=== PATIENT | male | born 1945 | race Caucasian/White ===

== ENCOUNTER 2016-06-11 13:51 | Inpatient (IN) ==
--- NOTE | 2016-06-11 14:16 | XRay Report ---
HISTORY: Reason for Exam:shortness of breath FINDINGS: Patient is large which causes scatter artifact. A small infiltrate may be developing medially in the right lung base. There is minor blunting of left costophrenic sulcus. The heart is mildly enlarged but magnified by portable technique. The pulmonary vessels, best seen in the upper lobes are normal in caliber. IMPRESSION: Possible small right lower lobe infiltrate Stable cardiomegaly Interpreted and Authenticated by: Michael Barraza 06/11/16
[2016-06-11 14:31] LABS: Basophils # (Auto) 0 K/mcL (0.0-0.3); Basophils % (Auto) 0.6 % (0.0-2.0); Eosinophils # (Auto) 0.1 K/mcL (0.0-0.7); Eosinophils % (Auto) 1.4 % (0.0-7.0); Granulocytes % (Auto) 76.8 % (38.0-78.0); Lymphocytes # (Auto) 0.6 K/mcL (1.5-4.8); Lymphocytes % (Auto) 10.3 % (15.5-49.0); Mean Cell Volume 91.3 fL (80.0-100.0); Mean Corpuscular HGB Conc 32.3 g/dL (31.0-36.0); Mean Corpuscular Hemoglobin 29.5 pg (26.0-34.0); Monocytes # (Auto) 0.6 K/mcL (0.1-0.9); Monocytes % (Auto) 10.9 % (1.0-9.0); Platelet Count 149 K/mcL (140-440); Red Cell Distribution Width 18.1 % (11.5-14.5)
[2016-06-11] MEDS ORDERED: BUMETANIDE 0.25 MG/ML VIAL IV ONE ×2 (14:32→15:18)
[2016-06-11 14:57] LABS: ALT/SGPT 20 U/l (0-40); Albumin 3.6 gm/dL (3.2-5.2); Albumin/Globulin Ratio 0.9 (1.0-2.3); Alkaline Phosphatase 185 U/L (39-117); Blood Urea Nitrogen 43 mg/dl (8-23)
[2016-06-11] MEDS ORDERED: oxyCODONE HCL 5 MG TABLET PO ONE ×2 (15:19→15:43)
--- NOTE | 2016-06-11 15:55 | Emergency Department Note ---
SOB HPI - General Chief Complaint: Shortness of Breath/Dyspnea Stated Complaint: Swelling from chest down, oozing ble Time Seen by Provider: 06/11/16 14:00 Source: patient Mode of arrival: EMS Limitations: no limitations - History of Present Illness 70-year-old kidney failure patient of Dr. David comes in for worsening lymphedema today up to the lower part of his chest. In particular is concerned about his swollen genitals. No fever but he does have some chills. Some nausea and vomiting. Mild hypoxia not on home oxygen. This has been gradually worsening over the last couple days. He is on a significant dose of Bumex twice a day which he is currently taking- he still makes urine with a baseline creatinine of about 3 - Related Data Home Medications Medication Instructions Recorded Confirmed amiodarone 200 mg tablet 200 mg PO QDAY tab 10/04/14 06/11/16 insulin glargine 100 unit/mL 20 unit SUB-Q HS ml 10/04/14 06/11/16 subcutaneous solution insulin lispro 100 unit/mL See Dose Instructions SUB-Q 10/04/14 06/11/16 subcutaneous solution .COMPLEX ml oxycodone 5 mg tablet 5 mg PO Q4HP PRN tab 10/04/14 06/11/16 tamsulosin 0.4 mg capsule 0.4 mg PO HS cap 10/04/14 06/11/16 warfarin 5 mg tablet 5 mg PO DAILY tab 10/04/14 04/21/16 ferrous sulfate 325 mg (65 mg 325 mg PO QDAY tab 02/17/16 06/11/16 iron) tablet ascorbic acid (vitamin C) 250 mg 250 mg PO QDAY 04/21/16 06/11/16 tablet aspirin 81 mg tablet,delayed 162 mg PO BID tab 04/21/16 04/21/16 release clopidogrel 75 mg tablet 75 mg PO QDAY 04/21/16 06/11/16 metoprolol tartrate 25 mg tablet 50 mg PO DAILY 04/21/16 06/11/16 polyethylene glycol 3350 17 17 g PO QDAY PRN 04/21/16 04/21/16 gram/dose oral powder potassium chloride ER 10 mEq 40 meq PO BID cap 04/21/16 06/11/16 capsule,extended release pravastatin 40 mg tablet 40 mg PO QHS 04/21/16 06/11/16 Calcitriol [Rocaltrol] 0.25 mcg PO Q48H 06/11/16 06/11/16 Metoprolol Tartrate [Lopressor] 25 mg PO HS 06/11/16 06/11/16 Multivitamin [Multi-Day Vitamins] 1 each PO DAILY 06/11/16 06/11/16 Potassium Chloride [K-Mildred] 40 meq PO BID 06/11/16 06/11/16 Vitamin D3 PO DAILY 06/11/16 sitaGLIPtin [Januvia] 50 mg PO DAILY 06/11/16 06/11/16 Previous Rx's Medication Instructions Recorded bumetanide 2 mg tablet 2 mg PO BID #30 tab 04/21/16 Allergies Allergy/AdvReac Type Severity Reaction Status Date / Time Grasses Allergy Unknown Unknown Uncoded 04/21/16 15:07 Review of Systems All systems ED: reviewed and negative except as stated. Past Medical History - Past Medical History Attestation: Yes: The following information was validated with the patient. Medical history: Reports: atrial fibrillation, CHF, coronary artery disease, diabetes (complicated by neuropathy), hyperlipidemia, hypertension, renal disease (diabetic nephropathy- ), other (peripheral vascular disease,a fib, cardiomyopathy, 3ckd,hyperl;ipdemia,) Surgical history ED: Reports: angioplasty/stent, herniorrhaphy, other (left lower leg stent by Dr Marshall) - Social History smoking status: Former smoker Alcohol use: Reports: None Drug use: Reports: none Physical Exam Normocephalic atraumatic. Conjunctiva clear sclerae white and anicteric. No nasal discharge or congestion. Mild shortness of breath with dry mouth- mouth breathing. Posterior pharynx is clear. Neck is supple without lymphadenopathy or thyromegaly or carotid bruit. Heart is regular rhythm on auscultation but tachycardic- rhythm strip shows atrial fibrillation with a rate in the 1 teens. Abdomen is mildly distended but nontender. Genitals and scrotum show dependent edema- about the size of a softball. Bilateral lower extremities with +3 edema past the knee. He is wearing Pipo wraps which showed drainage seeping through. He is alert oriented able to answer questions appropriately. - General Limitations: no limitations Course Vital Signs Temperature 96.8 F L 06/11/16 13:53 Pulse Rate 115 H 06/11/16 13:53 Respiratory Rate 20 06/11/16 13:53 Blood Pressure 159/94 06/11/16 13:53 Pulse Oximetry (%) 97 06/11/16 13:53 Temperature 98.4 F 06/12/16 04:13 Pulse Rate 95 H 06/12/16 04:13 Respiratory Rate 20 06/12/16 04:13 Blood Pressure 129/86 06/12/16 04:13 Pulse Oximetry (%) 94 06/12/16 04:13 Shortness of Breath/Dyspnea - Lab Data Lab results reviewed: Yes I reviewed the patient's lab results. Result diagrams: 06/12/16 03:40 06/12/16 03:40 Lab Results 06/11/16 06/11/16 06/11/16 Range/Units 14:04 14:04 14:04 WBC 5.7 (4.5-11.0) K/mcL RBC 3.50 L (4.50-5.90) M/mcL Hgb 10.4 L (13.5-16.5) g/dL Hct 32.0 L (41.0-55.0) % MCV 91.3 (80.0-100.0) fL MCH 29.5 (26.0-34.0) pg MCHC 32.3 (31.0-36.0) g/dL RDW 18.1 H (11.5-14.5) % Plt Count 149 (140-440) K/mcL MPV 8.7 (7.4-10.4) fL Gran % 76.8 (38.0-78.0) % Lymph % (Auto) 10.3 L (15.5-49.0) % Stephens % (Auto) 10.9 H (1.0-9.0) % Eos % (Auto) 1.4 (0.0-7.0) % Baso % (Auto) 0.6 (0.0-2.0) % Gran # 4.4 (1.8-8.0) K/mcL Lymph # 0.6 L (1.5-4.8) K/mcL Stephens # 0.6 (0.1-0.9) K/mcL Eos # 0.1 (0.0-0.7) K/mcL Baso # 0 (0.0-0.3) K/mcL Sodium 138 (133-145) mmol/L Potassium 4.3 (3.3-5.1) mmol/L Chloride 98 (96-108) mmol/L Carbon Dioxide 25 (22-30) mmol/L Anion Gap 15.0 (8-16) BUN 43 H (8-23) mg/dl Creatinine 2.7 H (0.7-1.2) mg/dl GFR Calculation 23 Glucose 320 H (70-105) mg/dL Hemoglobin A1c (4.0-6.0) % HGB Estim Average Glucose mg/dL Calcium 9.1 (8.6-10.4) mg/dl Total Bilirubin 1.4 H (0.0-1.0) mg/dL AST 31 (0-37) U/l ALT 20 (0-40) U/l Alkaline Phosphatase 185 H (39-117) U/L Troponin T 0.08 H* (0-0.03) ng/ml NT-Pro-B Natriuret Pep 3878.0 H (0-125) pg/ml Total Protein 7.7 (5.9-8.4) gm/dL Albumin 3.6 (3.2-5.2) gm/dL Globulin 4.1 H (2.2-3.7) gm/dL Albumin/Globulin Ratio 0.9 L (1.0-2.3) 06/11/16 Range/Units 14:04 WBC (4.5-11.0) K/mcL RBC (4.50-5.90) M/mcL Hgb (13.5-16.5) g/dL Hct (41.0-55.0) % MCV (80.0-100.0) fL MCH (26.0-34.0) pg MCHC (31.0-36.0) g/dL RDW (11.5-14.5) % Plt Count (140-440) K/mcL MPV (7.4-10.4) fL Gran % (38.0-78.0) % Lymph % (Auto) (15.5-49.0) % Stephens % (Auto) (1.0-9.0) % Eos % (Auto) (0.0-7.0) % Baso % (Auto) (0.0-2.0) % Gran # (1.8-8.0) K/mcL Lymph # (1.5-4.8) K/mcL Stephens # (0.1-0.9) K/mcL Eos # (0.0-0.7) K/mcL Baso # (0.0-0.3) K/mcL Sodium (133-145) mmol/L Potassium (3.3-5.1) mmol/L Chloride (96-108) mmol/L Carbon Dioxide (22-30) mmol/L Anion Gap (8-16) BUN (8-23) mg/dl Creatinine (0.7-1.2) mg/dl GFR Calculation Glucose (70-105) mg/dL Hemoglobin A1c 9.2 H (4.0-6.0) % HGB Estim Average Glucose 217 mg/dL Calcium (8.6-10.4) mg/dl Total Bilirubin (0.0-1.0) mg/dL AST (0-37) U/l ALT (0-40) U/l Alkaline Phosphatase (39-117) U/L Troponin T (0-0.03) ng/ml NT-Pro-B Natriuret Pep (0-125) pg/ml Total Protein (5.9-8.4) gm/dL Albumin (3.2-5.2) gm/dL Globulin (2.2-3.7) gm/dL Albumin/Globulin Ratio (1.0-2.3) - Radiology Data Radiology results reviewed: Yes I reviewed the patient's radiology results. Chest x-ray shows cardiomegaly but minimal pulmonary congestion and no infiltrate - EKG Data EKG attestation: Yes I reviewed and interpreted this EKG. EKG results narrative: EKG shows rate of 120 atrial fibrillation but no change compared to 04/10/2016 Reviewed last echocardiogram which was done in October 2015 he had an ejection fraction of 30-35% Disposition Summary: Severely fluid overloaded likely from CHF, CKD and increased need for diuresis. Only mildly hypoxic with normal chest x-ray Initially worked up with laboratory and imaging. Increased Bumex- given 3 more milligrams. Singh catheter was placed which showed good output Discussed patient's situation with Dr. clemons hospitalist who agreed to accept patient in transfer after discussing with Dr. Urbina his factory representative Disposition: Xfer As Inpt ([facility]) Condition: Serious
--- NOTE | 2016-06-11 18:48 | Nephrology Consult Note ---
History of Present Illness - Reason for Consult Patient information: Note initiated : 06/11/16 at 6:44 pm Service Date, if different from initiated Date: [] Patient: Phu Bryson a 70 y/o M admitted on for Swelling from chest down, oozing ble. Chief Complaint: [] Consult date: 06/11/16 chronic renal failure Requesting physician: Loc Montalvo - Chief Complaint SOB, EDEMA - History of Present Illness Mr Bryson is a 70 y/o pleasant white male with PMH of HTN, DM type 2, Afib, CKD and other multiple medical issues who presented to the ED with worsening edema Patient states that he has gradual worsening of his edema for the last few weeks , his dry weight is in 230-240 lbs and he is weighing 304lbs His edema extents upto his chest and it has also c/o getting SOB progressively He denies chest pain He states compliance with bumex but does not remember if he is taking his metolazone he does have h/o dietary sodium indiscretion nut he denies that he denies using NSAIDS No fever No GI issues, but constipated diffculty urinating because of penile and scrotal edema Review of Systems All systems PM: reviewed and no additional remarkable complaints except as stated (as in HPI) Past History Past medical history: DM type 2,uncontrolled with neuropathy CKD stage IV Ischemic cardiomyopathy, Afib, CAD, CHF HTN Renal osteodystrophy Past surgical history: s/p angioplasty s/p herniorraphy s/p LE angio and stent placement for PVD Past family history: Not pertinent Past social history: lives with his retired no current addictions Medications and Allergies Home Medications Medication Instructions Recorded Confirmed Type amiodarone 200 mg tablet 200 mg PO QDAY tab 10/04/14 06/11/16 History insulin glargine 100 unit/mL 20 unit SUB-Q HS ml 10/04/14 06/11/16 History subcutaneous solution insulin lispro 100 unit/mL See Dose Instructions SUB-Q 10/04/14 06/11/16 History subcutaneous solution .COMPLEX ml oxycodone 5 mg tablet 5 mg PO Q4HP PRN tab 10/04/14 06/11/16 History tamsulosin 0.4 mg capsule 0.4 mg PO HS cap 10/04/14 06/11/16 History warfarin 5 mg tablet 5 mg PO DAILY tab 10/04/14 04/21/16 History ferrous sulfate 325 mg (65 mg 325 mg PO QDAY tab 02/17/16 06/11/16 History iron) tablet ascorbic acid (vitamin C) 250 mg 250 mg PO QDAY 04/21/16 06/11/16 History tablet aspirin 81 mg tablet,delayed 162 mg PO BID tab 04/21/16 04/21/16 History release bumetanide 2 mg tablet 2 mg PO BID #30 tab 04/21/16 06/11/16 Rx clopidogrel 75 mg tablet 75 mg PO QDAY 04/21/16 06/11/16 History metoprolol tartrate 25 mg tablet 50 mg PO DAILY 04/21/16 06/11/16 History polyethylene glycol 3350 17 17 g PO QDAY PRN 04/21/16 04/21/16 History gram/dose oral powder potassium chloride ER 10 mEq 40 meq PO BID cap 04/21/16 06/11/16 History capsule,extended release pravastatin 40 mg tablet 40 mg PO QHS 04/21/16 06/11/16 History Calcitriol [Rocaltrol] 0.25 mcg PO Q48H 06/11/16 06/11/16 History Metoprolol Tartrate [Lopressor] 25 mg PO HS 06/11/16 06/11/16 History Multivitamin [Multi-Day Vitamins] 1 each PO DAILY 06/11/16 06/11/16 History Potassium Chloride [K-Mildred] 40 meq PO BID 06/11/16 06/11/16 History Vitamin D3 PO DAILY 06/11/16 History sitaGLIPtin [Januvia] 50 mg PO DAILY 06/11/16 06/11/16 History Allergies Allergy/AdvReac Type Severity Reaction Status Date / Time Grasses Allergy Unknown Unknown Uncoded 04/21/16 15:07 Exam - Vital Signs Vital signs: Temp Pulse Resp BP Pulse Ox 96.8 F L 76 26 H 117/76 96 06/11/16 13:53 06/11/16 18:00 06/11/16 18:00 06/11/16 18:00 06/11/16 18:00 - General Appearance General appearance: appears started age, obese EENT: mucous membranes moist Neck: JVD Respiratory: clear Cardiology: no rub, edema (anasarca ), irregular rhythm Gastrointestinal: no tenderness (distended,abdominal wall edema ++) Integumentary: warm and dry Neurologic: no focal deficit, alert and oriented x3 Musculoskeletal: no cyanosis, no clubbing Psychiatric: mood/affect appropriate Results - Lab Results 06/11/16 14:04 06/11/16 14:04 Most recent lab results Calcium 9.1 mg/dl (8.6-10.4) 06/11/16 14:04 Assessment and Plan (1) Congestive heart failure patient with acute on chronic systolic HF, has poor EF He has gained more than 50 lbs with anasarca on exam, CXR with no pulmonary edema unclear etiology, EF is 25-30%, repeat echo will need to be done Discussed with Dr Montalvo, will need lasix gtt, he already has received 3mg IV bumex so would start with lasix gtt at 10mg/hour and also give 5mg po metolazone prior to starting gtt close monitoring of vital signs, I/O and renal function and serum electolytes CKD stage IV: Renal function at baseline but need to follow with diuresis DM type 2: uncontrolled Anemia: Hb 10.4, will obtain work up if continues to trend down Will follow along Status: Acute Qualifiers: Congestive heart failure type: combined Congestive heart failure chronicity : acute on chronic Qualified Code(s): I50.43 - Acute on chronic combined systolic (congestive) and diastolic (congestive) heart failure (2) Chronic kidney disease, stage IV (severe) Status: Chronic Comment: Most recent s.creat is 3.15,egfr of 19ml/min CKD EPI equation renal function stable at around 3.0, no significant volume overload CHF and uncontrolled DM is likely etiology UPCR is only at 0.3 labs discussed hold metolazone work on better DM control will monitor, will go for AVF surgery if renal function continues to worsen
[2016-06-11] MEDS ORDERED: ACETAMINOPHEN 1,000 MG/100 ML BOTTLE IV PRN (19:21)
[2016-06-11] MEDS ORDERED: ACETAMINOPHEN 325 MG TABLET PO PRN (19:21)
[2016-06-11] MEDS ORDERED: POTASSIUM CHLORIDE 20 MEQ PACKET PO PRN (19:21)
[2016-06-11] MEDS ORDERED: ONDANSETRON 4 MG/2 ML VIAL IV PRN (19:21)
[2016-06-11] MEDS ORDERED: MAGNESIUM SULFATE 2 GM/50 ML BAG IV PRN (19:21)
[2016-06-11] MEDS ORDERED: DEXTROSE 50% 50 ML VIAL IV PRN (20:15)
[2016-06-11 20:29] LABS: C-Reactive Protein 3.1 mg/dl (0.0-0.8)
[2016-06-11] MEDS ORDERED: CALCITRIOL 0.25 MCG CAPSULE PO SCH (20:45)
[2016-06-11] MEDS ORDERED: FUROSEMIDE 100 MG/10 ML VIAL IV ONE (20:49)
[2016-06-11] MEDS ORDERED: cefTRIAXone 2 GM VIAL ONE (20:55)
[2016-06-11] MEDS: FUROSEMIDE 250 MG in 0.9 % SODIUM CHLORIDE 225 ML IV SCH (20:56)
[2016-06-11] MEDS ORDERED: HEPARIN 5,000 UNIT/ML VIAL SQ SCH (21:00)
[2016-06-11 21:11] LABS: Hemoglobin A1C 9.2 % HGB (4.0-6.0)
[2016-06-11] MEDS: cefTRIAXone 2 GM in DEXTROSE 5% IN WATER 50 ML IV SCH (21:52)
[2016-06-11] MEDS: INSULIN LISPRO 1 UNIT/0.01 ML UNIT SQ SCH (22:41)
[2016-06-11] MEDS: DOCUSATE SODIUM 100 MG CAPSULE PO SCH (22:41)
[2016-06-11] MEDS: TAMSULOSIN 0.4 MG CAPSULE PO SCH (22:42)
[2016-06-11] MEDS: SENNOSIDES/DOCUSATE SODIUM 1 TAB TABLET PO SCH (22:42)
[2016-06-11] MEDS: METOPROLOL TARTRATE 25 MG TABLET PO SCH (22:43)
[2016-06-11] MEDS: oxyCODONE HCL 5 MG TABLET PO PRN (22:43)
[2016-06-11] MEDS: 0.9 % SODIUM CHLORIDE 250 ML IV SCH (22:44)
[2016-06-11] MEDS: SIMVASTATIN 20 MG TABLET PO SCH (22:46)
[2016-06-11] MEDS: INSULIN GLARGINE, HUMAN 1 UNIT/0.01 ML SQ SCH (23:09)
[2016-06-11] MEDS: 0.9 % SODIUM CHLORIDE 10 ML SYRINGE IV SCH (23:10)
[2016-06-12] MEDS: 0.9 % SODIUM CHLORIDE 10 ML SYRINGE IV SCH ×3 (05:40→21:46)
--- NOTE | 2016-06-12 05:49 | History and Physical Report ---
DATE OF ADMISSION: 06/11/2016 DATE OF ADMISSION: 06/11/2016 REASON FOR ADMISSION: Generalized swelling and lower extremity ulcerations, shortness of breath, and unable to function. HISTORY OF CHIEF COMPLAINT: The patient is a 70-year-old with known history of diabetes, hypertension, generalized obesity and chronic kidney disease who follows up with Dr. Urbina. Over the last 3 months, the patient has had progressively gained weight from a baseline weight of 249 around new year to 277 as of today. He has had increasing lower extremity swelling along with weeping. He has had progressive difficulty ambulating , dyspnea at rest. He has also developed multiple sores around this left lower extremity and toes with foul smelling greenish discharge. He has not been able to function despite outpatient diuretics prescribed by crystal grower including Bumex and metolazone. He, however, denies changes in recent diet or excessive salt or NSAID intake. He also denies missing his regular medications. He endorses occasional cough, but no shaking chills, fever, headache, photophobia, nausea, vomiting. He denies joint pain, swelling or rash. REVIEW OF SYSTEMS: Ten-point review of system was performed and negative except the ones discussed above. PAST MEDICAL HISTORY: 1. Diabetes mellitus type 2. 2. Renal osteodystrophy 3. Chronic kidney disease stage IV. 4. Ischemic cardiomyopathy. 5. History of NYHA class 3 systolic heart failure with EF 30 percent. 6. Hypertension. 7. Hyperlipidemia. 8. Benign prostate hypertrophy. 9. Morbid obesity. CURRENT MEDICATIONS: Sitagliptin 50. Metoprolol 25. __0.25. Pravastatin 40. Potassium 40 twice daily Metoprolol 50. Plavix 75. Bumetanide 2 mg twice daily. Aspirin 162 twice daily. Warfarin 5 daily. Tamsulosin 0.4. Oxycodone 5. Glargine 20. Amiodarone 200. SOCIAL HISTORY: The patient lives in [place], along with significant other. He denies smoking or alcoholism. CODE STATUS: He is a FULL CODE STATUS. FAMILY HISTORY: Father had cancer. Coronary artery disease in mother. PHYSICAL EXAMINATION: GENERAL: The patient is remarkably short of breath and unable to talk in full sentences. BMI 40, height 5 feet 10 inches. VITAL SIGNS: Blood pressure 117/76, respiratory rate 26, temperature 96.8, pulse 119, saturations is 96 percent on room air. HEENT: Pupils symmetric. Oral cavity is dry. No ear or nose discharge. Head is normocephalic and atraumatic. NECK: No lymphadenopathy. HEART: S1, S2, irregular rhythm. ESM grade 1. Diminished breath sounds but no adventitious sounds or crackles. ABDOMEN: Distended. Extensive pannus. LYMPHATIC: Tense lymphedema involving upper abdomen, __ lower abdomen, buttocks extending all the way up to the toes pitting in nature. LOWER EXTREMITIES: Significant for tense lymphedema along with multiple areas of excoriation, ulceration, left lower extremity around mid paul and right second toe with greenish discharge. SKIN: Otherwise, no suspicious lesions. PSYCHIATRIC: Anxious labored breathing. NEUROLOGIC: Normal higher function on limited neuro exam. Moving all four extremities. LABS AND IMAGING: White count 5.7, hemoglobin 10.4. Sodium 134, potassium 4.3, creatinine 2.7, and BUN 43. Troponin 0.08. X-ray chest: Stable cardiomegaly. Right lower lobe infiltrate. ASSESSMENT AND PLAN: A 70-year-old admitted with anasarca. 1. Anasarca- underlying ischemic cardiomyopathy, ejection fraction 30 percent along with chronic kidney disease. The patient has been on high dose diuretics at home. We will start him on Lasix drip and will target up to 4000 mL negative in 24 hours. We will closely monitor electrolytes and replace as indicated. Nephrology was consulted. 2. History of chronic kidney disease. Nephrology consulted. 3. History of diabetes mellitus type 2. Continue basal prandial insulin. 4. Coronary artery disease. Continue Plavix, metoprolol, aspirin and statin. 5. Benign prostatic hypertrophy. Continue tamsulosin. 6. Atrial fibrillation. Continue amiodarone and metoprolol. 7. Anticoagulation for cerebrovascular accident prophylaxis. Continue Coumadin. PLAN FOR TODAY: 1. Admit as inpatient. 2. Aggressive diuresis. 3. Nephrology consultation. 4. Preexisting medical condition management as above. AA: Job ID: [id number] Doc ID: [id number] Loc [facility]alvo MD [facility]ITAL[facility]
[2016-06-12 06:18] LABS: Mean Cell Volume 92.2 fL (80.0-100.0); Mean Corpuscular HGB Conc 32.3 g/dL (31.0-36.0); Mean Corpuscular Hemoglobin 29.8 pg (26.0-34.0); Platelet Count 134 K/mcL (140-440); RBC 3.24 M/mcL (4.50-5.90); Red Cell Distribution Width 17.8 % (11.5-14.5)
[2016-06-12 06:57] LABS: ALT/SGPT 17 U/l (0-40); Albumin 3.3 gm/dL (3.2-5.2); Albumin/Globulin Ratio 0.8 (1.0-2.3); Alkaline Phosphatase 175 U/L (39-117); Bilirubin,Direct 0.4 mg/dL (0.0-0.3); Blood Urea Nitrogen 45 mg/dl (8-23); Gamma Glutamyl Transpeptidase 161 U/L (8-61); Magnesium 2.1 mg/dL (1.6-2.5); Phosphorous 3.4 mg/dL (2.7-4.5); Uric Acid 10.8 mg/dL (2.5-8.0)
[2016-06-12] MEDS: METOLAZONE 2.5 MG TABLET PO SCH ×2 (07:33→15:31)
[2016-06-12] MEDS: INSULIN LISPRO 1 UNIT/0.01 ML UNIT SQ SCH ×4 (07:41→21:36)
[2016-06-12 07:52] LABS: Anisocytosis 1+ (NONE SEEN); Band Neutrophils % 1 % (0-10); Eosinophils % (Manual) 3 % (0-7); Lymphocytes % 14 % (15-49); Monocytes % (Manual) 9 % (1-9); Platelet Estimate DECREASED (NORMAL); RBC Morphology ABNORM (NORMAL); Segmented Neutrophils % 73 % (38-78)
[2016-06-12] MEDS: POTASSIUM CHLORIDE 20 MEQ TABLET PO SCH ×2 (10:16→17:11)
[2016-06-12] MEDS: CLOPIDOGREL 75 MG TABLET PO SCH (10:16)
[2016-06-12] MEDS: ASPIRIN 81 MG TAB.CHEW CHEWED SCH (10:17)
[2016-06-12] MEDS: METOPROLOL TARTRATE 25 MG TABLET PO SCH ×2 (10:17→21:35)
[2016-06-12] MEDS: DOCUSATE SODIUM 100 MG CAPSULE PO SCH ×2 (10:17→21:34)
[2016-06-12] MEDS: AMIODARONE HCL 200 MG TABLET PO SCH (10:17)
[2016-06-12] MEDS: cefTRIAXone 2 GM in DEXTROSE 5% IN WATER 50 ML IV SCH (10:17)
[2016-06-12] MEDS: 0.9 % SODIUM CHLORIDE 250 ML IV SCH ×2 (11:09→21:38)
[2016-06-12] MEDS ORDERED: MAGNESIUM CITRATE 300 ML ORAL.SOL PO ONE (11:31)
--- NOTE | 2016-06-12 12:13 | Internal Med Progress Note ---
Medical - PN: Subj Patient information: Note initiated : 06/12/16 at 12:06 pm Service Date, if different from initiated Date: [] Patient: Phu Bryson 70 y/o M admitted on 06/11/16 for Swelling from Chest Down, Oozing BLE/Anasarca. Chief Complaint: [] Interval history: /- patient admitted with generalized anasarca with underlying NYHA class III systolic heart failure EF 30% and chronic kidney disease with baseline creatinine 2.5. Patient's dry weight was around 240 around Reji and currently at 277. started on Lasix drip with satisfactory initial response. it' s unclear if patient has been taking his home dose Bumex and metolazone. He has been followed up by nephrology as an outpatient and has had a history of poor compliance with medications. Admitted to telemetry for continuous Lasix infusion and target around 9000-10,000 cc net negative over 72 hours. Massively swollen scrotum. bilateral lower extremity wounds secondary to stasis and lymphedema. wound care consulted 3/3- over 3500 cc negative in the last 24 hours. Adequate response to Lasix. improved shortness of breath and able to talk in full sentences. wound care ongoing commercial credit specialist. No overnight fever chills. Nephrology on board. Stable electrolytes. Creatinine 2.8. INR 1.9. atrial fibrillation rate controlled - Constitutional Vitals: Vital Signs Temp Pulse Resp BP Pulse Ox 97.3 F L 96 H 20 156/84 96 06/12/16 07:43 06/12/16 07:43 06/12/16 07:43 06/12/16 07:43 06/12/16 08:03 Period Temp Pulse Resp BP Sys/Goodwin Pulse Ox Last 24 Hr 97.3 F-98.4 F 95-121 16-23 129-161/82-106 94-99 Intake and Output 06/11/16 06/12/16 06/12/16 21:59 05:59 13:59 Intake Total 700 / 700 290 / 290 Output Total 370 / 2570 800 / 800 1030 / 1030 Balance -370 / -2570 -100 / -100 -740 / -740 Weight 277 lb 8 oz Intake & Output: Intake & Output 06/11/16 06/12/16 06/12/16 21:59 05:59 13:59 Intake Total 700 / 700 290 / 290 Output Total 370 / 2570 800 / 800 1030 / 1030 Balance -370 / -2570 -100 / -100 -740 / -740 Weight 277 lb 8 oz Intake: IV 50 / 50 Dextrose 5% in Water 50 50 / 50 ml @ 100 mls/hr IV Q24H OTTO with Rocephin 2 gm Rx #:[id number] Oral 700 / 700 240 / 240 Output: Urine Catheter Amount 370 / 370 800 / 800 1030 / 1030 Other: Meal Breakfast Percent of Meal Consumed 75% Feeding Ability Assist with Tray Set Up General appearance: disheveled, moderate distress (clinically improved since previous day), morbidly obese Exam: minimally labored breathing Generalized anasarca but improved since previous day Foleys draining clear urine Bilateral lower leg wounds managed by wound care No anxiety Medical - PN: Obj Da - Labs CBC & Chem 7: 06/12/16 03:40 06/12/16 03:40 Labs: Abnormal Lab Results 06/12/16 06/12/16 06/12/16 04:00 03:40 03:40 RBC 3.24 L Hgb 9.7 L Hct 29.9 L RDW 17.8 H Plt Count 134 L Lymphocytes % 14 L Platelet Estimate Decreased A RBC Morphology Abnorm A Anisocytosis 1+ A PT 22.0 H INR 1.9 H BUN 45 H Creatinine 2.8 H Glucose 218 H Uric Acid 10.8 H Direct Bilirubin 0.4 H GGT 161 H Alkaline Phosphatase 175 H C-Reactive Protein Globulin 3.9 H Albumin/Globulin Ratio 0.8 L 06/11/16 19:25 RBC Hgb Hct RDW Plt Count Lymphocytes % Platelet Estimate RBC Morphology Anisocytosis PT INR BUN Creatinine Glucose Uric Acid Direct Bilirubin GGT Alkaline Phosphatase C-Reactive Protein 3.1 H Globulin Albumin/Globulin Ratio Meds: Medications Acetaminophen (Tylenol) 650 mg PO Q4-6HP PRN PRN Reason: PAIN/FEVER > 101 Amiodarone HCl (Cordarone) 200 mg PO QDAY [facility] Last Admin: 06/12/16 10:17 Dose: 200 mg Aspirin (Aspirin) 81 mg CHEWED DAILY [facility] Last Admin: 06/12/16 10:17 Dose: 81 mg Calcitriol (Rocaltrol) 0.25 mcg PO Q48@0900 [facility] Clopidogrel Bisulfate (Plavix) 75 mg PO QDAY [facility] Last Admin: 06/12/16 10:16 Dose: 75 mg Dextrose (Dextrose 50%) 0 ml IV UD PRN PRN Reason: Hypoglycemia Diagnostic Test (Pha) (Accu-Chek) 1 each FS ACHS [facility] Last Admin: 06/12/16 11:44 Dose: 1 each Docusate Sodium (Colace) 100 mg PO BID [facility] Last Admin: 06/12/16 10:17 Dose: 100 mg Furosemide 250 mg/ Sodium (Chloride) 250 mls @ 10 mls/hr IV Q24H [facility]; 10 MG/HR PRN Reason: Protocol Last Admin: 06/11/16 20:56 Dose: Not Given Magnesium Sulfate (Magnesium Sulfate) 2 gm in 50 mls @ 50 mls/hr IV UD PRN PRN Reason: MG = or < 1.7 Acetaminophen (Ofirmev) 1,000 mg in 100 mls @ 200 mls/hr IV Q6HP PRN PRN Reason: PAIN/FEVER > 101 Ceftriaxone Sodium 2 gm/ (Dextrose) 50 mls @ 100 mls/hr IV Q24H [facility] Last Infusion: 06/12/16 10:47 Dose: Infused Sodium Chloride (Sodium Chloride 0.9%) 250 mls @ 20 mls/hr IV .[id number] [facility] Last Admin: 06/12/16 11:09 Dose: Not Given Insulin Glargine (Lantus) [address] [facility] Last Admin: 06/11/16 23:09 Dose: 20 unit Insulin Human Lispro (Humalog) 0 unit SQ [facility] PRN Reason: Protocol Last Admin: 06/12/16 11:44 Dose: 4 unit Metolazone (Zaroxolyn) 2.5 mg PO BID@0730,1530 [facility] Last Admin: 06/12/16 07:33 Dose: 2.5 mg Metoprolol Tartrate (Lopressor) 25 mg PO HS [facility] Last Admin: 06/11/16 22:43 Dose: 25 mg Metoprolol Tartrate (Lopressor) 50 mg PO DAILY [facility] Last Admin: 06/12/16 10:17 Dose: 50 mg Ondansetron HCl (Zofran) 4 mg IV Q4-6HP PRN PRN Reason: Nausea And Vomiting Oxycodone HCl (Roxicodone) 5 mg PO Q4HP PRN PRN Reason: Pain Last Admin: 06/11/16 22:43 Dose: 5 mg Potassium Chloride (Klor-Con) 40 meq PO DAILYP PRN PRN Reason: K+ < 3.5 Potassium Chloride (Kdur) 40 meq PO BIDCC [facility] Last Admin: 06/12/16 10:16 Dose: 40 meq Senna/Docusate Sodium (Senna Plus Tablet) [address] [facility] Last Admin: 06/11/16 22:42 Dose: 1 tab Simvastatin (Zocor) [address] [facility] Last Admin: 06/11/16 22:46 Dose: 20 mg Sodium Chloride (Saline Flush) 10 ml IV Q8 [facility] Last Admin: 06/12/16 05:40 Dose: 10 ml Tamsulosin HCl (Flomax) 0.[address] [facility] Last Admin: 06/11/16 22:42 Dose: 0.4 mg Warfarin Sodium (Coumadin) 5 mg PO DAILY@1400 [facility] Medical - PN: A/P - Time Spent With Patient Total time spent is greater than 50% in coordination of care (as documented) at patient's floor/unit and/or counseling patient: 25 - 35 minutes (1) Anasarca associated with disorder of kidney Status: Acute Assessment and plan: * Anasarca combination of underlying NYHA class III systolic heart failure with 30% EF and chronic renal failure. On Lasix drip with adequate diuresis achieved in last 24 hours. Over 3500 cc negative. Target 10,000 cc negative and total. Monitor electrolytes closely * History of CKD- management nephrology. Creatinine 2.7 * DM type II-continue basal prandial insulin/sitagliptin * Atrial fibrillation rate controlled on metoprolol/amiodarone * CAD-continue Plavix/statin * BPH-on tamsulosin * Anticoagulation for CVA prophylaxis on Coumadin(combination of Coumadin/ Plavix with patient and high risk bleeding)however this needs to be addressed by primary care physician as outpatient. plan * Aggressive diuresis on Lasix drip * electrolyte Management * Every 12 hourly BMP checks * pre-existing medical condition management as above Current Visit: Yes Medical - PN: Qual - VTE Deep Vein Thrombosis/Pulmonary Embolism Present on Admission: No
--- NOTE | 2016-06-12 12:51 | General Surgery Consult Note ---
History of Present Illness Patient information: Note initiated : 06/12/16 at 12:47 pm Service Date, if different from initiated Date: [] Patient: Phu Bryson 70 y/o M admitted on 06/11/16 for Swelling from Chest Down, Oozing BLE/Anasarca. Chief Complaint: [] Consult date: 06/12/16 Requesting physician: Loc Montalvo History of present illness: Wound care consult for open skin and sub cutaneous wounds of right and left legs. 70/M with CHF, CKD and Anasarca and skin and sub cutaneous ulcerations of both legs. Pressure ulcers.leading to lymphatic fluid leakage. There is NO evidence of DVT or Cellulitis. He has chronic thick sclerotic skin and sub cutaneous tissues of dorsal feet and ankle kandi. Medications and Allergies Home Medications Medication Instructions Recorded Confirmed Type amiodarone 200 mg tablet 200 mg PO QDAY tab 10/04/14 06/11/16 History insulin glargine 100 unit/mL 20 unit SUB-Q HS ml 10/04/14 06/11/16 History subcutaneous solution insulin lispro 100 unit/mL See Dose Instructions SUB-Q 10/04/14 06/11/16 History subcutaneous solution .COMPLEX ml oxycodone 5 mg tablet 5 mg PO Q4HP PRN tab 10/04/14 06/11/16 History tamsulosin 0.4 mg capsule 0.4 mg PO HS cap 10/04/14 06/11/16 History warfarin 5 mg tablet 5 mg PO DAILY tab 10/04/14 04/21/16 History ferrous sulfate 325 mg (65 mg 325 mg PO QDAY tab 02/17/16 06/11/16 History iron) tablet ascorbic acid (vitamin C) 250 mg 250 mg PO QDAY 04/21/16 06/11/16 History tablet aspirin 81 mg tablet,delayed 162 mg PO BID tab 04/21/16 04/21/16 History release bumetanide 2 mg tablet 2 mg PO BID #30 tab 04/21/16 06/11/16 Rx clopidogrel 75 mg tablet 75 mg PO QDAY 04/21/16 06/11/16 History metoprolol tartrate 25 mg tablet 50 mg PO DAILY 04/21/16 06/11/16 History polyethylene glycol 3350 17 17 g PO QDAY PRN 04/21/16 04/21/16 History gram/dose oral powder potassium chloride ER 10 mEq 40 meq PO BID cap 04/21/16 06/11/16 History capsule,extended release pravastatin 40 mg tablet 40 mg PO QHS 04/21/16 06/11/16 History Calcitriol [Rocaltrol] 0.25 mcg PO Q48H 06/11/16 06/11/16 History Metoprolol Tartrate [Lopressor] 25 mg PO HS 06/11/16 06/11/16 History Multivitamin [Multi-Day Vitamins] 1 each PO DAILY 06/11/16 06/11/16 History Potassium Chloride [K-Mildred] 40 meq PO BID 06/11/16 06/11/16 History Vitamin D3 PO DAILY 06/11/16 History sitaGLIPtin [Januvia] 50 mg PO DAILY 06/11/16 06/11/16 History Allergies Allergy/AdvReac Type Severity Reaction Status Date / Time Grasses Allergy Unknown Unknown Uncoded 04/21/16 15:07 Exam Temp Pulse Resp BP Pulse Ox 97.3 F L 96 H 20 156/84 96 06/12/16 07:43 06/12/16 07:43 06/12/16 07:43 06/12/16 07:43 06/12/16 08:03 - General physical appearance no distress, obese - Eyes PERRL, normal ocular movement - ENT normal pinna, normal nares, normal mucosa, no congestion - Head Head exam IM: Present: atraumatic, normal inspection, normocephalic - Neck no masses, no bruits, trachea midline, no lymphadectomy, no venous distension - Cardiovascular Cardiovascular exam IM: Present: irregular rhythm - Respiratory normal expansion absent breath sounds: bilateral (Decreased air entry at bases) - Abdomen Abdomen: Present: soft, non tender - Genitourinary Present: other (GROSS SCROTATL EDEMA with penis buried in scrotum. Floey catheter draining clear urine) - Integumentary Present: other (Pressure ulcers both legs lateral aspects with pigmentation and adipose exposed at lpwer calf areas. Total BSA < 5 %. NO CELLULITITS, Sclerosing dermatitis both dorsal feet and anterior ankles. ) - Neurologic Present: normal coordination, normal sensation, other (Non focal and NON lateralizing neurological examination. ) - Musculoskeletal Present: other (Patient in bed Moves all extremities. EDEMA / anasarca from lower chest to feet and toes. ) - Psychiatric Present: oriented to time, oriented to person, oriented to place, speech is normal, memory intact Results - Labs 06/13/16 03:26 06/13/16 03:26 Abnormal lab results 06/11/16 06/12/16 06/12/16 Range/Units 19:25 03:40 03:40 RBC 3.24 L (4.50-5.90) M/mcL Hgb 9.7 L (13.5-16.5) g/dL Hct 29.9 L (41.0-55.0) % RDW 17.8 H (11.5-14.5) % Plt Count 134 L (140-440) K/mcL Lymphocytes % 14 L (15-49) % Platelet Estimate Decreased A (NORMAL) RBC Morphology Abnorm A (NORMAL) Anisocytosis 1+ A (NONE SEEN) PT (11.9-14.5) sec INR (0.9-1.1) BUN 45 H (8-23) mg/dl Creatinine 2.8 H (0.7-1.2) mg/dl Glucose 218 H (70-105) mg/dL Uric Acid 10.8 H (2.5-8.0) mg/dL Direct Bilirubin 0.4 H (0.0-0.3) mg/dL GGT 161 H (8-61) U/L Alkaline Phosphatase 175 H (39-117) U/L C-Reactive Protein 3.1 H (0.0-0.8) mg/dl Globulin 3.9 H (2.2-3.7) gm/dL Albumin/Globulin Ratio 0.8 L (1.0-2.3) 06/12/16 Range/Units 04:00 RBC (4.50-5.90) M/mcL Hgb (13.5-16.5) g/dL Hct (41.0-55.0) % RDW (11.5-14.5) % Plt Count (140-440) K/mcL Lymphocytes % (15-49) % Platelet Estimate (NORMAL) RBC Morphology (NORMAL) Anisocytosis (NONE SEEN) PT 22.0 H (11.9-14.5) sec INR 1.9 H (0.9-1.1) BUN (8-23) mg/dl Creatinine (0.7-1.2) mg/dl Glucose (70-105) mg/dL Uric Acid (2.5-8.0) mg/dL Direct Bilirubin (0.0-0.3) mg/dL GGT (8-61) U/L Alkaline Phosphatase (39-117) U/L C-Reactive Protein (0.0-0.8) mg/dl Globulin (2.2-3.7) gm/dL Albumin/Globulin Ratio (1.0-2.3) Diabetes panel 06/12/16 Range/Units 03:40 Sodium 140 (133-145) mmol/L Potassium 3.6 (3.3-5.1) mmol/L Chloride 99 (96-108) mmol/L Carbon Dioxide 26 (22-30) mmol/L BUN 45 H (8-23) mg/dl Creatinine 2.8 H (0.7-1.2) mg/dl Glucose 218 H (70-105) mg/dL Calcium 9.0 (8.6-10.4) mg/dl AST 22 (0-37) U/l ALT 17 (0-40) U/l Alkaline Phosphatase 175 H (39-117) U/L Total Protein 7.2 (5.9-8.4) gm/dL Albumin 3.3 (3.2-5.2) gm/dL Triglycerides 70 (<150) mg/dl Calcium panel 06/12/16 Range/Units 03:40 Calcium 9.0 (8.6-10.4) mg/dl Phosphorus 3.4 (2.7-4.5) mg/dL Albumin 3.3 (3.2-5.2) gm/dL Pituitary panel 06/12/16 Range/Units 03:40 Sodium 140 (133-145) mmol/L Potassium 3.6 (3.3-5.1) mmol/L Chloride 99 (96-108) mmol/L Carbon Dioxide 26 (22-30) mmol/L BUN 45 H (8-23) mg/dl Creatinine 2.8 H (0.7-1.2) mg/dl Glucose 218 H (70-105) mg/dL Calcium 9.0 (8.6-10.4) mg/dl Adrenal panel 06/12/16 Range/Units 03:40 Sodium 140 (133-145) mmol/L Potassium 3.6 (3.3-5.1) mmol/L Chloride 99 (96-108) mmol/L Carbon Dioxide 26 (22-30) mmol/L BUN 45 H (8-23) mg/dl Creatinine 2.8 H (0.7-1.2) mg/dl Glucose 218 H (70-105) mg/dL Calcium 9.0 (8.6-10.4) mg/dl Total Bilirubin 0.9 (0.0-1.0) mg/dL AST 22 (0-37) U/l ALT 17 (0-40) U/l Alkaline Phosphatase 175 H (39-117) U/L Total Protein 7.2 (5.9-8.4) gm/dL Albumin 3.3 (3.2-5.2) gm/dL All other labs normal. Assessment and Plan (1) Pressure ulcer of lower extremity Plan of care reviewed with Dr. Montalvo and . Medical treatment of Renal / Cardiac issues is ongoing.. Reg; Skin Ulcers of both legs. RECOMMEND; Clean with Hibiclens liquid soap and warm water from knees to toes BID and apply Silvadene creme and AMD KErlix bandage from knees to forefoot and toes . Change dressings daily. Will follow patient along with you; Status: Chronic Priority: Low Comment: Bilateral legs lateral upper and mid third . Chronic with patchy adipose tissue exposed. CHRONIC and colonized. Wound cultures. Contaminated wounds ?? MRSA Qualifiers: Pressure ulcer stage: stage 2 Qualified Code(s): L89.892 - Pressure ulcer of other site, stage 2
--- NOTE | 2016-06-12 13:37 | Nephrology Progress Note ---
Subjective Patient information: Note initiated : 06/12/16 at 1:33 pm Service Date, if different from initiated Date: [] Patient: Phu Bryson 70 y/o M admitted on 06/11/16 for Swelling from Chest Down, Oozing BLE/Anasarca. Chief Complaint: [] Principal diagnosis: CHF Interval history: Good response to IV diuretics, lasix gtt with 2.7L net negative still has considerable edema, almost 60 lbs weight gain which will take time to resolve no SOB, unable to move though also has blisters and wounds from persistent edema no CP, no dizziness No uremic symptoms no other events Pertinent ROS: as above Objective - Vital Signs Vital signs: Vital Signs Temp Pulse Resp BP Pulse Ox 06/12/16 12:00 97.2 F L 98 H 20 152/90 95 06/12/16 08:03 96 06/12/16 07:43 97.3 F L 96 H 20 156/84 96 06/12/16 04:13 98.4 F 95 H 20 129/86 94 06/12/16 00:00 97.8 F 102 H 16 135/82 99 06/11/16 22:00 121 H 23 155/92 96 06/11/16 21:00 109 H 22 161/106 96 Intake and Output 06/11/16 06/12/16 06/12/16 21:59 05:59 13:59 Intake Total 700 / 700 290 / 290 Output Total 370 / 2570 800 / 800 1380 / 1380 Balance -370 / -2570 -100 / -100 -1090 / -1090 Intake: IV 50 / 50 Dextrose 5% in Water 50 50 / 50 ml @ 100 mls/hr IV Q24H OTTO with Rocephin 2 gm Rx #:[id number] Oral 700 / 700 240 / 240 Output: Urine Catheter Amount 370 / 370 800 / 800 1380 / 1380 Other: Meal Breakfast Percent of Meal Consumed 75% Feeding Ability Assist with Tray Set Up Weight 277 lb 8 oz Intake & Output: Intake & Output 06/11/16 06/12/16 06/12/16 21:59 05:59 13:59 Intake Total 700 / 700 290 / 290 Output Total 370 / 2570 800 / 800 1380 / 1380 Balance -370 / -2570 -100 / -100 -1090 / -1090 Weight 277 lb 8 oz Intake: IV 50 / 50 Dextrose 5% in Water 50 50 / 50 ml @ 100 mls/hr IV Q24H OTTO with Rocephin 2 gm Rx #:[id number] Oral 700 / 700 240 / 240 Output: Urine Catheter Amount 370 / 370 800 / 800 1380 / 1380 Other: Meal Breakfast Percent of Meal Consumed 75% Feeding Ability Assist with Tray Set Up - General Appearance General appearance: appears started age, obese EENT: mucous membranes moist Neck: JVD Respiratory: clear Cardiology: no rub, edema (anasarca ), irregular rhythm Gastrointestinal: no tenderness, no guarding Integumentary: warm and dry, chronic venous stasis Neurologic: no focal deficit, alert and oriented x3 Musculoskeletal: no cyanosis, no clubbing Psychiatric: mood/affect appropriate - Lab 06/12/16 03:40 06/12/16 03:40 Most recent lab results Calcium 9.0 mg/dl (8.6-10.4) 06/12/16 03:40 Phosphorus 3.4 mg/dL (2.7-4.5) 06/12/16 03:40 Magnesium 2.1 mg/dL (1.6-2.5) 06/12/16 03:40 Assessment and Plan (1) Chronic kidney disease, stage IV (severe) renal function stable no worsening, serum electrolytes stable despite diuresis will monitor Acute on chronic systolic CHF: still with significant edema continue lasix gtt at 10mg/hour and continue metolazone will monitor Anemia: will obtain work up will follow along Status: Chronic Comment: Most recent s.creat is 3.15,egfr of 19ml/min CKD EPI equation renal function stable at around 3.0, no significant volume overload CHF and uncontrolled DM is likely etiology UPCR is only at 0.3 labs discussed hold metolazone work on better DM control will monitor, will go for AVF surgery if renal function continues to worsen
[2016-06-12] MEDS: WARFARIN 5 MG TABLET PO SCH (14:19)
[2016-06-12] MEDS: SILVER SULFADIAZINE CREAM.TOP 400GM TOPICAL SCH ×2 (17:49→21:35)
[2016-06-12 18:47] LABS: Appearance,Urine TURBID; Bacteria,Urine 0 /hpf (0); Bilirubin,Urine NEG (NEG); Color,Urine YELLOW; Glucose,Urine (UA) >=500 mg/dL (NEG); Leukocyte Esterase,Urine NEG /uL (NEG); Mucus,Urine FEW /hpf (0); Nitrate,Urine NEG (NEG); Protein,Urine 100 mg/dL (NEG); Specific Gravity,Urine 1.016 (1.000-1.035); Urine Blood NEG mg/dL (<0.03); Urine RBC 7 /hpf (0-1); Urine Squamous Epithelial Cell 0 /hpf (0-4); Urine WBC 0 /hpf (0-4)
[2016-06-12] MEDS ORDERED: SILVER SULFADIAZINE CREAM.TOP 25GM TOPICAL SCH (21:00)
[2016-06-12] MEDS: oxyCODONE HCL 5 MG TABLET PO PRN (21:34)
[2016-06-12] MEDS: INSULIN GLARGINE, HUMAN 1 UNIT/0.01 ML SQ SCH (21:35)
[2016-06-12] MEDS: TAMSULOSIN 0.4 MG CAPSULE PO SCH (21:35)
[2016-06-12] MEDS: FUROSEMIDE 250 MG in 0.9 % SODIUM CHLORIDE 225 ML IV SCH (21:37)
[2016-06-12] MEDS: SIMVASTATIN 20 MG TABLET PO SCH (21:39)
[2016-06-12] MEDS: SENNOSIDES/DOCUSATE SODIUM 1 TAB TABLET PO SCH (21:41)
[2016-06-13 05:00] LABS: Mean Cell Volume 91.2 fL (80.0-100.0); Mean Corpuscular HGB Conc 32.6 g/dL (31.0-36.0); Mean Corpuscular Hemoglobin 29.7 pg (26.0-34.0); Platelet Count 129 K/mcL (140-440); RBC 3.22 M/mcL (4.50-5.90); Red Cell Distribution Width 17.6 % (11.5-14.5)
[2016-06-13 05:16] LABS: ALT/SGPT 14 U/l (0-40); Albumin 3.1 gm/dL (3.2-5.2); Albumin/Globulin Ratio 0.9 (1.0-2.3); Alkaline Phosphatase 175 U/L (39-117); Bilirubin,Direct 0.4 mg/dL (0.0-0.3); Blood Urea Nitrogen 45 mg/dl (8-23); Gamma Glutamyl Transpeptidase 162 U/L (8-61); Phosphorous 3.7 mg/dL (2.7-4.5); Uric Acid 11.1 mg/dL (2.5-8.0)
[2016-06-13] MEDS: oxyCODONE HCL 5 MG TABLET PO PRN (05:50)
[2016-06-13] MEDS: 0.9 % SODIUM CHLORIDE 10 ML SYRINGE IV SCH ×3 (05:50→20:15)
[2016-06-13] MEDS: METOLAZONE 2.5 MG TABLET PO SCH ×2 (07:01→15:41)
[2016-06-13] MEDS: INSULIN LISPRO 1 UNIT/0.01 ML UNIT SQ SCH ×4 (07:03→20:09)
[2016-06-13 07:29] LABS: Anisocytosis 1+ (NONE SEEN); Basophils % (Manual) 2 % (0-2); Eosinophils % (Manual) 4 % (0-7); Lymphocytes % 8 % (15-49); Monocytes % (Manual) 10 % (1-9); Platelet Estimate DECREASED (NORMAL); RBC Morphology ABNORM (NORMAL); Segmented Neutrophils % 76 % (38-78)
[2016-06-13] MEDS: AMIODARONE HCL 200 MG TABLET PO SCH (08:46)
[2016-06-13] MEDS: CLOPIDOGREL 75 MG TABLET PO SCH (08:46)
[2016-06-13] MEDS: CALCITRIOL 0.25 MCG CAPSULE PO SCH (08:46)
[2016-06-13] MEDS: POTASSIUM CHLORIDE 20 MEQ TABLET PO SCH ×2 (08:46→17:23)
[2016-06-13] MEDS: DOCUSATE SODIUM 100 MG CAPSULE PO SCH ×2 (08:47→20:11)
[2016-06-13] MEDS: ASPIRIN 81 MG TAB.CHEW CHEWED SCH (08:47)
[2016-06-13] MEDS: METOPROLOL TARTRATE 25 MG TABLET PO SCH ×2 (08:47→20:11)
[2016-06-13] MEDS: cefTRIAXone 2 GM in DEXTROSE 5% IN WATER 50 ML IV SCH (08:47)
--- NOTE | 2016-06-13 08:48 | XRay Report ---
HISTORY: Reason for Exam:Interval Change- CHF FINDINGS: Heart is mildly enlarged. There is a generalized hazy alveolar opacity in the central portion both lungs. Tiny left-sided pleural effusion is present. The cardiomegaly is unchanged from 3-17. The alveolar opacities have become worse. IMPRESSION: Congestive heart failure or pulmonary edema. Superimposed pneumonia cannot be excluded. Interpreted and Authenticated by: Michael Barraza 06/13/16
[2016-06-13] MEDS: SILVER SULFADIAZINE CREAM.TOP 400GM TOPICAL SCH ×2 (09:00→20:13)
[2016-06-13] MEDS ORDERED: MAGNESIUM CITRATE 300 ML ORAL.SOL PO ONE (09:47)
--- NOTE | 2016-06-13 12:27 | Internal Med Progress Note ---
Medical - PN: Subj Patient information: Note initiated : 06/13/16 at 12:24 pm Service Date, if different from initiated Date: [] Patient: Phu Bryson 70 y/o M admitted on 06/11/16 for Swelling from Chest Down, Oozing BLE/Anasarca. Chief Complaint: [] Interval history: /- patient admitted with generalized anasarca with underlying NYHA class III systolic heart failure EF 30% and chronic kidney disease with baseline creatinine 2.5. Patient's dry weight was around 240 around Reji and currently at 277. started on Lasix drip with satisfactory initial response. it' s unclear if patient has been taking his home dose Bumex and metolazone. He has been followed up by nephrology as an outpatient and has had a history of poor compliance with medications. Admitted to telemetry for continuous Lasix infusion and target around 9000-10,000 cc net negative over 72 hours. Massively swollen scrotum. bilateral lower extremity wounds secondary to stasis and lymphedema. wound care consulted 3/3- over 3500 cc negative in the last 24 hours. Adequate response to Lasix. improved shortness of breath and able to talk in full sentences. wound care ongoing social media specialist. No overnight fever chills. Nephrology on board. Stable electrolytes. Creatinine 2.8. INR 1.9. atrial fibrillation rate controlled 3/4-. With adequate response to Lasix over 3500 cc net negative in 24 hours cumulative 5000 cc since admission. extensive lymphedema/anasarca. on Lasix drip along with metolazone. Nephrology on board. Potassium at 3.3 on replacement. On fluid restriction to 1.2 L a day. Patient clinically feels better with improved shortness of breath. However generalized lymphedema only minimally improved. Target additional 5-7000 cc negative in the next 48 hours. continue pre-existing condition management on home meds. Ongoing wound care as per admission specialist. No overnight fever chills shortness of breath or concerns per staff - Constitutional Vitals: Vital Signs Temp Pulse Resp BP Pulse Ox 98.7 F 86 18 121/80 94 06/13/16 07:22 06/13/16 07:22 06/13/16 07:22 06/13/16 07:22 06/13/16 07:22 Period Temp Pulse Resp BP Sys/Goodwin Pulse Ox Last 24 Hr 97.9 F-98.7 F 86-115 18-22 121-151/80-102 94-98 Intake and Output 06/12/16 06/13/16 06/13/16 21:59 05:59 13:59 Intake Total 579 / 579 200 / 200 170 / 170 Output Total 670 / 670 1880 / 1880 1030 / 1030 Balance -91 / -91 -1680 / -1680 -860 / -860 Weight 286 lb Intake & Output: Intake & Output 06/12/16 06/13/16 06/13/16 21:59 05:59 13:59 Intake Total 579 / 579 200 / 200 170 / 170 Output Total 670 / 670 1880 / 1880 1030 / 1030 Balance -91 / -91 -1680 / -1680 -860 / -860 Weight 286 lb Intake: IV 229 / 229 Sodium Chloride 0.9% 250 229 / 229 ml @ 20 mls/hr IV . [id number] [facility] Rx#:[id number] Oral 350 / 350 200 / 200 170 / 170 Output: Urine Catheter Amount 670 / 670 1880 / 1880 1030 / 1030 Other: Meal Dinner Breakfast Percent of Meal Consumed 50% 100% Feeding Ability Assist with Tray Set Up Assist with Tray Set Up General appearance: morbidly obese Exam: severe lymphedema/anasarca able to talk in full sentences Pendulous distended abdomen Lower extremity wounds covered in dressing No anxiety Medical - PN: Obj Da - Labs CBC & Chem 7: 06/13/16 03:26 06/13/16 03:26 Labs: Abnormal Lab Results 06/13/16 06/13/16 06/13/16 03:26 03:26 03:26 RBC 3.22 L Hgb 9.6 L Hct 29.4 L RDW 17.6 H Plt Count 129 L Lymphocytes % 8 L Monocytes % (Manual) 10 H Nucleated RBCs 1 H Platelet Estimate Decreased A RBC Morphology Abnorm A Anisocytosis 1+ A PT 23.4 H INR 2.0 H BUN 45 H Creatinine 3.1 H Glucose 150 H Uric Acid 11.1 H Direct Bilirubin 0.4 H GGT 162 H Alkaline Phosphatase 175 H C-Reactive Protein Albumin 3.1 L Globulin Albumin/Globulin Ratio 0.9 L 06/12/16 06/12/16 06/12/16 04:00 03:40 03:40 RBC 3.24 L Hgb 9.7 L Hct 29.9 L RDW 17.8 H Plt Count 134 L Lymphocytes % 14 L Monocytes % (Manual) Nucleated RBCs Platelet Estimate Decreased A RBC Morphology Abnorm A Anisocytosis 1+ A PT 22.0 H INR 1.9 H BUN 45 H Creatinine 2.8 H Glucose 218 H Uric Acid 10.8 H Direct Bilirubin 0.4 H GGT 161 H Alkaline Phosphatase 175 H C-Reactive Protein Albumin Globulin 3.9 H Albumin/Globulin Ratio 0.8 L 06/11/16 19:25 RBC Hgb Hct RDW Plt Count Lymphocytes % Monocytes % (Manual) Nucleated RBCs Platelet Estimate RBC Morphology Anisocytosis PT INR BUN Creatinine Glucose Uric Acid Direct Bilirubin GGT Alkaline Phosphatase C-Reactive Protein 3.1 H Albumin Globulin Albumin/Globulin Ratio Meds: Medications Acetaminophen (Tylenol) 650 mg PO Q4-6HP PRN PRN Reason: PAIN/FEVER > 101 Amiodarone HCl (Cordarone) 200 mg PO QDAY [facility] Last Admin: 06/13/16 08:46 Dose: 200 mg Aspirin (Aspirin) 81 mg CHEWED DAILY [facility] Last Admin: 06/13/16 08:47 Dose: 81 mg Calcitriol (Rocaltrol) 0.25 mcg PO Q48@0900 [facility] Last Admin: 06/13/16 08:46 Dose: 0.25 mcg Clopidogrel Bisulfate (Plavix) 75 mg PO QDAY [facility] Last Admin: 06/13/16 08:46 Dose: 75 mg Dextrose (Dextrose 50%) 0 ml IV UD PRN PRN Reason: Hypoglycemia Diagnostic Test (Pha) (Accu-Chek) 1 each FS ACHS [facility] Last Admin: 06/13/16 11:53 Dose: 1 each Docusate Sodium (Colace) 100 mg PO BID [facility] Last Admin: 06/13/16 08:47 Dose: 100 mg Magnesium Sulfate (Magnesium Sulfate) 2 gm in 50 mls @ 50 mls/hr IV UD PRN PRN Reason: MG = or < 1.7 Acetaminophen (Ofirmev) 1,000 mg in 100 mls @ 200 mls/hr IV Q6HP PRN PRN Reason: PAIN/FEVER > 101 Ceftriaxone Sodium 2 gm/ (Dextrose) 50 mls @ 100 mls/hr IV Q24H [facility] Last Admin: 06/13/16 08:47 Dose: 100 mls/hr Furosemide 250 mg/ Sodium (Chloride) 250 mls @ 10 mls/hr IV Q24H [facility]; 10 MG/HR PRN Reason: Protocol Insulin Glargine (Lantus) 20 unit SQ [facility] Last Admin: 06/12/16 21:35 Dose: 20 unit Insulin Human Lispro (Humalog) 0 unit SQ [facility] PRN Reason: Protocol Last Admin: 06/13/16 11:53 Dose: 2 unit Metolazone (Zaroxolyn) 2.5 mg PO BID@0730,1530 [facility] Last Admin: 06/13/16 07:01 Dose: 2.5 mg Metoprolol Tartrate (Lopressor) 25 mg PO [facility] Last Admin: 06/12/16 21:35 Dose: 25 mg Metoprolol Tartrate (Lopressor) 50 mg PO DAILY [facility] Last Admin: 06/13/16 08:47 Dose: 50 mg Ondansetron HCl (Zofran) 4 mg IV Q4-6HP PRN PRN Reason: Nausea And Vomiting Oxycodone HCl (Roxicodone) 5 mg PO Q4HP PRN PRN Reason: Pain Last Admin: 06/13/16 05:50 Dose: 5 mg Potassium Chloride (Klor-Con) 40 meq PO DAILYP PRN PRN Reason: K+ < 3.5 Potassium Chloride (Kdur) 40 meq PO BIDCC [facility] Last Admin: 06/13/16 08:46 Dose: 40 meq Senna/Docusate Sodium (Senna Plus Tablet) 1 tab PO [facility] Last Admin: 06/12/16 21:41 Dose: 1 tab Silver Sulfadiazine (Silvadene) 2 dose TOPICAL BID [facility] Last Admin: 06/13/16 09:00 Dose: 400 gm Simvastatin (Zocor) 20 mg PO [facility] Last Admin: 06/12/16 21:39 Dose: 20 mg Sodium Chloride (Saline Flush) 10 ml IV Q8 [facility] Last Admin: 06/13/16 05:50 Dose: 10 ml Tamsulosin HCl (Flomax) 0.4 mg PO [facility] Last Admin: 06/12/16 21:35 Dose: 0.4 mg Warfarin Sodium (Coumadin) 5 mg PO DAILY@1400 [facility] Last Admin: 06/12/16 14:19 Dose: 5 mg Medical - PN: A/P - Time Spent With Patient Total time spent is greater than 50% in coordination of care (as documented) at patient's floor/unit and/or counseling patient: 25 - 35 minutes (1) Anasarca associated with disorder of kidney Status: Acute Assessment and plan: * Anasarca combination of underlying NYHA class III systolic heart failure with 30% EF and chronic renal failure. continue Lasix drip. For 5000 cc negative n the last 48 hours. target additional 5-7000 cc negative. Continue monitoring renal function * hypokalemia secondary diagnosis-Replacement per nephrology * History of CKD- Creatinine 3.1. Nephrology on board * DM type II-continue basal prandial insulin/sitagliptin. poor outpatient control. A1c 9.2. blood sugar 150 * Atrial fibrillation rate controlled on metoprolol/amiodarone * CAD-continue Plavix/statin * BPH-on tamsulosin * Anticoagulation for CVA prophylaxis on Coumadin(combination of Coumadin/ Plavix /aspirin caries high risk bleeding)however this needs to be addressed by primary care physician and discussions of risk and benefits were multiple antiplatelet/anticoagulant. plan * Aggressive diuresis * potassium replacement * In patient panel at 6 PM * Pre-existing medical condition management as above Current Visit: Yes Medical - PN: Qual - VTE Deep Vein Thrombosis/Pulmonary Embolism Present on Admission: No
[2016-06-13] MEDS ORDERED: FUROSEMIDE IV SCH (13:00)
[2016-06-13] MEDS ORDERED: DEXTROSE 5% IV SCH (13:00)
[2016-06-13] MEDS ORDERED: WATER IV SCH (13:00)
[2016-06-13] MEDS: WARFARIN 5 MG TABLET PO SCH (14:10)
[2016-06-13] MEDS: 0.9 % SODIUM CHLORIDE 250 ML IV SCH (14:14)
[2016-06-13] MEDS: WATER IV SCH (14:15)
[2016-06-13] MEDS: FUROSEMIDE IV SCH (14:15)
[2016-06-13] MEDS: DEXTROSE 5% IV SCH (14:15)
[2016-06-13] MEDS: DEXTROSE 5% IN WATER 250 ML IV SCH (14:16)
--- NOTE | 2016-06-13 14:48 | General Surgery Progress Note ---
Subjective Patient reports: no new complaints (Uneventful progress overnite. ) Narrative: Note initiated : 06/13/16 at 2:46 pm Service Date, if different from initiated Date: [] Patient: Phu Bryson 70 y/o M admitted on 06/11/16 for Swelling from Chest Down, Oozing BLE/Anasarca. Chief Complaint: [] Objective Temp Pulse Resp BP Pulse Ox 98.4 F 86 20 135/89 95 06/13/16 12:10 06/13/16 07:22 06/13/16 12:10 06/13/16 12:10 06/13/16 12:10 - Additional Data Intake & Output - Last 24 hours: Intake & Output 06/11/16 06/12/16 06/13/16 06/14/16 05:59 05:59 05:59 05:59 Intake Total 700 / 700 1069 / 1069 577 / 577 Output Total 1170 / 3370 3930 / 3930 1675 / 1675 Balance -470 / -2670 -2861 / -2861 -1098 / -1098 Weight 277 lb 8 oz 286 lb 06/13/16 14:46 NO changes in [place]. Comfortable at rest. Clear speech. Tolerating soft diet. Catheter in place , clear urine. Dressings both legs are clean and dry. Changed earlier today. - Labs 06/13/16 03:26 06/13/16 03:26 Diabetes panel 06/13/16 Range/Units 03:26 Sodium 141 (133-145) mmol/L Potassium 3.3 (3.3-5.1) mmol/L Chloride 101 (96-108) mmol/L Carbon Dioxide 28 (22-30) mmol/L BUN 45 H (8-23) mg/dl Creatinine 3.1 H (0.7-1.2) mg/dl Glucose 150 H (70-105) mg/dL Calcium 8.7 (8.6-10.4) mg/dl AST 19 (0-37) U/l ALT 14 (0-40) U/l Alkaline Phosphatase 175 H (39-117) U/L Total Protein 6.7 (5.9-8.4) gm/dL Albumin 3.1 L (3.2-5.2) gm/dL Triglycerides 63 (<150) mg/dl Calcium panel 06/13/16 Range/Units 03:26 Calcium 8.7 (8.6-10.4) mg/dl Phosphorus 3.7 (2.7-4.5) mg/dL Albumin 3.1 L (3.2-5.2) gm/dL Pituitary panel 06/13/16 Range/Units 03:26 Sodium 141 (133-145) mmol/L Potassium 3.3 (3.3-5.1) mmol/L Chloride 101 (96-108) mmol/L Carbon Dioxide 28 (22-30) mmol/L BUN 45 H (8-23) mg/dl Creatinine 3.1 H (0.7-1.2) mg/dl Glucose 150 H (70-105) mg/dL Calcium 8.7 (8.6-10.4) mg/dl Adrenal panel 06/13/16 Range/Units 03:26 Sodium 141 (133-145) mmol/L Potassium 3.3 (3.3-5.1) mmol/L Chloride 101 (96-108) mmol/L Carbon Dioxide 28 (22-30) mmol/L BUN 45 H (8-23) mg/dl Creatinine 3.1 H (0.7-1.2) mg/dl Glucose 150 H (70-105) mg/dL Calcium 8.7 (8.6-10.4) mg/dl Total Bilirubin 0.7 (0.0-1.0) mg/dL AST 19 (0-37) U/l ALT 14 (0-40) U/l Alkaline Phosphatase 175 H (39-117) U/L Total Protein 6.7 (5.9-8.4) gm/dL Albumin 3.1 L (3.2-5.2) gm/dL Medical - PN: A/P - Time Spent With Patient Total time spent is greater than 50% in coordination of care (as documented) at patient's floor/unit and/or counseling patient: Assessment : Stable from wound care point of view. Plan ; Continue with current medical management. Following patient with Hospitalist team less than 15 minutes (1) Pressure ulcer of lower extremity Problem details: Bilateral legs lateral upper and mid third . Chronic with patchy adipose tissue exposed. CHRONIC and colonized. Wound cultures. Contaminated wounds ?? MRSA Status: Chronic Current Visit: Yes
--- NOTE | 2016-06-13 15:24 | Nephrology Progress Note ---
Subjective Patient information: Note initiated : 06/13/16 at 3:21 pm Service Date, if different from initiated Date: [] Patient: Phu Bryson 70 y/o M admitted on 06/11/16 for Swelling from Chest Down, Oozing BLE/Anasarca. Chief Complaint: [] Principal diagnosis: CHF Interval history: no new issues continues to have significant edema lasix infusion increased to 15mg/hour also receiving metalzone still weight at 289 lbs no SOB, CP, dizziness Pertinent ROS: as above also c/o constipation no uremic signs and symptoms Objective - Vital Signs Vital signs: Vital Signs Temp Pulse Resp BP BP Pulse Ox 06/13/16 12:10 98.4 F 20 135/89 95 06/13/16 07:22 98.7 F 86 18 121/80 94 06/13/16 07:00 86 18 94 06/13/16 04:00 98.2 F 115 H 20 137/89 94 06/13/16 00:00 98.0 F 86 21 151/92 94 06/12/16 20:00 98.0 F 102 H 20 142/102 98 06/12/16 16:00 97.9 F 88 22 140/86 95 Intake and Output 06/13/16 06/13/16 06/13/16 05:59 13:59 21:59 Intake Total 200 / 200 245 / 245 332 / 332 Output Total 1880 / 1880 1535 / 1535 140 / 140 Balance -1680 / -1680 -1290 / -1290 192 / 192 Intake: IV 332 / 332 Sodium Chloride 0.9% 250 166 / 166 ml @ 20 mls/hr IV . [id number] [facility] Rx#:[id number] Lasix 250 mg In Sodium 166 / 166 Chloride 0.9% 225 ml @ 10 MG/HR 10 mls/hr IV Q24H [facility] Rx#:[id number] Oral 200 / 200 245 / 245 Output: Urine Catheter Amount 1879 / 0 1535 / 1535 140 / 140 Other: Meal Lunch Percent of Meal Consumed 100% Feeding Ability Assist with Tray Set Up Intake & Output: Intake & Output 06/13/16 06/13/16 06/13/16 05:59 13:59 21:59 Intake Total 200 / 200 245 / 245 332 / 332 Output Total 1880 / 1880 1535 / 1535 140 / 140 Balance -1680 / -1680 -1290 / -1290 192 / 192 Intake: IV 332 / 332 Sodium Chloride 0.9% 250 166 / 166 ml @ 20 mls/hr IV . [id number] [facility] Rx#:[id number] Lasix 250 mg In Sodium 166 / 166 Chloride 0.9% 225 ml @ 10 MG/HR 10 mls/hr IV Q24H [facility] Rx#:[id number] Oral 200 / 200 245 / 245 Output: Urine Catheter Amount 1880 / 1880 1535 / 1535 140 / 140 Other: Meal Lunch Percent of Meal Consumed 100% Feeding Ability Assist with Tray Set Up - General Appearance General appearance: appears started age, obese EENT: mucous membranes moist Neck: JVD Respiratory: clear Cardiology: no rub, irregular rhythm Gastrointestinal: no tenderness (abdominal wall edema +) Integumentary: warm and dry Neurologic: no focal deficit, alert and oriented x3 Musculoskeletal: no erythema, no cyanosis Psychiatric: mood/affect appropriate - Lab 06/13/16 03:26 06/13/16 03:26 Most recent lab results Calcium 8.7 mg/dl (8.6-10.4) 06/13/16 03:26 Phosphorus 3.7 mg/dL (2.7-4.5) 06/13/16 03:26 Magnesium 2.0 mg/dL (1.6-2.5) 06/13/16 03:26 Assessment and Plan (1) Chronic kidney disease, stage IV (severe) renal function declinign, s.creatinine is 3.1 but patient still has significant edema, cannot reduce diuretics, agree with increasing the dose will follow patient may need to initiate dialysis if renal function continues to decline or if we need to increase diuretic dose further as patient may relapse after discharge will repeat labs to ensure no hypkalemia as K was 3.3 monitor I/O avoid phosphate enemas as rsk of phosphate nephropathy dose meds to egfr Acute on chronic systolic CHF: still with significant edema continue lasix gtt at 15mg/hour and continue metolazone will monitor Anemia: will obtain work up will follow along Status: Chronic Comment: Most recent s.creat is 3.15,egfr of 19ml/min CKD EPI equation renal function stable at around 3.0, no significant volume overload CHF and uncontrolled DM is likely etiology UPCR is only at 0.3 labs discussed hold metolazone work on better DM control will monitor, will go for AVF surgery if renal function continues to worsen
[2016-06-13 19:37] LABS: ALT/SGPT 17 U/l (0-40); Albumin 3.5 gm/dL (3.2-5.2); Albumin/Globulin Ratio 0.9 (1.0-2.3); Alkaline Phosphatase 190 U/L (39-117); Bilirubin,Direct 0.5 mg/dL (0.0-0.3); Blood Urea Nitrogen 50 mg/dl (8-23); Gamma Glutamyl Transpeptidase 183 U/L (8-61); Magnesium 2.3 mg/dL (1.6-2.5); Phosphorous 4.6 mg/dL (2.7-4.5); Uric Acid 11.9 mg/dL (2.5-8.0)
[2016-06-13] MEDS: INSULIN GLARGINE, HUMAN 1 UNIT/0.01 ML SQ SCH (20:10)
[2016-06-13] MEDS: TAMSULOSIN 0.4 MG CAPSULE PO SCH (20:11)
[2016-06-13] MEDS: SENNOSIDES/DOCUSATE SODIUM 1 TAB TABLET PO SCH (20:11)
[2016-06-13] MEDS: SIMVASTATIN 20 MG TABLET PO SCH (20:12)
[2016-06-14] MEDS: 0.9 % SODIUM CHLORIDE 10 ML SYRINGE IV SCH ×3 (05:14→21:49)
[2016-06-14 05:15] LABS: Mean Cell Volume 91.4 fL (80.0-100.0); Mean Corpuscular HGB Conc 32.6 g/dL (31.0-36.0); Mean Corpuscular Hemoglobin 29.8 pg (26.0-34.0); Platelet Count 133 K/mcL (140-440); RBC 3.43 M/mcL (4.50-5.90); Red Cell Distribution Width 17.7 % (11.5-14.5)
[2016-06-14 05:27] LABS: ALT/SGPT 15 U/l (0-40); Albumin 3.4 gm/dL (3.2-5.2); Albumin/Globulin Ratio 0.9 (1.0-2.3); Alkaline Phosphatase 184 U/L (39-117); Bilirubin,Direct 0.3 mg/dL (0.0-0.3); Blood Urea Nitrogen 52 mg/dl (8-23); Gamma Glutamyl Transpeptidase 174 U/L (8-61); Iron 24 mcg/dl (61-157); Magnesium 2.4 mg/dL (1.6-2.5); Phosphorous 4.2 mg/dL (2.7-4.5); Transferrin % Saturation 9 % (20-50); Unsaturated Iron Binding 232 mcg/dL (112-346)
[2016-06-14 06:20] LABS: Anisocytosis 1+ (NONE SEEN); Eosinophils % (Manual) 4 % (0-7); Lymphocytes % 7 % (15-49); Monocytes % (Manual) 6 % (1-9); Platelet Estimate DECREASED (NORMAL); RBC Morphology ABNORM (NORMAL); Segmented Neutrophils % 83 % (38-78)
[2016-06-14] MEDS: DEXTROSE 5% IN WATER 250 ML IV SCH ×2 (06:54→17:55)
[2016-06-14] MEDS: POTASSIUM CHLORIDE 20 MEQ TABLET PO SCH ×2 (07:11→17:37)
[2016-06-14] MEDS: METOLAZONE 2.5 MG TABLET PO SCH ×2 (07:14→15:18)
[2016-06-14] MEDS: INSULIN LISPRO 1 UNIT/0.01 ML UNIT SQ SCH ×4 (07:18→21:47)
[2016-06-14] MEDS: METOPROLOL TARTRATE 25 MG TABLET PO SCH ×2 (08:48→21:48)
[2016-06-14] MEDS: DOCUSATE SODIUM 100 MG CAPSULE PO SCH ×2 (08:48→21:49)
[2016-06-14] MEDS: ASPIRIN 81 MG TAB.CHEW CHEWED SCH (08:48)
[2016-06-14] MEDS: CLOPIDOGREL 75 MG TABLET PO SCH (08:49)
[2016-06-14] MEDS: AMIODARONE HCL 200 MG TABLET PO SCH (08:49)
[2016-06-14] MEDS: SILVER SULFADIAZINE CREAM.TOP 400GM TOPICAL SCH ×2 (08:50→21:49)
[2016-06-14] MEDS: cefTRIAXone 2 GM in DEXTROSE 5% IN WATER 50 ML IV SCH (08:52)
--- NOTE | 2016-06-14 09:49 | Internal Med Progress Note ---
Medical - PN: Subj Patient information: Note initiated : 06/14/16 at 9:44 am Service Date, if different from initiated Date: [] Patient: Phu Bryson 70 y/o M admitted on 06/11/16 for Swelling from Chest Down, Oozing BLE/Anasarca. Chief Complaint: [] Interval history: /- patient admitted with generalized anasarca with underlying NYHA class III systolic heart failure EF 30% and chronic kidney disease with baseline creatinine 2.5. Patient's dry weight was around 240 around [place] and currently at 277. started on Lasix drip with satisfactory initial response. it' s unclear if patient has been taking his home dose Bumex and metolazone. He has been followed up by nephrology as an outpatient and has had a history of poor compliance with medications. Admitted to telemetry for continuous Lasix infusion and target around 9000-10,000 cc net negative over 72 hours. Massively swollen scrotum. bilateral lower extremity wounds secondary to stasis and lymphedema. wound care consulted 3/- over 3500 cc negative in the last 24 hours. Adequate response to Lasix. improved shortness of breath and able to talk in full sentences. wound care ongoing real estate management specialist. No overnight fever chills. Nephrology on board. Stable electrolytes. Creatinine 2.8. INR 1.9. atrial fibrillation rate controlled 3/4-. With adequate response to Lasix over 3500 cc net negative in 24 hours cumulative 5000 cc since admission. extensive lymphedema/anasarca. on Lasix drip along with metolazone. Nephrology on board. Potassium at 3.3 on replacement. On fluid restriction to 1.2 L a day. Patient clinically feels better with improved shortness of breath. However generalized lymphedema only minimally improved. Target additional 5-7000 cc negative in the next 48 hours. continue pre-existing condition management on home meds. Ongoing wound care as per sterilization specialist. No overnight fever chills shortness of breath or concerns per staff 3/5-pseudomonas status staff on wound cultures. Over 10,000 cc net negative. Creatinine up to 3.5 from baseline 2.5. Continue diuresis and target additional 3000 cc negative. Possible discharge in 24 hours with outpatient wound care. Continue antibiotic coverage for pseudomonas/staff- switch IV to oral antibiotics with ciprofloxacin/Keflex. INR 2.3. Potassium 3.5. much improved anasarca/scrotal edema. - Constitutional Vitals: Vital Signs Temp Pulse Resp BP Pulse Ox 97.7 F 90 18 133/81 94 06/14/16 07:22 06/14/16 07:22 06/14/16 07:22 06/14/16 07:22 06/14/16 07:22 Period Temp Pulse Resp BP Sys/Goodwin Pulse Ox Last 24 Hr 96.8 F-98.4 F 87-91 18-20 101-135/68-103 94-98 Intake and Output 06/13/16 06/14/16 06/14/16 21:59 05:59 13:59 Intake Total 887 / 887 100 / 100 170 / 170 Output Total 1515 / 1515 2140 / 2140 1105 / 1105 Balance -628 / -628 -2040 / -2040 -935 / -935 Weight 260 lb Intake & Output: Intake & Output 06/13/16 06/14/16 06/14/16 21:59 05:59 13:59 Intake Total 887 / 887 100 / 100 170 / 170 Output Total 1515 / 1515 2140 / 2140 1105 / 1105 Balance -628 / -628 -2040 / -2040 -935 / -935 Weight 260 lb Intake: IV 332 / 332 50 / 50 Sodium Chloride 0.9% 250 166 / 166 ml @ 20 mls/hr IV . [id number] [facility] Rx#:[id number] Lasix 250 mg In Sodium 166 / 166 Chloride 0.9% 225 ml @ 10 MG/HR 10 mls/hr IV Q24H [facility] Rx#:[id number] Dextrose 5% in Water 50 50 / 50 ml @ 100 mls/hr IV Q24H [facility] with Rocephin 2 gm Rx #:[id number] Oral 555 / 555 100 / 100 120 / 120 Output: Urine Catheter Amount 1515 / 1515 2140 / 2140 1105 / 1105 Other: Meal Dinner Breakfast Percent of Meal Consumed 25% 100% Feeding Ability Assist with Tray Set Up Assist with Tray Set Up # Bowel Movements 2 General appearance: cooperative, no acute distress Exam: lAlert oriented only nonlabored breathing much improved lymphedema no anxiety Medical - PN: Obj Da - Labs CBC & Chem 7: 06/14/16 03:25 06/14/16 03:25 Labs: Abnormal Lab Results 06/14/16 06/14/16 06/14/16 04:00 03:25 03:25 RBC 3.43 L Hgb 10.2 L Hct 31.4 L RDW 17.7 H Plt Count 133 L Seg Neutrophils % 83 H Lymphocytes % 7 L Monocytes % (Manual) Nucleated RBCs Platelet Estimate Decreased A RBC Morphology Abnorm A Anisocytosis 1+ A PT 25.7 H INR 2.3 H Chloride Carbon Dioxide 32 H BUN 52 H Creatinine 3.5 H Glucose 132 H Uric Acid 12.0 H Phosphorus Iron 24 L Transferrin % Sat 9 L Direct Bilirubin GGT 174 H Alkaline Phosphatase 184 H C-Reactive Protein Albumin Globulin 3.9 H Albumin/Globulin Ratio 0.9 L 06/13/16 06/13/16 06/13/16 18:14 03:26 03:26 RBC Hgb Hct RDW Plt Count Seg Neutrophils % Lymphocytes % Monocytes % (Manual) Nucleated RBCs Platelet Estimate RBC Morphology Anisocytosis PT 23.4 H INR 2.0 H Chloride 94 L Carbon Dioxide BUN 50 H 45 H Creatinine 3.4 H 3.1 H Glucose 197 H 150 H Uric Acid 11.9 H 11.1 H Phosphorus 4.6 H Iron Transferrin % Sat Direct Bilirubin 0.5 H 0.4 H GGT 183 H 162 H Alkaline Phosphatase 190 H 175 H C-Reactive Protein Albumin 3.1 L Globulin 4.1 H Albumin/Globulin Ratio 0.9 L 0.9 L 06/13/16 06/12/16 06/12/16 03:26 04:00 03:40 RBC 3.22 L Hgb 9.6 L Hct 29.4 L RDW 17.6 H Plt Count 129 L Seg Neutrophils % Lymphocytes % 8 L Monocytes % (Manual) 10 H Nucleated RBCs 1 H Platelet Estimate Decreased A RBC Morphology Abnorm A Anisocytosis 1+ A PT 22.0 H INR 1.9 H Chloride Carbon Dioxide BUN 45 H Creatinine 2.8 H Glucose 218 H Uric Acid 10.8 H Phosphorus Iron Transferrin % Sat Direct Bilirubin 0.4 H GGT 161 H Alkaline Phosphatase 175 H C-Reactive Protein Albumin Globulin 3.9 H Albumin/Globulin Ratio 0.8 L 06/12/16 06/11/16 03:40 19:25 RBC 3.24 L Hgb 9.7 L Hct 29.9 L RDW 17.8 H Plt Count 134 L Seg Neutrophils % Lymphocytes % 14 L Monocytes % (Manual) Nucleated RBCs Platelet Estimate Decreased A RBC Morphology Abnorm A Anisocytosis 1+ A PT INR Chloride Carbon Dioxide BUN Creatinine Glucose Uric Acid Phosphorus Iron Transferrin % Sat Direct Bilirubin GGT Alkaline Phosphatase C-Reactive Protein 3.1 H Albumin Globulin Albumin/Globulin Ratio Meds: Medications Acetaminophen (Tylenol) 650 mg PO Q4-6HP PRN PRN Reason: PAIN/FEVER > 101 Amiodarone HCl (Cordarone) 200 mg PO QDAY [facility] Last Admin: 06/14/16 08:49 Dose: 200 mg Aspirin (Aspirin) 81 mg CHEWED DAILY [facility] Last Admin: 06/14/16 08:48 Dose: 81 mg Calcitriol (Rocaltrol) 0.25 mcg PO Q48@0900 [facility] Last Admin: 06/13/16 08:46 Dose: 0.25 mcg Clopidogrel Bisulfate (Plavix) 75 mg PO QDAY [facility] Last Admin: 06/14/16 08:49 Dose: 75 mg Dextrose (Dextrose 50%) 0 ml IV UD PRN PRN Reason: Hypoglycemia Diagnostic Test (Pha) (Accu-Chek) 1 each FS ACHS [facility] Last Admin: 06/14/16 07:12 Dose: 1 each Docusate Sodium (Colace) 100 mg PO BID [facility] Last Admin: 06/14/16 08:48 Dose: 100 mg Magnesium Sulfate (Magnesium Sulfate) 2 gm in 50 mls @ 50 mls/hr IV UD PRN PRN Reason: MG = or < 1.7 Acetaminophen (Ofirmev) 1,000 mg in 100 mls @ 200 mls/hr IV Q6HP PRN PRN Reason: PAIN/FEVER > 101 Ceftriaxone Sodium 2 gm/ (Dextrose) 50 mls @ 100 mls/hr IV Q24H [facility] Last Infusion: 06/14/16 09:22 Dose: Infused Furosemide 250 mg/ Dextrose 250 mls @ 10 mls/hr IV Q24H [facility]; 10 MG/HR PRN Reason: Protocol Last Admin: 06/13/16 14:15 Dose: 10 mg/hr, 10 mls/hr Dextrose (Dextrose 5% In Water) 250 mls @ 20 mls/hr IV .[id number] [facility] Last Admin: 06/14/16 06:54 Dose: Not Given Insulin Glargine (Lantus) 20 unit SQ [facility] Last Admin: 06/13/16 20:10 Dose: 20 unit Insulin Human Lispro (Humalog) 0 unit SQ [facility] PRN Reason: Protocol Last Admin: 06/14/16 07:18 Dose: 1 unit Metolazone (Zaroxolyn) 2.5 mg PO BID@0730,1530 [facility] Last Admin: 06/14/16 07:14 Dose: 2.5 mg Metoprolol Tartrate (Lopressor) 25 mg PO [facility] Last Admin: 06/13/16 20:11 Dose: 25 mg Metoprolol Tartrate (Lopressor) 50 mg PO DAILY [facility] Last Admin: 06/14/16 08:48 Dose: 50 mg Ondansetron HCl (Zofran) 4 mg IV Q4-6HP PRN PRN Reason: Nausea And Vomiting Oxycodone HCl (Roxicodone) 5 mg PO Q4HP PRN PRN Reason: Pain Last Admin: 06/13/16 05:50 Dose: 5 mg Potassium Chloride (Klor-Con) 40 meq PO DAILYP PRN PRN Reason: K+ < 3.5 Potassium Chloride (Kdur) 40 meq PO BIDCC [facility] Last Admin: 06/14/16 07:11 Dose: 40 meq Senna/Docusate Sodium (Senna Plus Tablet) 1 tab PO [facility] Last Admin: 06/13/16 20:11 Dose: 1 tab Silver Sulfadiazine (Silvadene) 2 dose TOPICAL BID [facility] Last Admin: 06/14/16 08:50 Dose: 400 gm Simvastatin (Zocor) 20 mg PO [facility] Last Admin: 06/13/16 20:12 Dose: 20 mg Sodium Chloride (Saline Flush) 10 ml IV Q8 [facility] Last Admin: 06/14/16 05:14 Dose: 10 ml Tamsulosin HCl (Flomax) 0.4 mg PO [facility] Last Admin: 06/13/16 20:11 Dose: 0.4 mg Warfarin Sodium (Coumadin) 5 mg PO DAILY@1400 [facility] Last Admin: 06/13/16 14:10 Dose: 5 mg Medical - PN: A/P - Time Spent With Patient Total time spent is greater than 50% in coordination of care (as documented) at patient's floor/unit and/or counseling patient: 25 - 35 minutes (1) Anasarca associated with disorder of kidney Status: Acute Assessment and plan: * Anasarca combination of underlying NYHA class III systolic heart failure with 30% EF and chronic renal failure. On Lasix drip. 10,000 cc negative last 3 days. * Bilateral lower extremity cellulitis-wound care on board. Pseudomonas/staph on culture. Sensitivities pending. switch to oral antibiotics including Cipro/ Keflex * Hypokalemia secondary diagnosis-Replacement per nephrology * History of CKD- Creatinine 3.5. Nephrology on board * DM type II-continue basal prandial insulin/sitagliptin. poor outpatient control. A1c 9.2. a.m. BG 132 * Atrial fibrillation rate controlled on metoprolol/amiodarone * CAD-continue Plavix/statin * BPH-on tamsulosin * Anticoagulation for CVA prophylaxis on Coumadin(combination of Coumadin/ Plavix /aspirin caries high risk bleeding)however this needs to be addressed by primary care physician and discussions of risk and benefits for multiple antiplatelet/anticoagulant. plan * target additional 3000 cc negative * possible discharge in 24 hours * switched to oral Keflex/ciprofloxacin * Continue electrolyte replacement * Pre-existing medical condition management as above * Primary care physician to address multiple antiplatelet/anticoagulant and high bleeding risk Current Visit: Yes Medical - PN: Qual - VTE Deep Vein Thrombosis/Pulmonary Embolism Present on Admission: No
[2016-06-14] MEDS: DEXTROSE 5% IV SCH (13:19)
[2016-06-14] MEDS: WATER IV SCH (13:19)
[2016-06-14] MEDS: FUROSEMIDE IV SCH (13:19)
[2016-06-14] MEDS: WARFARIN 5 MG TABLET PO SCH (13:54)
[2016-06-14] MEDS: CEPHALEXIN 250 MG CAPSULE PO SCH ×2 (13:54→21:48)
[2016-06-14] MEDS: oxyCODONE HCL 5 MG TABLET PO PRN ×2 (15:18→23:18)
[2016-06-14] MEDS: INSULIN GLARGINE, HUMAN 1 UNIT/0.01 ML SQ SCH (21:47)
[2016-06-14] MEDS: SENNOSIDES/DOCUSATE SODIUM 1 TAB TABLET PO SCH (21:48)
[2016-06-14] MEDS: CIPROFLOXACIN 500 MG TABLET PO SCH (21:48)
[2016-06-14] MEDS: FUROSEMIDE 100 MG/10 ML VIAL IV SCH (21:48)
[2016-06-14] MEDS: TAMSULOSIN 0.4 MG CAPSULE PO SCH (21:48)
[2016-06-14] MEDS: SIMVASTATIN 20 MG TABLET PO SCH (21:49)
[2016-06-15] MEDS: oxyCODONE HCL 5 MG TABLET PO PRN ×3 (04:05→22:17)
[2016-06-15] MEDS: CEPHALEXIN 250 MG CAPSULE PO SCH ×3 (05:19→22:17)
[2016-06-15] MEDS: FUROSEMIDE 100 MG/10 ML VIAL IV SCH ×3 (05:20→22:19)
[2016-06-15] MEDS: 0.9 % SODIUM CHLORIDE 10 ML SYRINGE IV SCH ×3 (05:20→22:31)
[2016-06-15 06:43] LABS: Mean Cell Volume 89.2 fL (80.0-100.0); Mean Corpuscular HGB Conc 33.1 g/dL (31.0-36.0); Mean Corpuscular Hemoglobin 29.5 pg (26.0-34.0); Platelet Count 112 K/mcL (140-440); RBC 3.57 M/mcL (4.50-5.90); Red Cell Distribution Width 16.1 % (11.5-14.5)
[2016-06-15 07:26] LABS: ALT/SGPT 14 U/l (0-40); Albumin 3.2 gm/dL (3.2-5.2); Albumin/Globulin Ratio 0.8 (1.0-2.3); Alkaline Phosphatase 200 U/L (39-117); Bilirubin,Direct 0.4 mg/dL (0.0-0.3); Blood Urea Nitrogen 52 mg/dl (8-23); Gamma Glutamyl Transpeptidase 174 U/L (8-61); Magnesium 2.4 mg/dL (1.6-2.5); Phosphorous 3.9 mg/dL (2.7-4.5); Uric Acid 13.4 mg/dL (2.5-8.0)
[2016-06-15] MEDS: METOLAZONE 2.5 MG TABLET PO SCH ×2 (08:01→15:18)
[2016-06-15 08:29] LABS: Band Neutrophils % 1 % (0-10); Eosinophils % (Manual) 3 % (0-7); Lymphocytes % 11 % (15-49); Monocytes % (Manual) 18 % (1-9); Platelet Estimate NORMAL (NORMAL); RBC Morphology NORMAL (NORMAL); Segmented Neutrophils % 67 % (38-78)
[2016-06-15] MEDS: INSULIN LISPRO 1 UNIT/0.01 ML UNIT SQ SCH ×4 (08:50→22:20)
[2016-06-15] MEDS: AMIODARONE HCL 200 MG TABLET PO SCH (08:51)
[2016-06-15] MEDS: POTASSIUM CHLORIDE 20 MEQ TABLET PO SCH ×2 (08:51→17:39)
[2016-06-15] MEDS: CLOPIDOGREL 75 MG TABLET PO SCH (08:51)
[2016-06-15] MEDS: DOCUSATE SODIUM 100 MG CAPSULE PO SCH ×2 (08:51→22:17)
[2016-06-15] MEDS: METOPROLOL TARTRATE 25 MG TABLET PO SCH ×2 (08:51→22:30)
[2016-06-15] MEDS: ASPIRIN 81 MG TAB.CHEW CHEWED SCH (08:51)
[2016-06-15] MEDS: CALCITRIOL 0.25 MCG CAPSULE PO SCH (12:25)
[2016-06-15] MEDS ORDERED: WARFARIN 2.5 MG TABLET PO ONE (14:00)
[2016-06-15] MEDS: SILVER SULFADIAZINE CREAM.TOP 400GM TOPICAL SCH ×2 (15:17→22:19)
[2016-06-15] MEDS: CIPROFLOXACIN 500 MG TABLET PO SCH (15:22)
--- NOTE | 2016-06-15 15:40 | Internal Med Progress Note ---
Medical - PN: Subj Patient information: Note initiated : 06/15/16 at 3:37 pm Service Date, if different from initiated Date: [] Patient: Phu Bryson 70 y/o M admitted on 06/11/16 for Swelling from Chest Down, Oozing BLE/Anasarca. Chief Complaint: [] Interval history: 06/11- patient admitted with generalized anasarca with underlying NYHA class III systolic heart failure EF 30% and chronic kidney disease with baseline creatinine 2.5. Patient's dry weight was around 240 around [place] and currently at 277. started on Lasix drip with satisfactory initial response. it' s unclear if patient has been taking his home dose Bumex and metolazone. He has been followed up by nephrology as an outpatient and has had a history of poor compliance with medications. Admitted to telemetry for continuous Lasix infusion and target around 9000-10,000 cc net negative over 72 hours. Massively swollen scrotum. bilateral lower extremity wounds secondary to stasis and lymphedema. wound care consulted 3/- over 3500 cc negative in the last 24 hours. Adequate response to Lasix. improved shortness of breath and able to talk in full sentences. wound care ongoing sharepoint specialist. No overnight fever chills. Nephrology on board. Stable electrolytes. Creatinine 2.8. INR 1.9. atrial fibrillation rate controlled 3/4-. With adequate response to Lasix over 3500 cc net negative in 24 hours cumulative 5000 cc since admission. extensive lymphedema/anasarca. on Lasix drip along with metolazone. Nephrology on board. Potassium at 3.3 on replacement. On fluid restriction to 1.2 L a day. Patient clinically feels better with improved shortness of breath. However generalized lymphedema only minimally improved. Target additional 5-7000 cc negative in the next 48 hours. continue pre-existing condition management on home meds. Ongoing wound care as per social problems specialist. No overnight fever chills shortness of breath or concerns per staff 3/5-pseudomonas status staff on wound cultures. Over 10,000 cc net negative. Creatinine up to 3.5 from baseline 2.5. Continue diuresis and target additional 3000 cc negative. Possible discharge in 24 hours with outpatient wound care. Continue antibiotic coverage for pseudomonas/staff- switch IV to oral antibiotics with ciprofloxacin/Keflex. INR 2.3. Potassium 3.5. much improved anasarca/scrotal edema. 3/6 Pt seen examined, no acute overnight events, Creatinie continues to trend upwards, still has scrotal edema, but seems much better than admission. He is now on IV lasix TID 80mg with po metolozone. Will continue same for now, follow nephrology reccs.Scrotal site mildy inflammed, start on topical nystatin powder. Wound care to continue, po antibiotics. Pertinent ROS: Denies headache, dizziness Denies chest pain, palpitations Denies cough, sob on exertion present. Denies abdominal pain, nausea or vomiting. - Constitutional Vitals: Vital Signs Temp Pulse Resp BP Pulse Ox 97.6 F 86 20 115/70 98 06/15/16 11:39 06/15/16 00:25 06/15/16 11:39 06/15/16 11:39 06/15/16 11:39 Period Temp Pulse Resp BP Sys/Goodwin Pulse Ox Last 24 Hr 97.6 F-99.8 F 85-99 20-20 115-156/70-98 94-98 Intake and Output 06/15/16 06/15/16 06/15/16 05:59 13:59 21:59 Intake Total 270 / 270 240 / 240 Output Total 1295 / 1295 1600 / 1600 Balance -1025 / -1025 240 / 240 -1600 / -1600 Weight 263 lb 8 oz Patient Weight 06/16/16 05:59 Weight 263 lb 8 oz Intake & Output: Intake & Output 06/15/16 06/15/16 06/15/16 05:59 13:59 21:59 Intake Total 270 / 270 240 / 240 Output Total 1295 / 1295 1600 / 1600 Balance -1025 / -1025 240 / 240 -1600 / -1600 Weight 263 lb 8 oz Intake: Oral 270 / 270 240 / 240 Output: Urine Catheter Amount 1295 / 1295 1600 / 1600 Other: Meal Breakfast Percent of Meal Consumed 100% Feeding Ability Assist with Tray Set Up Exam: Constitutional; Afebrile, cooperative, alert, not in distress. Eyes- No icterus, , No periorbital swelling Ears- Ext ear normal, hearing normal to conversation. Neck- Midline trachea, supple Respiratory system: Air Entry equal on both sides, No crackles or wheezing, no rhonchi. CVS- Rate rhythm regular, S1,S2 heard, no gallop, no rub. henry pedal edema noted. Abdomen- Soft nontender abdomen, no organomegaly, no tenderness, no guarding or rigidity,scrotum swollen, size slightly larger than baseball, edematous and mildly erythematous. Some tenderness to palpation. EDI CONSULTANT- AOOx3, moving all extremities, no focal deficit noted. Medical - PN: Obj Da - Labs CBC & Chem 7: 06/15/16 04:00 06/15/16 04:00 Labs: Abnormal Lab Results 06/15/16 06/15/16 06/15/16 06:30 04:00 04:00 RBC 3.57 L Hgb 10.5 L Hct 31.8 L RDW 16.1 H Plt Count 112 L Seg Neutrophils % Lymphocytes % 11 L Monocytes % (Manual) 18 H Nucleated RBCs Platelet Estimate RBC Morphology Anisocytosis PT 27.8 H INR 2.5 H Chloride 93 L Carbon Dioxide 31 H BUN 52 H Creatinine 3.7 H Glucose 168 H Uric Acid 13.4 H Phosphorus Iron Transferrin % Sat Direct Bilirubin 0.4 H GGT 174 H Alkaline Phosphatase 200 H Albumin Globulin 4.0 H Albumin/Globulin Ratio 0.8 L 06/14/16 06/14/16 06/14/16 04:00 03:25 03:25 RBC 3.43 L Hgb 10.2 L Hct 31.4 L RDW 17.7 H Plt Count 133 L Seg Neutrophils % 83 H Lymphocytes % 7 L Monocytes % (Manual) Nucleated RBCs Platelet Estimate Decreased A RBC Morphology Abnorm A Anisocytosis 1+ A PT 25.7 H INR 2.3 H Chloride Carbon Dioxide 32 H BUN 52 H Creatinine 3.5 H Glucose 132 H Uric Acid 12.0 H Phosphorus Iron 24 L Transferrin % Sat 9 L Direct Bilirubin GGT 174 H Alkaline Phosphatase 184 H Albumin Globulin 3.9 H Albumin/Globulin Ratio 0.9 L 06/13/16 06/13/16 06/13/16 18:14 03:26 03:26 RBC Hgb Hct RDW Plt Count Seg Neutrophils % Lymphocytes % Monocytes % (Manual) Nucleated RBCs Platelet Estimate RBC Morphology Anisocytosis PT 23.4 H INR 2.0 H Chloride 94 L Carbon Dioxide BUN 50 H 45 H Creatinine 3.4 H 3.1 H Glucose 197 H 150 H Uric Acid 11.9 H 11.1 H Phosphorus 4.6 H Iron Transferrin % Sat Direct Bilirubin 0.5 H 0.4 H GGT 183 H 162 H Alkaline Phosphatase 190 H 175 H Albumin 3.1 L Globulin 4.1 H Albumin/Globulin Ratio 0.9 L 0.9 L 06/13/16 03:26 RBC 3.22 L Hgb 9.6 L Hct 29.4 L RDW 17.6 H Plt Count 129 L Seg Neutrophils % Lymphocytes % 8 L Monocytes % (Manual) 10 H Nucleated RBCs 1 H Platelet Estimate Decreased A RBC Morphology Abnorm A Anisocytosis 1+ A PT INR Chloride Carbon Dioxide BUN Creatinine Glucose Uric Acid Phosphorus Iron Transferrin % Sat Direct Bilirubin GGT Alkaline Phosphatase Albumin Globulin Albumin/Globulin Ratio Meds: Medications Acetaminophen (Tylenol) 650 mg PO Q4-6HP PRN PRN Reason: PAIN/FEVER > 101 Amiodarone HCl (Cordarone) 200 mg PO QDAY [facility] Last Admin: 06/15/16 08:51 Dose: 200 mg Aspirin (Aspirin) 81 mg CHEWED DAILY [facility] Last Admin: 06/15/16 08:51 Dose: 81 mg Calcitriol (Rocaltrol) 0.25 mcg PO Q48@0900 [facility] Last Admin: 06/15/16 12:25 Dose: 0.25 mcg Cephalexin HCl (Keflex) 250 mg PO Q8 [facility] Last Admin: 06/15/16 15:17 Dose: 250 mg Ciprofloxacin (Cipro) 500 mg PO Q18H [facility] Last Admin: 06/15/16 15:22 Dose: 500 mg Clopidogrel Bisulfate (Plavix) 75 mg PO QDAY [facility] Last Admin: 06/15/16 08:51 Dose: 75 mg Dextrose (Dextrose 50%) 0 ml IV UD PRN PRN Reason: Hypoglycemia Diagnostic Test (Pha) (Accu-Chek) 1 each FS ACHS [facility] Last Admin: 06/15/16 12:26 Dose: 1 each Docusate Sodium (Colace) 100 mg PO BID [facility] Last Admin: 06/15/16 08:51 Dose: 100 mg Furosemide (Lasix) 80 mg IV Q8 [facility] Last Admin: 06/15/16 15:17 Dose: 80 mg Magnesium Sulfate (Magnesium Sulfate) 2 gm in 50 mls @ 50 mls/hr IV UD PRN PRN Reason: MG = or < 1.7 Acetaminophen (Ofirmev) 1,000 mg in 100 mls @ 200 mls/hr IV Q6HP PRN PRN Reason: PAIN/FEVER > 101 Insulin Glargine (Lantus) 20 unit SQ [facility] Last Admin: 06/14/16 21:47 Dose: 20 unit Insulin Human Lispro (Humalog) 0 unit SQ [facility] PRN Reason: Protocol Last Admin: 06/15/16 12:26 Dose: 3 unit Metolazone (Zaroxolyn) 2.5 mg PO BID@0730,1530 [facility] Last Admin: 06/15/16 15:18 Dose: 2.5 mg Metoprolol Tartrate (Lopressor) 25 mg PO [facility] Last Admin: 06/14/16 21:48 Dose: 25 mg Metoprolol Tartrate (Lopressor) 50 mg PO DAILY [facility] Last Admin: 06/15/16 08:51 Dose: 50 mg Ondansetron HCl (Zofran) 4 mg IV Q4-6HP PRN PRN Reason: Nausea And Vomiting Oxycodone HCl (Roxicodone) 5 mg PO Q4HP PRN PRN Reason: Pain Last Admin: 06/15/16 04:05 Dose: 5 mg Potassium Chloride (Klor-Con) 40 meq PO DAILYP PRN PRN Reason: K+ < 3.5 Potassium Chloride (Kdur) 40 meq PO BIDCC [facility] Last Admin: 06/15/16 08:51 Dose: 40 meq Senna/Docusate Sodium (Senna Plus Tablet) 1 tab PO [facility] Last Admin: 06/14/16 21:48 Dose: 1 tab Silver Sulfadiazine (Silvadene) 2 dose TOPICAL BID [facility] Last Admin: 06/15/16 15:17 Dose: 1 gm Simvastatin (Zocor) 20 mg PO [facility] Last Admin: 06/14/16 21:49 Dose: 20 mg Sodium Chloride (Saline Flush) 10 ml IV Q8 [facility] Last Admin: 06/15/16 15:18 Dose: 10 ml Tamsulosin HCl (Flomax) 0.4 mg PO [facility] Last Admin: 06/14/16 21:48 Dose: 0.4 mg Medical - PN: A/P - Time Spent With Patient Total time spent is greater than 50% in coordination of care (as documented) at patient's floor/unit and/or counseling patient: (1) Anasarca associated with disorder of kidney Status: Acute Current Visit: Yes (2) Anticoagulated on Coumadin Status: Acute Current Visit: No (3) Atrial fibrillation Status: Acute Current Visit: No (4) Diabetic ulcer of left foot Status: Acute Current Visit: No (5) DMII (diabetes mellitus, type 2) Problem details: ensure compliance with insulin and diabetic diet has refused endocrinology referral Status: Chronic Current Visit: No (6) Systolic heart failure Status: Acute Current Visit: No - Narrative A/P Narrative: Continue IV lasix for now, monitor I/o replace electrolytes Wound care as per wound care consult, on po cipro and keflex Nystatin for scrotal inflammation. D/C to SNF once stable. Will discuss with nephrology regarding transition to orals. Medical - PN: Qual - VTE Deep Vein Thrombosis/Pulmonary Embolism Present on Admission: No
--- NOTE | 2016-06-15 16:57 | Nephrology Progress Note ---
Subjective Patient information: Note initiated : 06/15/16 at 4:53 pm Service Date, if different from initiated Date: [] Patient: Phu Bryson 70 y/o M admitted on 06/11/16 for Swelling from Chest Down, Oozing BLE/Anasarca. Chief Complaint: [] Principal diagnosis: CHF Interval history: no new issues edema slowly improving, still 3+ no SOB No other events denies any uremic symptoms Pertinent ROS: pertinent positive and negative documented above Objective - Vital Signs Vital signs: Vital Signs Temp Pulse Resp BP BP Pulse Ox 06/15/16 15:52 97.3 F L 20 134/97 97 06/15/16 11:39 97.6 F 20 115/70 98 06/15/16 04:00 99.1 F 20 156/83 98 06/15/16 00:25 86 06/15/16 00:00 98.3 F 20 128/72 98 06/14/16 20:00 99.8 F H 99 H 20 141/98 94 Intake and Output 06/15/16 06/15/16 06/15/16 05:59 13:59 21:59 Intake Total 270 / 270 240 / 240 Output Total 1295 / 1295 1800 / 1800 Balance -1025 / -1025 240 / 240 -1800 / -1800 Intake: Oral 270 / 270 240 / 240 Output: Urine Catheter Amount 1295 / 1295 1800 / 1800 Other: Meal Breakfast Percent of Meal Consumed 100% Feeding Ability Assist with Tray Set Up # Bowel Movements 0 Weight 263 lb 8 oz Patient Weight 06/16/16 05:59 Weight 263 lb 8 oz Intake & Output: Intake & Output 06/15/16 06/15/16 06/15/16 05:59 13:59 21:59 Intake Total 270 / 270 240 / 240 Output Total 1295 / 1295 1800 / 1800 Balance -1025 / -1025 240 / 240 -1800 / -1800 Weight 263 lb 8 oz Intake: Oral 270 / 270 240 / 240 Output: Urine Catheter Amount 1295 / 1295 1800 / 1800 Other: Meal Breakfast Percent of Meal Consumed 100% Feeding Ability Assist with Tray Set Up # Bowel Movements 0 - General Appearance General appearance: appears started age, obese, chronically ill EENT: mucous membranes moist Neck: JVD Respiratory: clear Cardiology: no rub, edema (2-3+), irregular rhythm Gastrointestinal: no tenderness, no guarding Integumentary: no rash, warm and dry Neurologic: no focal deficit, no asterixis, alert and oriented x3 Musculoskeletal: no erythema, no clubbing Psychiatric: mood/affect appropriate - Lab 06/15/16 04:00 06/15/16 04:00 Most recent lab results Calcium 9.1 mg/dl (8.6-10.4) 06/15/16 04:00 Phosphorus 3.9 mg/dL (2.7-4.5) 06/15/16 04:00 Magnesium 2.4 mg/dL (1.6-2.5) 06/15/16 04:00 Assessment and Plan (1) Chronic kidney disease, stage IV (severe) renal function declinign, s.creatinine is 3.7 still with significant edema discussed possibility of dialysis in future if renal function continues to decline or if edema fails to improve any further patient declined, but will discuss with family will continue lasix at 80mg tid with metolazone 2.5mg bid Acute on chronic systolic CHF: still with significant edema continue diuretics Anemia: low iron sat, will start oral iron will follow along Status: Chronic Comment: Most recent s.creat is 3.15,egfr of 19ml/min CKD EPI equation renal function stable at around 3.0, no significant volume overload CHF and uncontrolled DM is likely etiology UPCR is only at 0.3 labs discussed hold metolazone work on better DM control will monitor, will go for AVF surgery if renal function continues to worsen
[2016-06-15] MEDS ORDERED: FERROUS SULFATE 325 MG TABLET PO SCH (17:30)
--- NOTE | 2016-06-15 17:45 | General Surgery Progress Note ---
Subjective Patient reports: other (Slow progress with wound healing. OPen wounds skin and sub q both legs with dermatitis and bialteral onychogryposis toe nails. ) Narrative: Note initiated : 06/15/16 at 5:39 pm Service Date, if different from initiated Date: [] Patient: Phu Bryson 70 y/o M admitted on 06/11/16 for Swelling from Chest Down, Oozing BLE/Anasarca. Chief Complaint: [] Objective Temp Pulse Resp BP Pulse Ox 97.3 F L 86 20 134/97 97 06/15/16 15:52 06/15/16 00:25 06/15/16 15:52 06/15/16 15:52 06/15/16 15:52 AVSS. Hemodynamically stable. Edema gradually decreasing, but there is deteriorating renal function. Decreasing GFR and increasing creatinine. K is normal Skin lesions of both legs are stable and gradually improving with local cleansing and topical Silvadene application. Will continue same at this time. Patient does NOT want to consider the option of Hemodialysis at this time. Wants time to think and discuss with family members. - Additional Data Intake & Output - Last 24 hours: Intake & Output 06/13/16 06/14/16 06/15/16 06/16/16 05:59 05:59 05:59 05:59 Intake Total 1069 / 1069 1282 / 1282 1082 / 1082 240 / 240 Output Total 3930 / 3930 5190 / 5190 4055 / 4055 1800 / 1800 Balance -2861 / -2861 -3908 / -3908 -2973 / -2973 -1560 / -1560 Weight 286 lb 260 lb 263 lb 8 oz 263 lb 8 oz - Labs 06/15/16 04:00 06/15/16 04:00 Diabetes panel 06/15/16 Range/Units 04:00 Sodium 138 (133-145) mmol/L Potassium 3.6 (3.3-5.1) mmol/L Chloride 93 L (96-108) mmol/L Carbon Dioxide 31 H (22-30) mmol/L BUN 52 H (8-23) mg/dl Creatinine 3.7 H (0.7-1.2) mg/dl Glucose 168 H (70-105) mg/dL Calcium 9.1 (8.6-10.4) mg/dl AST 20 (0-37) U/l ALT 14 (0-40) U/l Alkaline Phosphatase 200 H (39-117) U/L Total Protein 7.2 (5.9-8.4) gm/dL Albumin 3.2 (3.2-5.2) gm/dL Triglycerides 68 (<150) mg/dl Calcium panel 06/15/16 Range/Units 04:00 Calcium 9.1 (8.6-10.4) mg/dl Phosphorus 3.9 (2.7-4.5) mg/dL Albumin 3.2 (3.2-5.2) gm/dL Pituitary panel 06/15/16 Range/Units 04:00 Sodium 138 (133-145) mmol/L Potassium 3.6 (3.3-5.1) mmol/L Chloride 93 L (96-108) mmol/L Carbon Dioxide 31 H (22-30) mmol/L BUN 52 H (8-23) mg/dl Creatinine 3.7 H (0.7-1.2) mg/dl Glucose 168 H (70-105) mg/dL Calcium 9.1 (8.6-10.4) mg/dl Adrenal panel 06/15/16 Range/Units 04:00 Sodium 138 (133-145) mmol/L Potassium 3.6 (3.3-5.1) mmol/L Chloride 93 L (96-108) mmol/L Carbon Dioxide 31 H (22-30) mmol/L BUN 52 H (8-23) mg/dl Creatinine 3.7 H (0.7-1.2) mg/dl Glucose 168 H (70-105) mg/dL Calcium 9.1 (8.6-10.4) mg/dl Total Bilirubin 0.6 (0.0-1.0) mg/dL AST 20 (0-37) U/l ALT 14 (0-40) U/l Alkaline Phosphatase 200 H (39-117) U/L Total Protein 7.2 (5.9-8.4) gm/dL Albumin 3.2 (3.2-5.2) gm/dL Medical - PN: A/P - Time Spent With Patient Total time spent is greater than 50% in coordination of care (as documented) at patient's floor/unit and/or counseling patient: Patient seen with nursing staff and wounds examined and wound care and dressing changes reviewed with nursing staff. IF patient is discharged, will see him at the wound care center in ONE week. 15 - 24 minutes (1) Pressure ulcer of lower extremity Problem details: Bilateral legs lateral upper and mid third . Chronic with patchy adipose tissue exposed. CHRONIC and colonized. Wound cultures. Contaminated wounds ?? MRSA Status: Chronic Current Visit: Yes
[2016-06-15] MEDS ORDERED: ACETAMINOPHEN 1,000 MG/100 ML BOTTLE IV PRN (19:10)
[2016-06-15] MEDS ORDERED: DEXTROSE 50% 50 ML VIAL IV PRN (19:10)
[2016-06-15] MEDS ORDERED: POTASSIUM CHLORIDE 20 MEQ PACKET PO PRN (19:10)
[2016-06-15] MEDS ORDERED: ONDANSETRON 4 MG/2 ML VIAL IV PRN (19:10)
[2016-06-15] MEDS ORDERED: ACETAMINOPHEN 325 MG TABLET PO PRN (19:10)
[2016-06-15] MEDS ORDERED: MAGNESIUM SULFATE 2 GM/50 ML BAG IV PRN (19:10)
[2016-06-15] MEDS ORDERED: INSULIN GLARGINE, HUMAN 1 UNIT/0.01 ML SQ SCH (21:00)
[2016-06-15] MEDS ORDERED: NYSTATIN POWDER BOTTLE 15GM TOPICAL SCH (21:00)
[2016-06-15] MEDS ORDERED: SENNOSIDES/DOCUSATE SODIUM 1 TAB TABLET PO SCH (21:00)
[2016-06-15] MEDS: NYSTATIN POWDER BOTTLE 15GM TOPICAL SCH (22:21)
[2016-06-15] MEDS: SIMVASTATIN 20 MG TABLET PO SCH (22:30)
[2016-06-15] MEDS: TAMSULOSIN 0.4 MG CAPSULE PO SCH (22:30)
[2016-06-16] MEDS: FUROSEMIDE 100 MG/10 ML VIAL IV SCH (05:22)
[2016-06-16] MEDS: CEPHALEXIN 250 MG CAPSULE PO SCH (05:22)
[2016-06-16] MEDS: 0.9 % SODIUM CHLORIDE 10 ML SYRINGE IV SCH ×3 (05:23→22:30)
[2016-06-16 05:54] LABS: Mean Cell Volume 90.8 fL (80.0-100.0); Mean Corpuscular HGB Conc 32.1 g/dL (31.0-36.0); Mean Corpuscular Hemoglobin 29.1 pg (26.0-34.0); Platelet Count 126 K/mcL (140-440); RBC 3.57 M/mcL (4.50-5.90); Red Cell Distribution Width 16.8 % (11.5-14.5)
[2016-06-16 06:16] LABS: ALT/SGPT 15 U/l (0-40); Albumin 3.3 gm/dL (3.2-5.2); Albumin/Globulin Ratio 0.9 (1.0-2.3); Alkaline Phosphatase 197 U/L (39-117); Bilirubin,Direct 0.3 mg/dL (0.0-0.3); Blood Urea Nitrogen 62 mg/dl (8-23); Gamma Glutamyl Transpeptidase 160 U/L (8-61); Magnesium 2.5 mg/dL (1.6-2.5); Phosphorous 4.4 mg/dL (2.7-4.5); Uric Acid 14.5 mg/dL (2.5-8.0)
[2016-06-16] MEDS: METOLAZONE 2.5 MG TABLET PO SCH ×2 (07:14→15:24)
[2016-06-16] MEDS: INSULIN LISPRO 1 UNIT/0.01 ML UNIT SQ SCH ×4 (07:14→20:41)
[2016-06-16] MEDS: POTASSIUM CHLORIDE 20 MEQ TABLET PO SCH ×2 (07:15→16:43)
[2016-06-16] MEDS: FERROUS SULFATE 325 MG TABLET PO SCH ×2 (07:15→16:43)
[2016-06-16 07:48] LABS: Anisocytosis 1+ (NONE SEEN); Band Neutrophils % 3 % (0-10); Eosinophils % (Manual) 4 % (0-7); Lymphocytes % 11 % (15-49); Monocytes % (Manual) 8 % (1-9); Platelet Estimate DECREASED (NORMAL); RBC Morphology ABNORM (NORMAL); Segmented Neutrophils % 74 % (38-78)
--- NOTE | 2016-06-16 08:57 | Nephrology Progress Note ---
Subjective Patient information: Note initiated : 06/16/16 at 8:52 am Service Date, if different from initiated Date: [] Patient: Phu Bryson 70 y/o M admitted on 06/11/16 for Swelling from Chest Down, Oozing BLE/Anasarca. Chief Complaint: [] Principal diagnosis: CHF Interval history: edema continues to get better no SOB moving a little better no CP no nausea, vomiting, loss of appetite no other issues Pertinent ROS: 10 point ROS done and pertinent positive and negative documented above Objective - Vital Signs Vital signs: Vital Signs Temp Pulse Resp BP BP Pulse Ox 06/16/16 07:30 22 92 06/16/16 07:22 97.5 F L 89 22 127/82 92 06/16/16 04:00 97.2 F L 90 24 125/80 93 06/15/16 23:57 97.6 F 91 H 24 137/87 93 06/15/16 20:00 98.0 F 92 H 24 119/75 92 06/15/16 15:52 97.3 F L 20 134/97 97 06/15/16 11:39 97.6 F 20 115/70 98 Intake and Output 06/15/16 06/16/16 06/16/16 21:59 05:59 13:59 Intake Total 430 / 430 Output Total 1800 / 1800 1650 / 1650 Balance -1800 / -1800 -1220 / -1220 Intake: Oral 430 / 430 Output: Urine Catheter Amount 1800 / 1800 1650 / 1650 Other: # Bowel Movements 0 Weight 263 lb 6.4 oz Intake & Output: Intake & Output 06/15/16 06/16/16 06/16/16 21:59 05:59 13:59 Intake Total 430 / 430 Output Total 1800 / 1800 1650 / 1650 Balance -1800 / -1800 -1220 / -1220 Weight 263 lb 6.4 oz Intake: Oral 430 / 430 Output: Urine Catheter Amount 1800 / 1800 1650 / 1650 Other: # Bowel Movements 0 - General Appearance General appearance: appears started age, obese, chronically ill EENT: mucous membranes moist Neck: no JVD Cardiology: no rub, edema (improving, weight unchanged but edema is much better on exam), irregular rhythm Gastrointestinal: no tenderness, no guarding Neurologic: no focal deficit, alert and oriented x3 Musculoskeletal: no erythema, no cyanosis Psychiatric: mood/affect appropriate - Lab 06/16/16 04:35 06/16/16 04:35 Most recent lab results Calcium 8.8 mg/dl (8.6-10.4) 06/16/16 04:35 Phosphorus 4.4 mg/dL (2.7-4.5) 06/16/16 04:35 Magnesium 2.5 mg/dL (1.6-2.5) 06/16/16 04:35 Assessment and Plan (1) Chronic kidney disease, stage IV (severe) S.creatinine upto 4, bun upto 62 steadily declining renal function as edema gets better still has edema though so cannot cut back on diuretics will change to oral diuretics today, bumetanide 3mg bid with metolazone 2.5mg 15 min prior to bumex dose will continue with fluid restriction no urgent need for dialysis will follow closely for dialysis needs including response to oral diuretics, discussed with patient and family continue oral potassium Anemia: iron deficiency with CKD started on ferrous sulfate as tsat was low CHF Will follow along Status: Chronic Comment: Most recent s.creat is 3.15,egfr of 19ml/min CKD EPI equation renal function stable at around 3.0, no significant volume overload CHF and uncontrolled DM is likely etiology UPCR is only at 0.3 labs discussed hold metolazone work on better DM control will monitor, will go for AVF surgery if renal function continues to worsen
[2016-06-16] MEDS ORDERED: CIPROFLOXACIN 500 MG TABLET PO SCH (09:00)
[2016-06-16] MEDS: METOPROLOL TARTRATE 25 MG TABLET PO SCH ×2 (09:23→20:41)
[2016-06-16] MEDS: DOCUSATE SODIUM 100 MG CAPSULE PO SCH ×2 (09:23→20:41)
[2016-06-16] MEDS: AMIODARONE HCL 200 MG TABLET PO SCH (09:23)
[2016-06-16] MEDS: CLOPIDOGREL 75 MG TABLET PO SCH (09:23)
[2016-06-16] MEDS: ASPIRIN 81 MG TAB.CHEW CHEWED SCH (09:23)
[2016-06-16] MEDS: NYSTATIN POWDER BOTTLE 15GM TOPICAL SCH ×2 (09:24→20:44)
[2016-06-16] MEDS: SILVER SULFADIAZINE CREAM.TOP 400GM TOPICAL SCH ×2 (10:30→20:43)
[2016-06-16] MEDS ORDERED: MUPIROCIN CRM 2% 15 GM TUBE TOPICAL SCH (10:36)
[2016-06-16] MEDS ORDERED: MAGNESIUM HYDROXIDE 30 ML ORAL.SUSP PO ONE (11:44)
--- NOTE | 2016-06-16 12:42 | Internal Med Progress Note ---
Medical - PN: Subj Patient information: Note initiated : 06/16/16 at 12:39 pm Service Date, if different from initiated Date: [] Patient: Phu Bryson 70 y/o M admitted on 06/11/16 for Swelling from Chest Down, Oozing BLE/Anasarca. Chief Complaint: [] Interval history: /- patient admitted with generalized anasarca with underlying NYHA class III systolic heart failure EF 30% and chronic kidney disease with baseline creatinine 2.5. Patient's dry weight was around 240 around Reji and currently at 277. started on Lasix drip with satisfactory initial response. it' s unclear if patient has been taking his home dose Bumex and metolazone. He has been followed up by nephrology as an outpatient and has had a history of poor compliance with medications. Admitted to telemetry for continuous Lasix infusion and target around 9000-10,000 cc net negative over 72 hours. Massively swollen scrotum. bilateral lower extremity wounds secondary to stasis and lymphedema. wound care consulted 3/- over 3500 cc negative in the last 24 hours. Adequate response to Lasix. improved shortness of breath and able to talk in full sentences. wound care ongoing occupational health specialist. No overnight fever chills. Nephrology on board. Stable electrolytes. Creatinine 2.8. INR 1.9. atrial fibrillation rate controlled 3/4-. With adequate response to Lasix over 3500 cc net negative in 24 hours cumulative 5000 cc since admission. extensive lymphedema/anasarca. on Lasix drip along with metolazone. Nephrology on board. Potassium at 3.3 on replacement. On fluid restriction to 1.2 L a day. Patient clinically feels better with improved shortness of breath. However generalized lymphedema only minimally improved. Target additional 5-7000 cc negative in the next 48 hours. continue pre-existing condition management on home meds. Ongoing wound care as per pharmacy operations specialist. No overnight fever chills shortness of breath or concerns per staff 3/5-pseudomonas status staff on wound cultures. Over 10,000 cc net negative. Creatinine up to 3.5 from baseline 2.5. Continue diuresis and target additional 3000 cc negative. Possible discharge in 24 hours with outpatient wound care. Continue antibiotic coverage for pseudomonas/staff- switch IV to oral antibiotics with ciprofloxacin/Keflex. INR 2.3. Potassium 3.5. much improved anasarca/scrotal edema. 3/6 Pt seen examined, no acute overnight events, Creatinie continues to trend upwards, still has scrotal edema, but seems much better than admission. He is now on IV lasix TID 80mg with po metolozone. Will continue same for now, follow nephrology reccs.Scrotal site mildy inflammed, start on topical nystatin powder. Wound care to continue, po antibiotics. 06/16 Pt seen examined, no acute overnight events, doing well, feels better, no cp or sob, does have anxiety when he is alone. Creat is worsening, plan to stop iV lasix and start bumex with metoloazone Gurvinder lower extremity wounds, poor nails, as well as heavy callus and ulcers on the palms. A large callus with some fluid underneath noted on the right lateral foot. Wound care aware of same. Patient on topical silvadene for treatment of wounds, will d/c systemic antibiotcs. Plan was to start on mupirocin, but on further review sivadene should cover staph as well as pseudomonas. Pertinent ROS: Denies headache, dizziness Denies chest pain, palpitations Denies cough or shortness of breath Denies abdominal pain, nausea or vomiting. - Constitutional Vitals: Vital Signs Temp Pulse Resp BP Pulse Ox 97.5 F L 89 22 127/82 92 06/16/16 07:22 06/16/16 07:22 06/16/16 07:30 06/16/16 07:22 06/16/16 07:30 Period Temp Pulse Resp BP Sys/Goodwin Pulse Ox Last 24 Hr 97.2 F-98.0 F 89-92 20-24 119-137/75-97 92-97 Intake and Output 06/15/16 06/16/16 06/16/16 21:59 05:59 13:59 Intake Total 430 / 430 50 / 50 Output Total 1800 / 1800 1650 / 1650 Balance -1800 / -1800 -1220 / -1220 50 / 50 Weight 263 lb 6.4 oz Intake & Output: Intake & Output 06/15/16 06/16/16 06/16/16 21:59 05:59 13:59 Intake Total 430 / 430 50 / 50 Output Total 1800 / 1800 1650 / 1650 Balance -1800 / -1800 -1220 / -1220 50 / 50 Weight 263 lb 6.4 oz Intake: Oral 430 / 430 50 / 50 Output: Urine Catheter Amount 1799 Other: # Bowel Movements 0 Exam: Constitutional; Afebrile, cooperative, alert, not in distress. Eyes- No icterus, Pupils equal, reactive, No periorbital swelling Ears- Ext ear normal, hearing normal to conversation. Neck- Midline trachea, supple Respiratory system: Air Entry equal on both sides, No crackles or wheezing, no rhonchi. CVS- Rate rhythm regular, S1,S2 heard, no gallop, no rub. Abdomen- Soft nontender abdomen, no organomegaly, no tenderness, no guarding or rigidity, MANUFACTURING ENGINEERING TECHNICIAN- AOOx3, moving all extremities, no focal deficit noted. Lower extremity- edema noted, gurvinder redness in both legs, skin break down on the legs as noted in wound care notes. callus on right lateral region, with some fluid collection. some hard callous on the left leg, poor nails. dry skin. Medical - PN: Obj Da - Labs CBC & Chem 7: 06/16/16 04:35 06/16/16 04:35 Labs: Abnormal Lab Results 06/16/16 06/16/16 06/16/16 04:35 04:35 04:35 RBC 3.57 L Hgb 10.4 L Hct 32.4 L RDW 16.8 H Plt Count 126 L Seg Neutrophils % Lymphocytes % 11 L Monocytes % (Manual) Platelet Estimate Decreased A RBC Morphology Abnorm A Anisocytosis 1+ A PT 29.7 H INR 2.7 H Chloride 91 L Carbon Dioxide Anion Gap 18.0 H BUN 62 H Creatinine 4.0 H Glucose 176 H Uric Acid 14.5 H Phosphorus Iron Transferrin % Sat Direct Bilirubin GGT 160 H Alkaline Phosphatase 197 H Lactate Dehydrogenase 277 H Globulin Albumin/Globulin Ratio 0.9 L 06/15/16 06/15/16 06/15/16 06:30 04:00 04:00 RBC 3.57 L Hgb 10.5 L Hct 31.8 L RDW 16.1 H Plt Count 112 L Seg Neutrophils % Lymphocytes % 11 L Monocytes % (Manual) 18 H Platelet Estimate RBC Morphology Anisocytosis PT 27.8 H INR 2.5 H Chloride 93 L Carbon Dioxide 31 H Anion Gap BUN 52 H Creatinine 3.7 H Glucose 168 H Uric Acid 13.4 H Phosphorus Iron Transferrin % Sat Direct Bilirubin 0.4 H GGT 174 H Alkaline Phosphatase 200 H Lactate Dehydrogenase Globulin 4.0 H Albumin/Globulin Ratio 0.8 L 06/14/16 06/14/16 06/14/16 04:00 03:25 03:25 RBC 3.43 L Hgb 10.2 L Hct 31.4 L RDW 17.7 H Plt Count 133 L Seg Neutrophils % 83 H Lymphocytes % 7 L Monocytes % (Manual) Platelet Estimate Decreased A RBC Morphology Abnorm A Anisocytosis 1+ A PT 25.7 H INR 2.3 H Chloride Carbon Dioxide 32 H Anion Gap BUN 52 H Creatinine 3.5 H Glucose 132 H Uric Acid 12.0 H Phosphorus Iron 24 L Transferrin % Sat 9 L Direct Bilirubin GGT 174 H Alkaline Phosphatase 184 H Lactate Dehydrogenase Globulin 3.9 H Albumin/Globulin Ratio 0.9 L 06/13/16 18:14 RBC Hgb Hct RDW Plt Count Seg Neutrophils % Lymphocytes % Monocytes % (Manual) Platelet Estimate RBC Morphology Anisocytosis PT INR Chloride 94 L Carbon Dioxide Anion Gap BUN 50 H Creatinine 3.4 H Glucose 197 H Uric Acid 11.9 H Phosphorus 4.6 H Iron Transferrin % Sat Direct Bilirubin 0.5 H GGT 183 H Alkaline Phosphatase 190 H Lactate Dehydrogenase Globulin 4.1 H Albumin/Globulin Ratio 0.9 L Meds: Medications Acetaminophen (Tylenol) 650 mg PO Q4-6HP PRN PRN Reason: PAIN/FEVER > 101 Amiodarone HCl (Cordarone) 200 mg PO QDAY [facility] Last Admin: 06/16/16 09:23 Dose: 200 mg Aspirin (Aspirin) 81 mg CHEWED DAILY [facility] Last Admin: 06/16/16 09:23 Dose: 81 mg Bumetanide (Bumex) 3 mg PO BIDD [facility] Calcitriol (Rocaltrol) 0.25 mcg PO Q48@0900 [facility] Clopidogrel Bisulfate (Plavix) 75 mg PO QDAY [facility] Last Admin: 06/16/16 09:23 Dose: 75 mg Dextrose (Dextrose 50%) 0 ml IV UD PRN PRN Reason: Hypoglycemia Diagnostic Test (Pha) (Accu-Chek) 1 each FS ACHS [facility] Last Admin: 06/16/16 11:23 Dose: 1 each Docusate Sodium (Colace) 100 mg PO BID [facility] Last Admin: 06/16/16 09:23 Dose: 100 mg Ferrous Sulfate (Ferrous Sulfate) 325 mg PO BIDCC [facility] Last Admin: 06/16/16 07:15 Dose: 325 mg Magnesium Sulfate (Magnesium Sulfate) 2 gm in 50 mls @ 50 mls/hr IV UD PRN PRN Reason: MG = or < 1.7 Acetaminophen (Ofirmev) 1,000 mg in 100 mls @ 200 mls/hr IV Q6HP PRN PRN Reason: PAIN/FEVER > 101 Insulin Glargine (Lantus) 25 unit SQ [facility] Insulin Human Lispro (Humalog) 0 unit SQ ACHS [facility] PRN Reason: Protocol Last Admin: 06/16/16 11:31 Dose: 2 unit Metolazone (Zaroxolyn) 2.5 mg PO BID@0730,1530 [facility] Last Admin: 06/16/16 07:14 Dose: 2.5 mg Metoprolol Tartrate (Lopressor) 25 mg PO [facility] Last Admin: 06/15/16 22:30 Dose: 25 mg Metoprolol Tartrate (Lopressor) 50 mg PO DAILY [facility] Last Admin: 06/16/16 09:23 Dose: 50 mg Nystatin (Kenalog) 1 dose TOPICAL BID [facility] Last Admin: 06/16/16 09:24 Dose: 1 dose Ondansetron HCl (Zofran) 4 mg IV Q4-6HP PRN PRN Reason: Nausea And Vomiting Oxycodone HCl (Roxicodone) 5 mg PO Q4HP PRN PRN Reason: Pain Last Admin: 06/15/16 22:17 Dose: 5 mg Potassium Chloride (Klor-Con) 40 meq PO DAILYP PRN PRN Reason: K+ < 3.5 [facility] Last Admin: 06/16/16 07:15 Dose: 40 meq Senna/Docusate Sodium (Senna Plus Tablet) 2 tab PO [facility] Silver Sulfadiazine (Silvadene) 2 dose TOPICAL BID [facility] Last Admin: 06/16/16 10:30 Dose: Not Given Simvastatin (Zocor) 20 mg PO [facility] Last Admin: 06/15/16 22:30 Dose: 20 mg Sodium Chloride (Saline Flush) 10 ml IV Q8 [facility] Last Admin: 06/16/16 05:23 Dose: 10 ml Tamsulosin HCl (Flomax) 0.4 mg PO HS [facility] Last Admin: 06/15/16 22:30 Dose: 0.4 mg Warfarin Sodium (Coumadin) 2.5 mg PO ONCE@1400 ONE Stop: 06/16/16 14:01 Medical - PN: A/P - Time Spent With Patient Total time spent is greater than 50% in coordination of care (as documented) at patient's floor/unit and/or counseling patient: (1) Anasarca associated with disorder of kidney Status: Acute Current Visit: Yes (2) Anticoagulated on Coumadin Status: Acute Current Visit: No (3) Atrial fibrillation Status: Acute Current Visit: No (4) Diabetic ulcer of left foot Status: Acute Current Visit: No (5) DMII (diabetes mellitus, type 2) Problem details: ensure compliance with insulin and diabetic diet has refused endocrinology referral Status: Chronic Current Visit: No (6) Systolic heart failure Status: Acute Current Visit: No - Narrative A/P Narrative: Follow Nephrology reccs switch to po bumex contiue with wound care Will need podiatry referral as outpatient, will discuss with wound care first. monitor I/O if still able to make urine, and creat is stable will d/c to snf in AM, if not will consider HD. Medical - PN: Qual - VTE Deep Vein Thrombosis/Pulmonary Embolism Present on Admission: No
[2016-06-16] MEDS ORDERED: WARFARIN 2.5 MG TABLET PO ONE (14:00)
[2016-06-16] MEDS: BUMETANIDE 1 MG TABLET PO SCH (15:24)
[2016-06-16] MEDS: TAMSULOSIN 0.4 MG CAPSULE PO SCH (20:41)
[2016-06-16] MEDS: SENNOSIDES/DOCUSATE SODIUM 1 TAB TABLET PO SCH (20:41)
[2016-06-16] MEDS: SIMVASTATIN 20 MG TABLET PO SCH (20:43)
[2016-06-16] MEDS ORDERED: INSULIN GLARGINE, HUMAN 1 UNIT/0.01 ML SQ SCH (21:00)
[2016-06-17] MEDS: 0.9 % SODIUM CHLORIDE 10 ML SYRINGE IV SCH ×3 (05:50→21:00)
[2016-06-17] MEDS: oxyCODONE HCL 5 MG TABLET PO PRN (07:23)
[2016-06-17] MEDS: FERROUS SULFATE 325 MG TABLET PO SCH ×2 (07:23→16:33)
[2016-06-17] MEDS: METOLAZONE 2.5 MG TABLET PO SCH ×2 (07:23→14:42)
[2016-06-17] MEDS: POTASSIUM CHLORIDE 20 MEQ TABLET PO SCH ×2 (07:24→16:32)
[2016-06-17] MEDS: BUMETANIDE 1 MG TABLET PO SCH ×2 (07:24→16:32)
[2016-06-17 07:27] LABS: Basophils # (Auto) 0 K/mcL (0.0-0.3); Basophils % (Auto) 0.4 % (0.0-2.0); Eosinophils # (Auto) 0.2 K/mcL (0.0-0.7); Eosinophils % (Auto) 3.2 % (0.0-7.0); Granulocytes % (Auto) 75.8 % (38.0-78.0); Lymphocytes # (Auto) 0.7 K/mcL (1.5-4.8); Lymphocytes % (Auto) 9.9 % (15.5-49.0); Mean Cell Volume 92.1 fL (80.0-100.0); Mean Corpuscular HGB Conc 32.4 g/dL (31.0-36.0); Mean Corpuscular Hemoglobin 29.9 pg (26.0-34.0); Monocytes # (Auto) 0.7 K/mcL (0.1-0.9); Monocytes % (Auto) 10.7 % (1.0-9.0); Platelet Count 138 K/mcL (140-440); Red Cell Distribution Width 16.9 % (11.5-14.5)
[2016-06-17] MEDS: INSULIN LISPRO 1 UNIT/0.01 ML UNIT SQ SCH ×4 (07:35→20:22)
[2016-06-17 08:00] LABS: ALT/SGPT 16 U/l (0-40); Albumin 3.4 gm/dL (3.2-5.2); Albumin/Globulin Ratio 0.9 (1.0-2.3); Alkaline Phosphatase 237 U/L (39-117); Bilirubin,Direct 0.4 mg/dL (0.0-0.3); Blood Urea Nitrogen 66 mg/dl (8-23); Gamma Glutamyl Transpeptidase 180 U/L (8-61); Magnesium 2.6 mg/dL (1.6-2.5); Phosphorous 4.4 mg/dL (2.7-4.5); Uric Acid 14.4 mg/dL (2.5-8.0)
[2016-06-17] MEDS: CLOPIDOGREL 75 MG TABLET PO SCH (09:14)
[2016-06-17] MEDS: AMIODARONE HCL 200 MG TABLET PO SCH (09:14)
[2016-06-17] MEDS: DOCUSATE SODIUM 100 MG CAPSULE PO SCH ×2 (09:14→20:22)
[2016-06-17] MEDS: ASPIRIN 81 MG TAB.CHEW CHEWED SCH (09:14)
[2016-06-17] MEDS: METOPROLOL TARTRATE 25 MG TABLET PO SCH ×2 (09:14→20:22)
[2016-06-17] MEDS: CALCITRIOL 0.25 MCG CAPSULE PO SCH (09:14)
[2016-06-17] MEDS: NYSTATIN POWDER BOTTLE 15GM TOPICAL SCH ×2 (10:34→20:23)
--- NOTE | 2016-06-17 13:09 | Internal Med Progress Note ---
Medical - PN: Subj Patient information: Note initiated : 06/17/16 at 1:04 pm Service Date, if different from initiated Date: [] Patient: Phu Bryson 70 y/o M admitted on 06/11/16 for Swelling from Chest Down, Oozing BLE/Anasarca. Chief Complaint: [] Interval history: This is a pleasant 70 yr male who presented to the hospital with shortness of breath on exertion. Significnat edema/ anasarca and significant weight gain. Baseline weight is 230-240 lbs, he gained upto 304 lbs as per nephrology. For hospital course see below 3/2- patient admitted with generalized anasarca with underlying NYHA class III systolic heart failure EF 30% and chronic kidney disease with baseline creatinine 2.5. Patient's dry weight was around 240 around Reji and currently at 277. started on Lasix drip with satisfactory initial response. it' s unclear if patient has been taking his home dose Bumex and metolazone. He has been followed up by nephrology as an outpatient and has had a history of poor compliance with medications. Admitted to telemetry for continuous Lasix infusion and target around 9000-10,000 cc net negative over 72 hours. Massively swollen scrotum. bilateral lower extremity wounds secondary to stasis and lymphedema. wound care consulted 3/- over 3500 cc negative in the last 24 hours. Adequate response to Lasix. improved shortness of breath and able to talk in full sentences. wound care ongoing clinical pharmacy specialist. No overnight fever chills. Nephrology on board. Stable electrolytes. Creatinine 2.8. INR 1.9. atrial fibrillation rate controlled 3/4-. With adequate response to Lasix over 3500 cc net negative in 24 hours cumulative 5000 cc since admission. extensive lymphedema/anasarca. on Lasix drip along with metolazone. Nephrology on board. Potassium at 3.3 on replacement. On fluid restriction to 1.2 L a day. Patient clinically feels better with improved shortness of breath. However generalized lymphedema only minimally improved. Target additional 5-7000 cc negative in the next 48 hours. continue pre-existing condition management on home meds. Ongoing wound care as per labor delivery specialist. No overnight fever chills shortness of breath or concerns per staff /-pseudomonas status staff on wound cultures. Over 10,000 cc net negative. Creatinine up to 3.5 from baseline 2.5. Continue diuresis and target additional 3000 cc negative. Possible discharge in 24 hours with outpatient wound care. Continue antibiotic coverage for pseudomonas/staff- switch IV to oral antibiotics with ciprofloxacin/Keflex. INR 2.3. Potassium 3.5. much improved anasarca/scrotal edema. 06/15 Pt seen examined, no acute overnight events, Creatine continues to trend upwards, still has scrotal edema, but seems much better than admission. He is now on IV lasix TID 80mg with po metolazone. Will continue same for now, follow nephrology recs.Scrotal site mildy inflamed, start on topical nystatin powder. Wound care to continue, po antibiotics. 06/16 Pt seen examined, no acute overnight events, doing well, feels better, no cp or sob, does have anxiety when he is alone. Creat is worsening, plan to stop iV lasix and start bumex with metolazone Gurvinder lower extremity wounds, poor nails, as well as heavy callus and ulcers on the palms. A large callus with some fluid underneath noted on the right lateral foot. Wound care aware of same. Patient on topical silvadene for treatment of wounds, will d/c systemic antibiotics. Plan was to start on mupirocin, but on further review sivadene should cover staph as well as pseudomonas. 06/17 Patient seen examined, no acute overnight events, He denies any cp, sob, working well with PT. Wound care ongoing, he will need to have outpatient podiatry evaluation and follow up. Plan for the patient to be discharged in AM to SNF vs LTAC vs Acute care rehab based on his insurance. he is still making urine on po bumex and metolozone, Creat is stable a t 4.0, bun slightly worse. he is tolerating po diet well and participating in PT. d/c nice today CHF exacerbation/ Anasarca- Treated with IV lasix drip, patient responded well to treatment, his weight today is 257, and he is responding well to diuretics, continue bumex bid with metolozone for now. CKD stage 5, Creat 4.0, on bumex and metolozone with good response to fluid overload, patient may need dialysis in the near term if the renal function continues to decline. Nephrology has been following the patient while he has been here. DM- Glucose not well controlled, on discharge plan to resume lantus but increase dose to 30 units. lispro. He also takes januvia 50mg once a day. Given his decline in renal function his dose of januvia will have to be decreased to 25mg once daily. Wound care/ Leg ulcers- Patient has significant break down in the skin in the lower extremities, no need for systemic therapy. On topical sivadene cream now. Continue wound care dressing changes as per wound care reccommendations. Afib- HR stable, on coumadin for anticioagulation INR is 2.2 today, continue same. BPH stable on flomax continue same. Pertinent ROS: Denies headache, dizziness Denies chest pain, palpitations Denies cough or shortness of breath Denies abdominal pain, nausea or vomiting. - Constitutional Vitals: Vital Signs Temp Pulse Resp BP Pulse Ox 98.0 F 98 H 20 136/81 93 06/17/16 08:01 06/17/16 03:51 06/17/16 08:01 06/17/16 08:01 06/17/16 08:01 Period Temp Pulse Resp BP Sys/Goodwin Pulse Ox Last 24 Hr 97.0 F-98.2 F 86-98 14-20 122-144/69-87 93-97 Intake and Output 06/16/16 06/17/16 06/17/16 21:59 05:59 13:59 Intake Total 330 / 330 310 / 310 350 / 350 Output Total 1350 / 1350 2200 / 2200 30 / 30 Balance -1020 / -1020 -1890 / -1890 320 / 320 Weight 257 lb 9.6 oz Intake & Output: Intake & Output 06/16/16 06/17/16 06/17/16 21:59 05:59 13:59 Intake Total 330 / 330 310 / 310 350 / 350 Output Total 1350 / 1350 2200 / 2200 30 / 30 Balance -1020 / -1020 -1890 / -1890 320 / 320 Weight 257 lb 9.6 oz Intake: Oral 330 / 330 310 / 310 350 / 350 Output: Urine Catheter Amount 1350 / 1350 2200 / 2200 Emesis Other: Meal Breakfast Percent of Meal Consumed 100% Feeding Ability Independent Exam: Constitutional; Afebrile, cooperative, alert, not in distress. Eyes- No icterus, Pupils equal, reactive, No periorbital swelling Ears- Ext ear normal, hearing normal to conversation. Neck- Midline trachea, supple Respiratory system: Air Entry equal on both sides, No crackles or wheezing, no rhonchi. CVS- Rate normal rhythm irregular, S1,S2 heard, no gallop, no rub. Gurvinder pedal edema. Abdomen- Soft nontender abdomen, no organomegaly, no tenderness, no guarding or rigidity, [employer] INTERFACE DEVELOPER- AOOx3, moving all extremities, no focal deficit noted. Medical - PN: Obj Da - Labs CBC & Chem 7: 06/17/16 05:15 06/17/16 05:15 Labs: Abnormal Lab Results 06/17/16 06/17/16 06/17/16 05:15 05:15 05:15 RBC 3.50 L Hgb 10.4 L Hct 32.2 L RDW 16.9 H Plt Count 138 L Lymph % (Auto) 9.9 L Sharp % (Auto) 10.7 H Lymph # 0.7 L Lymphocytes % Monocytes % (Manual) Platelet Estimate RBC Morphology Anisocytosis PT 25.3 H INR 2.2 H Chloride 91 L Carbon Dioxide 32 H Anion Gap 17.0 H BUN 66 H Creatinine 4.0 H Glucose 157 H Uric Acid 14.4 H Magnesium 2.6 H Direct Bilirubin 0.4 H GGT 180 H Alkaline Phosphatase 237 H Lactate Dehydrogenase 290 H Globulin 3.8 H Albumin/Globulin Ratio 0.9 L 06/16/16 06/16/16 06/16/16 04:35 04:35 04:35 RBC 3.57 L Hgb 10.4 L Hct 32.4 L RDW 16.8 H Plt Count 126 L Lymph % (Auto) Sharp % (Auto) Lymph # Lymphocytes % 11 L Monocytes % (Manual) Platelet Estimate Decreased A RBC Morphology Abnorm A Anisocytosis 1+ A PT 29.7 H INR 2.7 H Chloride 91 L Carbon Dioxide Anion Gap 18.0 H BUN 62 H Creatinine 4.0 H Glucose 176 H Uric Acid 14.5 H Magnesium Direct Bilirubin GGT 160 H Alkaline Phosphatase 197 H Lactate Dehydrogenase 277 H Globulin Albumin/Globulin Ratio 0.9 L 06/15/16 06/15/16 06/15/16 06:30 04:00 04:00 RBC 3.57 L Hgb 10.5 L Hct 31.8 L RDW 16.1 H Plt Count 112 L Lymph % (Auto) Sharp % (Auto) Lymph # Lymphocytes % 11 L Monocytes % (Manual) 18 H Platelet Estimate RBC Morphology Anisocytosis PT 27.8 H INR 2.5 H Chloride 93 L Carbon Dioxide 31 H Anion Gap BUN 52 H Creatinine 3.7 H Glucose 168 H Uric Acid 13.4 H Magnesium Direct Bilirubin 0.4 H GGT 174 H Alkaline Phosphatase 200 H Lactate Dehydrogenase Globulin 4.0 H Albumin/Globulin Ratio 0.8 L Meds: Medications Acetaminophen (Tylenol) 650 mg PO Q4-6HP PRN PRN Reason: PAIN/FEVER > 101 Amiodarone HCl (Cordarone) 200 mg PO QDAY [facility] Last Admin: 06/17/16 09:14 Dose: 200 mg Aspirin (Aspirin) 81 mg CHEWED DAILY [facility] Last Admin: 06/17/16 09:14 Dose: 81 mg Bumetanide (Bumex) 3 mg PO BIDD [facility] Last Admin: 06/17/16 07:24 Dose: 3 mg Calcitriol (Rocaltrol) 0.25 mcg PO Q48@0900 [facility] Last Admin: 06/17/16 09:14 Dose: 0.25 mcg Clopidogrel Bisulfate (Plavix) 75 mg PO QDAY [facility] Last Admin: 06/17/16 09:14 Dose: 75 mg Dextrose (Dextrose 50%) 0 ml IV UD PRN PRN Reason: Hypoglycemia Diagnostic Test (Pha) (Accu-Chek) 1 each FS ACHS [facility] Last Admin: 06/17/16 10:46 Dose: 1 each Docusate Sodium (Colace) 100 mg PO BID [facility] Last Admin: 06/17/16 09:14 Dose: 100 mg Ferrous Sulfate (Ferrous Sulfate) 325 mg PO BIDCC [facility] Last Admin: 06/17/16 07:23 Dose: 325 mg Magnesium Sulfate (Magnesium Sulfate) 2 gm in 50 mls @ 50 mls/hr IV UD PRN PRN Reason: MG = or < 1.7 Acetaminophen (Ofirmev) 1,000 mg in 100 mls @ 200 mls/hr IV Q6HP PRN PRN Reason: PAIN/FEVER > 101 Insulin Glargine (Lantus) 25 unit SQ HS [facility] Last Admin: 06/16/16 20:44 Dose: 25 unit Insulin Human Lispro (Humalog) 0 unit SQ ACHS [facility] PRN Reason: Protocol Last Admin: 06/17/16 11:36 Dose: 4 unit Metolazone (Zaroxolyn) 2.5 mg PO BID@0730,1530 [facility] Last Admin: 06/17/16 07:23 Dose: 2.5 mg Metoprolol Tartrate (Lopressor) 25 mg PO [facility] Last Admin: 06/16/16 20:41 Dose: 25 mg Metoprolol Tartrate (Lopressor) 50 mg PO DAILY [facility] Last Admin: 06/17/16 09:14 Dose: 50 mg Nystatin (Kenalog) 1 dose TOPICAL BID [facility] Last Admin: 06/17/16 10:34 Dose: 1 dose Ondansetron HCl (Zofran) 4 mg IV Q4-6HP PRN PRN Reason: Nausea And Vomiting Oxycodone HCl (Roxicodone) 5 mg PO Q4HP PRN PRN Reason: Pain Last Admin: 06/17/16 07:23 Dose: 5 mg Potassium Chloride (Klor-Con) 40 meq PO DAILYP PRN PRN Reason: K+ < 3.5 Potassium Chloride (Kdur) 40 meq PO BIDCC [facility] Last Admin: 06/17/16 07:24 Dose: 40 meq Senna/Docusate Sodium (Senna Plus Tablet) 2 tab PO [facility] Last Admin: 06/16/16 20:41 Dose: 2 tab Simvastatin (Zocor) 20 mg PO [facility] Last Admin: 06/16/16 20:43 Dose: 20 mg Sodium Chloride (Saline Flush) 10 ml IV Q8 [facility] Last Admin: 06/17/16 05:50 Dose: 10 ml Tamsulosin HCl (Flomax) 0.4 mg PO [facility] Last Admin: 06/16/16 20:41 Dose: 0.4 mg Warfarin Sodium (Coumadin) 4 mg PO ONCE@1400 ONE Stop: 06/17/16 14:01 Medical - PN: A/P - Time Spent With Patient Total time spent is greater than 50% in coordination of care (as documented) at patient's floor/unit and/or counseling patient: (1) Anasarca associated with disorder of kidney Status: Acute Current Visit: Yes (2) Anticoagulated on Coumadin Status: Acute Current Visit: No (3) Atrial fibrillation Status: Acute Current Visit: No (4) Diabetic ulcer of left foot Status: Acute Current Visit: No (5) DMII (diabetes mellitus, type 2) Problem details: ensure compliance with insulin and diabetic diet has refused endocrinology referral Status: Chronic Current Visit: No (6) Systolic heart failure Status: Acute Current Visit: No - Narrative A/P Narrative: d/c nice today continue bumex and metolozone Continue rest of medications Increase dose of lantus to 30 units qhs, januvia 25mg qd, given glucose levels still above goals. Plan for D/c in AM if we are able to place him. he needs Ongoing pt and wound care. Medical - PN: Qual - VTE Deep Vein Thrombosis/Pulmonary Embolism Present on Admission: No
[2016-06-17] MEDS ORDERED: WARFARIN 4 MG TABLET PO ONE (14:00)
[2016-06-17] MEDS: sitaGLIPtin 50 MG TABLET PO SCH (14:42)
[2016-06-17] MEDS: TAMSULOSIN 0.4 MG CAPSULE PO SCH (20:22)
[2016-06-17] MEDS: SIMVASTATIN 20 MG TABLET PO SCH (20:22)
[2016-06-17] MEDS: SENNOSIDES/DOCUSATE SODIUM 1 TAB TABLET PO SCH (20:22)
[2016-06-17] MEDS: INSULIN GLARGINE, HUMAN 1 UNIT/0.01 ML SQ SCH (20:23)
[2016-06-18 05:51] LABS: Basophils # (Auto) 0.1 K/mcL (0.0-0.3); Basophils % (Auto) 0.9 % (0.0-2.0); Eosinophils # (Auto) 0.3 K/mcL (0.0-0.7); Granulocytes % (Auto) 77.2 % (38.0-78.0); Lymphocytes # (Auto) 0.6 K/mcL (1.5-4.8); Lymphocytes % (Auto) 7.9 % (15.5-49.0); Mean Cell Volume 91.3 fL (80.0-100.0); Mean Corpuscular HGB Conc 32.2 g/dL (31.0-36.0); Mean Corpuscular Hemoglobin 29.4 pg (26.0-34.0); Monocytes # (Auto) 0.7 K/mcL (0.1-0.9); Platelet Count 157 K/mcL (140-440); RBC 3.63 M/mcL (4.50-5.90)
[2016-06-18 06:32] LABS: ALT/SGPT 16 U/l (0-40); Albumin 3.6 gm/dL (3.2-5.2); Albumin/Globulin Ratio 0.9 (1.0-2.3); Alkaline Phosphatase 225 U/L (39-117); Bilirubin,Direct 0.4 mg/dL (0.0-0.3); Blood Urea Nitrogen 67 mg/dl (8-23); Gamma Glutamyl Transpeptidase 184 U/L (8-61); Magnesium 2.8 mg/dL (1.6-2.5); Phosphorous 4.1 mg/dL (2.7-4.5)
[2016-06-18] MEDS: METOLAZONE 2.5 MG TABLET PO SCH ×2 (07:13→15:01)
[2016-06-18] MEDS: 0.9 % SODIUM CHLORIDE 10 ML SYRINGE IV SCH ×2 (07:14→14:09)
[2016-06-18] MEDS: INSULIN LISPRO 1 UNIT/0.01 ML UNIT SQ SCH ×4 (07:14→21:29)
--- NOTE | 2016-06-18 07:37 | General Surgery Progress Note ---
Subjective Patient reports: other (Swelling of both legs and scrotum is improving. Bothleg wounds are reponding to wound care. ) Narrative: Note initiated : 06/18/16 at 7:32 am Service Date, if different from initiated Date: [] Patient: Phu Bryson 70 y/o M admitted on 06/11/16 for Swelling from Chest Down, Oozing BLE/Anasarca. Chief Complaint: [] Objective Temp Pulse Resp BP Pulse Ox 96.6 F L 89 20 124/78 97 06/18/16 06:51 06/18/16 04:00 06/18/16 06:51 06/18/16 06:51 06/18/16 06:51 AVSS No changes [place]. Edema of both LE and scrotum is significantly improved. Patient still has lymphedema of both legs dependent posterior lower 2/3. Skin and sub cutaneous ulceration is improving. Clinically there is NO evidence of DVT. Discharge plans noted. Will await a [facility] Non Invasive vascular base line evaluation of both LE. - Additional Data Intake & Output - Last 24 hours: Intake & Output 06/16/16 06/17/16 06/18/16 06/19/16 05:59 05:59 05:59 05:59 Intake Total 670 / 670 690 / 690 1060 / 1060 Output Total 3450 / 3450 3550 / 3550 3480 / 3480 Balance -2780 / -2780 -2860 / -2860 -2420 / -2420 Weight 263 lb 6.4 oz 257 lb 9.6 oz 253 lb 11.2 oz - Labs 06/18/16 04:58 06/18/16 04:58 Diabetes panel 06/17/16 06/18/16 Range/Units 05:15 04:58 Sodium 140 141 (133-145) mmol/L Potassium 3.9 3.6 (3.3-5.1) mmol/L Chloride 91 L 91 L (96-108) mmol/L Carbon Dioxide 32 H 36 H (22-30) mmol/L BUN 66 H 67 H (8-23) mg/dl Creatinine 4.0 H 4.1 H (0.7-1.2) mg/dl Glucose 157 H 108 H (70-105) mg/dL Calcium 8.7 9.0 (8.6-10.4) mg/dl AST 27 22 (0-37) U/l ALT 16 16 (0-40) U/l Alkaline Phosphatase 237 H 225 H (39-117) U/L Total Protein 7.2 7.4 (5.9-8.4) gm/dL Albumin 3.4 3.6 (3.2-5.2) gm/dL Triglycerides 81 64 (<150) mg/dl Calcium panel 06/17/16 06/18/16 Range/Units 05:15 04:58 Calcium 8.7 9.0 (8.6-10.4) mg/dl Phosphorus 4.4 4.1 (2.7-4.5) mg/dL Albumin 3.4 3.6 (3.2-5.2) gm/dL Pituitary panel 06/17/16 06/18/16 Range/Units 05:15 04:58 Sodium 140 141 (133-145) mmol/L Potassium 3.9 3.6 (3.3-5.1) mmol/L Chloride 91 L 91 L (96-108) mmol/L Carbon Dioxide 32 H 36 H (22-30) mmol/L BUN 66 H 67 H (8-23) mg/dl Creatinine 4.0 H 4.1 H (0.7-1.2) mg/dl Glucose 157 H 108 H (70-105) mg/dL Calcium 8.7 9.0 (8.6-10.4) mg/dl Adrenal panel 06/17/16 06/18/16 Range/Units 05:15 04:58 Sodium 140 141 (133-145) mmol/L Potassium 3.9 3.6 (3.3-5.1) mmol/L Chloride 91 L 91 L (96-108) mmol/L Carbon Dioxide 32 H 36 H (22-30) mmol/L BUN 66 H 67 H (8-23) mg/dl Creatinine 4.0 H 4.1 H (0.7-1.2) mg/dl Glucose 157 H 108 H (70-105) mg/dL Calcium 8.7 9.0 (8.6-10.4) mg/dl Total Bilirubin 0.7 0.7 (0.0-1.0) mg/dL AST 27 22 (0-37) U/l ALT 16 16 (0-40) U/l Alkaline Phosphatase 237 H 225 H (39-117) U/L Total Protein 7.2 7.4 (5.9-8.4) gm/dL Albumin 3.4 3.6 (3.2-5.2) gm/dL Medical - PN: A/P - Time Spent With Patient Total time spent is greater than 50% in coordination of care (as documented) at patient's floor/unit and/or counseling patient: Patient seen with ALBER Dave Inpatient wound care nurse. Progress reviewed with Dr. Madrigal,, Hospitalist Physician. Agree with Discharge planning. Continue current treatment and wound care. If discharged follow up at wound care in ONE week. 15 - 24 minutes (1) Pressure ulcer of lower extremity Problem details: Bilateral legs lateral upper and mid third . Chronic with patchy adipose tissue exposed. CHRONIC and colonized. Wound cultures. Contaminated wounds ?? MRSA Status: Chronic Current Visit: Yes
[2016-06-18] MEDS: BUMETANIDE 1 MG TABLET PO SCH ×2 (08:14→16:13)
[2016-06-18] MEDS: POTASSIUM CHLORIDE 20 MEQ TABLET PO SCH ×2 (08:14→17:15)
[2016-06-18] MEDS: FERROUS SULFATE 325 MG TABLET PO SCH ×2 (08:14→17:15)
[2016-06-18] MEDS: ASPIRIN 81 MG TAB.CHEW CHEWED SCH (08:15)
[2016-06-18] MEDS: AMIODARONE HCL 200 MG TABLET PO SCH (08:15)
[2016-06-18] MEDS: CLOPIDOGREL 75 MG TABLET PO SCH (08:15)
[2016-06-18] MEDS: DOCUSATE SODIUM 100 MG CAPSULE PO SCH ×2 (08:15→21:13)
[2016-06-18] MEDS: sitaGLIPtin 50 MG TABLET PO SCH (08:15)
[2016-06-18] MEDS: METOPROLOL TARTRATE 25 MG TABLET PO SCH ×2 (08:15→21:13)
[2016-06-18] MEDS: NYSTATIN POWDER BOTTLE 15GM TOPICAL SCH ×2 (10:27→21:13)
[2016-06-18] MEDS ORDERED: WARFARIN 5 MG TABLET PO ONE (14:00)
--- NOTE | 2016-06-18 16:54 | Nephrology Progress Note ---
Subjective Patient information: Note initiated : 06/18/16 at 4:52 pm Service Date, if different from initiated Date: [] Patient: Phu Bryson 70 y/o M admitted on 06/11/16 for Swelling from Chest Down, Oozing BLE/Anasarca. Chief Complaint: [] Principal diagnosis: CHF Interval history: patient continues to have some edema though much improved than before He denies SOB, CP, dizziness participating in PT plan to discharge to [facility] facility, discussed with Dr Oakley, day care assistant there , he recommended given issues with fluid overload and advanced renal failure discussed this once again with the pt (he has been refusing), discussed at length with the family, discussed risk and benefit, indication, they seem to agree Pertinent ROS: as above Objective - Vital Signs Vital signs: Vital Signs Temp Pulse Resp BP Pulse Ox 06/18/16 11:55 97.2 F L 16 126/72 93 06/18/16 06:51 96.6 F L 20 124/78 97 06/18/16 04:00 98.2 F 89 16 122/74 96 06/18/16 00:00 99.5 F 94 H 16 136/77 95 06/17/16 19:48 16 06/17/16 19:39 98.3 F 90 16 131/80 96 Intake and Output 06/18/16 06/18/16 06/18/16 05:59 13:59 21:59 Intake Total 440 / 440 240 / 240 90 / 90 Output Total 1150 / 1150 1250 / 1250 Balance -710 / -710 240 / 240 -1160 / -1160 Intake: Oral 440 / 440 240 / 240 90 / 90 Output: Urine Catheter Amount 1150 / 1150 1250 / 1250 Other: Meal Lunch Percent of Meal Consumed 100% Intake & Output: Intake & Output 06/18/16 06/18/16 06/18/16 05:59 13:59 21:59 Intake Total 440 / 440 240 / 240 90 / 90 Output Total 1150 / 1150 1250 / 1250 Balance -710 / -710 240 / 240 -1160 / -1160 Intake: Oral 440 / 440 240 / 240 90 / 90 Output: Urine Catheter Amount 1150 / 1150 1250 / 1250 Other: Meal Lunch Percent of Meal Consumed 100% - General Appearance General appearance: appears started age, obese EENT: mucous membranes moist Neck: no JVD Respiratory: clear Cardiology: no rub, edema, irregular rhythm Gastrointestinal: no tenderness, no guarding Integumentary: skin tear, chronic venous stasis Neurologic: no focal deficit, alert and oriented x3 Musculoskeletal: no deformities Psychiatric: mood/affect appropriate - Lab 06/18/16 04:58 06/18/16 04:58 Most recent lab results Calcium 9.0 mg/dl (8.6-10.4) 06/18/16 04:58 Phosphorus 4.1 mg/dL (2.7-4.5) 06/18/16 04:58 Magnesium 2.8 mg/dL (1.6-2.5) H 06/18/16 04:58 Assessment and Plan (1) Chronic kidney disease, stage IV (severe) s.creatinine is 4.1, egfr is 13, Bun is 64, renal function continues to decline pt still not euvolemic on exam discussed with nephrology at [facility] and also with the patient about initiating dialysis, he agress at this point tunneled cath placement tomorrow, will initiate HD in the hospital will cut back on metolazone to once a day given metabolic alkalosis ct bumex at 3mg bid for now monitor I/O, daily weights CHF anemia on iron supplement Will follow along Status: Chronic Comment: Most recent s.creat is 3.15,egfr of 19ml/min CKD EPI equation renal function stable at around 3.0, no significant volume overload CHF and uncontrolled DM is likely etiology UPCR is only at 0.3 labs discussed hold metolazone work on better DM control will monitor, will go for AVF surgery if renal function continues to worsen
--- NOTE | 2016-06-18 18:08 | Internal Med Progress Note ---
Medical - PN: Subj Patient information: Note initiated : 06/18/16 at 5:56 pm Service Date, if different from initiated Date: [] Patient: Phu Bryson 70 y/o M admitted on 06/11/16 for Swelling from Chest Down, Oozing BLE/Anasarca. Chief Complaint: [] Interval history: on service note: history of present illness: This is a pleasant 70 yr male who presented to the hospital with shortness of breath on exertion. Significnat edema/ anasarca and significant weight gain. Baseline weight is 230-240 lbs, he gained upto 304 lbs as per nephrology. 06/11- patient admitted with generalized anasarca with underlying NYHA class III systolic heart failure EF 30% and chronic kidney disease with baseline creatinine 2.5. Patient's dry weight was around 240 around Reji and currently at 277. started on Lasix drip with satisfactory initial response. it' s unclear if patient has been taking his home dose Bumex and metolazone. He has been followed up by nephrology as an outpatient and has had a history of poor compliance with medications. Admitted to telemetry for continuous Lasix infusion and target around 9000-10,000 cc net negative over 72 hours. Massively swollen scrotum. bilateral lower extremity wounds secondary to stasis and lymphedema. wound care consulted 06/18/16: -This patient has a history ofchronic obesity, chronic kidney disease, CHF, poorly controlled diabetes, medical compliance, and presented with severe anasarca likely due to ongoing decline in renal dysfunction and noncompliance with medications. e was aggressively diuresed, and is now negative about 21 L. -he also had weeping open wounds of his lower extremities, which have gradually improved with ongoing wound care and diuresis. ound cultures grew both pseudomonas aeruginosa and Staphylococcus aureus. he is now being treated with topical Silvadene, which should cover both organisms. -Atrial fibrillation has generally had a controlled response.shortness of breath and strength are gradually improving. -Singh catheter was discontinued yesterday but he was unable to urinate, so that was replaced last night. He has some ongoing scrotal edema. -we are looking at discharging him to an LTAC for ongoing wound care and fluid management, but the card setter there has talked with Dr. Urbina here, and they had another family meeting, and the patient is now agreeable to having a catheter placed, and at least starting a trial of dialysis. -Diabetes has been difficult to control, and Januvia dose had to be decreased due to renal function. -BPH stable on flomax continue same. 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 (Acute) Long-term use of aspirin therapy (Acute) Lymphedema of both lower extremities (Acute) Obesity (Acute 05/02/13) PVD (peripheral vascular disease) (Acute) Pleural effusion (Acute) Renal failure, acute (Acute) Systolic heart failure (Acute) Ulcer of foot (Acute) needs wound care financial reasons is prohibiting this advised to ensure that this taken care of will provide any help that the pt needs Venous stasis dermatitis of both lower extremities (Acute) Volume overload (Acute) Chronic kidney disease, stage IV (severe) (Chronic) Most recent s.creat is 3.15,egfr of 19ml/min CKD EPI equation DMII (diabetes mellitus, type 2) (Chronic) ensure compliance with insulin and diabetic diet has refused endocrinology referral Edema (Chronic) Hyperparathyroidism due to renal insufficiency (Chronic) Hypertension, essential (Chronic) Hypokalemia (Chronic) Secondary hyperparathyroidism of renal origin (Chronic 05/16/13) PTH more than 300 calcium and phos at goal unclear if taking meds advised to let me know will follow med list and restart calcitriol if he is not taking the same - Constitutional Vitals: Vital Signs Temp Pulse Resp BP Pulse Ox 98.2 F 89 16 121/79 98 06/18/16 16:00 06/18/16 04:00 06/18/16 16:00 06/18/16 16:00 06/18/16 16:00 Period Temp Pulse Resp BP Sys/Goodwin Pulse Ox Last 24 Hr 96.6 F-99.5 F 89-94 16-20 121-136/72-80 93-98 Intake and Output 0306/18/16 06/18/16 05:59 13:59 21:59 Intake Total 440 / 440 240 / 240 90 / 90 Output Total 1150 / 1150 1250 / 1250 Balance -710 / -710 240 / 240 -1160 / -1160 Intake & Output: Intake & Output 06/18/16 06/18/16 06/18/16 05:59 13:59 21:59 Intake Total 440 / 440 240 / 240 90 / 90 Output Total 1150 / 1150 1250 / 1250 Balance -710 / -710 240 / 240 -1160 / -1160 Intake: Oral 440 / 440 240 / 240 90 / 90 Output: Urine Catheter Amount 1150 / 1150 1250 / 1250 Other: Meal Lunch Percent of Meal Consumed 100% Exam: on exam, this is an overweight elderly manwho is sitting in a chair. He is in no acute distress. He notes continued low energy, but says he has been able to walk some with his walker lately. He also feels like his vision is a little more blurry than normal since his arrival here. He does note some chest pressure and shortness of breath whenever he leans forward, and this mainly started when he gained all of the fluid weight. He believes he has not had a bowel movement for about 5 days now, and did receive a laxative earlier today. neck is supple without obvious JVD or lymphadenopathy. Next line cardiac exam shows regular rate and rhythm. Lung exam shows scattered crackles, but otherwise no overt wheezes or rhonchi. Cardiac exam shows an irregularly irregular rhythm. abdomen is rather protuberant, but nontender. Extremities continue to show 3-4+ pitting edema to above the knees. There are various areas of skin breakdown over his shins, which are weeping some clear fluid, but otherwise do not appear grossly infected. neurologic exam is grossly nonfocal. Medical - PN: Obj Da - Labs CBC & Chem 7: 06/18/16 04:58 06/18/16 04:58 Labs: Abnormal Lab Results 06/18/16 06/18/16 06/18/16 04:58 04:58 04:58 RBC 3.63 L Hgb 10.7 L Hct 33.2 L RDW 17.0 H Plt Count Lymph % (Auto) 7.9 L Dane % (Auto) 10.0 H Lymph # 0.6 L Lymphocytes % Platelet Estimate RBC Morphology Anisocytosis PT 25.0 H INR 2.2 H Chloride 91 L Carbon Dioxide 36 H Anion Gap BUN 67 H Creatinine 4.1 H Glucose 108 H Uric Acid 15.0 H Magnesium 2.8 H Direct Bilirubin 0.4 H GGT 184 H Alkaline Phosphatase 225 H Lactate Dehydrogenase Globulin 3.8 H Albumin/Globulin Ratio 0.9 L 06/17/16 06/17/16 06/17/16 05:15 05:15 05:15 RBC 3.50 L Hgb 10.4 L Hct 32.2 L RDW 16.9 H Plt Count 138 L Lymph % (Auto) 9.9 L Dane % (Auto) 10.7 H Lymph # 0.7 L Lymphocytes % Platelet Estimate RBC Morphology Anisocytosis PT 25.3 H INR 2.2 H Chloride 91 L Carbon Dioxide 32 H Anion Gap 17.0 H BUN 66 H Creatinine 4.0 H Glucose 157 H Uric Acid 14.4 H Magnesium 2.6 H Direct Bilirubin 0.4 H GGT 180 H Alkaline Phosphatase 237 H Lactate Dehydrogenase 290 H Globulin 3.8 H Albumin/Globulin Ratio 0.9 L 06/16/16 06/16/16 06/16/16 04:35 04:35 04:35 RBC 3.57 L Hgb 10.4 L Hct 32.4 L RDW 16.8 H Plt Count 126 L Lymph % (Auto) Dane % (Auto) Lymph # Lymphocytes % 11 L Platelet Estimate Decreased A RBC Morphology Abnorm A Anisocytosis 1+ A PT 29.7 H INR 2.7 H Chloride 91 L Carbon Dioxide Anion Gap 18.0 H BUN 62 H Creatinine 4.0 H Glucose 176 H Uric Acid 14.5 H Magnesium Direct Bilirubin GGT 160 H Alkaline Phosphatase 197 H Lactate Dehydrogenase 277 H Globulin Albumin/Globulin Ratio 0.9 L chest x-ray from June 13, 2016: Shows mild cardiomegaly and likely pulmonary edema. Meds: Medications Acetaminophen (Tylenol) 650 mg PO Q4-6HP PRN PRN Reason: PAIN/FEVER > 101 Amiodarone HCl (Cordarone) 200 mg PO QDAY [facility] Last Admin: 06/18/16 08:15 Dose: 200 mg Aspirin (Aspirin) 81 mg CHEWED DAILY [facility] Last Admin: 06/18/16 08:15 Dose: 81 mg Bumetanide (Bumex) 3 mg PO BIDD [facility] Last Admin: 06/18/16 16:13 Dose: 3 mg Calcitriol (Rocaltrol) 0.25 mcg PO Q48@0900 [facility] Last Admin: 06/17/16 09:14 Dose: 0.25 mcg Clopidogrel Bisulfate (Plavix) 75 mg PO QDAY [facility] Last Admin: 06/18/16 08:15 Dose: 75 mg Dextrose (Dextrose 50%) 0 ml IV UD PRN PRN Reason: Hypoglycemia Diagnostic Test (Pha) (Accu-Chek) 1 each FS ACHS [facility] Last Admin: 06/18/16 17:10 Dose: 1 each Docusate Sodium (Colace) 100 mg PO BID [facility] Last Admin: 06/18/16 08:15 Dose: 100 mg [facility] Last Admin: 06/18/16 17:15 Dose: 325 mg Magnesium Sulfate (Magnesium Sulfate) 2 gm in 50 mls @ 50 mls/hr IV UD PRN PRN Reason: MG = or < 1.7 Acetaminophen (Ofirmev) 1,000 mg in 100 mls @ 200 mls/hr IV Q6HP PRN PRN Reason: PAIN/FEVER > 101 Insulin Glargine (Lantus) 30 unit SQ [facility] Last Admin: 06/17/16 20:23 Dose: 30 unit Insulin Human Lispro (Humalog) [address] [facility] PRN Reason: Protocol Last Admin: 06/18/16 17:19 Dose: 2 unit Metolazone (Zaroxolyn) 2.5 mg PO DAILY@0830 [facility] Metoprolol Tartrate (Lopressor) 25 mg PO HS [facility] Last Admin: 06/17/16 20:22 Dose: 25 mg Metoprolol Tartrate (Lopressor) 50 mg PO DAILY [facility] Last Admin: 06/18/16 08:15 Dose: 50 mg Nystatin (Kenalog) 1 dose TOPICAL BID [facility] Last Admin: 06/18/16 10:27 Dose: 1 dose Ondansetron HCl (Zofran) 4 mg IV Q4-6HP PRN PRN Reason: Nausea And Vomiting Oxycodone HCl (Roxicodone) 5 mg PO Q4HP PRN PRN Reason: Pain Last Admin: 06/17/16 07:23 Dose: 5 mg Potassium Chloride (Klor-Con) 40 meq PO DAILYP PRN PRN Reason: K+ < 3.5 Potassium Chloride (Kdur) 40 meq PO BIDCC [facility] Last Admin: 06/18/16 17:15 Dose: 40 meq Senna/Docusate Sodium (Senna Plus Tablet) 2 tab PO HS [facility] Last Admin: 06/17/16 20:22 Dose: 2 tab Simvastatin (Zocor) 20 mg PO HS [facility] Last Admin: 06/17/16 20:22 Dose: 20 mg Sitagliptin Phosphate (Januvia) 25 mg PO DAILY [facility] Last Admin: 06/18/16 08:15 Dose: 25 mg Sodium Chloride (Saline Flush) 10 ml IV Q8 [facility] Last Admin: 06/18/16 14:09 Dose: 10 ml Tamsulosin HCl (Flomax) 0.4 mg PO HS [facility] Last Admin: 06/17/16 20:22 Dose: 0.4 mg Medical - PN: A/P - Time Spent With Patient Total time spent is greater than 50% in coordination of care (as documented) at patient's floor/unit and/or counseling patient: - Narrative A/P Narrative: #1. Renal. -This patient presented with gross anasarcamore than likely due to continued decline in renal function. He has diuresed approximately 20 L. he is gradually starting to feel better,but Dr. Urbina does feel that he wouldcertainly do better on dialysis. Apparently there wasa family meeting today, and they have agreed to placement of a catheter to accomplish this tomorrow. Next #2. Cardiac. -Chronic atrial fibrillation,currently therapeutic on Coumadin. Rate is controlled. -Chronic CHF. Continue current medications. #3. Type 2 diabetes. still with suboptimal control. ContinueLantus plus Humalog plus Januvia. #4. Bilateral lower extremity wounds likely related to edema. These appear to be under good control with Silvadene. Continue attempts at diuresis. #5. . -The patient has had some bladder outlet obstruction probably due to his severe scrotal edemaas well as generalized edema. Singh catheter was replaced last night. We might try removing that again in a day or so.next paragraph #6. CODE STATUS: Full code. #7. DVT prophylaxis: Patient is anticoagulated. this visit took approximately 35 minutes today, to review the patient's chart and test results, interview and examine him, review plan of care with staff, and write orders. Medical - PN: Qual - VTE Deep Vein Thrombosis/Pulmonary Embolism Present on Admission: No
[2016-06-18] MEDS: TAMSULOSIN 0.4 MG CAPSULE PO SCH (21:13)
[2016-06-18] MEDS: SIMVASTATIN 20 MG TABLET PO SCH (21:14)
[2016-06-18] MEDS: SENNOSIDES/DOCUSATE SODIUM 1 TAB TABLET PO SCH (21:14)
[2016-06-18] MEDS: INSULIN GLARGINE, HUMAN 1 UNIT/0.01 ML SQ SCH (21:29)
[2016-06-19] MEDS: 0.9 % SODIUM CHLORIDE 10 ML SYRINGE IV SCH ×4 (04:23→20:02)
[2016-06-19 06:16] LABS: Basophils # (Auto) 0 K/mcL (0.0-0.3); Basophils % (Auto) 0.6 % (0.0-2.0); Eosinophils # (Auto) 0.3 K/mcL (0.0-0.7); Eosinophils % (Auto) 5.3 % (0.0-7.0); Granulocytes % (Auto) 69.3 % (38.0-78.0); Lymphocytes # (Auto) 0.8 K/mcL (1.5-4.8); Lymphocytes % (Auto) 12.6 % (15.5-49.0); Mean Cell Volume 91.3 fL (80.0-100.0); Mean Corpuscular HGB Conc 32.1 g/dL (31.0-36.0); Mean Corpuscular Hemoglobin 29.3 pg (26.0-34.0); Monocytes # (Auto) 0.8 K/mcL (0.1-0.9); Monocytes % (Auto) 12.2 % (1.0-9.0); Platelet Count 146 K/mcL (140-440); RBC 3.47 M/mcL (4.50-5.90); Red Cell Distribution Width 16.5 % (11.5-14.5)
[2016-06-19 06:27] LABS: ALT/SGPT 14 U/l (0-40); Albumin 3.3 gm/dL (3.2-5.2); Albumin/Globulin Ratio 0.8 (1.0-2.3); Alkaline Phosphatase 201 U/L (39-117); Bilirubin,Direct 0.3 mg/dL (0.0-0.3); Blood Urea Nitrogen 70 mg/dl (8-23); Gamma Glutamyl Transpeptidase 161 U/L (8-61); Magnesium 2.8 mg/dL (1.6-2.5); Phosphorous 4.5 mg/dL (2.7-4.5); Uric Acid 15.2 mg/dL (2.5-8.0)
[2016-06-19] MEDS: INSULIN LISPRO 1 UNIT/0.01 ML UNIT SQ SCH ×4 (07:47→21:06)
[2016-06-19] MEDS: POTASSIUM CHLORIDE 20 MEQ TABLET PO SCH ×2 (07:48→17:30)
[2016-06-19] MEDS: ASPIRIN 81 MG TAB.CHEW CHEWED SCH (07:48)
[2016-06-19] MEDS: DOCUSATE SODIUM 100 MG CAPSULE PO SCH ×2 (07:48→21:08)
[2016-06-19] MEDS: BUMETANIDE 1 MG TABLET PO SCH ×2 (07:48→14:10)
[2016-06-19] MEDS: FERROUS SULFATE 325 MG TABLET PO SCH ×2 (07:48→17:31)
[2016-06-19] MEDS: sitaGLIPtin 50 MG TABLET PO SCH (07:49)
[2016-06-19] MEDS: CLOPIDOGREL 75 MG TABLET PO SCH (07:49)
[2016-06-19] MEDS: CALCITRIOL 0.25 MCG CAPSULE PO SCH (07:49)
[2016-06-19] MEDS: METOLAZONE 2.5 MG TABLET PO SCH ×2 (07:50→07:58)
--- NOTE | 2016-06-19 09:03 | Nephrology Progress Note ---
Subjective Patient information: Note initiated : 06/19/16 at 9:01 am Service Date, if different from initiated Date: [] Patient: Phu Bryson 70 y/o M admitted on 06/11/16 for Swelling from Chest Down, Oozing BLE/Anasarca. Chief Complaint: [] Principal diagnosis: CHF Interval history: no new events or concerns overnight awaiting to hear recs from IR at [facility] for TCC placement, hopefully will be done today patient still very edematous, fair response to diuretics but renal function getting worse and bicarb trendin gup as well no SOB, CP, dizziness feels tired no nausea, vomiting no urinary symptoms, has indwelling nice cath Pertinent ROS: pertinent positive and negative documented above Objective - Vital Signs Vital signs: Vital Signs Temp Pulse Resp BP Pulse Ox 06/19/16 07:44 98.7 F 16 116/72 99 06/19/16 04:00 99.0 F 87 16 119/75 97 06/19/16 00:00 98.9 F 90 14 102/64 93 06/18/16 20:00 98.6 F 85 16 117/78 96 06/18/16 16:00 98.2 F 16 121/79 98 06/18/16 11:55 97.2 F L 16 126/72 93 Intake and Output 06/18/16 06/19/16 06/19/16 21:59 05:59 13:59 Intake Total 210 / 210 600 / 600 Output Total 1250 / 1250 1500 / 1500 Balance -1040 / -1040 -900 / -900 Intake: Oral 210 / 210 600 / 600 Output: Urine Catheter Amount 1250 / 1250 1500 / 1500 Other: Meal Dinner sandwich, 4grahm crackers Percent of Meal Consumed 100% 100% Feeding Ability Independent Weight 250 lb 8 oz Intake & Output: Intake & Output 06/18/16 06/19/16 06/19/16 21:59 05:59 13:59 Intake Total 210 / 210 600 / 600 Output Total 1250 / 1250 1500 / 1500 Balance -1040 / -1040 -900 / -900 Weight 250 lb 8 oz Intake: Oral 210 / 210 600 / 600 Output: Urine Catheter Amount 1250 / 1250 1500 / 1500 Other: Meal Dinner sandwich, 4grahm crackers Percent of Meal Consumed 100% 100% Feeding Ability Independent - General Appearance General appearance: appears started age, obese EENT: mucous membranes moist Neck: no JVD Respiratory: clear Cardiology: no rub, edema (1+ edema all over LE, including thighs ), irregular rhythm Gastrointestinal: no tenderness (abdominal wall edema +), no guarding Integumentary: warm and dry, skin tear, chronic venous stasis Neurologic: no focal deficit, alert and oriented x3 Musculoskeletal: no erythema, no cyanosis Psychiatric: mood/affect appropriate - Lab 06/19/16 05:00 06/19/16 05:00 Most recent lab results Calcium 8.9 mg/dl (8.6-10.4) 06/19/16 05:00 Phosphorus 4.5 mg/dL (2.7-4.5) 06/19/16 05:00 Magnesium 2.8 mg/dL (1.6-2.5) H 06/19/16 05:00 Assessment and Plan (1) Chronic kidney disease, stage IV (severe) s.creatinine upto 4.5, BUN is 79 cannot cut back on diuretics as still with significant edema however given his bicarb and renal function trend will pursue dialysis, risk and benefit discussed with the pt and family, they agree will do 2 hour dialysis today and continue with dialysis over the weekend will hold metolazone and continue bumex at 3mg bid ct fluid restriction at 1.5L monitor I/O, renal function dose meds to dialysis will follow along Status: Chronic Comment: Most recent s.creat is 3.15,egfr of 19ml/min CKD EPI equation renal function stable at around 3.0, no significant volume overload CHF and uncontrolled DM is likely etiology UPCR is only at 0.3 labs discussed hold metolazone work on better DM control will monitor, will go for AVF surgery if renal function continues to worsen
[2016-06-19] MEDS ORDERED: 0.9 % SODIUM CHLORIDE 250 ML IV SCH (09:30)
[2016-06-19] MEDS: AMIODARONE HCL 200 MG TABLET PO SCH (09:51)
[2016-06-19] MEDS: NYSTATIN POWDER BOTTLE 15GM TOPICAL SCH ×2 (09:51→21:17)
[2016-06-19] MEDS: METOPROLOL TARTRATE 25 MG TABLET PO SCH ×2 (09:53→21:09)
--- NOTE | 2016-06-19 17:12 | General Surgery Progress Note ---
Subjective Patient reports: other (Following patient. Skin wounds of both legs are dry, stable and responding to local wound care. ARF worsening. Had HD catheter and dialysis orders by Dr. Ciara dee. ) Narrative: Note initiated : 06/19/16 at 5:10 pm Service Date, if different from initiated Date: [] Patient: Phu Bryson 70 y/o M admitted on 06/11/16 for Swelling from Chest Down, Oozing BLE/Anasarca. Chief Complaint: [] Objective Temp Pulse Resp BP Pulse Ox 96.6 F L 87 18 118/74 97 06/19/16 11:22 06/19/16 08:00 06/19/16 11:22 06/19/16 11:22 06/19/16 11:22 AVSS. Anasarca resolving. No other changes in [place]. Singh catheter clear urine. Leg wounds are dry and improving. - Additional Data Intake & Output - Last 24 hours: Intake & Output 06/17/16 06/18/16 06/19/16 06/20/16 05:59 05:59 05:59 05:59 Intake Total 690 / 690 1060 / 1060 1050 / 1050 Output Total 3550 / 3550 3480 / 3480 2750 / 2750 800 / 800 Balance -2860 / -2860 -2420 / -2420 -1700 / -1700 -800 / -800 Weight 257 lb 9.6 oz 253 lb 11.2 oz 250 lb 8 oz - Labs 06/19/16 05:00 06/19/16 05:00 Diabetes panel 06/19/16 Range/Units 05:00 Sodium 139 (133-145) mmol/L Potassium 3.6 (3.3-5.1) mmol/L Chloride 88 L (96-108) mmol/L Carbon Dioxide 39 H (22-30) mmol/L BUN 70 H (8-23) mg/dl Creatinine 4.5 H (0.7-1.2) mg/dl Glucose 150 H (70-105) mg/dL Calcium 8.9 (8.6-10.4) mg/dl AST 20 (0-37) U/l ALT 14 (0-40) U/l Alkaline Phosphatase 201 H (39-117) U/L Total Protein 7.2 (5.9-8.4) gm/dL Albumin 3.3 (3.2-5.2) gm/dL Triglycerides 66 (<150) mg/dl Calcium panel 06/19/16 Range/Units 05:00 Calcium 8.9 (8.6-10.4) mg/dl Phosphorus 4.5 (2.7-4.5) mg/dL Albumin 3.3 (3.2-5.2) gm/dL Pituitary panel 06/19/16 Range/Units 05:00 Sodium 139 (133-145) mmol/L Potassium 3.6 (3.3-5.1) mmol/L Chloride 88 L (96-108) mmol/L Carbon Dioxide 39 H (22-30) mmol/L BUN 70 H (8-23) mg/dl Creatinine 4.5 H (0.7-1.2) mg/dl Glucose 150 H (70-105) mg/dL Calcium 8.9 (8.6-10.4) mg/dl Adrenal panel 06/19/16 Range/Units 05:00 Sodium 139 (133-145) mmol/L Potassium 3.6 (3.3-5.1) mmol/L Chloride 88 L (96-108) mmol/L Carbon Dioxide 39 H (22-30) mmol/L BUN 70 H (8-23) mg/dl Creatinine 4.5 H (0.7-1.2) mg/dl Glucose 150 H (70-105) mg/dL Calcium 8.9 (8.6-10.4) mg/dl Total Bilirubin 0.6 (0.0-1.0) mg/dL AST 20 (0-37) U/l ALT 14 (0-40) U/l Alkaline Phosphatase 201 H (39-117) U/L Total Protein 7.2 (5.9-8.4) gm/dL Albumin 3.3 (3.2-5.2) gm/dL Medical - PN: A/P - Time Spent With Patient Total time spent is greater than 50% in coordination of care (as documented) at patient's floor/unit and/or counseling patient: less than 15 minutes (Satisfactoery progress from wound care point of view. Plans for transfer to Rehab facility noted. IF and when patient is back in [place], [place], to follow up at wound center . Patient agrees.) (1) Pressure ulcer of lower extremity Problem details: Bilateral legs lateral upper and mid third . Chronic with patchy adipose tissue exposed. CHRONIC and colonized. Wound cultures. Contaminated wounds ?? MRSA Status: Chronic Current Visit: Yes
--- NOTE | 2016-06-19 17:13 | Internal Med Progress Note ---
Medical - PN: Subj Patient information: Note initiated : 06/19/16 at 5:08 pm Service Date, if different from initiated Date: [] Patient: Phu Bryson 70 y/o M admitted on 06/11/16 for Swelling from Chest Down, Oozing BLE/Anasarca. Chief Complaint: [] Interval history: history of present illness: This is a pleasant 70 yr male who presented to the hospital with shortness of breath on exertion. Significnat edema/ anasarca and significant weight gain. Baseline weight is 230-240 lbs, he gained up to 304 lbs as per nephrology. 06/11- patient admitted with generalized anasarca with underlying NYHA class III systolic heart failure EF 30% and chronic kidney disease with baseline creatinine 2.5. Patient's dry weight was around 240 around [place] and currently at 277. started on Lasix drip with satisfactory initial response. it' s unclear if patient has been taking his home dose Bumex and metolazone. He has been followed up by nephrology as an outpatient and has had a history of poor compliance with medications. Admitted to telemetry for continuous Lasix infusion and target around 9000-10,000 cc net negative over 72 hours. Massively swollen scrotum. bilateral lower extremity wounds secondary to stasis and lymphedema. wound care consulted 06/18/16: -This patient has a history of chronic obesity, chronic kidney disease, CHF, poorly controlled diabetes, medical compliance, and presented with severe anasarca likely due to ongoing decline in renal dysfunction and noncompliance with medications. e was aggressively diuresed, and is now negative about 21 L. -he also had weeping open wounds of his lower extremities, which have gradually improved with ongoing wound care and diuresis. ound cultures grew both pseudomonas aeruginosa and Staphylococcus aureus. he is now being treated with topical Silvadene, which should cover both organisms. -Atrial fibrillation has generally had a controlled response.shortness of breath and strength are gradually improving. -Singh catheter was discontinued yesterday but he was unable to urinate, so that was replaced last night. He has some ongoing scrotal edema. -we are looking at discharging him to an LTAC for ongoing wound care and fluid management, but the conduit reamer operator there has talked with Dr. Urbina here, and they had another family meeting, and the patient is now agreeable to having a catheter placed, and at least starting a trial of dialysis. -Diabetes has been difficult to control, and Januvia dose had to be decreased due to renal function. -BPH stable on flomax continue same. 06/19/16: today, the patient continues to struggle with some moderate edema of the scrotum, but says overall everything is improving. His energy is mildly improved. He denies significant chest pain or shortness of breath, GI or symptoms. He does continue with a Singh catheter because of the scrotum edema. -his INR remained therapeutic this morning, so he was given FFP to reverse this , and then was sent over to [facility] to have a tunneled catheter placed. He is to have dialysis this afternoon. - Constitutional Vitals: Vital Signs Temp Pulse Resp BP Pulse Ox 96.6 F L 87 18 118/74 97 06/19/16 11:22 06/19/16 08:00 06/19/16 11:22 06/19/16 11:22 06/19/16 11:22 Period Temp Pulse Resp BP Sys/Goodwin Pulse Ox Last 24 Hr 96.6 F-99.0 F 85-90 14-18 102-119/64-78 93-99 Intake and Output 06/19/16 06/19/16 06/19/16 05:59 13:59 21:59 Intake Total 600 / 600 Output Total 1500 / 1500 800 / 800 Balance -900 / -900 -800 / -800 Intake & Output: Intake & Output 06/19/16 06/19/16 06/19/16 05:59 13:59 21:59 Intake Total 600 / 600 Output Total 1500 / 1500 800 / 800 Balance -900 / -900 -800 / -800 Intake: Oral 600 / 600 Output: Urine Catheter Amount 1500 / 1500 800 / 800 Other: Meal sandwich, 4grahm crackers Percent of Meal Consumed 100% Feeding Ability Independent Exam: on exam, he is an elderly man, sitting up in a chair. He is in no acute distress. Neck shows no obvious JVD or lymphadenopathy. Cardiac exam shows irregular rate and rhythm. Essentially clear to auscultation. Abdomen is protuberant but soft and nontender. Extremities:Continue to show pitting edema to above the knees There are several minor open areas over his shins, which are weeping, but do not appear to be infected. Scrotum continues to be quite swollen, but is overall improved. Singh catheter is still in place. neurologic exam is grossly nonfocal, but the patient does continue to complain of poor vision, and light sensitivity. Medical - PN: Obj Da - Labs CBC & Chem 7: 06/19/16 05:00 06/19/16 05:00 Labs: Abnormal Lab Results 06/19/16 06/19/16 06/19/16 13:54 05:00 05:00 RBC Hgb Hct RDW Plt Count Lymph % (Auto) [place] % (Auto) Lymph # POC PT 20.5 H PT 26.5 H POC INR 1.8 H INR 2.3 H Chloride 88 L Carbon Dioxide 39 H Anion Gap BUN 70 H Creatinine 4.5 H Glucose 150 H Uric Acid 15.2 H Magnesium 2.8 H Direct Bilirubin GGT 161 H Alkaline Phosphatase 201 H Lactate Dehydrogenase Globulin 3.9 H Albumin/Globulin Ratio 0.8 L 06/19/16 06/18/16 06/18/16 05:00 04:58 04:58 RBC 3.47 L Hgb 10.2 L Hct 31.7 L RDW 16.5 H Plt Count Lymph % (Auto) 12.6 L [place] % (Auto) 12.2 H Lymph # 0.8 L POC PT PT 25.0 H POC INR INR 2.2 H Chloride 91 L Carbon Dioxide 36 H Anion Gap BUN 67 H Creatinine 4.1 H Glucose 108 H Uric Acid 15.0 H Magnesium 2.8 H Direct Bilirubin 0.4 H GGT 184 H Alkaline Phosphatase 225 H Lactate Dehydrogenase Globulin 3.8 H Albumin/Globulin Ratio 0.9 L 06/18/16 06/17/16 06/17/16 04:58 05:15 05:15 RBC 3.63 L 3.50 L Hgb 10.7 L 10.4 L Hct 33.2 L 32.2 L RDW 17.0 H 16.9 H Plt Count 138 L Lymph % (Auto) 7.9 L 9.9 L [place] % (Auto) 10.0 H 10.7 H Lymph # 0.6 L 0.7 L POC PT PT POC INR INR Chloride 91 L Carbon Dioxide 32 H Anion Gap 17.0 H BUN 66 H Creatinine 4.0 H Glucose 157 H Uric Acid 14.4 H Magnesium 2.6 H Direct Bilirubin 0.4 H GGT 180 H Alkaline Phosphatase 237 H Lactate Dehydrogenase 290 H Globulin 3.8 H Albumin/Globulin Ratio 0.9 L 06/17/16 05:15 RBC Hgb Hct RDW Plt Count Lymph % (Auto) [place] % (Auto) Lymph # POC PT PT 25.3 H POC INR INR 2.2 H Chloride Carbon Dioxide Anion Gap BUN Creatinine Glucose Uric Acid Magnesium Direct Bilirubin GGT Alkaline Phosphatase Lactate Dehydrogenase Globulin Albumin/Globulin Ratio chest x-ray from June 13, 2016: Shows mild cardiomegaly and likely pulmonary edema. wound cultures from June 12, 2016: Grew both pseudomonas aeruginosa, and Staphylococcus aureus. Meds: Medications Acetaminophen (Tylenol) 650 mg PO Q4-6HP PRN PRN Reason: PAIN/FEVER > 101 Amiodarone HCl (Cordarone) 200 mg PO QDAY [facility] Last Admin: 06/19/16 09:51 Dose: 200 mg Aspirin (Aspirin) 81 mg CHEWED DAILY [facility] Last Admin: 06/19/16 07:48 Dose: Not Given Bumetanide (Bumex) 3 mg PO BIDD [facility] Last Admin: 06/19/16 14:10 Dose: Not Given Calcitriol (Rocaltrol) 0.25 mcg PO Q48@0900 [facility] Last Admin: 06/19/16 07:49 Dose: Not Given Clopidogrel Bisulfate (Plavix) 75 mg PO QDAY [facility] Last Admin: 06/19/16 07:49 Dose: Not Given Dextrose (Dextrose 50%) 0 ml IV UD PRN PRN Reason: Hypoglycemia Diagnostic Test (Pha) (Accu-Chek) 1 each FS ACHS [facility] Last Admin: 06/19/16 17:03 Dose: 1 each Docusate Sodium (Colace) 100 mg PO BID [facility] Last Admin: 06/19/16 07:48 Dose: Not Given Ferrous Sulfate (Ferrous Sulfate) 325 mg PO BIDCC [facility] Last Admin: 06/19/16 07:48 Dose: Not Given Magnesium Sulfate (Magnesium Sulfate) 2 gm in 50 mls @ 50 mls/hr IV UD PRN PRN Reason: MG = or < 1.7 Acetaminophen (Ofirmev) 1,000 mg in 100 mls @ 200 mls/hr IV Q6HP PRN PRN Reason: PAIN/FEVER > 101 Sodium Chloride (Sodium Chloride 0.9%) 250 mls @ 20 mls/hr IV .[id number] [facility] Stop: 06/19/16 21:59 Last Admin: 06/19/16 10:07 Dose: 20 mls/hr Insulin Glargine (Lantus) [address] [facility] Last Admin: 06/18/16 21:29 Dose: 30 unit Insulin Human Lispro (Humalog) 0 unit SQ ACHS [facility] PRN Reason: Protocol Last Admin: 06/19/16 17:03 Dose: Not Given Metoprolol Tartrate (Lopressor) [address] [facility] Last Admin: 06/18/16 21:13 Dose: 25 mg Metoprolol Tartrate (Lopressor) 50 mg PO DAILY [facility] Last Admin: 06/19/16 09:53 Dose: 50 mg Nystatin (Kenalog) 1 dose TOPICAL BID [facility] Last Admin: 06/19/16 09:51 Dose: 1 dose Ondansetron HCl (Zofran) 4 mg IV Q4-6HP PRN PRN Reason: Nausea And Vomiting Oxycodone HCl (Roxicodone) 5 mg PO Q4HP PRN PRN Reason: Pain Last Admin: 06/17/16 07:23 Dose: 5 mg Potassium Chloride (Klor-Con) 40 meq PO DAILYP PRN PRN Reason: K+ < 3.5 Potassium Chloride (Kdur) 40 meq PO BIDCC [facility] Last Admin: 06/19/16 07:48 Dose: Not Given Senna/Docusate Sodium (Senna Plus Tablet) [address] [facility] Last Admin: 06/18/16 21:14 Dose: 2 tab Simvastatin (Zocor) [address] [facility] Last Admin: 06/18/16 21:14 Dose: 20 mg Sitagliptin Phosphate (Januvia) 25 mg PO DAILY [facility] Last Admin: 06/19/16 07:49 Dose: Not Given Sodium Chloride (Saline Flush) 10 ml IV Q8 [facility] Last Admin: 06/19/16 12:26 Dose: 10 ml Tamsulosin HCl (Flomax) 0.[address] [facility] Last Admin: 06/18/16 21:13 Dose: 0.4 mg Medical - PN: A/P - Time Spent With Patient Total time spent is greater than 50% in coordination of care (as documented) at patient's floor/unit and/or counseling patient: - Narrative A/P Narrative: #1. Renal. -This patient presented with gross anasarca more than likely due to continued decline in renal function. He has diuresed approximately 20 L, with another 1700 mL since yesterday.. he is gradually starting to feel better,but Dr. Urbina does feel that he would certainly do better on dialysis. -he did have a tunneled catheter placed today, and I believe the plan is to start dialysis this afternoon. #2. Cardiac. -Chronic atrial fibrillation,currently therapeutic on Coumadin. Rate is controlled. -Chronic CHF. Continue current medications. -we did reverse the Coumadin with FFP today, to allow for his catheter placement. We will resume Coumadin this evening. #3. Type 2 diabetes. still with suboptimal control. Continue Lantus plus Humalog plus Januvia. #4. Bilateral lower extremity wounds likely related to edema. These appear to be under good control with Silvadene. Continue attempts at diuresis. #5. . -The patient has had some bladder outlet obstruction probably due to his severe scrotal edema as well as generalized edema. Singh catheter was replaced last night. We might try removing that again in a day or so. -I think we can try removing the Singh catheter tomorrow, after he completes dialysis tonight, which should further remove fluid. #6. CODE STATUS: Full code. #7. DVT prophylaxis: Patient is anticoagulated. this visit took approximately 35 minutes today, to review the patient's chart and test results, interview and examine him, review plan of care with staff, Address his Coumadin issues preop, and write orders. Medical - PN: Qual - VTE Deep Vein Thrombosis/Pulmonary Embolism Present on Admission: No
[2016-06-19] MEDS: INSULIN GLARGINE, HUMAN 1 UNIT/0.01 ML SQ SCH (21:07)
[2016-06-19] MEDS: TAMSULOSIN 0.4 MG CAPSULE PO SCH (21:08)
[2016-06-19] MEDS: WARFARIN 5 MG TABLET PO SCH (21:08)
[2016-06-19] MEDS: SIMVASTATIN 20 MG TABLET PO SCH (21:09)
[2016-06-19] MEDS: SENNOSIDES/DOCUSATE SODIUM 1 TAB TABLET PO SCH (21:09)
[2016-06-20] MEDS: 0.9 % SODIUM CHLORIDE 10 ML SYRINGE IV SCH ×3 (05:48→20:51)
[2016-06-20 06:41] LABS: Basophils # (Auto) 0 K/mcL (0.0-0.3); Basophils % (Auto) 0.6 % (0.0-2.0); Eosinophils # (Auto) 0.3 K/mcL (0.0-0.7); Eosinophils % (Auto) 4.5 % (0.0-7.0); Granulocytes % (Auto) 71.4 % (38.0-78.0); Lymphocytes # (Auto) 0.7 K/mcL (1.5-4.8); Lymphocytes % (Auto) 12.6 % (15.5-49.0); Mean Cell Volume 91.4 fL (80.0-100.0); Mean Corpuscular HGB Conc 32.1 g/dL (31.0-36.0); Mean Corpuscular Hemoglobin 29.4 pg (26.0-34.0); Monocytes # (Auto) 0.6 K/mcL (0.1-0.9); Monocytes % (Auto) 10.9 % (1.0-9.0); Platelet Count 139 K/mcL (140-440); RBC 3.42 M/mcL (4.50-5.90); Red Cell Distribution Width 16.5 % (11.5-14.5)
[2016-06-20 07:37] LABS: ALT/SGPT 14 U/l (0-40); Albumin 3.4 gm/dL (3.2-5.2); Albumin/Globulin Ratio 0.9 (1.0-2.3); Alkaline Phosphatase 214 U/L (39-117); Bilirubin,Direct 0.3 mg/dL (0.0-0.3); Blood Urea Nitrogen 65 mg/dl (8-23); Gamma Glutamyl Transpeptidase 182 U/L (8-61); Magnesium 2.8 mg/dL (1.6-2.5); Phosphorous 4.2 mg/dL (2.7-4.5); Uric Acid 15.1 mg/dL (2.5-8.0)
[2016-06-20] MEDS: BUMETANIDE 1 MG TABLET PO SCH ×2 (08:54→17:01)
[2016-06-20] MEDS: METOPROLOL TARTRATE 25 MG TABLET PO SCH ×2 (08:55→20:53)
[2016-06-20] MEDS: POTASSIUM CHLORIDE 20 MEQ TABLET PO SCH ×2 (08:55→17:01)
[2016-06-20] MEDS: CLOPIDOGREL 75 MG TABLET PO SCH (08:55)
[2016-06-20] MEDS: DOCUSATE SODIUM 100 MG CAPSULE PO SCH ×2 (08:55→20:54)
[2016-06-20] MEDS: AMIODARONE HCL 200 MG TABLET PO SCH (08:55)
[2016-06-20] MEDS: sitaGLIPtin 50 MG TABLET PO SCH (08:56)
[2016-06-20] MEDS: ASPIRIN 81 MG TAB.CHEW CHEWED SCH (08:56)
[2016-06-20] MEDS: FERROUS SULFATE 325 MG TABLET PO SCH ×2 (08:56→17:02)
[2016-06-20] MEDS: INSULIN LISPRO 1 UNIT/0.01 ML UNIT SQ SCH ×4 (09:00→20:52)
[2016-06-20] MEDS: NYSTATIN POWDER BOTTLE 15GM TOPICAL SCH ×2 (09:58→20:53)
--- NOTE | 2016-06-20 10:21 | Nephrology Progress Note ---
Subjective Patient information: Note initiated : 06/20/16 at 10:15 am Service Date, if different from initiated Date: [] Patient: Phu Bryson 70 y/o M admitted on 06/11/16 for Swelling from Chest Down, Oozing BLE/Anasarca. Chief Complaint: [] Principal diagnosis: CHF Interval history: Patient seen this am no new issues edema improving but still 1-2 + in thighs, still has scrotal swelling though much improved feels tired no SOB at rest ambulating with walker no loss of appetite, nausea, vomiting Pertinent ROS: as above Objective - Vital Signs Vital signs: Vital Signs Temp Pulse Resp BP Pulse Ox 06/20/16 08:00 98.4 F 91 H 16 121/73 93 06/20/16 03:45 98.2 F 85 16 126/70 95 06/20/16 00:55 98.2 F 86 16 117/74 94 06/19/16 19:45 97.5 F L 16 129/75 96 06/19/16 11:22 96.6 F L 18 118/74 97 Intake and Output 06/19/16 06/20/16 06/20/16 21:59 05:59 13:59 Intake Total 540 / 540 240 / 240 Output Total 800 / 800 800 / 800 Balance -260 / -260 -560 / -560 Intake: Oral 540 / 540 240 / 240 Output: Urine Catheter Amount 800 / 800 800 / 800 Other: Meal Dinner Nepro shake Percent of Meal Consumed 100% 100% Feeding Ability Independent # Bowel Movements 1 Weight 248 lb 8 oz Intake & Output: Intake & Output 06/19/16 06/20/16 06/20/16 21:59 05:59 13:59 Intake Total 540 / 540 240 / 240 Output Total 800 / 800 800 / 800 Balance -260 / -260 -560 / -560 Weight 248 lb 8 oz Intake: Oral 540 / 540 240 / 240 Output: Urine Catheter Amount 800 / 800 800 / 800 Other: Meal Dinner Nepro shake Percent of Meal Consumed 100% 100% Feeding Ability Independent # Bowel Movements 1 - General Appearance General appearance: appears started age, obese EENT: mucous membranes moist Neck: no JVD Respiratory: clear Cardiology: no rub, edema, irregular rhythm Gastrointestinal: no tenderness Integumentary: warm and dry, chronic venous stasis Neurologic: no asterixis, alert and oriented x3 Musculoskeletal: no erythema, no cyanosis Psychiatric: mood/affect appropriate - Lab 06/20/16 05:10 06/20/16 05:10 Most recent lab results Calcium 9.1 mg/dl (8.6-10.4) 06/20/16 05:10 Phosphorus 4.2 mg/dL (2.7-4.5) 06/20/16 05:10 Magnesium 2.8 mg/dL (1.6-2.5) H 06/20/16 05:10 Assessment and Plan (1) Chronic kidney disease, stage IV (severe) s.creatinine is 4.4, BUN is 64 still with 1+ edema will initiate HD today, TCC placed yesterday will do HD for 2 hrs, using revaclear 300 dialyser, 3K/2.5Ca dialysate, QB 200ML /MIN, QD 400ml/min, UF goal of 0.5L will plan for dialysis on Wednesday next will continue with bumex monitor I/O, daily weights will d/c nice cath today Anemia: Hb stable at around 10, tsat low will continue with oral iron for now malnutrition: on nepro supplement renal osteodystrophy: calcium and phos at goal will monitor metabolic alkalosis with hypokalemia from diuretics, w\on K supplements, metolazone held will follow and cut back on bumex to 2mg bid if possible now that he is on dialysis Will follow along Status: Chronic Comment: Most recent s.creat is 3.15,egfr of 19ml/min CKD EPI equation renal function stable at around 3.0, no significant volume overload CHF and uncontrolled DM is likely etiology UPCR is only at 0.3 labs discussed hold metolazone work on better DM control will monitor, will go for AVF surgery if renal function continues to worsen
--- NOTE | 2016-06-20 11:53 | General Surgery Progress Note ---
Subjective Patient reports: other (Edema of both legs is less. Dressings changed daily. No acute changes from Wound care point of view.) Narrative: Note initiated : 06/20/16 at 11:49 am Service Date, if different from initiated Date: [] Patient: Phu Bryson 70 y/o M admitted on 06/11/16 for Swelling from Chest Down, Oozing BLE/Anasarca. Chief Complaint: [] Objective Temp Pulse Resp BP Pulse Ox 98.4 F 91 H 16 121/73 93 06/20/16 08:00 06/20/16 08:00 06/20/16 08:00 06/20/16 08:00 06/20/16 08:00 AVSS.. HD Stable. Clear speech and No orthostatic symptoms. Awaits dialysis today. Gradual and steady progress with ADL with medical management diuresis and now HD for CKD 4 Leg wounds are dry . Edema is less. No tenderness of calves. Decreased lymphatic drainage. NO acute inflammatory signs, - Additional Data Intake & Output - Last 24 hours: Intake & Output 06/18/16 06/19/16 06/20/16 06/21/16 05:59 05:59 05:59 06:59 Intake Total 1060 / 1060 1050 / 1050 780 / 780 Output Total 3480 / 3480 2750 / 2750 1600 / 1600 Balance -2420 / -2420 -1700 / -1700 -820 / -820 Weight 253 lb 11.2 oz 250 lb 8 oz 248 lb 8 oz 248 lb 8 oz - Labs 06/20/16 05:10 06/20/16 05:10 Diabetes panel 06/20/16 Range/Units 05:10 Sodium 139 (133-145) mmol/L Potassium 3.6 (3.3-5.1) mmol/L Chloride 90 L (96-108) mmol/L Carbon Dioxide 37 H (22-30) mmol/L BUN 65 H (8-23) mg/dl Creatinine 4.4 H (0.7-1.2) mg/dl Glucose 165 H (70-105) mg/dL Calcium 9.1 (8.6-10.4) mg/dl AST 21 (0-37) U/l ALT 14 (0-40) U/l Alkaline Phosphatase 214 H (39-117) U/L Total Protein 7.4 (5.9-8.4) gm/dL Albumin 3.4 (3.2-5.2) gm/dL Triglycerides 70 (<150) mg/dl Calcium panel 06/20/16 Range/Units 05:10 Calcium 9.1 (8.6-10.4) mg/dl Phosphorus 4.2 (2.7-4.5) mg/dL Albumin 3.4 (3.2-5.2) gm/dL Pituitary panel 06/20/16 Range/Units 05:10 Sodium 139 (133-145) mmol/L Potassium 3.6 (3.3-5.1) mmol/L Chloride 90 L (96-108) mmol/L Carbon Dioxide 37 H (22-30) mmol/L BUN 65 H (8-23) mg/dl Creatinine 4.4 H (0.7-1.2) mg/dl Glucose 165 H (70-105) mg/dL Calcium 9.1 (8.6-10.4) mg/dl Adrenal panel 06/20/16 Range/Units 05:10 Sodium 139 (133-145) mmol/L Potassium 3.6 (3.3-5.1) mmol/L Chloride 90 L (96-108) mmol/L Carbon Dioxide 37 H (22-30) mmol/L BUN 65 H (8-23) mg/dl Creatinine 4.4 H (0.7-1.2) mg/dl Glucose 165 H (70-105) mg/dL Calcium 9.1 (8.6-10.4) mg/dl Total Bilirubin 0.6 (0.0-1.0) mg/dL AST 21 (0-37) U/l ALT 14 (0-40) U/l Alkaline Phosphatase 214 H (39-117) U/L Total Protein 7.4 (5.9-8.4) gm/dL Albumin 3.4 (3.2-5.2) gm/dL Medical - PN: A/P - Time Spent With Patient Total time spent is greater than 50% in coordination of care (as documented) at patient's floor/unit and/or counseling patient: less than 15 minutes (Slow steady improvement. Starting HD today. Continue wound care.) (1) Pressure ulcer of lower extremity Problem details: Bilateral legs lateral upper and mid third . Chronic with patchy adipose tissue exposed. CHRONIC and colonized. Wound cultures. Contaminated wounds ?? MRSA Status: Chronic Current Visit: Yes
[2016-06-20] MEDS: WARFARIN 5 MG TABLET PO SCH (15:30)
--- NOTE | 2016-06-20 16:38 | Internal Med Progress Note ---
Medical - PN: Subj Patient information: Note initiated : 06/20/16 at 4:34 pm Service Date, if different from initiated Date: [] Patient: Phu Bryson 70 y/o M admitted on 06/11/16 for Swelling from Chest Down, Oozing BLE/Anasarca. Chief Complaint: [] Interval history: history of present illness: This is a pleasant 70 yr male who presented to the hospital with shortness of breath on exertion. Significnat edema/ anasarca and significant weight gain. Baseline weight is 230-240 lbs, he gained up to 304 lbs as per nephrology. 06/11- patient admitted with generalized anasarca with underlying NYHA class III systolic heart failure EF 30% and chronic kidney disease with baseline creatinine 2.5. Patient's dry weight was around 240 around [place] and currently at 277. started on Lasix drip with satisfactory initial response. it' s unclear if patient has been taking his home dose Bumex and metolazone. He has been followed up by nephrology as an outpatient and has had a history of poor compliance with medications. Admitted to telemetry for continuous Lasix infusion and target around 9000-10,000 cc net negative over 72 hours. Massively swollen scrotum. bilateral lower extremity wounds secondary to stasis and lymphedema. wound care consulted 06/18/16: -This patient has a history of chronic obesity, chronic kidney disease, CHF, poorly controlled diabetes, medical compliance, and presented with severe anasarca likely due to ongoing decline in renal dysfunction and noncompliance with medications. e was aggressively diuresed, and is now negative about 21 L. -he also had weeping open wounds of his lower extremities, which have gradually improved with ongoing wound care and diuresis. ound cultures grew both pseudomonas aeruginosa and Staphylococcus aureus. he is now being treated with topical Silvadene, which should cover both organisms. -Atrial fibrillation has generally had a controlled response.shortness of breath and strength are gradually improving. -Singh catheter was discontinued yesterday but he was unable to urinate, so that was replaced last night. He has some ongoing scrotal edema. -we are looking at discharging him to an LTAC for ongoing wound care and fluid management, but the seo executive there has talked with Dr. Urbina here, and they had another family meeting, and the patient is now agreeable to having a catheter placed, and at least starting a trial of dialysis. -Diabetes has been difficult to control, and Januvia dose had to be decreased due to renal function. -BPH stable on flomax continue same. 06/19/16: today, the patient continues to struggle with some moderate edema of the scrotum, but says overall everything is improving. His energy is mildly improved. He denies significant chest pain or shortness of breath, GI or symptoms. He does continue with a Singh catheter because of the scrotum edema. -his INR remained therapeutic this morning, so he was given FFP to reverse this , and then was sent over to [facility] to have a tunneled catheter placed. He is to have dialysis this afternoon. 06/20/16: today, the patient says he is feeling reasonably well. He thinks the edema of his scrotum and legs is slowly improving. He did undergo hours of dialysis this afternoon, and seems to have tolerated that fairly well. He continues to complain of eye discomfort and vision issues, which he seems to indicate have been more or less chronic, although worse lately. Otherwise, he denies fever or chills chest pain or shortness of breath, abdominal pain nausea or vomiting or diarrhea. - Constitutional Vitals: Vital Signs Temp Pulse Resp BP Pulse Ox 98.2 F 90 16 109/65 96 06/20/16 14:30 06/20/16 14:30 06/20/16 12:00 06/20/16 14:30 06/20/16 12:00 Period Temp Pulse Resp BP Sys/Goodwin Pulse Ox Last 24 Hr 97.5 F-98.7 F 75-91 16-16 109-129/65-79 93-96 Intake and Output 06/20/16 06/20/16 06/20/16 05:59 13:59 21:59 Intake Total 240 / 240 120 / 120 240 / 240 Output Total 800 / 800 1807 / 1807 1650 / 1650 Balance -560 / -560 -1687 / -1687 -1410 / -1410 Weight 248 lb 8 oz 248 lb 8 oz Patient Weight 06/21/16 06:59 Weight 248 lb 8 oz Intake & Output: Intake & Output 06/20/16 06/20/16 06/20/16 05:59 13:59 21:59 Intake Total 240 / 240 120 / 120 240 / 240 Output Total 800 / 800 1807 / 1807 1650 / 1650 Balance -560 / -560 -1687 / -1687 -1410 / -1410 Weight 248 lb 8 oz 248 lb 8 oz Intake: Oral 240 / 240 120 / 120 240 / 240 Output: Urine Catheter Amount 800 / 800 750 / 750 Hemodialysis UF 1807 / 1807 900 / 900 Other: Meal Nepro shake Breakfast Lunch Percent of Meal Consumed 100% 100% 50% # Bowel Movements 1 1 Exam: on exam, he is in no acute distress. Neck shows no obvious JVD. Cardiac exam shows irregular rate and rhythm. Lungs: Are clear to auscultation. Abdomen is protuberant but nontender. Extremities: Continue to show pitting edema to above the knees The superficial open areas on his shins are covered with Silvadene and gauze at this time. neurologic: Is grossly nonfocal. Medical - PN: Obj Da - Labs CBC & Chem 7: 06/20/16 05:10 06/20/16 05:10 Labs: Abnormal Lab Results 06/20/16 06/20/16 06/20/16 05:10 05:10 05:10 RBC 3.42 L Hgb 10.0 L Hct 31.3 L RDW 16.5 H Plt Count 139 L Lymph % (Auto) 12.6 L [place] % (Auto) 10.9 H Lymph # 0.7 L POC PT PT 24.5 H POC INR INR 2.1 H Chloride 90 L Carbon Dioxide 37 H BUN 65 H Creatinine 4.4 H Glucose 165 H Uric Acid 15.1 H Magnesium 2.8 H Direct Bilirubin GGT 182 H Alkaline Phosphatase 214 H Globulin 4.0 H Albumin/Globulin Ratio 0.9 L 06/19/16 06/19/16 06/19/16 13:54 05:00 05:00 RBC Hgb Hct RDW Plt Count Lymph % (Auto) [place] % (Auto) Lymph # POC PT 20.5 H PT 26.5 H POC INR 1.8 H INR 2.3 H Chloride 88 L Carbon Dioxide 39 H BUN 70 H Creatinine 4.5 H Glucose 150 H Uric Acid 15.2 H Magnesium 2.8 H Direct Bilirubin GGT 161 H Alkaline Phosphatase 201 H Globulin 3.9 H Albumin/Globulin Ratio 0.8 L 06/19/16 06/18/16 06/18/16 05:00 04:58 04:58 RBC 3.47 L Hgb 10.2 L Hct 31.7 L RDW 16.5 H Plt Count Lymph % (Auto) 12.6 L [place] % (Auto) 12.2 H Lymph # 0.8 L POC PT PT 25.0 H POC INR INR 2.2 H Chloride 91 L Carbon Dioxide 36 H BUN 67 H Creatinine 4.1 H Glucose 108 H Uric Acid 15.0 H Magnesium 2.8 H Direct Bilirubin 0.4 H GGT 184 H Alkaline Phosphatase 225 H Globulin 3.8 H Albumin/Globulin Ratio 0.9 L 06/18/16 04:58 RBC 3.63 L Hgb 10.7 L Hct 33.2 L RDW 17.0 H Plt Count Lymph % (Auto) 7.9 L [place] % (Auto) 10.0 H Lymph # 0.6 L POC PT PT POC INR INR Chloride Carbon Dioxide BUN Creatinine Glucose Uric Acid Magnesium Direct Bilirubin GGT Alkaline Phosphatase Globulin Albumin/Globulin Ratio intake and output now shows that he is negative about 26 L since admission. chest x-ray from June 13, 2016: Shows mild cardiomegaly and likely pulmonary edema. wound cultures from June 12, 2016: Grew both pseudomonas aeruginosa, and Staphylococcus aureus. Meds: Medications Acetaminophen (Tylenol) 650 mg PO Q4-6HP PRN PRN Reason: PAIN/FEVER > 101 Amiodarone HCl (Cordarone) 200 mg PO QDAY [facility] Last Admin: 06/20/16 08:55 Dose: 200 mg Aspirin (Aspirin) 81 mg CHEWED DAILY [facility] Last Admin: 06/20/16 08:56 Dose: 81 mg Bumetanide (Bumex) 3 mg PO BIDD [facility] Last Admin: 06/20/16 08:54 Dose: 3 mg Calcitriol (Rocaltrol) 0.25 mcg PO Q48@0900 [facility] Last Admin: 06/19/16 07:49 Dose: Not Given Clopidogrel Bisulfate (Plavix) 75 mg PO QDAY [facility] Last Admin: 06/20/16 08:55 Dose: 75 mg Dextrose (Dextrose 50%) 0 ml IV UD PRN PRN Reason: Hypoglycemia Diagnostic Test (Pha) (Accu-Chek) 1 each FS ACHS [facility] Last Admin: 06/20/16 12:45 Dose: 1 each Docusate Sodium (Colace) 100 mg PO BID [facility] Last Admin: 06/20/16 08:55 Dose: 100 mg Ferrous Sulfate (Ferrous Sulfate) 325 mg PO BIDCC [facility] Last Admin: 06/20/16 08:56 Dose: 325 mg Magnesium Sulfate (Magnesium Sulfate) 2 gm in 50 mls @ 50 mls/hr IV UD PRN PRN Reason: MG = or < 1.7 Acetaminophen (Ofirmev) 1,000 mg in 100 mls @ 200 mls/hr IV Q6HP PRN PRN Reason: PAIN/FEVER > 101 Insulin Glargine (Lantus) 30 unit SQ HS [facility] Last Admin: 06/19/16 21:07 Dose: 30 unit Insulin Human Lispro (Humalog) 0 unit SQ ACHS [facility] PRN Reason: Protocol Last Admin: 06/20/16 12:48 Dose: 2 unit Metoprolol Tartrate (Lopressor) 25 mg PO [facility] Last Admin: 06/19/16 21:09 Dose: 25 mg Metoprolol Tartrate (Lopressor) 50 mg PO DAILY [facility] Last Admin: 06/20/16 08:55 Dose: 50 mg Nystatin (Kenalog) 1 dose TOPICAL BID [facility] Last Admin: 06/20/16 09:58 Dose: 1 dose Ondansetron HCl (Zofran) 4 mg IV Q4-6HP PRN PRN Reason: Nausea And Vomiting Oxycodone HCl (Roxicodone) 5 mg PO Q4HP PRN PRN Reason: Pain Last Admin: 06/17/16 07:23 Dose: 5 mg Potassium Chloride (Klor-Con) 40 meq PO DAILYP PRN PRN Reason: K+ < 3.5 Potassium Chloride (Kdur) 40 meq PO BIDCC [facility] Last Admin: 06/20/16 08:55 Dose: 40 meq Senna/Docusate Sodium (Senna Plus Tablet) 2 tab PO [facility] Last Admin: 06/19/16 21:09 Dose: 2 tab Simvastatin (Zocor) 20 mg PO [facility] Last Admin: 06/19/16 21:09 Dose: 20 mg Sitagliptin Phosphate (Januvia) 25 mg PO DAILY [facility] Last Admin: 06/20/16 08:56 Dose: 25 mg Sodium Chloride (Saline Flush) 10 ml IV Q8 [facility] Last Admin: 06/20/16 15:30 Dose: 10 ml Tamsulosin HCl (Flomax) 0.4 mg PO HS [facility] Last Admin: 06/19/16 21:08 Dose: 0.4 mg Warfarin Sodium (Coumadin) 5 mg PO DAILY@1400 [facility] Last Admin: 06/20/16 15:30 Dose: 5 mg Medical - PN: A/P - Time Spent With Patient Total time spent is greater than 50% in coordination of care (as documented) at patient's floor/unit and/or counseling patient: - Narrative A/P Narrative: #1. Renal. -This patient presented with gross anasarca more than likely due to continued decline in renal function. he is gradually starting to feel better,but Dr. Urbina does feel that he would certainly do better on dialysis. -he did have a tunneled catheter placed did undergo his first dialysis treatment today, which she seems to have tolerated well. I believe he will be dialyzed again on Wednesday, prior to transfer up to [facility]. #2. Cardiac. -Chronic atrial fibrillation,currently therapeutic on Coumadin. Rate is controlled. -Chronic CHF. Continue current medications. INR is therapeutic this morning. #3. Type 2 diabetes. Glucoses are ranging from 113-203. Continue Lantus plus Humalog plus Januvia. #4. Bilateral lower extremity wounds likely related to edema. These appear to be under good control with Silvadene. Continue attempts at diuresis. #5. . -The patient has had some bladder outlet obstruction probably due to his severe scrotal edema as well as generalized edema. Singh catheter was replaced . We might try removing that again in the morning. #6. CODE STATUS: Full code. #7. DVT prophylaxis: Patient is anticoagulated. #8. Hematologic. -the patient does have chronic anemia, which appears stable. -Platelets are borderline low today. We will monitor this. #9. Ophthalmologic. The patient has been complaining of eye symptoms. I will see if there is a way to geta formal eye exam while he is here. this visit took approximately 25 minutes today, to review the patient's chart and test results, interview and examine him, review plan of care with staff, Address his Coumadin issues preop, and write orders. Medical - PN: Qual - VTE Deep Vein Thrombosis/Pulmonary Embolism Present on Admission: No
[2016-06-20] MEDS: INSULIN GLARGINE, HUMAN 1 UNIT/0.01 ML SQ SCH (20:52)
[2016-06-20] MEDS: SENNOSIDES/DOCUSATE SODIUM 1 TAB TABLET PO SCH (20:53)
[2016-06-20] MEDS: TAMSULOSIN 0.4 MG CAPSULE PO SCH (20:53)
[2016-06-20] MEDS: oxyCODONE HCL 5 MG TABLET PO PRN (20:54)
[2016-06-20] MEDS: SIMVASTATIN 20 MG TABLET PO SCH (20:54)
[2016-06-21] MEDS: 0.9 % SODIUM CHLORIDE 10 ML SYRINGE IV SCH ×3 (05:12→20:18)
[2016-06-21 06:35] LABS: Basophils # (Auto) 0 K/mcL (0.0-0.3); Basophils % (Auto) 0.8 % (0.0-2.0); Eosinophils # (Auto) 0.3 K/mcL (0.0-0.7); Eosinophils % (Auto) 4.9 % (0.0-7.0); Granulocytes % (Auto) 70.4 % (38.0-78.0); Lymphocytes # (Auto) 0.7 K/mcL (1.5-4.8); Lymphocytes % (Auto) 11.7 % (15.5-49.0); Mean Cell Volume 91.2 fL (80.0-100.0); Mean Corpuscular HGB Conc 32.3 g/dL (31.0-36.0); Mean Corpuscular Hemoglobin 29.4 pg (26.0-34.0); Monocytes # (Auto) 0.7 K/mcL (0.1-0.9); Monocytes % (Auto) 12.2 % (1.0-9.0); Platelet Count 143 K/mcL (140-440); RBC 3.54 M/mcL (4.50-5.90); Red Cell Distribution Width 16.5 % (11.5-14.5)
[2016-06-21 06:46] LABS: ALT/SGPT 14 U/l (0-40); Albumin 3.6 gm/dL (3.2-5.2); Albumin/Globulin Ratio 0.8 (1.0-2.3); Alkaline Phosphatase 244 U/L (39-117); Bilirubin,Direct 0.3 mg/dL (0.0-0.3); Blood Urea Nitrogen 55 mg/dl (8-23); Gamma Glutamyl Transpeptidase 210 U/L (8-61); Magnesium 2.6 mg/dL (1.6-2.5); Phosphorous 3.4 mg/dL (2.7-4.5); Uric Acid 11.7 mg/dL (2.5-8.0)
[2016-06-21] MEDS: DOCUSATE SODIUM 100 MG CAPSULE PO SCH ×2 (08:30→20:17)
[2016-06-21] MEDS: CALCITRIOL 0.25 MCG CAPSULE PO SCH (08:30)
[2016-06-21] MEDS: ASPIRIN 81 MG TAB.CHEW CHEWED SCH (08:30)
[2016-06-21] MEDS: CLOPIDOGREL 75 MG TABLET PO SCH (08:30)
[2016-06-21] MEDS: BUMETANIDE 1 MG TABLET PO SCH ×2 (08:30→17:24)
[2016-06-21] MEDS: FERROUS SULFATE 325 MG TABLET PO SCH ×2 (08:30→17:24)
[2016-06-21] MEDS: AMIODARONE HCL 200 MG TABLET PO SCH (08:30)
[2016-06-21] MEDS: INSULIN LISPRO 1 UNIT/0.01 ML UNIT SQ SCH ×4 (08:31→20:16)
[2016-06-21] MEDS: METOPROLOL TARTRATE 25 MG TABLET PO SCH ×2 (08:31→20:17)
[2016-06-21] MEDS: POTASSIUM CHLORIDE 20 MEQ TABLET PO SCH ×2 (08:32→17:24)
[2016-06-21] MEDS: sitaGLIPtin 50 MG TABLET PO SCH (08:33)
--- NOTE | 2016-06-21 14:03 | Internal Med Progress Note ---
Medical - PN: Subj Patient information: Note initiated : 06/21/16 at 2:03 pm Service Date, if different from initiated Date: [] Patient: Phu Bryson 70 y/o M admitted on 06/11/16 for Swelling from Chest Down, Oozing BLE/Anasarca. Chief Complaint: [] Interval history: history of present illness: This is a pleasant 70 yr male who presented to the hospital with shortness of breath on exertion. Significnat edema/ anasarca and significant weight gain. Baseline weight is 230-240 lbs, he gained up to 304 lbs as per nephrology. 06/11- patient admitted with generalized anasarca with underlying NYHA class III systolic heart failure EF 30% and chronic kidney disease with baseline creatinine 2.5. Patient's dry weight was around 240 around [place] and currently at 277. started on Lasix drip with satisfactory initial response. it' s unclear if patient has been taking his home dose Bumex and metolazone. He has been followed up by nephrology as an outpatient and has had a history of poor compliance with medications. Admitted to telemetry for continuous Lasix infusion and target around 9000-10,000 cc net negative over 72 hours. Massively swollen scrotum. bilateral lower extremity wounds secondary to stasis and lymphedema. wound care consulted 06/18/16: -This patient has a history of chronic obesity, chronic kidney disease, CHF, poorly controlled diabetes, medical compliance, and presented with severe anasarca likely due to ongoing decline in renal dysfunction and noncompliance with medications. e was aggressively diuresed, and is now negative about 21 L. -he also had weeping open wounds of his lower extremities, which have gradually improved with ongoing wound care and diuresis. ound cultures grew both pseudomonas aeruginosa and Staphylococcus aureus. he is now being treated with topical Silvadene, which should cover both organisms. -Atrial fibrillation has generally had a controlled response.shortness of breath and strength are gradually improving. -Singh catheter was discontinued yesterday but he was unable to urinate, so that was replaced last night. He has some ongoing scrotal edema. -we are looking at discharging him to an LTAC for ongoing wound care and fluid management, but the document processing specialist there has talked with Dr. Urbina here, and they had another family meeting, and the patient is now agreeable to having a catheter placed, and at least starting a trial of dialysis. -Diabetes has been difficult to control, and Januvia dose had to be decreased due to renal function. -BPH stable on flomax continue same. 06/19/16: today, the patient continues to struggle with some moderate edema of the scrotum, but says overall everything is improving. His energy is mildly improved. He denies significant chest pain or shortness of breath, GI or symptoms. He does continue with a Singh catheter because of the scrotum edema. -his INR remained therapeutic this morning, so he was given FFP to reverse this , and then was sent over to [facility] to have a tunneled catheter placed. He is to have dialysis this afternoon. 06/20/16: today, the patient says he is feeling reasonably well. He thinks the edema of his scrotum and legs is slowly improving. He did undergo hours of dialysis this afternoon, and seems to have tolerated that fairly well. He continues to complain of eye discomfort and vision issues, which he seems to indicate have been more or less chronic, although worse lately. Otherwise, he denies fever or chills chest pain or shortness of breath, abdominal pain nausea or vomiting or diarrhea. 06/21/16: today, the patient notes he continues to have some discomfort of his eyes, and continues to complain of chronic vision loss with or without possible worsening of this. Otherwise he just feels fatigued, and has not really wanted to participate in PTx. otherwise, he denies subjective fever or chills, chest pain or shortness of breath abdominal pain, nausea or vomiting, diarrhea or constipation. We did remove his Singh catheter this morning, but nursing tells me this afternoon he really has not been able to void, and his postvoid residual this afternoon is 770 mL. - Constitutional Vitals: Vital Signs Temp Pulse Resp BP Pulse Ox 97.1 F L 77 16 121/71 98 06/21/16 12:00 06/21/16 12:00 06/21/16 12:00 06/21/16 12:00 06/21/16 12:00 Period Temp Pulse Resp BP Sys/Goodwin Pulse Ox Last 24 Hr 97.1 F-98.5 F 76-90 16-20 109-132/65-80 91-98 Intake and Output 06/21/16 06/21/16 06/21/16 05:59 13:59 21:59 Intake Total 360 / 360 Output Total 500 / 500 Balance -140 / -140 Intake & Output: Intake & Output 06/21/16 06/21/16 06/21/16 05:59 13:59 21:59 Intake Total 360 / 360 Output Total 500 / 500 Balance -140 / -140 Intake: Oral 360 / 360 Output: Urine Catheter Amount 500 / 500 Other: Meal Lunch Percent of Meal Consumed 75% Exam: Unchanged- on exam, he is in no acute distress. Neck shows no obvious JVD. Cardiac exam shows irregular rate and rhythm. Lungs: Are clear to auscultation. Abdomen is protuberant but nontender. Extremities: Continue to show pitting edema to above the knees The superficial open areas on his shins are covered with Silvadene and gauze at this time. neurologic: Is grossly nonfocal. Medical - PN: Obj Da - Labs CBC & Chem 7: 06/21/16 04:34 06/21/16 04:34 Labs: Abnormal Lab Results 06/21/16 06/21/16 06/21/16 04:34 04:34 04:34 RBC 3.54 L Hgb 10.4 L Hct 32.3 L RDW 16.5 H Plt Count Lymph % (Auto) 11.7 L Henry % (Auto) 12.2 H Lymph # 0.7 L POC PT PT 25.9 H POC INR INR 2.3 H Chloride 90 L Carbon Dioxide 35 H BUN 55 H Creatinine 3.8 H Glucose 145 H Uric Acid 11.7 H Magnesium 2.6 H GGT 210 H Alkaline Phosphatase 244 H Globulin 4.4 H Albumin/Globulin Ratio 0.8 L 06/20/16 06/20/16 06/20/16 05:10 05:10 05:10 RBC 3.42 L Hgb 10.0 L Hct 31.3 L RDW 16.5 H Plt Count 139 L Lymph % (Auto) 12.6 L Henry % (Auto) 10.9 H Lymph # 0.7 L POC PT PT 24.5 H POC INR INR 2.1 H Chloride 90 L Carbon Dioxide 37 H BUN 65 H Creatinine 4.4 H Glucose 165 H Uric Acid 15.1 H Magnesium 2.8 H GGT 182 H Alkaline Phosphatase 214 H Globulin 4.0 H Albumin/Globulin Ratio 0.9 L 06/19/16 06/19/16 06/19/16 13:54 05:00 05:00 RBC Hgb Hct RDW Plt Count Lymph % (Auto) Henry % (Auto) Lymph # POC PT 20.5 H PT 26.5 H POC INR 1.8 H INR 2.3 H Chloride 88 L Carbon Dioxide 39 H BUN 70 H Creatinine 4.5 H Glucose 150 H Uric Acid 15.2 H Magnesium 2.8 H GGT 161 H Alkaline Phosphatase 201 H Globulin 3.9 H Albumin/Globulin Ratio 0.8 L 06/19/16 05:00 RBC 3.47 L Hgb 10.2 L Hct 31.7 L RDW 16.5 H Plt Count Lymph % (Auto) 12.6 L Henry % (Auto) 12.2 H Lymph # 0.8 L POC PT PT POC INR INR Chloride Carbon Dioxide BUN Creatinine Glucose Uric Acid Magnesium GGT Alkaline Phosphatase Globulin Albumin/Globulin Ratio chest x-ray from June 13, 2016: Shows mild cardiomegaly and likely pulmonary edema. wound cultures from June 12, 2016: Grew both pseudomonas aeruginosa, and Staphylococcus aureus. Meds: Medications Acetaminophen (Tylenol) 650 mg PO Q4-6HP PRN PRN Reason: PAIN/FEVER > 101 Amiodarone HCl (Cordarone) 200 mg PO QDAY [facility] Last Admin: 06/21/16 08:30 Dose: 200 mg Aspirin (Aspirin) 81 mg CHEWED DAILY [facility] Last Admin: 06/21/16 08:30 Dose: 81 mg Bumetanide (Bumex) 3 mg PO BIDD [facility] Last Admin: 06/21/16 08:30 Dose: 3 mg Calcitriol (Rocaltrol) 0.25 mcg PO Q48@0900 [facility] Last Admin: 06/21/16 08:30 Dose: 0.25 mcg Clopidogrel Bisulfate (Plavix) 75 mg PO QDAY [facility] Last Admin: 06/21/16 08:30 Dose: 75 mg Dextrose (Dextrose 50%) 0 ml IV UD PRN PRN Reason: Hypoglycemia Diagnostic Test (Pha) (Accu-Chek) 1 each FS ACHS [facility] Last Admin: 06/21/16 12:04 Dose: 1 each Docusate Sodium (Colace) 100 mg PO BID [facility] Last Admin: 06/21/16 08:30 Dose: 100 mg Ferrous Sulfate (Ferrous Sulfate) 325 mg PO BIDCC [facility] Last Admin: 06/21/16 08:30 Dose: 325 mg Magnesium Sulfate (Magnesium Sulfate) 2 gm in 50 mls @ 50 mls/hr IV UD PRN PRN Reason: MG = or < 1.7 Acetaminophen (Ofirmev) 1,000 mg in 100 mls @ 200 mls/hr IV Q6HP PRN PRN Reason: PAIN/FEVER > 101 Insulin Glargine (Lantus) 30 unit SQ [facility] Last Admin: 06/20/16 20:52 Dose: 30 unit Insulin Human Lispro (Humalog) 0 unit SQ ACHS [facility] PRN Reason: Protocol Last Admin: 06/21/16 12:04 Dose: 3 unit Metoprolol Tartrate (Lopressor) 25 mg PO [facility] Last Admin: 06/20/16 20:53 Dose: 25 mg Metoprolol Tartrate (Lopressor) 50 mg PO DAILY [facility] Last Admin: 06/21/16 08:31 Dose: 50 mg Nystatin (Kenalog) 1 dose TOPICAL BID [facility] Last Admin: 06/20/16 20:53 Dose: 1 dose Ondansetron HCl (Zofran) 4 mg IV Q4-6HP PRN PRN Reason: Nausea And Vomiting Oxycodone HCl (Roxicodone) 5 mg PO Q4HP PRN PRN Reason: Pain Last Admin: 06/20/16 20:54 Dose: 5 mg Potassium Chloride (Klor-Con) 40 meq PO DAILYP PRN PRN Reason: K+ < 3.5 [facility] Last Admin: 06/21/16 08:32 Dose: 40 meq Senna/Docusate Sodium (Senna Plus Tablet) 2 tab PO [facility] Last Admin: 06/20/16 20:53 Dose: 2 tab Simvastatin (Zocor) 20 mg PO [facility] Last Admin: 06/20/16 20:54 Dose: 20 mg Sitagliptin Phosphate (Januvia) 25 mg PO DAILY [facility] Last Admin: 06/21/16 08:33 Dose: 25 mg Sodium Chloride (Saline Flush) 10 ml IV Q8 [facility] Last Admin: 06/21/16 05:12 Dose: 10 ml Tamsulosin HCl (Flomax) 0.4 mg PO [facility] Last Admin: 06/20/16 20:53 Dose: 0.4 mg Warfarin Sodium (Coumadin) 5 mg PO DAILY@1400 [facility] Last Admin: 06/20/16 15:30 Dose: 5 mg Medical - PN: A/P - Time Spent With Patient Total time spent is greater than 50% in coordination of care (as documented) at patient's floor/unit and/or counseling patient: - Narrative A/P Narrative: #1. Renal. -This patient presented with gross anasarca more than likely due to continued decline in renal function. he is gradually starting to feel better,but Dr. Urbina does feel that he would certainly do better on dialysis. -the patient underwent dialysis yesterday, and did tolerate this just fine. Our tentative plan is to transfer him up to [facility] tomorrow and he will continue with dialysis and wound care there as well as physical therapy. #2. Cardiac. -Chronic atrial fibrillation,currently therapeutic on Coumadin. Rate is controlled. -Chronic CHF. Continue current medications. INR is therapeutic this morning. #3. Type 2 diabetes. Glucoses are ranging from 113-247. Continue Lantus plus Humalog plus Januvia. #4. Bilateral lower extremity wounds likely related to edema. These appear to be under good control with Silvadene. Continue attempts at diuresis. #5. . -The patient has had some bladder outlet obstruction probably due to his severe scrotal edema as well as generalized edema. -a voiding trial was done today, but he failed once again, possibly due to ongoing scrotal edema. Singh catheter will be replaced,and we can try again and a day or 2. #6. CODE STATUS: Full code. #7. DVT prophylaxis: Patient is anticoagulated. #8. Hematologic. -the patient does have chronic anemia, which appears stable. -Platelets are borderline low . We will monitor this. #9. Ophthalmologic. The patient has been complaining of eye symptoms. I will see if there is a way to get a formal eye exam while he is here. it sounds like there is actually not an postal clerk newspaper correspondent, but I may try calling a local one tomorrow, or perhaps this could be explored once he gets to [facility]. this visit took approximately 25 minutes today, to review the patient's chart and test results, interview and examine him, review plan of care with staff, and write orders. Medical - PN: Qual - VTE Deep Vein Thrombosis/Pulmonary Embolism Present on Admission: No
[2016-06-21] MEDS: WARFARIN 5 MG TABLET PO SCH (14:26)
[2016-06-21] MEDS: NYSTATIN POWDER BOTTLE 15GM TOPICAL SCH ×2 (14:27→20:18)
[2016-06-21] MEDS: INSULIN GLARGINE, HUMAN 1 UNIT/0.01 ML SQ SCH (20:15)
[2016-06-21] MEDS: TAMSULOSIN 0.4 MG CAPSULE PO SCH (20:17)
[2016-06-21] MEDS: SIMVASTATIN 20 MG TABLET PO SCH (20:17)
[2016-06-21] MEDS: SENNOSIDES/DOCUSATE SODIUM 1 TAB TABLET PO SCH (20:17)
[2016-06-22] MEDS: 0.9 % SODIUM CHLORIDE 10 ML SYRINGE IV SCH (05:53)
[2016-06-22] MEDS: AMIODARONE HCL 200 MG TABLET PO SCH (08:28)
[2016-06-22] MEDS: ASPIRIN 81 MG TAB.CHEW CHEWED SCH (08:28)
[2016-06-22] MEDS: METOPROLOL TARTRATE 25 MG TABLET PO SCH (08:28)
[2016-06-22] MEDS: FERROUS SULFATE 325 MG TABLET PO SCH (08:28)
[2016-06-22] MEDS: BUMETANIDE 1 MG TABLET PO SCH (08:28)
[2016-06-22] MEDS: CLOPIDOGREL 75 MG TABLET PO SCH (08:28)
[2016-06-22] MEDS: INSULIN LISPRO 1 UNIT/0.01 ML UNIT SQ SCH (08:29)
[2016-06-22] MEDS: DOCUSATE SODIUM 100 MG CAPSULE PO SCH (08:30)
[2016-06-22] MEDS: sitaGLIPtin 50 MG TABLET PO SCH (08:35)
--- NOTE | 2016-06-22 09:28 | Discharge Summary ---
Medical - DS: Prov Patient information: Note initiated : 06/22/16 at 9:22 am Service Date, if different from initiated Date: [] Patient: Phu Bryson 70 y/o M admitted on 06/11/16 for Swelling from Chest Down, Oozing BLE/Anasarca. Chief Complaint: [] Date of admission: 06/11/16 19:18 Discharge date: 06/22/16 Primary care physician: [Dr. Eugenia Lilly, [employer], phone #[phone]] Admitting clinician: Loc Montalvo Consults: 06/12/16 08:25 Consult to Physician [CONS] Routine Comment: Consulting Provider: Martin Jaquez Reason For Exam: Physician to Consult Dr.Meghana Urbina, nephrology Attending physician on discharge: Briseida Lopez Medical - DS: Meds - Discharge Medications Active and Home Medications: Home Medications amiodarone 200 mg tablet 200 mg PO QDAY tab 10/04/14 [History Confirmed Last Taken 04/09/16] insulin glargine 100 unit/mL subcutaneous solution 20 unit SUB-Q HS ml [History Confirmed 06/11/16 Last Taken 04/09/16] insulin lispro 100 unit/mL subcutaneous solution See Dose Instructions SUB-Q .COMPLEX ml 10/04/14 [History Confirmed 06/11/16 Last Taken 04/09/16] oxycodone 5 mg tablet 5 mg PO Q4HP PRN tab 10/04/14 [History Confirmed Last Taken 04/10/16 03:00] tamsulosin 0.4 mg capsule 0.4 mg PO HS cap 10/04/14 [History Confirmed Last Taken Unknown] warfarin 5 mg tablet 5 mg PO DAILY tab 10/04/14 [History Confirmed 06/16/16 Last Taken 04/10/16] ferrous sulfate 325 mg (65 mg iron) tablet 325 mg PO QDAY tab 02/17/16 [ History Confirmed 06/11/16 Last Taken 04/09/16] ascorbic acid (vitamin C) 250 mg tablet 250 mg PO QDAY 04/21/16 [History Confirmed 06/11/16 Last Taken Unknown] bumetanide 2 mg tablet 2 mg PO BID #30 tab 04/21/16 [Rx Confirmed 06/11/16 Last Taken Unknown] clopidogrel 75 mg tablet 75 mg PO QDAY 04/21/16 [History Confirmed 06/11/16 Last Taken Unknown] metoprolol tartrate 25 mg tablet 50 mg PO DAILY 04/21/16 [History Confirmed 05/29 Last Taken Unknown] polyethylene glycol 3350 17 gram/dose oral powder 17 g PO QDAY PRN 04/21/16 [ History Confirmed 06/16/16 Last Taken Unknown] potassium chloride ER 10 mEq capsule,extended release 40 meq PO BID cap [History Confirmed 06/11/16 Last Taken Unknown] pravastatin 40 mg tablet 40 mg PO QHS 04/21/16 [History Confirmed 06/11/16 Last Taken Unknown] Calcitriol [Rocaltrol] 0.25 mcg PO Q48H 06/11/16 [History Confirmed 06/11/16 Last Taken Unknown] Metoprolol Tartrate [Lopressor] 25 mg PO HS 06/11/16 [History Confirmed Last Taken Unknown] Multivitamin [Multi-Day Vitamins] 1 each PO DAILY 06/11/16 [History Confirmed Last Taken Unknown] Potassium Chloride [K-Mildred] 40 meq PO BID 06/11/16 [History Confirmed 06/11/16 Last Taken Unknown] Vitamin D3 5,000 units PO DAILY 06/11/16 [History Confirmed 06/16/16 Last Taken Unknown] sitaGLIPtin [Januvia] 50 mg PO DAILY 06/11/16 [History Confirmed 06/11/16 Last Taken Unknown] Medical - DS: Hosp Hospital course: Mr. Bryson is a 70 year old male 06/11/16: history of present illness: This is a pleasant 70 yr male who presented to the hospital with shortness of breath on exertion. Significant edema/ anasarca and significant weight gain. Baseline weight is 230-240 lbs, he gained up to 304 lbs as per nephrology. 06/11- patient admitted with generalized anasarca with underlying NYHA class III systolic heart failure EF 30% and chronic kidney disease with baseline creatinine 2.5. Patient's dry weight was around 240 around Reji and currently at 277. started on Lasix drip with satisfactory initial response. it' s unclear if patient has been taking his home dose Bumex and metolazone. He has been followed up by nephrology as an outpatient and has had a history of poor compliance with medications. Admitted to telemetry for continuous Lasix infusion and target around 9000-10,000 cc net negative over 72 hours. Massively swollen scrotum. bilateral lower extremity wounds secondary to stasis and lymphedema. wound care consulted 06/18/16: -This patient has a history of chronic obesity, chronic kidney disease, CHF, poorly controlled diabetes, medical compliance, and presented with severe anasarca likely due to ongoing decline in renal dysfunction and noncompliance with medications. e was aggressively diuresed, and is now negative about 21 L. -he also had weeping open wounds of his lower extremities, which have gradually improved with ongoing wound care and diuresis. ound cultures grew both pseudomonas aeruginosa and Staphylococcus aureus. he is now being treated with topical Silvadene, which should cover both organisms. -Atrial fibrillation has generally had a controlled response.shortness of breath and strength are gradually improving. -Singh catheter was discontinued yesterday but he was unable to urinate, so that was replaced last night. He has some ongoing scrotal edema. -we are looking at discharging him to an LTAC for ongoing wound care and fluid management, but the rig hand there has talked with Dr. Urbina here, and they had another family meeting, and the patient is now agreeable to having a catheter placed, and at least starting a trial of dialysis. -Diabetes has been difficult to control, and Januvia dose had to be decreased due to renal function. -BPH stable on flomax continue same. 06/19/16: today, the patient continues to struggle with some moderate edema of the scrotum, but says overall everything is improving. His energy is mildly improved. He denies significant chest pain or shortness of breath, GI or symptoms. He does continue with a Singh catheter because of the scrotum edema. -his INR remained therapeutic this morning, so he was given FFP to reverse this , and then was sent over to [facility] to have a tunneled catheter placed. He is to have dialysis this afternoon. 06/20/16: today, the patient says he is feeling reasonably well. He thinks the edema of his scrotum and legs is slowly improving. He did undergo hours of dialysis this afternoon, and seems to have tolerated that fairly well. He continues to complain of eye discomfort and vision issues, which he seems to indicate have been more or less chronic, although worse lately. Otherwise, he denies fever or chills chest pain or shortness of breath, abdominal pain nausea or vomiting or diarrhea. 06/21/16: today, the patient notes he continues to have some discomfort of his eyes, and continues to complain of chronic vision loss with or without possible worsening of this. Otherwise he just feels fatigued, and has not really wanted to participate in PTx. otherwise, he denies subjective fever or chills, chest pain or shortness of breath abdominal pain, nausea or vomiting, diarrhea or constipation. We did remove his Singh catheter this morning, but nursing tells me this afternoon he really has not been able to void, and his postvoid residual this afternoon is 770 mL. 06/12/16: Hospital course: See elected notes, as above. this patient with uncontrolled diabetes and progressive end-stage renal disease,presented with anasarca/massive volume overload. Related to that, he also had a markedly swollen scrotum which is causing a great deal of pain and difficulty urinating. He also had several open wounds which were leaking fluid over hislower legs. -He was admitted and treated aggressively with diuretics, and has now diuresed over 26 L. His renal function had continued to decline. The patient has been resistant to discussions about dialysis up until now. However last week Dr. Urbina again met with him and his family, and he finally agreed to dialysis. He had a tunneled catheter placed on Wednesday, and had his first round of dialysis on Wednesday, which he tolerated well. Today his lower extremity edema and scrotal edema are definitely improved. He is looking forward to ongoing rehabilitation to try to improve strength enough to return home. -We did remove his Singh catheter for the second time yesterday, but he was unable to void, and had a large post void residual of over 700 mL. The Singh catheter was replaced, with advice to try again in2 or 3 days. If that is unsuccessful, he might need urology follow-up. Medical History Alkalosis (Acute) Anemia in chronic kidney disease (Acute 05/16/13) Anticoagulated on Coumadin (Acute) Atrial fibrillation (Acute) CAD (coronary artery disease) (Acute) Cardiomyopathy in other disease (Acute) Chronic kidney disease, stage III (moderate) (Acute 05/02/13) Diabetic ulcer of left foot (Acute) Elevated troponin (Acute) Gastroesophageal reflux (Acute) Hyperlipidemia (Acute) terminal manager current use of anticoagulant (Acute) Long-term use of aspirin therapy (Acute) Lymphedema of both lower extremities (Acute) Obesity (Acute 05/02/13) PVD (peripheral vascular disease) (Acute) Pleural effusion (Acute) Renal failure, acute (Acute) Systolic heart failure (Acute) Ulcer of foot (Acute) needs wound care financial reasons is prohibiting this advised to ensure that this taken care of will provide any help that the pt needs Venous stasis dermatitis of both lower extremities (Acute) Volume overload (Acute) Chronic kidney disease, stage IV (severe) (Chronic) Most recent s.creat is 3.15,egfr of 19ml/min CKD EPI equation DMII (diabetes mellitus, type 2) (Chronic) ensure compliance with insulin and diabetic diet has refused endocrinology referral Edema (Chronic) Hyperparathyroidism due to renal insufficiency (Chronic) Hypertension, essential (Chronic) Hypokalemia (Chronic) Secondary hyperparathyroidism of renal origin (Chronic 05/16/13) PTH more than 300 calcium and phos at goal unclear if taking meds advised to let me know will follow med list and restart calcitriol if he is not taking the same Meds: Medications Acetaminophen (Tylenol) 650 mg PO Q4-6HP PRN PRN Reason: PAIN/FEVER > 101 Amiodarone HCl (Cordarone) 200 mg PO QDAY [facility] Last Admin: 06/21/16 08:30 Dose: 200 mg Aspirin (Aspirin) 81 mg CHEWED DAILY [facility] Last Admin: 06/21/16 08:30 Dose: 81 mg Bumetanide (Bumex) 3 mg PO BIDD [facility] Last Admin: 06/21/16 08:30 Dose: 3 mg Calcitriol (Rocaltrol) 0.25 mcg PO Q48@0900 [facility] Last Admin: 06/21/16 08:30 Dose: 0.25 mcg Clopidogrel Bisulfate (Plavix) 75 mg PO QDAY [facility] Last Admin: 06/21/16 08:30 Dose: 75 mg Dextrose (Dextrose 50%) 0 ml IV UD PRN PRN Reason: Hypoglycemia Diagnostic Test (Pha) (Accu-Chek) 1 each FS ACHS [facility] Last Admin: 06/21/16 12:04 Dose: 1 each Docusate Sodium (Colace) 100 mg PO BID [facility] Last Admin: 06/21/16 08:30 Dose: 100 mg [facility]ous [facility] Admin: 06/21/16 08:30 Dose: 325 mg Magnesium Sulfate (Magnesium Sulfate) 2 gm in 50 mls @ 50 mls/hr IV UD PRN PRN Reason: MG = or < 1.7 Acetaminophen (Ofirmev) 1,000 mg in 100 mls @ 200 mls/hr IV Q6HP PRN PRN Reason: PAIN/FEVER > 101 Insulin Glargine (Lantus) 30 unit SQ [facility] Last Admin: 06/20/16 20:52 Dose: 30 unit Insulin Human Lispro (Humalog) 0 unit SQ [facility] PRN Reason: Protocol Last Admin: 06/21/16 12:04 Dose: 3 unit Metoprolol Tartrate (Lopressor) 25 mg PO [facility] Last Admin: 06/20/16 20:53 Dose: 25 mg Metoprolol Tartrate (Lopressor) 50 mg PO DAILY [facility] Last Admin: 06/21/16 08:31 Dose: 50 mg Nystatin (Kenalog) 1 dose TOPICAL BID [facility] Last Admin: 06/20/16 20:53 Dose: 1 dose Ondansetron HCl (Zofran) 4 mg IV Q4-6HP PRN PRN Reason: Nausea And Vomiting Oxycodone HCl (Roxicodone) 5 mg PO Q4HP PRN PRN Reason: Pain Last Admin: 06/20/16 20:54 Dose: 5 mg Potassium Chloride (Klor-Con) 40 meq PO DAILYP PRN PRN Reason: K+ < 3.5 Potassium Chloride (Kdur) 40 meq PO BIDCC [facility] Last Admin: 06/21/16 08:32 Dose: 40 meq Senna/Docusate Sodium (Senna Plus Tablet) 2 tab PO [facility] Last Admin: 06/20/16 20:53 Dose: 2 tab Simvastatin (Zocor) 20 mg PO [facility] Last Admin: 06/20/16 20:54 Dose: 20 mg Sitagliptin Phosphate (Januvia) 25 mg PO DAILY [facility] Last Admin: 06/21/16 08:33 Dose: 25 mg Sodium Chloride (Saline Flush) 10 ml IV Q8 [facility] Last Admin: 06/21/16 05:12 Dose: 10 ml Tamsulosin HCl (Flomax) 0.4 mg PO HS [facility] Last Admin: 06/20/16 20:53 Dose: 0.4 mg Warfarin Sodium (Coumadin) 5 mg PO DAILY@1400 [facility] Last Admin: 06/20/16 15:30 Dose: 5 mg physical exam: on exam, he is in no acute distress. Neck shows no obvious JVD. Cardiac exam shows irregular rate and rhythm. Lungs: Are clear to auscultation. Abdomen is protuberant but nontender. Extremities: Continue to show pitting edema of the lower legs, but his legs are definitely much softer now and there is less scrotal edema than yesterday.The superficial open areas on his shins are covered with Silvadene and gauze at this time. neurologic: Is grossly nonfocal. A/P Narrative: #1. Renal. -This patient presented with gross anasarca more than likely due to continued decline in renal function. -the patient underwent dialysis Wednesday, and did tolerate this just fine. Our tentative plan is to transfer him up to rehabilitation [facility] and he will continue with dialysis and wound care there as well as physical therapy. #2. Cardiac. -Chronic atrial fibrillation,currently therapeutic on Coumadin. Rate is controlled. -Chronic CHF. Continue current medications. INR is therapeutic this morning. #3. Type 2 diabetes. Glucoses are ranging from 113-247. Continue Lantus plus Humalog plus Januvia. #4. Bilateral lower extremity wounds likely related to edema. These appear to be under good control with Silvadene. Continue attempts at diuresis. #5. . -The patient has had some bladder outlet obstruction probably due to his severe scrotal edema as well as generalized edema. -a voiding trial was done but he failed once again, possibly due to ongoing scrotal edema. Singh catheter was replaced,and we can try again and a day or 2. #6. CODE STATUS: Full code. #7. DVT prophylaxis: Patient is anticoagulated. #8. Hematologic. -the patient does have chronic anemia, which appears stable. -Platelets are borderline low . We will monitor this. #9. Ophthalmologic. The patient has been complaining of eye symptoms. I will see if there is a way to get a formal eye exam while he is here. it does sound like he has chronic eye issues, but does not follow up with ophthalmology regularly. I do think it would be prudent to have an eye exam sometime soon. this visit took approximately 35 minutes today, to review the patient's chart and test results, interview and examine him, review plan of care with staff, and write orders. Discharge diagnosis: end-stage renal failure, anasarca, urinary retention leg wounds, uncontroll Secondary discharge diagnosis: uncontrolled type 2 diabetes, atrial fibrillation - Time Spent with Patient Total time spent providing and/or coordinating discharge services: Medical - DS: Exam - Constitutional Vitals: Vital Signs Temp Pulse Resp BP Pulse Ox 06/22/16 07:28 81 16 128/72 97 06/22/16 04:00 97.7 F 89 16 122/76 98 06/21/16 23:45 97.6 F 89 20 145/87 94 06/21/16 19:52 97.6 F 86 20 157/85 95 06/21/16 16:00 97.3 F L 85 16 125/77 93 06/21/16 12:00 97.1 F L 77 16 121/71 98 Intake and Output 06/21/16 06/22/16 06/22/16 21:59 05:59 13:59 Intake Total 360 / 360 140 / 140 Output Total 625 / 625 1850 / 1850 Balance -265 / -265 -1710 / -1710 Intake: Oral 360 / 360 140 / 140 Output: Urine Catheter Amount 625 / 625 1850 / 1850 Other: Meal Dinner Nourishment/Supplement Percent of Meal Consumed 100% 100% Feeding Ability Independent Weight 244 lb 8 oz Medical - DS: Data Labs on day of discharge: Labs from last 24 hours 06/22/16 07:21 PT 30.2 H INR 2.8 H chest x-ray from June 13, 2016: Shows mild cardiomegaly and likely pulmonary edema. wound cultures from June 12, 2016: Grew both pseudomonas aeruginosa, and Staphylococcus aureus. 06/21/16: Labs: cBC: White blood cell count 6000 hemoglobin 10, hematocrit 32 RDW 16,11% lymphocytes, 12% monocytes 700 absolute lymphocyte count chemistry panel yesterday pertinent for sodium 137, potassium 3.7, chloride 90, CO2 35, anion gap 12, being 155, creatinine 3.8, GFR 15, glucose 145, uric acid 11.7, calcium 9.1, phosphorus 3.4, magnesium 2.6 GGT 210, alkaline phosphatase 244. total bilirubin and direct bilirubin, AST and ALT were all normal. LDH is normal. Albumin is 3.6, triglycerides 57 Time this morning is 30 with INR of 2.8 Medical - DS: A/P - Patient/Caregiver Discharge Instructions Activity: as per physical therapy, increase activity as tolerated Diet: Consistent Carbohydrate, Renal/Consistent Carbs Additional Instructions: [facility] to [facility]. Other Amb Orders: OT Discharge Order Location: Determined By Patient Physical Therapy at Discharge - General Location: Determined By Patient Wound Care Instructions Time Frame: 1 Week, Facility: [facility], Location[facility] Instructions Location: Determined By Patient - Follow up Plan Follow up with: Eugenia Lilly ARNP [Primary Care Provider] - Disposition: Xfer SNF Prognosis: Fair Rehab Potential: Fair I certify that the patient requires SNF services: Yes Overall status at discharge: patient is progressing back to baseline Medical - DS: Qual - VTE Deep Vein Thrombosis/Pulmonary Embolism Present on Admission: No
[2016-06-22] MEDS ORDERED: WARFARIN 2.5 MG TABLET PO ONE (14:00)
== END 2016-06-22 09:37 | DRG 291 ==
LOC: ED 13:51 → SUATTDRO 19:18 → ICU 19:18 → MEDSUR 06-15 18:51
PROVIDERS: ADMIT Internal Medicine; ATTEND Internal Medicine

== ENCOUNTER 2017-11-30 11:36 | Inpatient (IN) ==
[2017-11-30 12:19] LABS: Basophils # (Auto) 0 K/mcL (0.0-0.3); Basophils % (Auto) 0.2 % (0.0-2.0); Eosinophils # (Auto) 0 K/mcL (0.0-0.7); Eosinophils % (Auto) 0.1 % (0.0-7.0); Granulocytes % (Auto) 90.6 % (38.0-78.0); Lymphocytes # (Auto) 0.5 K/mcL (1.5-4.8); Lymphocytes % (Auto) 3.2 % (15.5-49.0); Mean Cell Volume 94.9 fL (80.0-100.0); Mean Corpuscular HGB Conc 33.6 g/dL (31.0-36.0); Mean Corpuscular Hemoglobin 31.9 pg (26.0-34.0); Monocytes # (Auto) 0.8 K/mcL (0.1-0.9); Monocytes % (Auto) 5.9 % (1.0-12.0); Platelet Count 209 K/mcL (140-440); RBC 3.17 M/mcL (4.50-5.90); Red Cell Distribution Width 16.2 % (11.5-14.5)
[2017-11-30] MEDS ORDERED: LACTATED RINGERS 1,000 ML IV ONE (12:26)
[2017-11-30 12:37] LABS: ALT/SGPT 15 U/l (0-40); Albumin/Globulin Ratio 0.6 (1.0-2.3); Alkaline Phosphatase 173 U/L (39-117); Blood Urea Nitrogen 51 mg/dl (8-23)
[2017-11-30] MEDS ORDERED: VANCOMYCIN 1,000 MG in 0.9 % SODIUM CHLORIDE 250 ML IV ONE (12:38)
[2017-11-30] MEDS ORDERED: PIPERACILLIN SODIUM/TAZOBACTAM 3.375 GM in DEXTROSE 5% IN WATER 50 ML IV ONE (12:38)
[2017-11-30] MEDS ORDERED: HYDROmorphone 2 MG/ML VIAL IV PRN (12:42)
[2017-11-30 13:10] LABS: Hemoglobin A1C 8.1 % HGB (4.0-6.0)
--- NOTE | 2017-11-30 13:47 | Emergency Department Note ---
Wound/Laceration HPI - General Chief Complaint: Wound/Laceration Stated Complaint: Circulation problems Time Seen by Provider: 11/30/17 11:50 Source: patient, EMS, old records reviewed Mode of arrival: EMS Limitations: no limitations - History of Present Illness HPI Narrative: 72-year-old male on dialysis sent over by Dr. Urbina for evaluation after a fall. Apparently he fell yesterday as well. He does not give me much in the way of specifics but it does sound like he is generally weak and cannot walk well. He states that he has neuropathy and bad circulation and has been evaluated by Dr. Marshall but that he did not do any stents. Notes recent cardiology visit as well at [facility]. Bilateral lower extremities with significant ulcers. Wrapped in gauze and Pipo bandages. Very foul-smelling. Had second left toe amputation [address] Fritz; poorly controlled diabetic Additionally he had a Singh catheter placed 3 days ago in the ER-I reviewed the documentation by Dr. James. That is still in place and has dark brown urine and blood. - Related Data Home Medications Medication Instructions Recorded Confirmed amiodarone 200 mg tablet 200 mg PO QDAY tab 10/04/14 11/30/17 oxycodone 5 mg tablet 5 mg PO Q4HP PRN tab 10/04/14 11/30/17 tamsulosin 0.4 mg capsule 0.4 mg PO HS cap 10/04/14 11/30/17 warfarin 5 mg tablet 7.5 mg PO CONT tab 10/04/14 11/30/17 ascorbic acid (vitamin C) 250 mg 250 mg PO QHS 04/21/16 11/30/17 tablet clopidogrel 75 mg tablet 75 mg PO QDAY 04/21/16 11/30/17 pravastatin 40 mg tablet 40 mg PO QHS 04/21/16 11/30/17 Vitamin D3 5,000 units PO DAILY 06/11/16 11/30/17 calcium acetate 667 mg capsule 667 mg PO 5XD 30 Days #150 cap 11/18/17 11/30/17 metoprolol tartrate 25 mg tablet 25 mg PO HS tab 11/18/17 11/30/17 Benzonatate 200 mg PO TID 11/30/17 11/30/17 Bumetanide [Bumex] 3 mg PO BIDD 11/30/17 11/30/17 Insulin Aspart [Novolog Flexpen] 40 unit SQ ACHS 11/30/17 11/30/17 Insulin Glargine,Hum.rec.anlog 25 unit SUB-Q QHS 11/30/17 11/30/17 [Basaglar Kwikpen U-100] Warfarin [Coumadin] 4 mg PO CONT 11/30/17 11/30/17 Warfarin [Coumadin] 12 mg PO CONT 11/30/17 11/30/17 Previous Rx's Medication Instructions Recorded Accu-Chek 1 each FS ACHS strip 06/22/16 Docusate Sodium [Colace] 100 mg PO BID cap 06/22/16 Sennosides/Docusate Sodium [Senna 2 tab PO HS tab 06/22/16 Plus Tablet] gabapentin 100 mg capsule 100 mg PO QHS #30 cap 02/22/17 Allergies Allergy/AdvReac Type Severity Reaction Status Date / Time No Known Drug Allergies Allergy Verified 11/18/17 10:33 Review of Systems All systems ED: reviewed and negative except as stated. Past Medical History - Past Medical History Attestation: Yes: The following information was validated with the patient. [facility] Narrative: Family History (Last Reviewed 11/18/17 @ 10:40 by Lisa Lincoln RN) Father Malignant neoplasm Mother Cardiac disease Medical History (Last Reviewed 11/18/17 @ 10:40 by Lisa Lincoln RN) Venous stasis dermatitis of both lower extremities (Acute) Diabetic ulcer of left foot (Acute) Lymphedema of both lower extremities (Acute) Volume overload (Acute) Chronic kidney disease (Acute) Elevated troponin (Acute) Anasarca associated with disorder of kidney (Acute) Pressure ulcer of lower extremity (Chronic) Hypotension (Acute) Volume depletion (Acute) Hyperparathyroidism due to renal insufficiency (Chronic) Hypertensive renal disease (Chronic) Chronic kidney disease, stage IV (severe) (Chronic) Ulcer of foot (Acute) Systolic heart failure (Acute) Secondary hyperparathyroidism of renal origin (Chronic 05/16/13) Renal failure, acute (Acute) Pleural effusion (Acute) PVD (peripheral vascular disease) (Acute) Obesity (Acute 05/02/13) Long-term use of aspirin therapy (Acute) group home current use of anticoagulant (Acute) Hypokalemia (Chronic) Hypertension, essential (Chronic) Hyperlipidemia (Acute) Gastroesophageal reflux (Acute) Edema (Chronic) DMII (diabetes mellitus, type 2) (Chronic) Anticoagulated on Coumadin (Acute) CAD (coronary artery disease) (Acute) Chronic kidney disease (Acute) Chronic kidney disease, stage III (moderate) (Acute 05/02/13) Cardiomyopathy in other disease (Acute) Atrial fibrillation (Chronic) Anemia in chronic kidney disease (Acute 05/16/13) Anemia (Acute) Alkalosis (Acute) Past Surgical History (Last Reviewed 11/18/17 @ 10:40 by Lisa Lincoln RN) H/O heart artery stent (Acute) S/P repair of ventral hernia (Acute) Source: old records reviewed Medical history: Reports: atrial fibrillation, CHF, coronary artery disease, DM (With neuropathy), hyperlipidemia, hypertension, renal disease (On dialysis), other (chronic ulcers to lower extremitites) Psychiatric history: Reports: no psych history Surgical history ED: Reports: angioplasty/stent, herniorrhaphy, other (left lower leg stent by Dr Marshall, second left toe distal amputation, dialysis catheter) - Social History smoking status: Never smoker Alcohol use: Reports: None Drug use: Reports: none Physical Exam On exam he is in no acute distress resting comfortably. Normocephalic. His right eye conjunctive is clear he is moving that normally. Left eye he is keeping closed. On exam the conjunctive is mildly injected especially the lateral portion. I do not see any icterus however-on review of records it does sound like he has had recent eye surgery. No nasal discharge or congestion. Oropharynx is pink and moist. Neck is supple without lymphadenopathy or thyromegaly. No carotid bruit. Heart is regular rate and rhythm no murmur appreciated. Lungs are clear to auscultation bilaterally without wheezes rales rhonchi or respiratory distress. Abdomen soft nontender nondistended. No peritoneal signs guarding or rebound. He does have osteoarthritic changes to his fingers. He is getting indwelling catheter with blood in the urine. Bilateral lower extremities essentially from the knee down show extensive ulceration with eschar is bilateral calf as well as the distal portion of the amputated second left toe. multiple open diabetic ulcers bilateral feet. After unwrapping these wounds on his bilateral lower extremities they are very malodorous clearly require debridement. Even the area between the ulcerations is erythematous and tender. His wounds are quite extensive-please see previous documentation by Dr. Jaquez. Limitations: no limitations Course Vital Signs Temperature 97.6 F 11/30/17 11:37 Pulse Rate 62 11/30/17 11:37 Respiratory Rate 22 11/30/17 11:37 Blood Pressure 126/92 11/30/17 11:37 Pulse Oximetry (%) 98 11/30/17 11:37 Temperature 99.7 F H 12/01/17 04:01 Pulse Rate 110 H 12/01/17 07:00 Respiratory Rate 25 H 12/01/17 07:00 Blood Pressure 89/47 12/01/17 07:00 Pulse Oximetry (%) 97 12/01/17 05:00 Wound/Laceration - Lab Data Lab results reviewed: Yes I reviewed the patient's lab results. Result diagrams: 12/01/17 03:35 12/01/17 03:35 Lab Results 11/30/17 11/30/17 11/30/17 Range/Units 11:49 11:55 11:55 WBC 13.9 H (4.5-11.0) K/mcL RBC 3.17 L (4.50-5.90) M/mcL Hgb 10.1 L (13.5-16.5) g/dL Hct 30.1 L (41.0-55.0) % MCV 94.9 (80.0-100.0) fL MCH 31.9 (26.0-34.0) pg MCHC 33.6 (31.0-36.0) g/dL RDW 16.2 H (11.5-14.5) % Plt Count 209 (140-440) K/mcL MPV 7.2 L (7.4-10.4) fL Gran % 90.6 H (38.0-78.0) % Lymph % (Auto) 3.2 L (15.5-49.0) % [place] % (Auto) 5.9 (1.0-12.0) % Eos % (Auto) 0.1 (0.0-7.0) % Baso % (Auto) 0.2 (0.0-2.0) % Gran # 12.6 H (1.8-8.0) K/mcL Lymph # (Auto) 0.5 L (1.5-4.8) K/mcL [place] # (Auto) 0.8 (0.1-0.9) K/mcL Eos # (Auto) 0 (0.0-0.7) K/mcL Baso # (Auto) 0 (0.0-0.3) K/mcL PT (11.9-14.5) sec INR (0.9-1.1) VBG Lactic Acid (0.5-2.2) mmol/L Sodium 129 L (133-145) mmol/L Potassium 4.8 (3.3-5.1) mmol/L Chloride 87 L (96-108) mmol/L Carbon Dioxide 24 (22-30) mmol/L Anion Gap 18.0 H (8-16) BUN 51 H (8-23) mg/dl Creatinine 5.1 H* (0.7-1.2) mg/dl GFR Calculation 11 Glucose 230 H (70-105) mg/dL Hemoglobin A1c (4.0-6.0) % HGB Estim Average Glucose mg/dL Calcium 8.8 (8.6-10.4) mg/dl Total Bilirubin 0.8 (0.0-1.0) mg/dL AST 22 (0-37) U/l ALT 15 (0-40) U/l Alkaline Phosphatase 173 H (39-117) U/L C-Reactive Protein 33.2 H (0.0-0.8) mg/dl Total Protein 8.4 (5.9-8.4) gm/dL Albumin 3.0 L (3.2-5.2) gm/dL Globulin 5.4 H (2.2-3.7) gm/dL Albumin/Globulin Ratio 0.6 L (1.0-2.3) 11/30/17 11/30/17 11/30/17 Range/Units 11:55 11:55 12:53 WBC (4.5-11.0) K/mcL RBC (4.50-5.90) M/mcL Hgb (13.5-16.5) g/dL Hct (41.0-55.0) % MCV (80.0-100.0) fL MCH (26.0-34.0) pg MCHC (31.0-36.0) g/dL RDW (11.5-14.5) % Plt Count (140-440) K/mcL MPV (7.4-10.4) fL Gran % (38.0-78.0) % Lymph % (Auto) (15.5-49.0) % [place] % (Auto) (1.0-12.0) % Eos % (Auto) (0.0-7.0) % Baso % (Auto) (0.0-2.0) % Gran # (1.8-8.0) K/mcL Lymph # (Auto) (1.5-4.8) K/mcL [place] # (Auto) (0.1-0.9) K/mcL Eos # (Auto) (0.0-0.7) K/mcL Baso # (Auto) (0.0-0.3) K/mcL PT 25.7 H (11.9-14.5) sec INR 2.3 H (0.9-1.1) VBG Lactic Acid 3.2 H (0.5-2.2) mmol/L Sodium (133-145) mmol/L Potassium (3.3-5.1) mmol/L Chloride (96-108) mmol/L Carbon Dioxide (22-30) mmol/L Anion Gap (8-16) BUN (8-23) mg/dl Creatinine (0.7-1.2) mg/dl GFR Calculation Glucose (70-105) mg/dL Hemoglobin A1c 8.1 H (4.0-6.0) % HGB Estim Average Glucose 186 mg/dL Calcium (8.6-10.4) mg/dl Total Bilirubin (0.0-1.0) mg/dL AST (0-37) U/l ALT (0-40) U/l Alkaline Phosphatase (39-117) U/L C-Reactive Protein (0.0-0.8) mg/dl Total Protein (5.9-8.4) gm/dL Albumin (3.2-5.2) gm/dL Globulin (2.2-3.7) gm/dL Albumin/Globulin Ratio (1.0-2.3) - Radiology Data Radiology results reviewed: Yes I reviewed the patient's radiology results. CT scan bilateral leg shows extensive cellulitis but no osteomyelitis or gas - EKG Data EKG attestation: Yes I reviewed and interpreted this EKG. EKG results narrative: EKG shows a rate of 129 atrial fibrillation with rapid ventricular response along with incomplete left bundle branch block Disposition Pt seen by CONSTRUCTION LABORER/PA only: No Clinical Impression: Chronic kidney disease, stage IV (severe), Atrial fibrillation with rapid ventricular response Cellulitis Qualifiers: Site of cellulitis: extremity Site of cellulitis of extremity: lower extremity Laterality: unspecified laterality Qualified Code(s): L03.119 - Cellulitis of unspecified part of limb Systolic heart failure Qualifiers: Heart failure chronicity: chronic Qualified Code(s): I50.22 - Chronic systolic (congestive) heart failure Summary: Patient clearly has severe uncontrolled cellulitis with eschars, in addition to his uncontrolled diabetes and atrial fibrillation with rapid ventricular response. After cultures done patient is started on Zosyn and Vanco. Pain is treated with Dilaudid and gentle IV fluids due to his dialysis status. I initially discussed the case with Dr. Jaquez who consulted on him here in the ER. He did not feel he was an operative candidate secondary to his heart condition and overall health. However given his obvious infection and need for IV antibiotics as well as care of his other issues including cardiac I do think this patient needs to be admitted. I discussed the case with Dr. Madrigal who agreed to accept the patient for further care with Dr. Jaquez consulting. Disposition: Xfer As Inpt ([facility])
--- NOTE | 2017-11-30 14:03 | Cat Scan Report ---
History: Bilateral leg ulcers with eschars TECHNIQUE: Following injection of intravenous contrast the patient was scanned from the knee through the feet bilaterally. Sagittal and coronal reformats were created. Radiation exposure was limited using dose reduction technology. FINDINGS: There is moderately severe edema and/or cellulitis in both legs from the upper calf down to the ankles. There is less severe inflammation of the subcutaneous tissues in the feet. No abscess is seen within the feet or calf. There are no radiopaque foreign bodies and no gas in the soft tissues. The middle and distal phalanges of the left second toe are surgically absent. There is a small fragment of bone adjacent to the remaining portion of the head of the proximal phalanx of the second toe. Mild arthritis is present in both feet, most apparent at the first metatarsal phalangeal joints. There is generalized demineralization of bone throughout the feet ankles and lower legs. Densely calcified plaques are present in the arteries throughout both lower legs from the level of the knee down through the feet. There is significant fatty infiltration muscles throughout both lower legs. IMPRESSION: Severe cellulitis/edema in both legs, predominantly involving the calves. No evidence of osteomyelitis or abscess. Dr. Lazcano was called with the results Interpreted and Authenticated by: Michael Barraza 11/30/17
--- NOTE | 2017-11-30 15:19 | XRay Report ---
HISTORY: Weakness and circulation problems FINDINGS: The heart is mildly enlarged but has diminished in size since 09/03/17. There is no congestive heart failure. There are thin linear bands of scar tissue laterally at the left lung base. The lungs are otherwise clear. A moderate amount calcified plaque is present in the aorta. The aorta is mildly tortuous. IMPRESSION: Improved cardiomegaly and no acute abnormality Interpreted and Authenticated by: Michael Barraza 11/30/17
--- NOTE | 2017-11-30 15:42 | Internal Med History&Physical ---
Medical - H&P: [facility] Patient information: Note initiated : 11/30/17 at 3:40 pm Service Date, if different from initiated Date: [] Patient: Phu Bryson a 72 y/o M admitted on for Circulation problems. Chief Complaint: [] History of present illness: Mr. Bryson is a 72 year old M with h/o DM, ESRD on HD, chr lower extremity wounds, severe Peripheral vascular disease, glaucoma, presents to the Er today after being advised to come her by the leather products supervisor. The patient notes he had an appointment to see the wound care doctor today, but as he was getting in the chair, he was noted to be too weak and unable to do transfer,slipped down? he called his leather products supervisor and was asked to come to the ER . The patient has henry lower extremity wounds, extensive sloughing, eschar, and poorly kepmt, he has nice in place with dark urine, this was placed recently, the patient also has poor vision secondary to glaucoma. the patient in the ER was afebrile, but HR was high at 140, He has elevated wbc c ount, elevated lactic acid, worsening creat (on HD), CXR neg for effusion, CT lower extremity shows henry severe cellulitis. Patient is being admitted to the hospital for severe sepsis, and atrial fibrillation with RVR In talking with the patient and patients leather products supervisor, patient is unable to care for self at home, and will need to be placed at a SNF/ LTAC facility for aggresive care. Pt is agreeable for same he is full code All systems: reviewed and no additional remarkable complaints except as stated ( as per HPI rest neg, also has generalized weakness) Medical - H&P: PMH Medical history: Medical History (Last Reviewed 11/18/17 @ 10:40 by Lisa Lincoln RN) Venous stasis dermatitis of both lower extremities (Acute) Diabetic ulcer of left foot (Acute) Lymphedema of both lower extremities (Acute) Volume overload (Acute) Chronic kidney disease (Acute) Elevated troponin (Acute) Anasarca associated with disorder of kidney (Acute) Pressure ulcer of lower extremity (Chronic) Hypotension (Acute) Volume depletion (Acute) Hyperparathyroidism due to renal insufficiency (Chronic) Hypertensive renal disease (Chronic) Chronic kidney disease, stage IV (severe) (Chronic) Ulcer of foot (Acute) Systolic heart failure (Acute) Secondary hyperparathyroidism of renal origin (Chronic 05/16/13) Renal failure, acute (Acute) Pleural effusion (Acute) PVD (peripheral vascular disease) (Acute) Obesity (Acute 05/02/13) Long-term use of aspirin therapy (Acute) intermediate project manager current use of anticoagulant (Acute) Hypokalemia (Chronic) Hypertension, essential (Chronic) Hyperlipidemia (Acute) Gastroesophageal reflux (Acute) Edema (Chronic) DMII (diabetes mellitus, type 2) (Chronic) Anticoagulated on Coumadin (Acute) CAD (coronary artery disease) (Acute) Chronic kidney disease (Acute) Chronic kidney disease, stage III (moderate) (Acute 05/02/13) Cardiomyopathy in other disease (Acute) Atrial fibrillation (Chronic) Anemia in chronic kidney disease (Acute 05/16/13) Anemia (Acute) Alkalosis (Acute) Surgical history: Past Surgical History (Last Reviewed 11/18/17 @ 10:40 by Lisa Lincoln RN) H/O heart artery stent (Acute) S/P repair of ventral hernia (Acute) Pertinent family history: Family History (Last Reviewed 11/18/17 @ 10:40 by Lisa Lincoln RN) Father Malignant neoplasm Mother Cardiac disease Medical - H&P: Meds Home Medications Medication Instructions Recorded Confirmed Type amiodarone 200 mg tablet 200 mg PO QDAY tab 10/04/14 11/30/17 History oxycodone 5 mg tablet 5 mg PO Q4HP PRN tab 10/04/14 11/30/17 History tamsulosin 0.4 mg capsule 0.4 mg PO HS cap 10/04/14 11/30/17 History warfarin 5 mg tablet 5 mg PO DAILY tab 10/04/14 11/30/17 History ferrous sulfate 325 mg (65 mg 325 mg PO QDAY tab 02/17/16 11/18/17 History iron) tablet ascorbic acid (vitamin C) 250 mg 250 mg PO QDAY 04/21/16 11/18/17 History tablet clopidogrel 75 mg tablet 75 mg PO QDAY 04/21/16 11/30/17 History pravastatin 40 mg tablet 40 mg PO QHS 04/21/16 11/30/17 History Vitamin D3 5,000 units PO DAILY 06/11/16 11/18/17 History Accu-Chek 1 each FS ACHS strip 06/22/16 11/18/17 Rx Bumetanide [Bumex] 3 mg PO BIDD tab 06/22/16 11/18/17 Rx Docusate Sodium [Colace] 100 mg PO BID cap 06/22/16 11/18/17 Rx Ondansetron [Zofran] 4 mg IV Q4-6HP PRN #0 vial 06/22/16 11/18/17 Rx Sennosides/Docusate Sodium [Senna 2 tab PO HS tab 06/22/16 11/18/17 Rx Plus Tablet] glipizide ER 5 mg tablet, extended 5 mg PO BID #60 tab 01/13/17 11/18/17 Rx release 24 hr insulin glargine (U-100) 100 30 unit SUB-Q QHS #3 ml 01/13/17 11/18/17 Rx unit/mL (3 mL) subcutaneous pen gabapentin 100 mg capsule 100 mg PO QHS #30 cap 02/22/17 11/18/17 Rx lactulose 10 gram/15 mL (15 mL) 20 g PO QDAY PRN #45 ml 02/22/17 11/18/17 Rx oral solution calcium acetate 667 mg capsule 667 mg PO 5XD 30 Days #150 cap 11/18/17 11/30/17 History dorzolamide 22.3 mg-timolol 6.8 OPHTHALMIC 75 Days 11/18/17 11/18/17 History mg/mL eye drops metoprolol tartrate 25 mg tablet 25 mg PO DAILY tab 11/18/17 11/30/17 History midodrine 5 mg tablet See Label Instructions PO .COMPLEX 11/18/17 11/18/17 History 18 Days nitroglycerin 0.4 mg sublingual 0.4 mg SUBLINGUAL Q5-15M PRN 11/18/17 11/18/17 History tablet Insulin Aspart [Novolog Flexpen] 100 unit SQ ACHS 11/30/17 11/30/17 History Allergies Allergy/AdvReac Type Severity Reaction Status Date / Time No Known Drug Allergies Allergy Verified 11/18/17 10:33 Medical - H&P: Exam - Constitutional Vitals: Temp Pulse Resp BP Pulse Ox 97.6 F 134 H 24 H 110/74 97 11/30/17 11:37 11/30/17 14:07 11/30/17 14:07 11/30/17 14:07 11/30/17 14:07 Exam: GENERAL: The patient is a well-developed, well-nourished in no apparent distress. Is alert and oriented x3. VITAL SIGNS: Reviewed and as noted elsewhere. HEENT: Head is normocephalic and atraumatic. Extraocular muscles are intact. Pupils are equal, round, and reactive to light. Nares appeared normal. Mouth appears any without lesions. Mucous membranes are moist NECK: Normal to inspection, Supple, No lymphadenopathy or thyromegaly. LUNGS: Air entry equal on both sides, no wheezing, crackles or rhonchi noted. No accessory muscles of respiration HEART: tachycardic rate and rhythm irregular, S1 and S2 heard, no Gallop, S3 or Rub Noted, No Gross murmur heard. ABDOMEN: Soft, nontender, and nondistended. Positive bowel sounds. No hepatosplenomegaly was noted. Nice in place, blood stained nice pt did not allow exam of penis citing pain. EXTREMITIES: henry lower extremity multiple ulcerations, extensive skin sloughing , cold extremities, absent pulses., foul smelling extremities See Photos on file for review of wounds. NEUROLOGIC: Cranial nerves II through XII are grossly intact. Motor and Sensory System Grossly Intact PSYCHIATRIC: Normal affect, Normal Mood. Appropriate Behavior. SKIN: No ulceration or wounds noted, No jaundice, No rash noted. (except as listed for legs) Medical - H&P: Reslt - Labs CBC & Chem 7: 11/30/17 11:49 11/30/17 11:55 Labs: Short CBC 11/30/17 Range/Units 11:49 WBC 13.9 H (4.5-11.0) K/mcL Hgb 10.1 L (13.5-16.5) g/dL Hct 30.1 L (41.0-55.0) % Plt Count 209 (140-440) K/mcL BMP 11/30/17 11:55 Sodium 129 L Potassium 4.8 Chloride 87 L Carbon Dioxide 24 BUN 51 H Creatinine 5.1 H* Glucose 230 H Calcium 8.8 Liver Function 11/30/17 Range/Units 11:55 Total Bilirubin 0.8 (0.0-1.0) mg/dL AST 22 (0-37) U/l ALT 15 (0-40) U/l Alkaline Phosphatase 173 H (39-117) U/L Albumin 3.0 L (3.2-5.2) gm/dL Medical - H&P: A/P - Narrative A/P Narrative: A/P Severe Cellulitis Severe sepsis Atrial fibrillation with RVR Congestive heart failure, Systolic Diastolic heart failure, grade 3 End stage renal disease on HD Urinary retention Glaucoma Severe peripheral vascular disease Hypertension Diabetes mellitus Coronary artery disease, s/p stent placement Plan Admit to PCU status IV vanco and zosyn for cellulitis Wound care consult. Will follow cultures, blood and superficial, CT does nto show any abscess nephrology consult for HD Not in CHF exacerbation at this time. Resume amiodarone, IV metoprolol to control rate, if pt does not respond and bp allows, will use Cardizem drip, if not add digoxin. resume home opthal drops. Reviewed case with Dr Marshall, can have procedure done tomorrow, if patient agrees. Will coordinate with other care providers. Resume Coumadin and plavix will need nice with leg bag to prevent pulling of nice, pt did not allow exam , will also see if pain improves with DVT on coumadin with therapeutic INR FUll code Carb consistent, cardiac, renal diet. Social History - Tobacco smoking status: Never smoker - Alcohol alcohol intake frequency: does not drink - Substance use substance use type: does not use
[2017-11-30] MEDS ORDERED: DEXTROSE 50% 50 ML VIAL IV PRN ×2 (16:21→16:31)
[2017-11-30] MEDS ORDERED: DEXTROSE 31 GM ORAL.SUSP PO PRN ×2 (16:21→16:31)
[2017-11-30] MEDS ORDERED: ONDANSETRON 4 MG/2 ML VIAL IV PRN (16:31)
[2017-11-30] MEDS ORDERED: NALOXONE HCL 0.4 MG/ML VIAL IV PRN (16:31)
[2017-11-30] MEDS ORDERED: ACETAMINOPHEN 325 MG TABLET PO PRN (16:31)
[2017-11-30] MEDS ORDERED: VANCOMYCIN PER PHARMACY IV SCH (16:31)
[2017-11-30] MEDS ORDERED: oxyCODONE HCL 5 MG TABLET PO PRN (16:31)
[2017-11-30] MEDS: METOPROLOL TARTRATE 5 MG/5 ML VIAL IV SCH ×2 (16:59→18:35)
[2017-11-30] MEDS ORDERED: INSULIN LISPRO 1 UNIT/0.01 ML UNIT SQ SCH (17:00)
[2017-11-30] MEDS ORDERED: VANCOMYCIN 500 MG in 0.9 % SODIUM CHLORIDE 100 ML IV ONE (17:00)
--- NOTE | 2017-11-30 17:00 | Nephrology Consult Note ---
History of Present Illness - Reason for Consult Patient information: Note initiated : 11/30/17 at 4:58 pm Phu Bryson is a 72-year-old male admitted on 11/30/17. Consult date: 11/30/17 end stage renal disease Requesting physician: Bob Madrigal - Chief Complaint Weakness - History of Present Illness Phu Bryson is a 72-year-old male with end-stage renal disease on chronic hemodialysis (through left arm AV fistula, at [facility], on MWF, followed by Dr. Urbina ), secondary hyperparathyroidism of renal origin, chronic anemia due to kidney disease, coronary artery disease s/p stents, chronic systolic heart failure due to ischemic cardiomyopathy (Echo on 10/16/15: LVEF 30-35%), chronic atrial fibrillation on Coumadin anticoagulation, hypertension, hyperlipidemia, diabetes mellitus type 2, chronic bilateral extremity edema and wounds, admitted on 11/30/17. Review of Systems Constitutional: frequent falls, weakness Nose, mouth and throat: no nasal congestion, no sore throat Cardiovascular: no chest pain, no palpatations Respiratory: no cough, no wheezing Gastrointestinal: no abdominal pain, no nausea Genitourinary: other (Isngh catheter) Musculoskeletal: no back pain, no neck pain Integumentary: erythema, wounds Neurological: no confusion, no focal weakness Psychiatric: no anxiety, no panic attacks Endocrine: no cold intolerance, no heat intolerance Hematologic/Lymphatic: easy bruising Allergic/Immunologic: no tongue swelling, no uticaria Past History Past medical history: Medical History (Last Reviewed 11/18/17 @ 10:40 by Lisa Lincoln RN) Venous stasis dermatitis of both lower extremities (Acute) Diabetic ulcer of left foot (Acute) Lymphedema of both lower extremities (Acute) Volume overload (Acute) Chronic kidney disease (Acute) Elevated troponin (Acute) Anasarca associated with disorder of kidney (Acute) Pressure ulcer of lower extremity (Chronic) Hypotension (Acute) Volume depletion (Acute) Hyperparathyroidism due to renal insufficiency (Chronic) Hypertensive renal disease (Chronic) Chronic kidney disease, stage IV (severe) (Chronic) Ulcer of foot (Acute) Systolic heart failure (Acute) Secondary hyperparathyroidism of renal origin (Chronic 05/16/13) Renal failure, acute (Acute) Pleural effusion (Acute) PVD (peripheral vascular disease) (Acute) Obesity (Acute 01/21/14) Long-term use of aspirin therapy (Acute) group home current use of anticoagulant (Acute) Hypokalemia (Chronic) Hypertension, essential (Chronic) Hyperlipidemia (Acute) Gastroesophageal reflux (Acute) Edema (Chronic) DMII (diabetes mellitus, type 2) (Chronic) Anticoagulated on Coumadin (Acute) CAD (coronary artery disease) (Acute) Chronic kidney disease (Acute) Chronic kidney disease, stage III (moderate) (Acute 05/02/13) Cardiomyopathy in other disease (Acute) Atrial fibrillation (Chronic) Anemia in chronic kidney disease (Acute 05/16/13) Anemia (Acute) Alkalosis (Acute) Past surgical history: Past Surgical History (Last Reviewed 11/18/17 @ 10:40 by Lisa Lincoln RN) H/O heart artery stent (Acute) S/P repair of ventral hernia (Acute) Past family history: Family History (Last Reviewed 11/18/17 @ 10:40 by Lisa Lincoln RN) Father Malignant neoplasm Mother Cardiac disease Past social history: Social History (Last Updated 11/18/17 @ 12:13 by Lance Trejo MD) No Social History Section defined Medications and Allergies Home Medications Medication Instructions Recorded Confirmed Type amiodarone 200 mg tablet 200 mg PO QDAY tab 10/04/14 11/30/17 History oxycodone 5 mg tablet 5 mg PO Q4HP PRN tab 10/04/14 11/30/17 History tamsulosin 0.4 mg capsule 0.4 mg PO HS cap 10/04/14 11/30/17 History warfarin 5 mg tablet 7.5 mg PO CONT tab 10/04/14 11/30/17 History ascorbic acid (vitamin C) 250 mg 250 mg PO QHS 04/21/16 11/30/17 History tablet clopidogrel 75 mg tablet 75 mg PO QDAY 04/21/16 11/30/17 History pravastatin 40 mg tablet 40 mg PO QHS 04/21/16 11/30/17 History Vitamin D3 5,000 units PO DAILY 06/11/16 11/30/17 History Accu-Chek 1 each FS ACHS strip 06/22/16 11/30/17 Rx Docusate Sodium [Colace] 100 mg PO BID cap 06/22/16 11/30/17 Rx Sennosides/Docusate Sodium [Senna 2 tab PO HS tab 06/22/16 11/30/17 Rx Plus Tablet] gabapentin 100 mg capsule 100 mg PO QHS #30 cap 02/22/17 11/30/17 Rx calcium acetate 667 mg capsule 667 mg PO 5XD 30 Days #150 cap 11/18/17 11/30/17 History metoprolol tartrate 25 mg tablet 25 mg PO HS tab 11/18/17 11/30/17 History Benzonatate 200 mg PO TID 11/30/17 11/30/17 History Bumetanide [Bumex] 3 mg PO BIDD 11/30/17 11/30/17 History Insulin Aspart [Novolog Flexpen] 40 unit SQ ACHS 11/30/17 11/30/17 History Insulin Glargine,Hum.rec.anlog 25 unit SUB-Q QHS 11/30/17 11/30/17 History [Basaglar Kwikpen U-100] Warfarin [Coumadin] 4 mg PO CONT 11/30/17 11/30/17 History Warfarin [Coumadin] 12 mg PO CONT 11/30/17 11/30/17 History Allergies Allergy/AdvReac Type Severity Reaction Status Date / Time No Known Drug Allergies Allergy Verified 11/18/17 10:33 Exam - Vital Signs Vital signs: Temp Pulse Resp BP Pulse Ox 97.6 F 62 17 101/72 98 11/30/17 16:21 11/30/17 16:21 11/30/17 16:21 11/30/17 16:21 11/30/17 16:21 - General Appearance General appearance: chronically ill, frail EENT: mucous membranes moist Neck: supple Respiratory: clear Cardiology: edema Gastrointestinal: no tenderness Integumentary: ulcer, erythema Neurologic: no focal deficit, alert and oriented x3 Musculoskeletal: no deformities Psychiatric: mood/affect appropriate, cooperative Results - Lab Results 11/30/17 11:49 11/30/17 11:55 Most recent lab results Calcium 8.8 mg/dl (8.6-10.4) 11/30/17 11:55 Assessment and Plan (1) End stage renal disease Phu Bryson is a 72-year-old male with end-stage renal disease on chronic hemodialysis (through left arm AV fistula, at [facility], on MWF, followed by Dr. Urbina ), secondary hyperparathyroidism of renal origin, chronic anemia due to kidney disease, coronary artery disease s/p stents, chronic systolic heart failure due to ischemic cardiomyopathy (Echo on 10/16/15: LVEF 30-35%), chronic atrial fibrillation on Coumadin anticoagulation, hypertension, hyperlipidemia, diabetes mellitus type 2, chronic bilateral extremity edema and wounds, admitted on 11/30/17. Plan: Hemodialysis tomorrow with Revaclear 400 dialyzer for 4 hours, QB/QD 400/800 , dialysate (Potassium 3, Bicarbonate 35, Calcium 2.5, Sodium 139), UF target 4000 ml. Status: Chronic Priority: Medium
[2017-11-30] MEDS: CALCIUM ACETATE 667 MG CAPSULE PO SCH ×2 (17:41→20:45)
[2017-11-30] MEDS: AMIODARONE HCL 200 MG TABLET PO SCH (17:41)
[2017-11-30] MEDS: INSULIN LISPRO 1 UNIT/0.01 ML UNIT SQ SCH ×2 (17:45→21:07)
--- NOTE | 2017-11-30 20:59 | General Surgery Consult Note ---
History of Present Illness Patient information: Note initiated : 11/30/17 at 8:57 pm Service Date, if different from initiated Date: [] Patient: Phu Bryson 72 y/o M admitted on 11/30/17 for Circulation problems. Chief Complaint: [] Consult date: 11/30/17 Reason for consult: wound care Requesting physician: Bob Madrigal (Skin and Wound Care) History of present illness: I know this patient well. Saw him in Dialysis unit yesterday and in ER today for chronic skin and skin structure wounds of both LE. This patient has multiple underlying comorbid debilitating problems and illnesses he has chronic renal failure, hemodialysis and inability to care for himself at home. He has coronary artery disease and has had stent placements in the past. There is secondary hyperparathyroidism with variable attention span and mental status alertness. There is no history of obvious bone pains or acute cardiac or respiratory or GI complaints. He is on dialysis 3 times a week. He has PAD with small vessel involvement and chronic dermatitis of both legs with dry adherent black eschar to the wound bed. There is minimal serous drainage, there is no odor or crepitation. From the wound care upon review, he gets regular cleansing of these legs and topical application of antimicrobial dressings or ointments. Dressings are usually changed 2-3 times a week. Ideally, he should be in a rehabilitation facility or a [place] [facility] facility where the wounds are attended to on a daily basis and treated with VASHE cleansing and MIST treatment. We are not planning on any aggressive debridement in this patient at this time. Medications and Allergies Home Medications Medication Instructions Recorded Confirmed Type amiodarone 200 mg tablet 200 mg PO QDAY tab 10/04/14 11/30/17 History oxycodone 5 mg tablet 5 mg PO Q4HP PRN tab 10/04/14 11/30/17 History tamsulosin 0.4 mg capsule 0.4 mg PO HS cap 10/04/14 11/30/17 History warfarin 5 mg tablet 7.5 mg PO CONT tab 10/04/14 11/30/17 History ascorbic acid (vitamin C) 250 mg 250 mg PO QHS 04/21/16 11/30/17 History tablet clopidogrel 75 mg tablet 75 mg PO QDAY 04/21/16 11/30/17 History pravastatin 40 mg tablet 40 mg PO QHS 04/21/16 11/30/17 History Vitamin D3 5,000 units PO DAILY 06/11/16 11/30/17 History Accu-Chek 1 each FS ACHS strip 06/22/16 11/30/17 Rx Docusate Sodium [Colace] 100 mg PO BID cap 06/22/16 11/30/17 Rx Sennosides/Docusate Sodium [Senna 2 tab PO HS tab 06/22/16 11/30/17 Rx Plus Tablet] gabapentin 100 mg capsule 100 mg PO QHS #30 cap 02/22/17 11/30/17 Rx calcium acetate 667 mg capsule 667 mg PO 5XD 30 Days #150 cap 11/18/17 11/30/17 History metoprolol tartrate 25 mg tablet 25 mg PO HS tab 11/18/17 11/30/17 History Benzonatate 200 mg PO TID 11/30/17 11/30/17 History Bumetanide [Bumex] 3 mg PO BIDD 11/30/17 11/30/17 History Insulin Aspart [Novolog Flexpen] 40 unit SQ ACHS 11/30/17 11/30/17 History Insulin Glargine,Hum.rec.anlog 25 unit SUB-Q QHS 11/30/17 11/30/17 History [Basaglar Kwikpen U-100] Warfarin [Coumadin] 4 mg PO CONT 11/30/17 11/30/17 History Warfarin [Coumadin] 12 mg PO CONT 11/30/17 11/30/17 History Allergies Allergy/AdvReac Type Severity Reaction Status Date / Time No Known Drug Allergies Allergy Verified 11/18/17 10:33 Exam Temp Pulse Resp BP Pulse Ox 98.8 F 127 H 17 93/76 93 11/30/17 16:31 11/30/17 17:51 11/30/17 17:57 11/30/17 17:51 11/30/17 17:57 - General physical appearance well developed, well nourished, no distress, chronically ill - Eyes PERRL, normal ocular movement - ENT normal pinna, normal nares, normal mucosa, no congestion - Head Head exam IM: Present: atraumatic, normal inspection, normocephalic - Neck no masses, no bruits, trachea midline, no venous distension - Cardiovascular Cardiovascular exam IM: Present: normal rate and rhythm - Respiratory normal expansion, normal respiratory effort dullness: bilateral (LUNG BASES) - Abdomen Abdomen: Present: soft, non tender, bowel sounds - Genitourinary Present: normal penis with no external lesions, other (dry skin around the Singh catheter. ) - Integumentary Present: no rash, other (chronic dermatitis in both legs with the variable scales and dry black adherent eschar. There is no evidence of cellulitis. Chronic organizing mild lymphedema of both legs. No evidence of compartment syndrome.) - Neurologic Present: normal coordination, other (Moves all 4 extremities. No focal neurologic deficits identified.) - Musculoskeletal Present: other (Wheelchair-bound. Status post partial left second toe amputation. Stump is covered with dry black appearance. ) - Psychiatric Present: oriented to time, oriented to person, oriented to place, speech is normal Results - Labs 12/01/17 03:35 12/01/17 03:35 Abnormal lab results 11/30/17 11/30/17 11/30/17 Range/Units 11:49 11:55 11:55 WBC 13.9 H (4.5-11.0) K/mcL RBC 3.17 L (4.50-5.90) M/mcL Hgb 10.1 L (13.5-16.5) g/dL Hct 30.1 L (41.0-55.0) % RDW 16.2 H (11.5-14.5) % MPV 7.2 L (7.4-10.4) fL Gran % 90.6 H (38.0-78.0) % Lymph % (Auto) 3.2 L (15.5-49.0) % Gran # 12.6 H (1.8-8.0) K/mcL Lymph # (Auto) 0.5 L (1.5-4.8) K/mcL PT (11.9-14.5) sec INR (0.9-1.1) VBG Lactic Acid (0.5-2.2) mmol/L Sodium 129 L (133-145) mmol/L Chloride 87 L (96-108) mmol/L Anion Gap 18.0 H (8-16) BUN 51 H (8-23) mg/dl Creatinine 5.1 H* (0.7-1.2) mg/dl Glucose 230 H (70-105) mg/dL Hemoglobin A1c (4.0-6.0) % HGB Alkaline Phosphatase 173 H (39-117) U/L C-Reactive Protein 33.2 H (0.0-0.8) mg/dl Albumin 3.0 L (3.2-5.2) gm/dL Globulin 5.4 H (2.2-3.7) gm/dL Albumin/Globulin Ratio 0.6 L (1.0-2.3) 11/30/17 11/30/17 11/30/17 Range/Units 11:55 11:55 12:53 WBC (4.5-11.0) K/mcL RBC (4.50-5.90) M/mcL Hgb (13.5-16.5) g/dL Hct (41.0-55.0) % RDW (11.5-14.5) % MPV (7.4-10.4) fL Gran % (38.0-78.0) % Lymph % (Auto) (15.5-49.0) % Gran # (1.8-8.0) K/mcL Lymph # (Auto) (1.5-4.8) K/mcL PT 25.7 H (11.9-14.5) sec INR 2.3 H (0.9-1.1) VBG Lactic Acid 3.2 H (0.5-2.2) mmol/L Sodium (133-145) mmol/L Chloride (96-108) mmol/L Anion Gap (8-16) BUN (8-23) mg/dl Creatinine (0.7-1.2) mg/dl Glucose (70-105) mg/dL Hemoglobin A1c 8.1 H (4.0-6.0) % HGB Alkaline Phosphatase (39-117) U/L C-Reactive Protein (0.0-0.8) mg/dl Albumin (3.2-5.2) gm/dL Globulin (2.2-3.7) gm/dL Albumin/Globulin Ratio (1.0-2.3) Diabetes panel 11/30/17 11/30/17 Range/Units 11:55 11:55 Sodium 129 L (133-145) mmol/L Potassium 4.8 (3.3-5.1) mmol/L Chloride 87 L (96-108) mmol/L Carbon Dioxide 24 (22-30) mmol/L BUN 51 H (8-23) mg/dl Creatinine 5.1 H* (0.7-1.2) mg/dl Glucose 230 H (70-105) mg/dL Hemoglobin A1c 8.1 H (4.0-6.0) % HGB Calcium 8.8 (8.6-10.4) mg/dl AST 22 (0-37) U/l ALT 15 (0-40) U/l Alkaline Phosphatase 173 H (39-117) U/L Total Protein 8.4 (5.9-8.4) gm/dL Albumin 3.0 L (3.2-5.2) gm/dL Calcium panel 11/30/17 Range/Units 11:55 Calcium 8.8 (8.6-10.4) mg/dl Albumin 3.0 L (3.2-5.2) gm/dL Pituitary panel 11/30/17 Range/Units 11:55 Sodium 129 L (133-145) mmol/L Potassium 4.8 (3.3-5.1) mmol/L Chloride 87 L (96-108) mmol/L Carbon Dioxide 24 (22-30) mmol/L BUN 51 H (8-23) mg/dl Creatinine 5.1 H* (0.7-1.2) mg/dl Glucose 230 H (70-105) mg/dL Calcium 8.8 (8.6-10.4) mg/dl Adrenal panel 11/30/17 Range/Units 11:55 Sodium 129 L (133-145) mmol/L Potassium 4.8 (3.3-5.1) mmol/L Chloride 87 L (96-108) mmol/L Carbon Dioxide 24 (22-30) mmol/L BUN 51 H (8-23) mg/dl Creatinine 5.1 H* (0.7-1.2) mg/dl Glucose 230 H (70-105) mg/dL Calcium 8.8 (8.6-10.4) mg/dl Total Bilirubin 0.8 (0.0-1.0) mg/dL AST 22 (0-37) U/l ALT 15 (0-40) U/l Alkaline Phosphatase 173 H (39-117) U/L Total Protein 8.4 (5.9-8.4) gm/dL Albumin 3.0 L (3.2-5.2) gm/dL All other labs normal. Assessment and Plan (1) Venous stasis dermatitis of both lower extremities Status: Chronic Priority: Low Comment: Cause related to ongoing wound care management as entered and orders. (2) Pressure ulcer of lower extremity Status: Chronic Priority: Low Comment: Bilateral legs lateral upper and mid third . Chronic with patchy adipose tissue exposed. CHRONIC and colonized. Wound cultures. Contaminated wounds ?? MRSA Qualifiers: Qualified Code(s): L89.892 - Pressure ulcer of other site, stage 2
[2017-11-30] MEDS: GABAPENTIN 100 MG CAPSULE PO SCH (21:06)
[2017-11-30] MEDS: SENNOSIDES/DOCUSATE SODIUM 1 TAB TABLET PO SCH (21:06)
[2017-11-30] MEDS: TAMSULOSIN 0.4 MG CAPSULE PO SCH (21:06)
[2017-11-30] MEDS: DOCUSATE SODIUM 100 MG CAPSULE PO SCH (21:06)
[2017-11-30] MEDS: ATORVASTATIN 20 MG TABLET PO SCH (21:07)
[2017-11-30] MEDS: ASCORBIC ACID 500 MG TABLET PO SCH (21:07)
[2017-11-30] MEDS: INSULIN GLARGINE, HUMAN 1 UNIT/0.01 ML SQ SCH (21:08)
[2017-11-30] MEDS: METOPROLOL TARTRATE 25 MG TABLET PO SCH (21:08)
[2017-11-30] MEDS: 0.9 % SODIUM CHLORIDE 10 ML SYRINGE IV SCH (21:14)
[2017-11-30] MEDS: PIPERACILLIN SODIUM/TAZOBACTAM 2.25 GM in DEXTROSE 5% IN WATER 50 ML IV SCH (23:20)
[2017-12-01] MEDS: HYDROmorphone 2 MG/ML VIAL IV PRN (02:07)
[2017-12-01] MEDS: 0.9 % SODIUM CHLORIDE 10 ML SYRINGE IV SCH ×3 (05:37→22:28)
[2017-12-01] MEDS: METOPROLOL TARTRATE 5 MG/5 ML VIAL IV SCH (05:56)
[2017-12-01 06:27] LABS: Basophils # (Auto) 0 K/mcL (0.0-0.3); Basophils % (Auto) 0.2 % (0.0-2.0); Eosinophils # (Auto) 0 K/mcL (0.0-0.7); Eosinophils % (Auto) 0.1 % (0.0-7.0); Lymphocytes # (Auto) 0.6 K/mcL (1.5-4.8); Lymphocytes % (Auto) 3.7 % (15.5-49.0); Mean Cell Volume 96.1 fL (80.0-100.0); Mean Corpuscular HGB Conc 33.4 g/dL (31.0-36.0); Mean Corpuscular Hemoglobin 32.1 pg (26.0-34.0); Monocytes # (Auto) 1.1 K/mcL (0.1-0.9); Platelet Count 179 K/mcL (140-440); RBC 3.02 M/mcL (4.50-5.90)
[2017-12-01 07:10] LABS: ALT/SGPT 13 U/l (0-40); Albumin 2.6 gm/dL (3.2-5.2); Albumin/Globulin Ratio 0.5 (1.0-2.3); Alkaline Phosphatase 156 U/L (39-117); Bilirubin,Direct 0.3 mg/dL (0.0-0.3); Blood Urea Nitrogen 62 mg/dl (8-23); Gamma Glutamyl Transpeptidase 62 U/L (8-61); Uric Acid 5.9 mg/dL (2.5-8.0)
--- NOTE | 2017-12-01 07:40 | Nephrology Progress Note ---
Subjective Patient information: Note initiated : 12/01/17 at 7:38 am Phu Bryson is a 72-year-old male with end-stage renal disease on chronic hemodialysis (through left arm AV fistula, at [facility], on MWF, followed by Dr. Urbina ), secondary hyperparathyroidism of renal origin, chronic anemia due to kidney disease, coronary artery disease s/p stents, chronic systolic heart failure due to ischemic cardiomyopathy (Echo on 10/16/15: LVEF 30-35%), chronic atrial fibrillation on Coumadin anticoagulation, hypertension, hyperlipidemia, diabetes mellitus type 2, chronic bilateral extremity edema and wounds, admitted on 11/30/17. Chief Complaint: Weakness Principal diagnosis: End-stage renal disease on chronic hemodialysis Pertinent ROS: Lower extremity wounds Edema Weakness Objective - Vital Signs Vital signs: Vital Signs Temp Pulse Resp BP Pulse Ox 12/01/17 07:00 110 H 25 H 89/47 12/01/17 06:00 122 H 21 92/63 12/01/17 05:40 122 H 25 H 12/01/17 05:19 117 H 24 H 100/71 12/01/17 05:07 123 H 24 H 85/53 12/01/17 05:00 124 H 18 81/66 97 12/01/17 04:35 118 H 23 H 12/01/17 04:01 99.7 F H 122 H 25 H 103/64 97 12/01/17 03:38 120 H 25 H 90/58 12/01/17 03:33 125 H 27 H 12/01/17 03:01 121 H 25 H 85/58 95 12/01/17 02:09 112 H 19 12/01/17 02:03 99.9 F H 22 91/60 94 12/01/17 01:29 22 96 12/01/17 01:01 24 H 90/61 97 12/01/17 00:01 99.0 F 23 H 100/59 95 11/30/17 23:56 22 98 11/30/17 23:03 14 96/60 100 11/30/17 23:01 23 H 95 11/30/17 22:20 26 H 90 11/30/17 22:01 21 99/52 94 11/30/17 21:46 21 110/55 97 11/30/17 21:31 23 H 93/58 94 11/30/17 21:25 22 97 11/30/17 21:16 24 H 104/64 98 11/30/17 21:01 18 101/63 97 11/30/17 20:46 23 H 98/70 94 11/30/17 20:34 21 93/72 96 11/30/17 20:32 21 70/57 97 11/30/17 20:18 21 98 11/30/17 20:01 21 116/67 81 L 11/30/17 20:00 99.6 F H 11/30/17 19:46 17 113/69 95 11/30/17 19:31 17 98/64 11/30/17 19:16 21 79/63 11/30/17 19:01 15 96/52 94 11/30/17 18:46 21 101/78 11/30/17 18:31 20 110/68 11/30/17 18:19 17 124/75 11/30/17 18:16 24 H 80/56 11/30/17 18:01 21 99/65 92 11/30/17 17:57 17 93 11/30/17 17:51 127 H 93/76 98 11/30/17 17:46 21 113/76 11/30/17 17:41 114 H 18 109/72 96 11/30/17 17:36 121 H 18 105/59 100 11/30/17 17:31 22 102/58 11/30/17 17:26 57 L 21 154/129 75 L 11/30/17 17:23 22 128/110 11/30/17 17:16 113 H 20 103/84 97 11/30/17 17:11 105 H 22 97/58 98 11/30/17 17:06 116 H 23 H 102/64 99 11/30/17 17:02 65 21 110/68 95 11/30/17 17:00 29 H 104/71 11/30/17 16:59 120 H 24 H 98 11/30/17 16:46 145 H 21 104/80 99 11/30/17 16:31 98.8 F 151 H 17 111/81 98 11/30/17 16:26 40 L 22 110/71 91 11/30/17 16:21 97.6 F 62 17 101/72 98 11/30/17 16:14 98 11/30/17 16:01 62 17 101/72 98 11/30/17 15:46 136 H 23 H 109/81 96 11/30/17 15:31 17 106/67 11/30/17 15:17 26 H 120/98 11/30/17 15:01 21 111/66 11/30/17 14:46 128 H 19 108/83 97 11/30/17 14:31 141 H 16 119/58 100 11/30/17 14:16 118 H 19 109/60 96 11/30/17 14:07 134 H 24 H 110/74 97 11/30/17 14:06 121 H 20 102/73 98 11/30/17 13:46 133 H 17 128/62 94 11/30/17 13:38 139 H 18 98 11/30/17 13:34 148 H 20 108/67 97 11/30/17 13:03 60 21 93/54 98 11/30/17 12:46 137 H 11 L 114/75 97 11/30/17 12:31 137 H 20 116/76 100 11/30/17 12:16 126/66 11/30/17 12:01 117/72 11/30/17 11:54 146 H 126/92 98 11/30/17 11:37 97.6 F 62 22 126/92 98 Intake and Output 11/30/17 12/01/17 12/01/17 21:59 05:59 13:59 Intake Total 220 / 220 50 / 50 Output Total 175 / 175 20 / 20 Balance 45 / 45 50 / 50 -20 / -20 Intake: IV 100 / 100 50 / 50 Zosyn 2.25 gm In Dextrose 5% in 50 / 50 Water 50 ml @ 100 mls/hr IV Q12H [facility] Rx#:[id number] Oral 120 / 120 Output: Urine Catheter Amount 175 / 175 20 / 20 Other: Meal Dinner Percent of Meal Consumed 75% Feeding Ability Assist with Tray Set Up Urine Appearance Sediment Small Blood Clots Urine Color Red Brown Dark Christie Urine Odor Strong Weight 209 lb Intake & Output: Intake & Output 11/30/17 12/01/17 12/01/17 21:59 05:59 13:59 Intake Total 220 / 220 50 / 50 Output Total 175 / 175 20 / 20 Balance 45 / 45 50 / 50 -20 / -20 Weight 209 lb Intake: IV 100 / 100 50 / 50 Zosyn 2.25 gm In Dextrose 5% in 50 / 50 Water 50 ml @ 100 mls/hr IV Q12H [facility] Rx#:[id number] Oral 120 / 120 Output: Urine Catheter Amount 175 / 175 20 / 20 Other: Meal Dinner Percent of Meal Consumed 75% Feeding Ability Assist with Tray Set Up Urine Appearance Sediment Small Blood Clots Urine Color Red Brown Dark Christie Urine Odor Strong - General Appearance General appearance: chronically ill, fatigue EENT: mucous membranes moist Neck: supple Respiratory: clear Cardiology: edema Gastrointestinal: no tenderness Integumentary: ulcer Neurologic: no focal deficit, alert and oriented x3 Musculoskeletal: no deformities Psychiatric: mood/affect appropriate, cooperative - Lab 12/01/17 03:35 12/01/17 03:35 Most recent lab results Calcium 8.8 mg/dl (8.6-10.4) 12/01/17 03:35 Phosphorus 6.3 mg/dL (2.7-4.5) H* 12/01/17 03:35 Magnesium 2.3 mg/dL (1.6-2.5) 12/01/17 03:35 Assessment and Plan (1) End stage renal disease Phu Bryson is a 72-year-old male with end-stage renal disease on chronic hemodialysis (through left arm AV fistula, at [facility], on MWF, followed by Dr. Urbina ), secondary hyperparathyroidism of renal origin. Progress: Atrial fibrillation with rapid ventricular response and hypotension. IV contrast procedure at [facility] this afternoon. Plan: Hemodialysis tomorrow with Revaclear 400 dialyzer for 4 hours, QB/QD 400 /800, dialysate (Potassium 2, Bicarbonate 35, Calcium 2.5, Sodium 139), UF target 4 kg, heparin 1000 unit bolus, 500 unit/hour, off last 60 minutes. Status: Chronic Priority: Medium
[2017-12-01] MEDS: BUMETANIDE 1 MG TABLET PO SCH ×2 (09:37→16:35)
[2017-12-01] MEDS: INSULIN LISPRO 1 UNIT/0.01 ML UNIT SQ SCH ×4 (09:37→20:11)
[2017-12-01] MEDS: VITAMIN D3 5,000 UNIT CAPSULE PO SCH (09:37)
[2017-12-01] MEDS: AMIODARONE HCL 200 MG TABLET PO SCH (09:38)
[2017-12-01] MEDS: PIPERACILLIN SODIUM/TAZOBACTAM 2.25 GM in DEXTROSE 5% IN WATER 50 ML IV SCH ×2 (09:38→22:28)
[2017-12-01] MEDS: CLOPIDOGREL 75 MG TABLET PO SCH (09:38)
[2017-12-01] MEDS: CALCIUM ACETATE 667 MG CAPSULE PO SCH ×5 (09:40→20:10)
[2017-12-01] MEDS: DOCUSATE SODIUM 100 MG CAPSULE PO SCH ×2 (09:40→22:26)
--- NOTE | 2017-12-01 13:05 | Internal Med Progress Note ---
Medical - PN: Subj Patient information: Note initiated : 12/01/17 at 1:03 pm Service Date, if different from initiated Date: [] Patient: Phu Bryson a 72 y/o M admitted on 11/30/17 for Circulation Problems/Cellulitis, Sepsis. Chief Complaint: [] Interval history: Mr. Bryson is a 72 year old M with h/o DM, ESRD on HD, chr lower extremity wounds, severe Peripheral vascular disease, glaucoma, presents to the Er today after being advised to come her by the project management specialist. The patient notes he had an appointment to see the wound care doctor today, but as he was getting in the chair, he was noted to be too weak and unable to do transfer,slipped down? he called his project management specialist and was asked to come to the ER . The patient has henry lower extremity wounds, extensive sloughing, eschar, and poorly kepmt, he has nice in place with dark urine, this was placed recently, the patient also has poor vision secondary to glaucoma. the patient in the ER was afebrile, but HR was high at 140, He has elevated wbc c ount, elevated lactic acid, worsening creat (on HD), CXR neg for effusion, CT lower extremity shows henry severe cellulitis. Patient is being admitted to the hospital for severe sepsis, and atrial fibrillation with RVR In talking with the patient and patients project management specialist, patient is unable to care for self at home, and will need to be placed at a SNF/ LTAC facility for aggresive care. Pt is agreeable for same 12/01 Pt seen examined, no acute overnight issues, pt still in afib with RVR, on amiodraone, bp soft, wbc trending up. the patient this AM clinically is unchanged. I reviewed plan of care with Dr Marshall who is planning on intervention on both lower extreities to help improve circulation. HD planned after intervention Pertinent ROS: Denies headache, dizziness Denies chest pain, palpitations Denies cough or shortness of breath Denies abdominal pain, nausea or vomiting. - Constitutional Vitals: Vital Signs Temp Pulse Resp BP Pulse Ox 99.4 F H 123 H 23 H 106/61 94 12/01/17 12:00 12/01/17 12:01 12/01/17 12:01 12/01/17 12:01 12/01/17 12:00 Period Temp Pulse Resp BP Sys/Goodwin Pulse Ox Last 24 Hr 97.6 F-99.9 F 40-151 14-29 70-154/47-129 75-100 Intake and Output 11/30/17 12/01/17 12/01/17 21:59 05:59 13:59 Intake Total 220 / 220 50 / 50 170 / 170 Output Total 175 / 175 20 / 20 Balance 45 / 45 50 / 50 150 / 150 Weight 209 lb Intake & Output: Intake & Output 11/30/17 12/01/17 12/01/17 21:59 05:59 13:59 Intake Total 220 / 220 50 / 50 170 / 170 Output Total 175 / 175 20 / 20 Balance 45 / 45 50 / 50 150 / 150 Weight 209 lb Intake: IV 100 / 100 50 / 50 50 / 50 Zosyn 2.25 gm In Dextrose 5% in 50 / 50 50 / 50 Water 50 ml @ 100 mls/hr IV Q12H [facility] Rx#:[id number] Oral 120 / 120 120 / 120 Output: Urine Catheter Amount 175 / 175 20 / 20 Other: Meal Dinner Percent of Meal Consumed 75% Feeding Ability Assist with Tray Set Up Urine Appearance Sediment Small Blood Clots Urine Color Red Brown Dark Christie Uretheral (Nice) Dark Christie Urine Odor Strong Exam: Constitutional; Afebrile, cooperative, alert, not in distress. Respiratory system: Air Entry equal on both sides, No crackles or wheezing, no rhonchi. CVS- Rate tachycardic rhythm irregular, S1,S2 heard, no gallop, no rub. Abdomen- Soft nontender abdomen, no organomegaly, no tenderness, no guarding or rigidity, STAIN MAKER- AOOx3, moving all extremities, no gross focal deficit noted. henry lower extremity erythema, foul smelling/ skin, eschar, Medical - PN: Obj Da - Labs CBC & Chem 7: 12/01/17 03:35 12/01/17 03:35 Labs: Abnormal Lab Results 12/01/17 12/01/17 12/01/17 03:35 03:35 03:35 WBC 15.2 H RBC 3.02 L Hgb 9.7 L Hct 29.0 L RDW 16.0 H MPV Gran % 89.0 H Lymph % (Auto) 3.7 L Gran # 13.5 H Lymph # (Auto) 0.6 L [place] # (Auto) 1.1 H PT 28.0 H INR 2.6 H VBG Lactic Acid Sodium Chloride 91 L Anion Gap 17.0 H BUN 62 H Creatinine 5.9 H* Glucose 117 H Hemoglobin A1c Phosphorus 6.3 H* GGT 62 H Alkaline Phosphatase 156 H C-Reactive Protein Albumin 2.6 L Globulin 5.3 H Albumin/Globulin Ratio 0.5 L 11/30/17 11/30/17 11/30/17 12:53 11:55 11:55 WBC RBC Hgb Hct RDW MPV Gran % Lymph % (Auto) Gran # Lymph # (Auto) [place] # (Auto) PT 25.7 H INR 2.3 H VBG Lactic Acid 3.2 H Sodium Chloride Anion Gap BUN Creatinine Glucose Hemoglobin A1c 8.1 H Phosphorus GGT Alkaline Phosphatase C-Reactive Protein Albumin Globulin Albumin/Globulin Ratio 11/30/17 11/30/17 11/30/17 11:55 11:55 11:49 WBC 13.9 H RBC 3.17 L Hgb 10.1 L Hct 30.1 L RDW 16.2 H MPV 7.2 L Gran % 90.6 H Lymph % (Auto) 3.2 L Gran # 12.6 H Lymph # (Auto) 0.5 L [place] # (Auto) PT INR VBG Lactic Acid Sodium 129 L Chloride 87 L Anion Gap 18.0 H BUN 51 H Creatinine 5.1 H* Glucose 230 H Hemoglobin A1c Phosphorus GGT Alkaline Phosphatase 173 H C-Reactive Protein 33.2 H Albumin 3.0 L Globulin 5.4 H Albumin/Globulin Ratio 0.6 L Meds: Medications Acetaminophen (Tylenol) 650 mg PO Q4-6HP PRN PRN Reason: PAIN/FEVER > 101 Amiodarone HCl (Cordarone) 200 mg PO QDAY [facility] Last Admin: 12/01/17 09:38 Dose: 200 mg Ascorbic Acid (Vitamin C) 250 mg PO [facility] Last Admin: 11/30/17 21:07 Dose: 250 mg Atorvastatin Calcium (Lipitor) 10 mg PO HS [facility] Last Admin: 11/30/17 21:07 Dose: 10 mg Bumetanide (Bumex) 3 mg PO BIDD [facility] Last Admin: 12/01/17 09:37 Dose: 3 mg Calcium Acetate (Phoslo) 667 mg PO 5XD [facility] Last Admin: 12/01/17 11:41 Dose: Not Given Clopidogrel Bisulfate (Plavix) 75 mg PO QDAY [facility] Last Admin: 12/01/17 09:38 Dose: 75 mg Dextrose (Dextrose 50%) 0 ml IV UD PRN PRN Reason: Hypoglycemia Diagnostic Test (Pha) (Accu-Chek) 1 each FS [facility] Last Admin: 12/01/17 09:37 Dose: 1 each Docusate Sodium (Colace) 100 mg PO BID [facility] Last Admin: 12/01/17 09:40 Dose: 100 mg Gabapentin (Neurontin) 100 mg PO QHS [facility] Last Admin: 11/30/17 21:06 Dose: 100 mg Glucose (Insta-Glucose) 15 gm PO PRN PRN PRN Reason: Hypoglycemia Hydromorphone HCl (Dilaudid) 0.5 mg IV Q2HP PRN PRN Reason: PAIN LEVEL > 6 Last Admin: 12/01/17 02:07 Dose: 0.5 mg Piperacillin Sod/Tazobactam (Sod 2.25 gm/ Dextrose) 50 mls @ 100 mls/hr IV Q12H [facility] Last Infusion: 12/01/17 10:40 Dose: Infused Insulin Glargine (Lantus) 25 unit SQ [facility] Last Admin: 11/30/17 21:08 Dose: 25 unit Insulin Human Lispro (Humalog) 0 unit SQ [facility]; Protocol Last Admin: 12/01/17 09:37 Dose: Not Given Metoprolol Tartrate (Lopressor) 25 mg PO [facility] Last Admin: 11/30/17 21:08 Dose: 25 mg Naloxone HCl (Narcan) 0.1 mg IV Q2MIN PRN PRN Reason: Opiate Reversal Ondansetron HCl (Zofran) 4 mg IV Q4-6HP PRN PRN Reason: Nausea And Vomiting Oxycodone HCl (Roxicodone) 5 mg PO Q4HP PRN PRN Reason: PAIN LEVEL 3-6 Senna/Docusate Sodium (Senna Plus Tablet) 2 tab PO [facility] Last Admin: 11/30/17 21:06 Dose: 2 tab Sodium Chloride (Saline Flush) 10 ml IV Q8 [facility] Last Admin: 12/01/17 05:37 Dose: 10 ml Tamsulosin HCl (Flomax) 0.4 mg PO [facility] Last Admin: 11/30/17 21:06 Dose: 0.4 mg Vancomycin HCl (Vancomycin Per Pharmacy) 1 order IV UD [facility] Vitamin D (Vitamin D3) 5,000 unit PO DAILY [facility] Last Admin: 12/01/17 09:37 Dose: 5,000 unit Warfarin Sodium (Coumadin Per Pharmacy) 1 order PO UD [facility] Medical - PN: A/P - Time Spent With Patient Total time spent is greater than 50% in coordination of care (as documented) at patient's floor/unit and/or counseling patient: - Narrative A/P Narrative: A/P Severe Cellulitis Severe sepsis Atrial fibrillation with RVR Congestive heart failure, Systolic Diastolic heart failure, grade 3 End stage renal disease on HD Urinary retention Glaucoma Severe peripheral vascular disease Hypertension Diabetes mellitus Coronary artery disease, s/p stent placement Plan continue to monitor on PCU, continue IV vanco and zosyn for cellulitis, superficial culture are polymicrobial not sure how reliable they are Wound care consult appreciated, Will follow cultures, blood and superficial, CT does not show any abscess, but severe cellulitis noted. nephrology consult for HD, plan today after IR procedure Not in CHF exacerbation at this time on X ray, w Resume amiodarone, IV metoprolol to control rate, if pt does not respond and bp allows, will use Cardizem drip, if not add digoxin, given that pt will be off the floor for intervention, will let HR run slightly elevated. will resume intervention once patient is back in the unit. resume home opthal drops. Resumed Coumadin and plavix hematuria from nice much improved after bladder irrigation. DVT on coumadin with therapeutic INR FUll code Carb consistent, cardiac, renal diet. (npo for now for procedure) Medical - PN: Qual - VTE Deep Vein Thrombosis/Pulmonary Embolism Present on Admission: No
[2017-12-01] MEDS ORDERED: VANCOMYCIN 1,000 MG in 0.9 % SODIUM CHLORIDE 250 ML IV ONE (16:00)
[2017-12-01] MEDS: SENNOSIDES/DOCUSATE SODIUM 1 TAB TABLET PO SCH (22:26)
[2017-12-01] MEDS: METOPROLOL TARTRATE 25 MG TABLET PO SCH (22:26)
[2017-12-01] MEDS: GABAPENTIN 100 MG CAPSULE PO SCH (22:26)
[2017-12-01] MEDS: ASCORBIC ACID 500 MG TABLET PO SCH (22:26)
[2017-12-01] MEDS: ATORVASTATIN 20 MG TABLET PO SCH (22:26)
[2017-12-01] MEDS: TAMSULOSIN 0.4 MG CAPSULE PO SCH (22:26)
[2017-12-01] MEDS: INSULIN GLARGINE, HUMAN 1 UNIT/0.01 ML SQ SCH (22:27)
[2017-12-02 04:42] LABS: Basophils # (Auto) 0 K/mcL (0.0-0.3); Basophils % (Auto) 0 % (0.0-2.0); Eosinophils # (Auto) 0 K/mcL (0.0-0.7); Eosinophils % (Auto) 0.1 % (0.0-7.0); Granulocytes % (Auto) 89.1 % (38.0-78.0); Lymphocytes # (Auto) 0.6 K/mcL (1.5-4.8); Lymphocytes % (Auto) 4.3 % (15.5-49.0); Mean Cell Volume 96.4 fL (80.0-100.0); Mean Corpuscular HGB Conc 32.9 g/dL (31.0-36.0); Mean Corpuscular Hemoglobin 31.7 pg (26.0-34.0); Monocytes # (Auto) 0.9 K/mcL (0.1-0.9); Monocytes % (Auto) 6.5 % (1.0-12.0); Platelet Count 157 K/mcL (140-440); RBC 2.98 M/mcL (4.50-5.90); Red Cell Distribution Width 15.9 % (11.5-14.5)
[2017-12-02 05:00] LABS: Vancomycin,Random 22.9 ug/mL
[2017-12-02 05:03] LABS: ALT/SGPT 13 U/l (0-40); Albumin 2.4 gm/dL (3.2-5.2); Albumin/Globulin Ratio 0.5 (1.0-2.3); Alkaline Phosphatase 165 U/L (39-117); Bilirubin,Direct 0.3 mg/dL (0.0-0.3); Blood Urea Nitrogen 76 mg/dl (8-23); Gamma Glutamyl Transpeptidase 63 U/L (8-61); Uric Acid 7.3 mg/dL (2.5-8.0)
[2017-12-02] MEDS ORDERED: PHYTONADIONE 10 MG/ML AMPUL PO ONE (05:13)
[2017-12-02] MEDS: 0.9 % SODIUM CHLORIDE 10 ML SYRINGE IV SCH ×3 (05:32→21:41)
--- NOTE | 2017-12-02 06:55 | Nephrology Progress Note ---
Subjective Patient information: Note initiated : 12/02/17 at 6:53 am Phu Bryson is a 72-year-old male with end-stage renal disease on chronic hemodialysis (through left arm AV fistula, at [facility], on MWF, followed by Dr. Urbina ), secondary hyperparathyroidism of renal origin, chronic anemia due to kidney disease, coronary artery disease s/p stents, chronic systolic heart failure due to ischemic cardiomyopathy (Echo on 10/16/15: LVEF 30-35%), chronic atrial fibrillation on Coumadin anticoagulation, hypertension, hyperlipidemia, diabetes mellitus type 2, chronic bilateral extremity edema and wounds, admitted on 11/30/17. Chief Complaint: Weakness Principal diagnosis: End-stage renal disease on chronic hemodialysis Interval history: Bilateral lower extremity angioplasties at [facility] on 12/01/17 Pertinent ROS: Lower extremity wounds Edema Weakness Objective - Vital Signs Vital signs: Vital Signs Temp Pulse Resp BP Pulse Ox 12/02/17 06:01 18 98/65 90 12/02/17 05:19 22 12/02/17 05:01 21 96/66 92 12/02/17 04:12 18 12/02/17 04:01 98.9 F 21 96/62 92 12/02/17 03:01 18 100/62 95 12/02/17 02:01 18 88/63 95 12/02/17 01:00 16 94/64 93 12/02/17 00:24 19 12/02/17 00:00 98.9 F 24 H 95/64 94 12/01/17 23:00 122 H 12 100/62 92 12/01/17 22:01 121 H 19 115/69 92 12/01/17 21:53 120 H 18 12/01/17 20:01 98.7 F 113 H 14 102/73 96 12/01/17 20:00 98.7 F 14 102/73 96 12/01/17 19:01 116 H 15 87/68 12/01/17 18:01 113 H 13 82/73 12/01/17 17:27 19 108/57 12/01/17 13:01 127 H 20 110/68 12/01/17 12:01 123 H 23 H 106/61 12/01/17 12:00 99.4 F H 134 H 25 H 106/61 94 12/01/17 11:02 118 H 22 88/58 12/01/17 10:03 116 H 24 H 145/111 12/01/17 09:17 118 H 23 H 97/62 12/01/17 09:01 118 H 27 H 83/58 12/01/17 08:01 118 H 24 H 82/58 12/01/17 07:00 110 H 25 H 89/47 Intake and Output 12/01/17 12/02/17 12/02/17 21:59 05:59 13:59 Intake Total 680 / 680 300 / 300 Output Total 0 / 0 Balance 680 / 680 300 / 300 Intake: IV 300 / 300 Zosyn 2.25 gm In Dextrose 5% in 50 / 50 Water 50 ml @ 100 mls/hr IV Q12H [facility] Rx#:[id number] Oral 360 / 360 GI Tube Flush 320 / 320 Output: Urine Catheter Amount 0 / 0 Other: Meal Dinner Percent of Meal Consumed 50% Feeding Ability Assist with Tray Set Up Urine Color Uretheral (Singh) Dark Christie Weight 209 lb Intake & Output: Intake & Output 12/01/17 12/02/17 12/02/17 21:59 05:59 13:59 Intake Total 680 / 680 300 / 300 Output Total 0 / 0 Balance 680 / 680 300 / 300 Weight 209 lb Intake: IV 300 / 300 Zosyn 2.25 gm In Dextrose 5% in 50 / 50 Water 50 ml @ 100 mls/hr IV Q12H [facility] Rx#:[id number] Oral 360 / 360 GI Tube Flush 320 / 320 Output: Urine Catheter Amount 0 / 0 Other: Meal Dinner Percent of Meal Consumed 50% Feeding Ability Assist with Tray Set Up Urine Color Uretheral (Singh) Dark Christie - General Appearance General appearance: chronically ill, fatigue EENT: mucous membranes moist Neck: supple Respiratory: clear Cardiology: edema Gastrointestinal: no tenderness Integumentary: ulcer Neurologic: no focal deficit, alert and oriented x3 - Lab 12/02/17 03:35 12/02/17 03:35 Most recent lab results Calcium 8.2 mg/dl (8.6-10.4) L 12/02/17 03:35 Phosphorus 8.2 mg/dL (2.7-4.5) H* 12/02/17 03:35 Magnesium 2.4 mg/dL (1.6-2.5) 12/02/17 03:35 Assessment and Plan (1) End stage renal disease Phu Bryson is a 72-year-old male with end-stage renal disease on chronic hemodialysis (through left arm AV fistula, at [facility], on MWF, followed by Dr. Urbina ), secondary hyperparathyroidism of renal origin. Progress: Atrial fibrillation with rapid ventricular response and hypotension. IV contrast procedure at [facility] on 12/01/17. Plan: Hemodialysis today with Revaclear 400 dialyzer for 4 hours, QB/QD 400/ 800, dialysate (Potassium 2, Bicarbonate 35, Calcium 2.5, Sodium 139), UF target 4 kg, heparin 1000 unit bolus, 500 unit/hour, off last 60 minutes. The patient seen and evaluated during dialysis at 09:55. Possible extra hemodialysis tomorrow based on fluid/electrolyte status. Status: Chronic Priority: Medium (2) Hyperkalemia Associated with end stage renal disease Plan: hemodialysis today and tomorrow Status: Acute Priority: Medium (3) High anion gap metabolic acidosis Associated with end stage renal disease Plan: hemodialysis today and tomorrow Status: Acute Priority: Medium (4) Hyponatremia Associated with end stage renal disease Plan: hemodialysis today and tomorrow Status: Acute Priority: Medium (5) Other fluid overload Associated with end stage renal disease Plan: hemodialysis today and tomorrow Status: Acute Priority: Medium
[2017-12-02] MEDS ORDERED: PHYTONADIONE 10 MG/ML AMPUL ONE (08:00)
[2017-12-02] MEDS: AMIODARONE HCL 200 MG TABLET PO SCH (08:07)
[2017-12-02] MEDS: CLOPIDOGREL 75 MG TABLET PO SCH (08:07)
[2017-12-02] MEDS: VITAMIN D3 5,000 UNIT CAPSULE PO SCH (08:07)
[2017-12-02] MEDS: BUMETANIDE 1 MG TABLET PO SCH ×2 (08:07→17:20)
[2017-12-02] MEDS: DOCUSATE SODIUM 100 MG CAPSULE PO SCH ×2 (08:08→21:41)
[2017-12-02] MEDS: INSULIN LISPRO 1 UNIT/0.01 ML UNIT SQ SCH ×4 (08:10→21:40)
[2017-12-02] MEDS: CALCIUM ACETATE 667 MG CAPSULE PO SCH ×5 (08:10→21:09)
[2017-12-02] MEDS: PIPERACILLIN SODIUM/TAZOBACTAM 2.25 GM in DEXTROSE 5% IN WATER 50 ML IV SCH ×2 (10:38→21:39)
--- NOTE | 2017-12-02 11:05 | Internal Med Progress Note ---
Medical - PN: Subj Patient information: Note initiated : 12/02/17 at 10:56 am Service Date, if different from initiated Date: [] Patient: Phu Bryson a 72 y/o M admitted on 11/30/17 for Circulation Problems/Cellulitis, Sepsis. Chief Complaint: [] Interval history: Mr. Bryson is a 72 year old M with h/o DM, ESRD on HD, chr lower extremity wounds, severe Peripheral vascular disease, glaucoma, presents to the Er today after being advised to come her by the cross country coach. The patient notes he had an appointment to see the wound care doctor today, but as he was getting in the chair, he was noted to be too weak and unable to do transfer,slipped down? he called his cross country coach and was asked to come to the ER . The patient has henry lower extremity wounds, extensive sloughing, eschar, and poorly kepmt, he has nice in place with dark urine, this was placed recently, the patient also has poor vision secondary to glaucoma. the patient in the ER was afebrile, but HR was high at 140, He has elevated wbc c ount, elevated lactic acid, worsening creat (on HD), CXR neg for effusion, CT lower extremity shows henry severe cellulitis. Patient is being admitted to the hospital for severe sepsis, and atrial fibrillation with RVR In talking with the patient and patients cross country coach, patient is unable to care for self at home, and will need to be placed at a SNF/ LTAC facility for aggresive care. Pt is agreeable for same 12/01 Pt seen examined, no acute overnight issues, pt still in afib with RVR, on amiodraone, bp soft, wbc trending up. the patient this AM clinically is unchanged. I reviewed plan of care with Dr Marshall who is planning on intervention on both lower extreities to help improve circulation. HD planned after intervention 12/02 Pt seen examined, no acute overnight issues, in afib with rvr still bp soft, on hd, digoxin will be removed via hd, will increase dose of amiodarone to 400mg daily and see how the patient does. HD to be done by nephrology today, s/p Intervention by Dr Marshall, on one leg (left? has catheter puncture on the right side) , planned intervention on the other side soon. Continue iv abx, Wound care following. Pertinent ROS: Denies headache, dizziness Denies chest pain, palpitations Denies cough or shortness of breath Denies abdominal pain, nausea or vomiting. generalized weakness present stiffness present - Constitutional Vitals: Vital Signs Temp Pulse Resp BP Pulse Ox 97.1 F 115 H 26 H 87/67 94 12/02/17 09:45 12/02/17 10:45 12/02/17 09:01 12/02/17 10:45 12/02/17 08:01 Period Temp Pulse Resp BP Sys/Goodwin Pulse Ox Last 24 Hr 97.1 F-99.4 F 106-134 12-32 82-115/53-81 90-96 Intake and Output 12/01/17 12/02/17 12/02/17 21:59 05:59 13:59 Intake Total 680 / 680 300 / 300 Output Total 0 / 0 Balance 680 / 680 300 / 300 Weight 209 lb Intake & Output: Intake & Output 12/01/17 12/02/17 12/02/17 21:59 05:59 13:59 Intake Total 680 / 680 300 / 300 Output Total 0 / 0 Balance 680 / 680 300 / 300 Weight 209 lb Intake: IV 300 / 300 Zosyn 2.25 gm In Dextrose 5% in 50 / 50 Water 50 ml @ 100 mls/hr IV Q12H [facility] Rx#:[id number] Oral 360 / 360 GI Tube Flush 320 / 320 Output: Urine Catheter Amount 0 / 0 Other: Meal Dinner Percent of Meal Consumed 50% Feeding Ability Assist with Tray Set Up Urine Color Uretheral (Nice) Dark Christie Exam: Constitutional; Afebrile, cooperative, bit drowsy this AM , not in distress. Respiratory system: Air Entry equal on both sides, No crackles or wheezing, no rhonchi. CVS- Rate tachycardic rhythm irregular, S1,S2 heard, no gallop, no rub. Abdomen- Soft nontender abdomen, no organomegaly, no tenderness, no guarding or rigidity, SECTIONIZER- AOOx3, moving all extremities, no gross focal deficit noted. wound wrappped in dressings Medical - PN: Obj Da - Labs CBC & Chem 7: 12/02/17 03:35 12/02/17 03:35 Labs: Abnormal Lab Results 12/02/17 12/02/17 12/02/17 03:35 03:35 03:35 WBC 13.5 H RBC 2.98 L Hgb 9.4 L Hct 28.7 L RDW 15.9 H MPV Gran % 89.1 H Lymph % (Auto) 4.3 L Gran # 12.0 H Lymph # (Auto) 0.6 L [place] # (Auto) PT 61.6 H INR 7.0 H* VBG Lactic Acid Sodium 129 L Potassium 5.9 H* Chloride 88 L Carbon Dioxide 21 L Anion Gap 20.0 H BUN 76 H Creatinine 7.0 H* Glucose 271 H Hemoglobin A1c Calcium 8.2 L Phosphorus 8.2 H* GGT 63 H Alkaline Phosphatase 165 H C-Reactive Protein Albumin 2.4 L Globulin 5.0 H Albumin/Globulin Ratio 0.5 L 12/01/17 12/01/17 12/01/17 03:35 03:35 03:35 WBC 15.2 H RBC 3.02 L Hgb 9.7 L Hct 29.0 L RDW 16.0 H MPV Gran % 89.0 H Lymph % (Auto) 3.7 L Gran # 13.5 H Lymph # (Auto) 0.6 L [place] # (Auto) 1.1 H PT 28.0 H INR 2.6 H VBG Lactic Acid Sodium Potassium Chloride 91 L Carbon Dioxide Anion Gap 17.0 H BUN 62 H Creatinine 5.9 H* Glucose 117 H Hemoglobin A1c Calcium Phosphorus 6.3 H* GGT 62 H Alkaline Phosphatase 156 H C-Reactive Protein Albumin 2.6 L Globulin 5.3 H Albumin/Globulin Ratio 0.5 L 11/30/17 11/30/17 11/30/17 12:53 11:55 11:55 WBC RBC Hgb Hct RDW MPV Gran % Lymph % (Auto) Gran # Lymph # (Auto) [place] # (Auto) PT 25.7 H INR 2.3 H VBG Lactic Acid 3.2 H Sodium Potassium Chloride Carbon Dioxide Anion Gap BUN Creatinine Glucose Hemoglobin A1c 8.1 H Calcium Phosphorus GGT Alkaline Phosphatase C-Reactive Protein Albumin Globulin Albumin/Globulin Ratio 11/30/17 11/30/17 11/30/17 11:55 11:55 11:49 WBC 13.9 H RBC 3.17 L Hgb 10.1 L Hct 30.1 L RDW 16.2 H MPV 7.2 L Gran % 90.6 H Lymph % (Auto) 3.2 L Gran # 12.6 H Lymph # (Auto) 0.5 L [place] # (Auto) PT INR VBG Lactic Acid Sodium 129 L Potassium Chloride 87 L Carbon Dioxide Anion Gap 18.0 H BUN 51 H Creatinine 5.1 H* Glucose 230 H Hemoglobin A1c Calcium Phosphorus GGT Alkaline Phosphatase 173 H C-Reactive Protein 33.2 H Albumin 3.0 L Globulin 5.4 H Albumin/Globulin Ratio 0.6 L Meds: Medications Acetaminophen (Tylenol) 650 mg PO Q4-6HP PRN PRN Reason: PAIN/FEVER > 101 Amiodarone HCl (Cordarone) 200 mg PO QDAY [facility] Last Admin: 12/02/17 08:07 Dose: 200 mg Ascorbic Acid (Vitamin C) 250 mg PO [facility] Last Admin: 12/01/17 22:26 Dose: 250 mg Atorvastatin Calcium (Lipitor) 10 mg PO HS [facility] Last Admin: 12/01/17 22:26 Dose: 10 mg Bumetanide (Bumex) 3 mg PO BIDD [facility] Last Admin: 12/02/17 08:07 Dose: 3 mg Calcium Acetate (Phoslo) 667 mg PO 5XD [facility] Last Admin: 12/02/17 08:10 Dose: 667 mg Clopidogrel Bisulfate (Plavix) 75 mg PO QDAY [facility] Last Admin: 12/02/17 08:07 Dose: 75 mg Dextrose (Dextrose 50%) 0 ml IV UD PRN PRN Reason: Hypoglycemia Diagnostic Test (Pha) (Accu-Chek) 1 each FS ACHS [facility] Last Admin: 12/02/17 07:51 Dose: 1 each Docusate Sodium (Colace) 100 mg PO BID [facility] Last Admin: 12/02/17 08:08 Dose: 100 mg Gabapentin (Neurontin) 100 mg PO QHS [facility] Last Admin: 12/01/17 22:26 Dose: 100 mg Glucose (Insta-Glucose) 15 gm PO PRN PRN PRN Reason: Hypoglycemia Hydromorphone HCl (Dilaudid) 0.5 mg IV Q2HP PRN PRN Reason: PAIN LEVEL > 6 Last Admin: 12/01/17 02:07 Dose: 0.5 mg Piperacillin Sod/Tazobactam (Sod 2.25 gm/ Dextrose) 50 mls @ 100 mls/hr IV Q12H [facility] Last Admin: 12/02/17 10:38 Dose: Not Given Insulin Glargine (Lantus) 25 unit SQ [facility] Last Admin: 12/01/17 22:27 Dose: 25 unit Insulin Human Lispro (Humalog) 0 unit SQ [facility]; Protocol Last Admin: 12/02/17 08:10 Dose: 3 unit Metoprolol Tartrate (Lopressor) 25 mg PO [facility] Last Admin: 12/01/17 22:26 Dose: 25 mg Naloxone HCl (Narcan) 0.1 mg IV Q2MIN PRN PRN Reason: Opiate Reversal Ondansetron HCl (Zofran) 4 mg IV Q4-6HP PRN PRN Reason: Nausea And Vomiting Oxycodone HCl (Roxicodone) 5 mg PO Q4HP PRN PRN Reason: PAIN LEVEL 3-6 Senna/Docusate Sodium (Senna Plus Tablet) 2 tab PO [facility] Last Admin: 12/01/17 22:26 Dose: 2 tab Sodium Chloride (Saline Flush) 10 ml IV Q8 [facility] Last Admin: 12/02/17 05:32 Dose: 10 ml Tamsulosin HCl (Flomax) 0.4 mg PO [facility] Last Admin: 12/01/17 22:26 Dose: 0.4 mg Vancomycin HCl (Vancomycin Per Pharmacy) 1 [place] [facility] Vitamin D (Vitamin D3) 5,000 unit PO DAILY [facility] Last Admin: 12/02/17 08:07 Dose: 5,000 unit Warfarin Sodium (Coumadin Per Pharmacy) 1 order PO [facility] [place] - PN: A/P - Time Spent With Patient Total time spent is greater than 50% in coordination of care (as documented) at patient's floor/unit and/or counseling patient: - Narrative A/P Narrative: A/P Severe Cellulitis Severe sepsis Atrial fibrillation with RVR Congestive heart failure, Systolic Diastolic heart failure, grade 3 End stage renal disease on HD/ Hyperphosphatemia, hyponatremia, hyperkalemia Urinary retention Glaucoma Severe peripheral vascular disease Hypertension Diabetes mellitus Coronary artery disease, s/p stent placement elevted INr Plan continue to monitor on PCU, continue IV vanco and zosyn for cellulitis, superficial culture are polymicrobial not sure how reliable they are Wound care consult appreciated, Will follow cultures, blood and superficial, CT does not show any abscess, but severe cellulitis noted. nephrology consult for HD, plan today Dr Marshall did one leg yesterday, plan for other side soon. Not in CHF exacerbation at this time on X ray, resumed home meds, amiodarone, hr still high, increase dose to 400mg, pt bp low , to use IV cardizem, digoxin will be removed via HD. continue plavix continue nice for now, consider d/c catheter for a voiding trial once more stable. DVT on coumadin with therapeutic INR, give 2mg of vitamin K orally, FUll code Carb consistent, cardiac, renal diet. (npo for now for procedure) Medical - PN: Qual - VTE Deep Vein Thrombosis/Pulmonary Embolism Present on Admission: No
[2017-12-02] MEDS ORDERED: AMIODARONE HCL 200 MG TABLET PO ONE (13:15)
[2017-12-02] MEDS: HYDROmorphone 2 MG/ML VIAL IV PRN ×3 (14:47→19:04)
[2017-12-02] MEDS ORDERED: AMIODARONE 300 MG in DEXTROSE 5% IN WATER 50 ML IV ONE (17:20)
[2017-12-02] MEDS: METOPROLOL TARTRATE 25 MG TABLET PO SCH (21:39)
[2017-12-02] MEDS: ASCORBIC ACID 500 MG TABLET PO SCH (21:39)
[2017-12-02] MEDS: INSULIN GLARGINE, HUMAN 1 UNIT/0.01 ML SQ SCH (21:40)
[2017-12-02] MEDS: TAMSULOSIN 0.4 MG CAPSULE PO SCH (21:41)
[2017-12-02] MEDS: SENNOSIDES/DOCUSATE SODIUM 1 TAB TABLET PO SCH (21:41)
[2017-12-02] MEDS: ATORVASTATIN 20 MG TABLET PO SCH (21:43)
[2017-12-02] MEDS: GABAPENTIN 100 MG CAPSULE PO SCH (21:44)
[2017-12-03] MEDS: 0.9 % SODIUM CHLORIDE 10 ML SYRINGE IV SCH ×5 (05:37→21:19)
[2017-12-03 05:56] LABS: Basophils # (Auto) 0 K/mcL (0.0-0.3); Basophils % (Auto) 0 % (0.0-2.0); Eosinophils # (Auto) 0 K/mcL (0.0-0.7); Eosinophils % (Auto) 0 % (0.0-7.0); Granulocytes % (Auto) 89.5 % (38.0-78.0); Lymphocytes # (Auto) 0.6 K/mcL (1.5-4.8); Lymphocytes % (Auto) 4.5 % (15.5-49.0); Mean Corpuscular HGB Conc 33.1 g/dL (31.0-36.0); Mean Corpuscular Hemoglobin 31.8 pg (26.0-34.0); Monocytes # (Auto) 0.8 K/mcL (0.1-0.9); Platelet Count 171 K/mcL (140-440); RBC 2.89 M/mcL (4.50-5.90); Red Cell Distribution Width 15.9 % (11.5-14.5)
[2017-12-03 06:12] LABS: ALT/SGPT 19 U/l (0-40); Albumin 2.4 gm/dL (3.2-5.2); Albumin/Globulin Ratio 0.5 (1.0-2.3); Alkaline Phosphatase 168 U/L (39-117); Bilirubin,Direct 0.3 mg/dL (0.0-0.3); Blood Urea Nitrogen 42 mg/dl (8-23); Gamma Glutamyl Transpeptidase 60 U/L (8-61); Uric Acid 5.1 mg/dL (2.5-8.0)
[2017-12-03] MEDS ORDERED: DIGOXIN 500 MCG/2 ML AMPUL IV ONE ×5 (07:21→20:00)
[2017-12-03] MEDS: INSULIN LISPRO 1 UNIT/0.01 ML UNIT SQ SCH ×5 (08:32→21:14)
[2017-12-03] MEDS ORDERED: AMIODARONE HCL 200 MG TABLET PO SCH (09:00)
[2017-12-03] MEDS: BUMETANIDE 1 MG TABLET PO SCH ×2 (09:06→16:30)
[2017-12-03] MEDS: CALCIUM ACETATE 667 MG CAPSULE PO SCH ×5 (09:07→19:37)
[2017-12-03] MEDS: CLOPIDOGREL 75 MG TABLET PO SCH (09:07)
[2017-12-03] MEDS: PIPERACILLIN SODIUM/TAZOBACTAM 2.25 GM in DEXTROSE 5% IN WATER 50 ML IV SCH ×2 (09:07→21:14)
[2017-12-03] MEDS: VITAMIN D3 5,000 UNIT CAPSULE PO SCH (09:07)
[2017-12-03] MEDS: DOCUSATE SODIUM 100 MG CAPSULE PO SCH ×2 (09:07→21:17)
--- NOTE | 2017-12-03 10:10 | Nephrology Progress Note ---
Subjective Patient information: Note initiated : 12/03/17 at 10:07 am Phu Bryson is a 72-year-old male with end-stage renal disease on chronic hemodialysis (through left arm AV fistula, at [facility], on MWF, followed by Dr. Urbina ), secondary hyperparathyroidism of renal origin, chronic anemia due to kidney disease, coronary artery disease s/p stents, chronic systolic heart failure due to ischemic cardiomyopathy (Echo on 10/16/15: LVEF 30-35%), chronic atrial fibrillation on Coumadin anticoagulation, hypertension, hyperlipidemia, diabetes mellitus type 2, chronic bilateral extremity edema and wounds, admitted on 11/30/17. Chief Complaint: Weakness Principal diagnosis: End-stage renal disease on chronic hemodialysis Interval history: Atrial fibrillation with rapid ventricular response and hypotension Bilateral lower extremity angioplasties at [facility] on 12/01/17 Hemodialysis on 12/02/17 Pertinent ROS: Lower extremity wounds Edema Weakness Objective - Vital Signs Vital signs: Vital Signs Temp Pulse Resp BP Pulse Ox 12/03/17 07:02 20 104/66 94 12/03/17 06:03 20 12/03/17 06:02 19 90/61 91 12/03/17 05:32 14 94/65 12/03/17 05:31 92 12/03/17 05:30 20 86 L 12/03/17 05:29 24 H 12/03/17 05:02 23 H 94/64 12/03/17 04:32 28 H 96/62 12/03/17 04:15 28 H 12/03/17 04:02 99.1 F H 19 104/63 93 12/03/17 03:32 24 H 88/61 12/03/17 03:26 18 12/03/17 03:02 20 103/72 94 12/03/17 02:59 20 12/03/17 02:32 21 109/77 12/03/17 02:02 18 94/67 93 12/03/17 01:32 106/67 12/03/17 01:02 20 104/81 90 12/03/17 00:32 19 98/66 12/03/17 00:02 98.5 F 21 109/75 91 12/02/17 23:49 23 H 12/02/17 23:32 21 104/71 12/02/17 23:06 98.2 F 18 98/79 92 12/02/17 22:21 22 98/60 12/02/17 21:39 11 L 12/02/17 20:32 20 90/62 12/02/17 20:10 19 101/69 12/02/17 20:04 98.9 F 21 83/53 91 12/02/17 20:02 17 78/64 12/02/17 19:31 25 H 82/63 12/02/17 19:16 16 87/55 12/02/17 19:15 19 92 12/02/17 18:30 24 H 94/69 12/02/17 18:15 29 H 90/63 12/02/17 18:00 15 93/55 94 12/02/17 17:51 20 92/59 12/02/17 17:16 23 H 98/63 94 12/02/17 17:00 25 H 96/67 95 12/02/17 16:00 21 91/61 94 12/02/17 15:02 26 H 103/71 95 12/02/17 14:16 20 117/63 94 12/02/17 13:46 27 H 115/69 12/02/17 13:41 29 H 12/02/17 13:37 99.3 F H 119 H 110/61 12/02/17 13:31 20 110/61 12/02/17 13:16 23 H 105/61 12/02/17 13:15 26 H 96/50 12/02/17 13:03 20 102/68 95 12/02/17 13:01 113 H 102/68 12/02/17 12:52 20 113/62 12/02/17 12:50 108 H 113/62 12/02/17 12:34 111 H 104/75 12/02/17 12:31 19 104/75 12/02/17 12:19 109 H 105/67 12/02/17 12:16 19 105/67 12/02/17 12:06 110 H 101/62 12/02/17 12:01 98.6 F 22 101/62 94 12/02/17 11:46 100 H 19 114/78 12/02/17 11:31 20 103/58 12/02/17 11:30 106 H 103/58 12/02/17 11:16 21 90/54 12/02/17 11:14 102 H 90/54 12/02/17 11:01 22 97/66 95 12/02/17 11:00 102 H 97/66 12/02/17 10:46 22 87/67 12/02/17 10:45 115 H 87/67 12/02/17 10:31 26 H 91/62 12/02/17 10:29 112 H 12/02/17 10:16 24 H 96/58 12/02/17 10:15 112 H 96/58 Intake and Output 12/02/17 12/03/17 12/03/17 21:59 05:59 13:59 Intake Total 176 / 176 530 / 530 Output Total 0 / 0 Balance 176 / 176 530 / 530 Intake: IV 56 / 56 50 / 50 Cordarone 300 mg In Dextrose 5% 56 / 56 in Water 50 ml @ 300 mls/hr IV ONCE ONE Rx#:[id number] Zosyn 2.25 gm In Dextrose 5% in 50 / 50 Water 50 ml @ 100 mls/hr IV Q12H [facility] Rx#:[id number] Oral 120 / 120 0 / 0 GI Tube Flush 480 / 480 Output: Urine Catheter Amount 0 / 0 Other: Meal icecream Fruit cup Percent of Meal Consumed 25% 100% Urine Appearance Uretheral (Singh) Cloudy Sediment Urine Color Uretheral (Singh) Brown Urine Odor Uretheral (Singh) Foul Foul Stool Size Smear Stool Color Brown Stool Consistency Soft Formed # Bowel Movements 1 # of times incontinent of 1 Bowels Weight 209 lb 6.4 oz Intake & Output: Intake & Output 12/02/17 12/03/17 12/03/17 21:59 05:59 13:59 Intake Total 176 / 176 530 / 530 Output Total 0 / 0 Balance 176 / 176 530 / 530 Weight 209 lb 6.4 oz Intake: IV 56 / 56 50 / 50 Cordarone 300 mg In Dextrose 5% 56 / 56 in Water 50 ml @ 300 mls/hr IV ONCE ONE Rx#:[id number] Zosyn 2.25 gm In Dextrose 5% in 50 / 50 Water 50 ml @ 100 mls/hr IV Q12H [facility] Rx#:[id number] Oral 120 / 120 0 / 0 GI Tube Flush 480 / 480 Output: Urine Catheter Amount 0 / 0 Other: Meal icecream Fruit cup Percent of Meal Consumed 25% 100% Urine Appearance Uretheral (Singh) Cloudy Sediment Urine Color Uretheral (Singh) Brown Urine Odor Uretheral (Singh) Foul Foul Stool Size Smear Stool Color Brown Stool Consistency Soft Formed # Bowel Movements 1 # of times incontinent of 1 Bowels - General Appearance General appearance: chronically ill, frail EENT: mucous membranes moist Neck: supple Respiratory: clear Cardiology: edema Gastrointestinal: no tenderness Integumentary: ulcer Neurologic: no focal deficit, alert and oriented x3 Musculoskeletal: no deformities Psychiatric: mood/affect appropriate, cooperative - Lab 12/03/17 03:40 12/03/17 03:40 Most recent lab results Calcium 8.4 mg/dl (8.6-10.4) L 12/03/17 03:40 Phosphorus 5.9 mg/dL (2.7-4.5) H 12/03/17 03:40 Magnesium 2.2 mg/dL (1.6-2.5) 12/03/17 03:40 Assessment and Plan (1) End stage renal disease Phu Bryson is a 72-year-old male with end-stage renal disease on chronic hemodialysis (through left arm AV fistula, at [facility], on MW, followed by Dr. Urbina ), secondary hyperparathyroidism of renal origin. Progress: Atrial fibrillation with rapid ventricular response and hypotension IV contrast procedure at [facility] on 12/01/17 Hemodialysis on 12/02/17 with Revaclear 400 dialyzer for 4 hours Plan: Next hemodialysis tomorrow with Revaclear 400 dialyzer for 4 hours, QB/ QD 400/800, dialysate (Potassium 2, Bicarbonate 35, Calcium 2.5, Sodium 139), UF target 4 kg, heparin 1000 unit bolus, 500 unit/hour, off last 60 minutes. Status: Chronic Priority: Medium (2) Hyperkalemia Associated with end stage renal disease Resolved with hemodialysis Status: Resolved Priority: Medium (3) High anion gap metabolic acidosis Associated with end stage renal disease Resolved with hemodialysis Status: Resolved Priority: Medium (4) Hyponatremia Associated with end stage renal disease Improved with hemodialysis Status: Acute Priority: Medium (5) Other fluid overload Associated with end stage renal disease Improved with hemodialysis Status: Acute Priority: Medium
--- NOTE | 2017-12-03 10:42 | Internal Med Progress Note ---
Medical - PN: Subj Patient information: Note initiated : 12/03/17 at 10:36 am Service Date, if different from initiated Date: [] Patient: Phu Bryson a 72 y/o M admitted on 11/30/17 for Circulation Problems/Cellulitis, Sepsis. Chief Complaint: [] Interval history: Mr. Bryson is a 72 year old M with h/o DM, ESRD on HD, chr lower extremity wounds, severe Peripheral vascular disease, glaucoma, presents to the Er today after being advised to come her by the library circulation technician. The patient notes he had an appointment to see the wound care doctor today, but as he was getting in the chair, he was noted to be too weak and unable to do transfer,slipped down? he called his library circulation technician and was asked to come to the ER . The patient has henry lower extremity wounds, extensive sloughing, eschar, and poorly kepmt, he has nice in place with dark urine, this was placed recently, the patient also has poor vision secondary to glaucoma. the patient in the ER was afebrile, but HR was high at 140, He has elevated wbc c ount, elevated lactic acid, worsening creat (on HD), CXR neg for effusion, CT lower extremity shows henry severe cellulitis. Patient is being admitted to the hospital for severe sepsis, and atrial fibrillation with RVR In talking with the patient and patients library circulation technician, patient is unable to care for self at home, and will need to be placed at a SNF/ LTAC facility for aggresive care. Pt is agreeable for same 12/01 Pt seen examined, no acute overnight issues, pt still in afib with RVR, on amiodraone, bp soft, wbc trending up. the patient this AM clinically is unchanged. I reviewed plan of care with Dr Marshall who is planning on intervention on both lower extreities to help improve circulation. HD planned after intervention 12/02 Pt seen examined, no acute overnight issues, in afib with rvr still bp soft, on hd, digoxin will be removed via hd, will increase dose of amiodarone to 400mg daily and see how the patient does. HD to be done by nephrology today, s/p Intervention by Dr Marshall, on one leg (left? has catheter puncture on the right side) , planned intervention on the other side soon. Continue iv abx, Wound care following. 12/03 patient seen examined, no acute overnight issues, hr was high, IV digoxin given this AM responded well to treatment, will complete the IV digitilization repeat doses 250mcg x 2 6 hrs apart start on low dose digoxin 62.5mcg daily, will need to titrate per levels. Patient has no other acute symptoms, not sure when the other leg will be done infection seems to be stable, continue IV antibiotics for now Will touch base with Dr Marshall and see when he plans to perform the angioplasty. no hd today, plan for tomorrow. resume home eye drops. Pertinent ROS: Denies headache, dizziness Denies chest pain, palpitations Denies cough or shortness of breath Denies abdominal pain, nausea or vomiting. - Constitutional Vitals: Vital Signs Temp Pulse Resp BP Pulse Ox 99.1 F H 119 H 20 93/61 95 12/03/17 08:01 12/02/17 13:37 12/03/17 10:01 12/03/17 10:01 12/03/17 10:01 Period Temp Pulse Resp BP Sys/Goodwin Pulse Ox Last 24 Hr 98.2 F-99.3 F 100-119 11-29 78-144/50-81 86-96 Intake and Output 12/02/17 12/03/17 12/03/17 21:59 05:59 13:59 Intake Total 176 / 176 530 / 530 Output Total 0 / 0 Balance 176 / 176 530 / 530 Weight 209 lb 6.4 oz Intake & Output: Intake & Output 12/02/17 12/03/17 12/03/17 21:59 05:59 13:59 Intake Total 176 / 176 530 / 530 Output Total 0 / 0 Balance 176 / 176 530 / 530 Weight 209 lb 6.4 oz Intake: IV 56 / 56 50 / 50 Cordarone 300 mg In Dextrose 5% 56 / 56 in Water 50 ml @ 300 mls/hr IV ONCE ONE Rx#:[id number] Zosyn 2.25 gm In Dextrose 5% in 50 / 50 Water 50 ml @ 100 mls/hr IV Q12H [facility] Rx#:[id number] Oral 120 / 120 0 / 0 GI Tube Flush 480 / 480 Output: Urine Catheter Amount 0 / 0 Other: Meal icecream Fruit cup Percent of Meal Consumed 25% 100% Urine Appearance Uretheral (Nice) Cloudy Cloudy Sediment Sediment Urine Color Uretheral (Nice) Brown Brown Urine Odor Uretheral (Nice) Foul Foul Stool Size Smear Stool Color Brown Stool Consistency Soft Formed # Bowel Movements 1 # of times incontinent of 1 Bowels Exam: Constitutional; Afebrile, cooperative, alert, not in distress. Eyes- No icterus, , No periorbital swelling Ears- Ext ear normal, hearing normal to conversation. Neck- Midline trachea, supple Respiratory system: Air Entry equal on both sides, No crackles or wheezing, no rhonchi. CVS- Rate tachycardic, but improved rhythm irregular, S1,S2 heard, no gallop, no rub. Abdomen- Soft nontender abdomen, no organomegaly, no tenderness, no guarding or rigidity, STRIPPER MACHINE OPERATOR- AOOx3, moving all extremities, no gross focal deficit noted. henry lower extremity covered in dressing as per wound care consult. Medical - PN: Obj Da - Labs CBC & Chem 7: 12/03/17 03:40 12/03/17 03:40 Labs: Abnormal Lab Results 12/03/17 12/03/17 12/03/17 03:40 03:40 03:40 WBC 12.5 H RBC 2.89 L Hgb 9.2 L Hct 27.7 L RDW 15.9 H MPV Gran % 89.5 H Lymph % (Auto) 4.5 L Gran # 11.2 H Lymph # (Auto) 0.6 L Weakley # (Auto) PT 27.1 H INR 2.5 H VBG Lactic Acid Sodium 131 L Potassium Chloride 91 L Carbon Dioxide Anion Gap BUN 42 H Creatinine 4.8 H Glucose 166 H Hemoglobin A1c Calcium 8.4 L Phosphorus 5.9 H GGT Alkaline Phosphatase 168 H C-Reactive Protein Albumin 2.4 L Globulin 5.3 H Albumin/Globulin Ratio 0.5 L 12/02/17 12/02/17 12/02/17 03:35 03:35 03:35 WBC 13.5 H RBC 2.98 L Hgb 9.4 L Hct 28.7 L RDW 15.9 H MPV Gran % 89.1 H Lymph % (Auto) 4.3 L Gran # 12.0 H Lymph # (Auto) 0.6 L Weakley # (Auto) PT 61.6 H INR 7.0 H* VBG Lactic Acid Sodium 129 L Potassium 5.9 H* Chloride 88 L Carbon Dioxide 21 L Anion Gap 20.0 H BUN 76 H Creatinine 7.0 H* Glucose 271 H Hemoglobin A1c Calcium 8.2 L Phosphorus 8.2 H* GGT 63 H Alkaline Phosphatase 165 H C-Reactive Protein Albumin 2.4 L Globulin 5.0 H Albumin/Globulin Ratio 0.5 L 12/01/17 12/01/17 12/01/17 03:35 03:35 03:35 WBC 15.2 H RBC 3.02 L Hgb 9.7 L Hct 29.0 L RDW 16.0 H MPV Gran % 89.0 H Lymph % (Auto) 3.7 L Gran # 13.5 H Lymph # (Auto) 0.6 L Weakley # (Auto) 1.1 H PT 28.0 H INR 2.6 H VBG Lactic Acid Sodium Potassium Chloride 91 L Carbon Dioxide Anion Gap 17.0 H BUN 62 H Creatinine 5.9 H* Glucose 117 H Hemoglobin A1c Calcium Phosphorus 6.3 H* GGT 62 H Alkaline Phosphatase 156 H C-Reactive Protein Albumin 2.6 L Globulin 5.3 H Albumin/Globulin Ratio 0.5 L 11/30/17 11/30/17 11/30/17 12:53 11:55 11:55 WBC RBC Hgb Hct RDW MPV Gran % Lymph % (Auto) Gran # Lymph # (Auto) Weakley # (Auto) PT 25.7 H INR 2.3 H VBG Lactic Acid 3.2 H Sodium Potassium Chloride Carbon Dioxide Anion Gap BUN Creatinine Glucose Hemoglobin A1c 8.1 H Calcium Phosphorus GGT Alkaline Phosphatase C-Reactive Protein Albumin Globulin Albumin/Globulin Ratio 11/30/17 11/30/17 11/30/17 11:55 11:55 11:49 WBC 13.9 H RBC 3.17 L Hgb 10.1 L Hct 30.1 L RDW 16.2 H MPV 7.2 L Gran % 90.6 H Lymph % (Auto) 3.2 L Gran # 12.6 H Lymph # (Auto) 0.5 L Weakley # (Auto) PT INR VBG Lactic Acid Sodium 129 L Potassium Chloride 87 L Carbon Dioxide Anion Gap 18.0 H BUN 51 H Creatinine 5.1 H* Glucose 230 H Hemoglobin A1c Calcium Phosphorus GGT Alkaline Phosphatase 173 H C-Reactive Protein 33.2 H Albumin 3.0 L Globulin 5.4 H Albumin/Globulin Ratio 0.6 L Meds: Medications Acetaminophen (Tylenol) 650 mg PO Q4-6HP PRN PRN Reason: PAIN/FEVER > 101 Amiodarone HCl (Cordarone) 400 mg PO QDAY [facility] Last Admin: 12/03/17 09:10 Dose: 400 mg Ascorbic Acid (Vitamin C) 250 mg PO [facility] Last Admin: 12/02/17 21:39 Dose: 250 mg Atorvastatin Calcium (Lipitor) 10 mg PO HS [facility] Last Admin: 12/02/17 21:43 Dose: 10 mg Bumetanide (Bumex) 3 mg PO BIDD [facility] Last Admin: 12/03/17 09:06 Dose: 3 mg Calcium Acetate (Phoslo) 667 mg PO 5XD [facility] Last Admin: 12/03/17 09:07 Dose: 667 mg Clopidogrel Bisulfate (Plavix) 75 mg PO QDAY [facility] Last Admin: 12/03/17 09:07 Dose: 75 mg Dextrose (Dextrose 50%) 0 ml IV UD PRN PRN Reason: Hypoglycemia Diagnostic Test (Pha) (Accu-Chek) 1 each FS ACHS [facility] Last Admin: 12/03/17 08:20 Dose: 1 each Digoxin (Lanoxin) 250 mcg IV ONCE ONE Stop: 12/03/17 13:01 Digoxin (Lanoxin) 250 mcg IV ONCE ONE Stop: 12/03/17 20:01 Digoxin (Lanoxin) 62.5 mcg PO DAILY@1400 [facility] Docusate Sodium (Colace) 100 mg PO BID [facility] Last Admin: 12/03/17 09:07 Dose: 100 mg Gabapentin (Neurontin) 100 mg PO QHS [facility] Last Admin: 12/02/17 21:44 Dose: 100 mg Glucose (Insta-Glucose) 15 gm PO PRN PRN PRN Reason: Hypoglycemia Hydromorphone HCl (Dilaudid) 0.5 mg IV Q2HP PRN PRN Reason: PAIN LEVEL > 6 Last Admin: 12/02/17 19:04 Dose: 0.5 mg Piperacillin Sod/Tazobactam (Sod 2.25 gm/ Dextrose) 50 mls @ 100 mls/hr IV Q12H [facility] Last Admin: 12/03/17 09:07 Dose: 100 mls/hr Insulin Glargine (Lantus) 25 unit SQ [facility] Last Admin: 12/02/17 21:40 Dose: 25 unit Insulin Human Lispro (Humalog) 0 unit SQ ACHS [facility]; Protocol Last Admin: 12/03/17 08:32 Dose: Not Given Metoprolol Tartrate (Lopressor) 25 mg PO [facility] Last Admin: 12/02/17 21:39 Dose: 25 mg Naloxone HCl (Narcan) 0.1 mg IV Q2MIN PRN PRN Reason: Opiate Reversal Ondansetron HCl (Zofran) 4 mg IV Q4-6HP PRN PRN Reason: Nausea And Vomiting Oxycodone HCl (Roxicodone) 5 mg PO Q4HP PRN PRN Reason: PAIN LEVEL 3-6 Last Admin: 12/02/17 12:24 Dose: 5 mg Prednisolone Acetate (Pred Forte Ophth Drops) 1 gtt OS TID [facility] Senna/Docusate Sodium (Senna Plus Tablet) 2 tab PO [facility] Last Admin: 12/02/17 21:41 Dose: Not Given Sodium Chloride (Saline Flush) 10 ml IV Q8 [facility] Last Admin: 12/03/17 08:19 Dose: 10 ml Tamsulosin HCl (Flomax) 0.4 mg PO [facility] Last Admin: 12/02/17 21:41 Dose: 0.4 mg Vancomycin HCl (Vancomycin Per Pharmacy) 1 order IV [facility] Vitamin D (Vitamin D3) 5,000 unit PO DAILY [facility] Last Admin: 12/03/17 09:07 Dose: 5,000 unit Warfarin Sodium (Coumadin Per Pharmacy) 1 order PO [facility] Medical - PN: A/P - Time Spent With Patient Total time spent is greater than 50% in coordination of care (as documented) at patient's floor/unit and/or counseling patient: - Narrative A/P Narrative: A/P Severe Cellulitis Severe sepsis Atrial fibrillation with RVR Congestive heart failure, Systolic Diastolic heart failure, grade 3 End stage renal disease on HD/ Hyperphosphatemia, hyponatremia, hyperkalemia Urinary retention Glaucoma Severe peripheral vascular disease Hypertension Diabetes mellitus Coronary artery disease, s/p stent placement elevated INR Plan pt much stable now, xfer to tele status. , continue IV vanco and zosyn for cellulitis, superficial culture are polymicrobial not sure how reliable they are Wound care consult appreciated, continue dressing change per their recommendation. Will follow cultures, blood and superficial, CT does not show any abscess, but severe cellulitis noted. nephrology consult for HD,plan for tomorrow Dr Marshall did one leg will touch base and see when he plans the other leg. continue plavix started on digoxin with good response for afib with rvr, monitor levels. continue nice for now, consider d/c catheter for a voiding trial once more stable. resume home opthal dose. DVT on Coumadin with therapeutic INR, vit k orally given yesterday for supratherapeutic INR, level much better today. FUll code Carb consistent, cardiac, renal diet. Medical - PN: Qual - VTE Deep Vein Thrombosis/Pulmonary Embolism Present on Admission: No
[2017-12-03] MEDS: HYDROmorphone 2 MG/ML VIAL IV PRN (11:13)
[2017-12-03] MEDS ORDERED: DEXTROSE 50% 50 ML VIAL IV PRN (11:43)
[2017-12-03] MEDS ORDERED: ONDANSETRON 4 MG/2 ML VIAL IV PRN (11:43)
[2017-12-03] MEDS ORDERED: VANCOMYCIN PER PHARMACY IV SCH (11:43)
[2017-12-03] MEDS ORDERED: DEXTROSE 31 GM ORAL.SUSP PO PRN (11:43)
[2017-12-03] MEDS ORDERED: NALOXONE HCL 0.4 MG/ML VIAL IV PRN (11:43)
[2017-12-03] MEDS ORDERED: ACETAMINOPHEN 325 MG TABLET PO PRN (11:43)
[2017-12-03] MEDS ORDERED: WARFARIN 7.5 MG TABLET PO ONE (14:00)
[2017-12-03] MEDS ORDERED: prednisoLONE 1% OPHTH DROPS 1ML BOTTLE OS SCH ×2 (15:00)
[2017-12-03] MEDS: prednisoLONE 1% OPHTH DROPS 1ML BOTTLE OS SCH ×2 (15:14→21:15)
[2017-12-03] MEDS: INSULIN GLARGINE, HUMAN 1 UNIT/0.01 ML SQ SCH (21:13)
[2017-12-03] MEDS: TAMSULOSIN 0.4 MG CAPSULE PO SCH (21:16)
[2017-12-03] MEDS: ATORVASTATIN 20 MG TABLET PO SCH (21:16)
[2017-12-03] MEDS: SENNOSIDES/DOCUSATE SODIUM 1 TAB TABLET PO SCH (21:17)
[2017-12-03] MEDS: ASCORBIC ACID 500 MG TABLET PO SCH (21:17)
[2017-12-03] MEDS: GABAPENTIN 100 MG CAPSULE PO SCH (21:18)
[2017-12-03] MEDS: METOPROLOL TARTRATE 25 MG TABLET PO SCH (21:18)
[2017-12-04] MEDS: HYDROmorphone 2 MG/ML VIAL IV PRN ×3 (02:05→21:28)
[2017-12-04 05:18] LABS: Basophils # (Auto) 0 K/mcL (0.0-0.3); Basophils % (Auto) 0 % (0.0-2.0); Eosinophils # (Auto) 0.1 K/mcL (0.0-0.7); Eosinophils % (Auto) 0.7 % (0.0-7.0); Granulocytes % (Auto) 87.4 % (38.0-78.0); Lymphocytes # (Auto) 0.5 K/mcL (1.5-4.8); Lymphocytes % (Auto) 4.5 % (15.5-49.0); Mean Cell Volume 96.5 fL (80.0-100.0); Mean Corpuscular Hemoglobin 31.8 pg (26.0-34.0); Monocytes # (Auto) 0.9 K/mcL (0.1-0.9); Monocytes % (Auto) 7.4 % (1.0-12.0); Platelet Count 172 K/mcL (140-440); RBC 2.89 M/mcL (4.50-5.90); Red Cell Distribution Width 16.2 % (11.5-14.5)
[2017-12-04 05:19] LABS: ALT/SGPT 19 U/l (0-40); Albumin 1.7 gm/dL (3.2-5.2); Albumin/Globulin Ratio 0.3 (1.0-2.3); Alkaline Phosphatase 154 U/L (39-117); Bilirubin,Direct 0.2 mg/dL (0.0-0.3); Blood Urea Nitrogen 63 mg/dl (8-23); Gamma Glutamyl Transpeptidase 55 U/L (8-61); Uric Acid 6.5 mg/dL (2.5-8.0)
[2017-12-04] MEDS: 0.9 % SODIUM CHLORIDE 10 ML SYRINGE IV SCH ×5 (05:44→20:33)
[2017-12-04] MEDS: BUMETANIDE 1 MG TABLET PO SCH ×2 (07:10→16:36)
[2017-12-04] MEDS: CALCIUM ACETATE 667 MG CAPSULE PO SCH ×5 (07:11→20:32)
[2017-12-04] MEDS: oxyCODONE HCL 5 MG TABLET PO PRN ×3 (07:22→20:44)
[2017-12-04] MEDS: INSULIN LISPRO 1 UNIT/0.01 ML UNIT SQ SCH ×4 (08:40→20:31)
[2017-12-04] MEDS: DOCUSATE SODIUM 100 MG CAPSULE PO SCH ×2 (08:44→21:26)
[2017-12-04] MEDS: prednisoLONE 1% OPHTH DROPS 1ML BOTTLE OS SCH ×3 (08:45→20:32)
--- NOTE | 2017-12-04 09:10 | Nephrology Progress Note ---
Subjective Patient information: Note initiated : 12/04/17 at 9:08 am Phu Bryson is a 72-year-old male with end-stage renal disease on chronic hemodialysis (through left arm AV fistula, at [facility], on MWF, followed by Dr. Urbina ), secondary hyperparathyroidism of renal origin, chronic anemia due to kidney disease, coronary artery disease s/p stents, chronic systolic heart failure due to ischemic cardiomyopathy (Echo on 10/16/15: LVEF 30-35%), chronic atrial fibrillation on Coumadin anticoagulation, hypertension, hyperlipidemia, diabetes mellitus type 2, chronic bilateral extremity edema and wounds, admitted on 11/30/17. Chief Complaint: Weakness Principal diagnosis: End-stage renal disease on chronic hemodialysis Interval history: Atrial fibrillation with rapid ventricular response and hypotension Lower extremity angioplasty at [facility] on 12/01/17 Hemodialysis on 12/02/17 Pertinent ROS: Lower extremity wounds Edema Weakness Objective - Vital Signs Vital signs: Vital Signs Temp Resp BP Pulse Ox 12/04/17 07:18 98.7 F 20 109/52 93 12/04/17 04:02 98.6 F 18 105/59 95 12/04/17 00:40 97.7 F 16 100/50 94 12/03/17 20:01 98.9 F 20 113/58 90 12/03/17 19:15 90 12/03/17 16:01 19 113/58 12/03/17 13:28 97.1 F 25 H 102/55 90 12/03/17 12:01 97.7 F 20 95/39 93 12/03/17 11:04 25 H 12/03/17 10:01 20 93/61 95 Intake and Output 12/03/17 12/04/17 12/04/17 21:59 05:59 13:59 Intake Total 330 / 330 290 / 290 Output Total 50 / 50 Balance 330 / 330 240 / 240 Intake: IV 50 / 50 Zosyn 2.25 gm In Dextrose 5% in 50 / 50 Water 50 ml @ 100 mls/hr IV Q12H [facility] Rx#:[id number] Oral 280 / 280 290 / 290 Output: Urine Catheter Amount 50 / 50 Other: Meal Dinner Percent of Meal Consumed 30 Feeding Ability Total Assistance Urine Appearance Cloudy Sediment Uretheral (Singh) Cloudy Sediment Urine Color Dark Christie Uretheral (Singh) Brown Stool Size Moderate Large Large Stool Color Brown Brown Brown Stool Consistency Loose Loose Liquid # Bowel Movements 1 # of times incontinent of 1 1 1 Bowels Weight 206 lb 6.4 oz Intake & Output: Intake & Output 12/03/17 12/04/17 12/04/17 21:59 05:59 13:59 Intake Total 330 / 330 290 / 290 Output Total 50 / 50 Balance 330 / 330 240 / 240 Weight 206 lb 6.4 oz Intake: IV 50 / 50 Zosyn 2.25 gm In Dextrose 5% in 50 / 50 Water 50 ml @ 100 mls/hr IV Q12H [facility] Rx#:[id number] Oral 280 / 280 290 / 290 Output: Urine Catheter Amount 50 / 50 Other: Meal Dinner Percent of Meal Consumed 30 Feeding Ability Total Assistance Urine Appearance Cloudy Sediment Uretheral (Singh) Cloudy Sediment Urine Color Dark Christie Uretheral (Singh) Brown Stool Size Moderate Large Large Stool Color Brown Brown Brown Stool Consistency Loose Loose Liquid # Bowel Movements 1 # of times incontinent of 1 1 1 Bowels - General Appearance General appearance: chronically ill, fatigue EENT: mucous membranes moist Neck: supple Respiratory: clear Cardiology: edema Gastrointestinal: no tenderness Integumentary: ulcer, erythema Neurologic: no focal deficit, alert and oriented x3 Musculoskeletal: no cyanosis Psychiatric: mood/affect appropriate, cooperative - Lab 12/04/17 03:40 12/04/17 03:40 Most recent lab results Calcium 8.4 mg/dl (8.6-10.4) L 12/04/17 03:40 Phosphorus 5.8 mg/dL (2.7-4.5) H 12/04/17 03:40 Magnesium 2.3 mg/dL (1.6-2.5) 12/04/17 03:40 Assessment and Plan (1) End stage renal disease Phu Bryson is a 72-year-old male with end-stage renal disease on chronic hemodialysis (through left arm AV fistula, at [facility], on MWF, followed by Dr. Urbina ), secondary hyperparathyroidism of renal origin. Progress: Atrial fibrillation with rapid ventricular response and hypotension IV contrast procedure at [facility] on 12/01/17 Hemodialysis on 12/02/17 with Revaclear 400 dialyzer for 4 hours Plan: Next hemodialysis today with Revaclear 400 dialyzer for 4 hours, QB/QD 400/800, dialysate (Potassium 3, Bicarbonate 35, Calcium 2.5, Sodium 139), UF target 2-3 kg, heparin 1000 unit bolus, 500 unit/hour, off last 60 minutes. The patient seen and evaluated during hemodialysis at 10:50. Status: Chronic Priority: Medium (2) Hyponatremia Associated with end stage renal disease Hemodialysis today Status: Acute Priority: Medium (3) Other fluid overload Associated with end stage renal disease Hemodialysis today Status: Resolved Priority: Medium
[2017-12-04] MEDS: AMIODARONE HCL 200 MG TABLET PO SCH (13:48)
[2017-12-04] MEDS: CLOPIDOGREL 75 MG TABLET PO SCH (13:48)
[2017-12-04] MEDS ORDERED: WARFARIN 4 MG TABLET PO ONE (14:00)
[2017-12-04] MEDS ORDERED: DIGOXIN 125 MCG TABLET PO SCH ×2 (14:00)
[2017-12-04] MEDS: VITAMIN D3 5,000 UNIT CAPSULE PO SCH (14:00)
[2017-12-04] MEDS: PIPERACILLIN SODIUM/TAZOBACTAM 2.25 GM in DEXTROSE 5% IN WATER 50 ML IV SCH ×2 (14:25→20:32)
--- NOTE | 2017-12-04 15:00 | Internal Med Progress Note ---
Medical - PN: Subj Patient information: Note initiated : 12/04/17 at 2:58 pm Service Date, if different from initiated Date: [] Patient: Phu Bryson 72 y/o M admitted on 11/30/17 for Circulation Problems/Cellulitis, Sepsis. Chief Complaint: [] Interval history: 72-year-old male with end-stage renal disease on chronic hemodialysis (through left arm AV fistula, at [facility], on MWF, followed by Dr. Urbina), secondary hyperparathyroidism of renal origin, chronic anemia due to kidney disease, coronary artery disease s/p stents, chronic systolic heart failure due to ischemic cardiomyopathy (Echo on 10/16/15: LVEF 30-35%), chronic atrial fibrillation on Coumadin anticoagulation, hypertension, hyperlipidemia, diabetes mellitus type 2, chronic bilateral extremity edema and wounds, admitted on 11/30/17. Additional PMFSH (Level 3 Only): Atrial fibrillation with rapid ventricular response and hypotension Lower extremity angioplasty at [facility] on 12/01/17 Ischemic cardiomyopathy ESRD, on Hemodialysis - Constitutional Vitals: Vital Signs Temp Pulse Resp BP Pulse Ox 96.7 F L 74 20 122/66 99 12/04/17 13:34 12/04/17 13:34 12/04/17 11:23 12/04/17 13:34 12/04/17 11:23 Period Temp Pulse Resp BP Sys/Goodwin Pulse Ox Last 24 Hr 96.3 F-98.9 F 66-94 16-20 95-122/47-70 90-99 Intake and Output 12/04/17 12/04/17 12/04/17 05:59 13:59 21:59 Intake Total 290 / 290 Output Total 50 / 50 3000 / 3000 Balance 240 / 240 -3000 / -3000 Intake & Output: Intake & Output 12/04/17 12/04/17 12/04/17 05:59 13:59 21:59 Intake Total 290 / 290 Output Total 50 / 50 3000 / 3000 Balance 240 / 240 -3000 / -3000 Intake: Oral 290 / 290 Output: Urine Catheter Amount 50 / 50 Hemodialysis UF 3000 / 3000 Other: Meal Breakfast Percent of Meal Consumed npo Urine Appearance Cloudy Sediment Uretheral (Nice) Cloudy Urine Color Dark Christie Uretheral (Nice) Tea Colored Stool Size Large Large Small Stool Color Brown Brown Brown Stool Consistency Loose Liquid Soft # of times incontinent of 1 1 Bowels Exam: General appearance: chronically ill, fatigued EENT: mucous membranes moist Neck: supple Respiratory: clear Cardiology: edema Gastrointestinal: no tenderness Integumentary: ulcer, erythema Neurologic: no focal deficit, alert and oriented x3 Musculoskeletal: no cyanosis Psychiatric: mood/affect appropriate, cooperative Medical - PN: Obj Da - Labs CBC & Chem 7: 12/04/17 03:40 12/04/17 03:40 Labs: Abnormal Lab Results 12/04/17 12/04/17 12/04/17 03:40 03:40 03:40 WBC RBC Hgb Hct RDW Gran % Lymph % (Auto) Gran # Lymph # (Auto) PT 22.1 H INR 1.9 H Sodium 132 L Potassium Chloride 90 L Carbon Dioxide Anion Gap 18.0 H BUN 63 H Creatinine 6.4 H* Glucose 222 H Calcium 8.4 L Phosphorus 5.8 H GGT AST 38 H Alkaline Phosphatase 154 H Albumin 1.7 L Globulin 5.2 H Albumin/Globulin Ratio 0.3 L Digoxin 2.2 H* 12/04/17 12/03/17 12/03/17 03:40 03:40 03:40 WBC 11.8 H RBC 2.89 L Hgb 9.2 L Hct 27.9 L RDW 16.2 H Gran % 87.4 H Lymph % (Auto) 4.5 L Gran # 10.3 H Lymph # (Auto) 0.5 L PT 27.1 H INR 2.5 H Sodium 131 L Potassium Chloride 91 L Carbon Dioxide Anion Gap BUN 42 H Creatinine 4.8 H Glucose 166 H Calcium 8.4 L Phosphorus 5.9 H GGT AST Alkaline Phosphatase 168 H Albumin 2.4 L Globulin 5.3 H Albumin/Globulin Ratio 0.5 L Digoxin 12/03/17 12/02/17 12/02/17 03:40 03:35 03:35 WBC 12.5 H RBC 2.89 L Hgb 9.2 L Hct 27.7 L RDW 15.9 H Gran % 89.5 H Lymph % (Auto) 4.5 L Gran # 11.2 H Lymph # (Auto) 0.6 L PT 61.6 H INR 7.0 H* Sodium 129 L Potassium 5.9 H* Chloride 88 L Carbon Dioxide 21 L Anion Gap 20.0 H BUN 76 H Creatinine 7.0 H* Glucose 271 H Calcium 8.2 L Phosphorus 8.2 H* GGT 63 H AST Alkaline Phosphatase 165 H Albumin 2.4 L Globulin 5.0 H Albumin/Globulin Ratio 0.5 L Digoxin 12/02/17 03:35 WBC 13.5 H RBC 2.98 L Hgb 9.4 L Hct 28.7 L RDW 15.9 H Gran % 89.1 H Lymph % (Auto) 4.3 L Gran # 12.0 H Lymph # (Auto) 0.6 L PT INR Sodium Potassium Chloride Carbon Dioxide Anion Gap BUN Creatinine Glucose Calcium Phosphorus GGT AST Alkaline Phosphatase Albumin Globulin Albumin/Globulin Ratio Digoxin Meds: Medications Acetaminophen (Tylenol) 650 mg PO Q4-6HP PRN PRN Reason: PAIN/FEVER > 101 Amiodarone HCl (Cordarone) 400 mg PO QDAY [facility] Last Admin: 12/04/17 13:48 Dose: 400 mg Ascorbic Acid (Vitamin C) 250 mg PO [facility] Last Admin: 12/03/17 21:17 Dose: 250 mg Atorvastatin Calcium (Lipitor) 10 mg PO [facility] Last Admin: 12/03/17 21:16 Dose: 10 mg Bumetanide (Bumex) 3 mg PO BIDD [facility] Last Admin: 12/04/17 07:10 Dose: 3 mg Calcium Acetate (Phoslo) 667 mg PO 5XD [facility] Last Admin: 12/04/17 14:53 Dose: Not Given Clopidogrel Bisulfate (Plavix) 75 mg PO QDAY [facility] Last Admin: 12/04/17 13:48 Dose: 75 mg Dextrose (Dextrose 50%) 0 ml IV UD PRN PRN Reason: Hypoglycemia Diagnostic Test (Pha) (Accu-Chek) 1 each FS ACHS [facility] Last Admin: 12/04/17 12:15 Dose: 1 each Docusate Sodium (Colace) 100 mg PO BID [facility] Last Admin: 12/04/17 08:44 Dose: Not Given Gabapentin (Neurontin) 100 mg PO QHS [facility] Last Admin: 12/03/17 21:18 Dose: 100 mg Glucose (Insta-Glucose) 15 gm PO PRN PRN PRN Reason: Hypoglycemia Hydromorphone HCl (Dilaudid) 0.5 mg IV Q2HP PRN PRN Reason: PAIN LEVEL > 6 Last Admin: 12/04/17 10:28 Dose: 0.5 mg Piperacillin Sod/Tazobactam (Sod 2.25 gm/ Dextrose) 50 mls @ 100 mls/hr IV Q12H [facility] Last Infusion: 12/03/17 21:45 Dose: Infused Insulin Glargine (Lantus) 25 unit SQ [facility] Last Admin: 12/03/17 21:13 Dose: 25 unit Insulin Human Lispro (Humalog) 0 unit SQ [facility]; Protocol Last Admin: 12/04/17 12:29 Dose: Not Given Metoprolol Tartrate (Lopressor) 25 mg PO [facility] Last Admin: 12/03/17 21:18 Dose: 25 mg Naloxone HCl (Narcan) 0.1 mg IV Q2MIN PRN PRN Reason: Opiate Reversal Ondansetron HCl (Zofran) 4 mg IV Q4-6HP PRN PRN Reason: Nausea And Vomiting Oxycodone HCl (Roxicodone) 5 mg PO Q4HP PRN PRN Reason: PAIN LEVEL 3-6 Last Admin: 12/04/17 13:48 Dose: 5 mg Prednisolone Acetate (Pred Forte Ophth Drops) 1 gtt OS TID [facility] Last Admin: 12/04/17 08:45 Dose: 1 gtt Senna/Docusate Sodium (Senna Plus Tablet) 2 tab PO [facility] Last Admin: 12/03/17 21:17 Dose: Not Given Sodium Chloride (Saline Flush) 10 ml IV Q8 [facility] Last Admin: 12/04/17 10:29 Dose: 10 ml Tamsulosin HCl (Flomax) 0.4 mg PO [facility] Last Admin: 12/03/17 21:16 Dose: 0.4 mg Vancomycin HCl (Vancomycin Per Pharmacy) 1 order IV [facility] Vitamin D (Vitamin D3) 5,000 unit PO DAILY [facility] Warfarin Sodium (Coumadin Per Pharmacy) 1 order PO [facility] Medical - PN: A/P - Time Spent With Patient Total time spent is greater than 50% in coordination of care (as documented) at patient's floor/unit and/or counseling patient: Greater than 35 minutes - Narrative A/P Narrative: Severe Cellulitis Severe sepsis Atrial fibrillation with RVR Congestive heart failure, Systolic Diastolic heart failure, grade 3 End stage renal disease on HD/ Hyperphosphatemia, hyponatremia, hyperkalemia Urinary retention Glaucoma Severe peripheral vascular disease Hypertension Diabetes mellitus Coronary artery disease, s/p stent placement elevated INR Plan continue IV vanco and zosyn for cellulitis, superficial culture are polymicrobial not sure how reliable they are Wound care consult appreciated, continue dressing change per their recommendation. Will follow cultures, blood and superficial, CT does not show any abscess, but severe cellulitis noted. nephrology managing HD Dr Marshall did one leg will touch base and see when he plans the other leg. continue plavix started on digoxin with good response for afib with rvr, but level high this AM. Will hold dose and monitor levels. continue nice for now, consider d/c catheter for a voiding trial once more stable. cont home opthal dose. DVT on Coumadin with therapeutic INR, vit k orally given for supratherapeutic INR. Full code Carb consistent, cardiac, renal diet. Medical - PN: Qual - VTE Deep Vein Thrombosis/Pulmonary Embolism Present on Admission: No
[2017-12-04 15:33] LABS: Vancomycin,Random 10.4 ug/mL
[2017-12-04] MEDS ORDERED: VANCOMYCIN 1,500 MG in 0.9 % SODIUM CHLORIDE 500 ML IV ONE (16:00)
[2017-12-04] MEDS: INSULIN GLARGINE, HUMAN 1 UNIT/0.01 ML SQ SCH (20:31)
[2017-12-04] MEDS: ASCORBIC ACID 500 MG TABLET PO SCH (20:32)
[2017-12-04] MEDS: GABAPENTIN 100 MG CAPSULE PO SCH (20:32)
[2017-12-04] MEDS: METOPROLOL TARTRATE 25 MG TABLET PO SCH (20:32)
[2017-12-04] MEDS: ATORVASTATIN 20 MG TABLET PO SCH (20:33)
[2017-12-04] MEDS: SENNOSIDES/DOCUSATE SODIUM 1 TAB TABLET PO SCH (21:26)
[2017-12-04] MEDS: TAMSULOSIN 0.4 MG CAPSULE PO SCH (21:27)
[2017-12-05 05:25] LABS: Basophils # (Auto) 0 K/mcL (0.0-0.3); Basophils % (Auto) 0 % (0.0-2.0); Eosinophils # (Auto) 0.1 K/mcL (0.0-0.7); Eosinophils % (Auto) 0.8 % (0.0-7.0); Granulocytes % (Auto) 87.1 % (38.0-78.0); Lymphocytes # (Auto) 0.5 K/mcL (1.5-4.8); Lymphocytes % (Auto) 4.5 % (15.5-49.0); Mean Cell Volume 96.6 fL (80.0-100.0); Mean Corpuscular Hemoglobin 31.9 pg (26.0-34.0); Monocytes # (Auto) 0.9 K/mcL (0.1-0.9); Monocytes % (Auto) 7.6 % (1.0-12.0); Platelet Count 180 K/mcL (140-440); RBC 3.13 M/mcL (4.50-5.90)
[2017-12-05] MEDS: 0.9 % SODIUM CHLORIDE 10 ML SYRINGE IV SCH ×3 (05:44→20:43)
[2017-12-05 05:53] LABS: ALT/SGPT 22 U/l (0-40); Albumin 1.8 gm/dL (3.2-5.2); Albumin/Globulin Ratio 0.3 (1.0-2.3); Alkaline Phosphatase 189 U/L (39-117); Bilirubin,Direct 0.2 mg/dL (0.0-0.3); Blood Urea Nitrogen 32 mg/dl (8-23); Gamma Glutamyl Transpeptidase 55 U/L (8-61); Uric Acid 3.7 mg/dL (2.5-8.0)
--- NOTE | 2017-12-05 08:25 | Nephrology Progress Note ---
Subjective Patient information: Note initiated : 12/05/17 at 8:22 am Phu Bryson is a 72-year-old male with end-stage renal disease on chronic hemodialysis (through left arm AV fistula, at [facility], on MWF, followed by Dr. Urbina ), secondary hyperparathyroidism of renal origin, chronic anemia due to kidney disease, coronary artery disease s/p stents, chronic systolic heart failure due to ischemic cardiomyopathy (Echo on 10/16/15: LVEF 30-35%), chronic atrial fibrillation on Coumadin anticoagulation, hypertension, hyperlipidemia, diabetes mellitus type 2, chronic bilateral extremity edema and wounds, admitted on 11/30/17. Chief Complaint: Weakness Principal diagnosis: End-stage renal disease on chronic hemodialysis Interval history: Lower extremity angioplasty at [facility] on 12/01/17 Pertinent ROS: Lower extremity wounds Edema Weakness Objective - Vital Signs Vital signs: Vital Signs Temp Pulse Pulse Resp BP BP Pulse Ox 12/05/17 04:05 97.6 F 16 106/55 90 12/05/17 01:32 88 12/05/17 00:03 97.3 F 16 103/55 94 12/04/17 20:14 98.1 F 16 116/62 93 12/04/17 18:32 92 H 93 12/04/17 15:23 96.9 F L 18 101/59 95 12/04/17 15:17 101/59 12/04/17 13:34 96.7 F L 74 122/66 12/04/17 12:55 86 119/70 12/04/17 12:32 78 101/66 12/04/17 11:55 80 99/57 12/04/17 11:41 82 114/62 12/04/17 11:23 96.3 F L 20 114/62 99 12/04/17 11:08 66 114/62 12/04/17 10:46 72 95/47 12/04/17 10:24 80 105/47 12/04/17 10:11 72 106/47 12/04/17 09:30 97.6 F 94 H 111/51 Intake and Output 12/04/17 12/05/17 12/05/17 21:59 05:59 13:59 Intake Total 780 / 780 240 / 240 Output Total 50 / 50 Balance 730 / 730 240 / 240 Intake: IV 600 / 600 Zosyn 2.25 gm In Dextrose 5% in 100 / 100 Water 50 ml @ 100 mls/hr IV Q12H [facility] Rx#:[id number] Oral 180 / 180 240 / 240 Output: Urine Catheter Amount 50 / 50 Other: Meal Nourishment/Supplement Percent of Meal Consumed 5 bites Feeding Ability Total Assistance Urine Appearance Uretheral (Singh) Cloudy Urine Color Uretheral (Singh) Tea Colored Urine Odor Strong Stool Size Small Stool Color Brown Stool Consistency Soft Weight 203 lb Intake & Output: Intake & Output 12/04/17 12/05/17 12/05/17 21:59 05:59 13:59 Intake Total 780 / 780 240 / 240 Output Total 50 / 50 Balance 730 / 730 240 / 240 Weight 203 lb Intake: IV 600 / 600 Zosyn 2.25 gm In Dextrose 5% in 100 / 100 Water 50 ml @ 100 mls/hr IV Q12H [facility] Rx#:[id number] Oral 180 / 180 240 / 240 Output: Urine Catheter Amount 50 / 50 Other: Meal Nourishment/Supplement Percent of Meal Consumed 5 bites Feeding Ability Total Assistance Urine Appearance Uretheral (Singh) Cloudy Urine Color Uretheral (Singh) Tea Colored Urine Odor Strong Stool Size Small Stool Color Brown Stool Consistency Soft - Lab 12/05/17 03:45 12/05/17 03:45 Most recent lab results Calcium 8.3 mg/dl (8.6-10.4) L 12/05/17 03:45 Phosphorus 4.6 mg/dL (2.7-4.5) H 12/05/17 03:45 Magnesium 2.2 mg/dL (1.6-2.5) 12/05/17 03:45 Assessment and Plan (1) End stage renal disease Phu Bryson is a 72-year-old male with end-stage renal disease on chronic hemodialysis (through left arm AV fistula, at [facility], on MWF, followed by Dr. Urbina ), secondary hyperparathyroidism of renal origin. Progress: Atrial fibrillation with rapid ventricular response and hypotension IV contrast procedure at [facility] on 12/01/17 Hemodialysis on 12/02/17 and 12/04/17 Plan: Next hemodialysis tomorrow with Revaclear 400 dialyzer for 4 hours, QB/ QD 400/800, dialysate (Potassium 3, Bicarbonate 35, Calcium 2.5, Sodium 139), UF target 2-3 kg, heparin 1000 unit bolus, 500 unit/hour, off last 60 minutes. Status: Chronic Priority: Medium (2) Hyponatremia Associated with end stage renal disease Improved with hemodialysis Status: Chronic Priority: Medium
[2017-12-05] MEDS: CALCIUM ACETATE 667 MG CAPSULE PO SCH ×5 (09:25→20:43)
[2017-12-05] MEDS: INSULIN LISPRO 1 UNIT/0.01 ML UNIT SQ SCH ×4 (09:25→20:44)
[2017-12-05] MEDS: BUMETANIDE 1 MG TABLET PO SCH ×2 (09:25→17:13)
[2017-12-05] MEDS: oxyCODONE HCL 5 MG TABLET PO PRN ×3 (09:26→22:17)
[2017-12-05] MEDS: VITAMIN D3 5,000 UNIT CAPSULE PO SCH (09:26)
[2017-12-05] MEDS: AMIODARONE HCL 200 MG TABLET PO SCH (09:26)
[2017-12-05] MEDS: PIPERACILLIN SODIUM/TAZOBACTAM 2.25 GM in DEXTROSE 5% IN WATER 50 ML IV SCH ×2 (09:27→20:43)
[2017-12-05] MEDS: CLOPIDOGREL 75 MG TABLET PO SCH (09:28)
[2017-12-05] MEDS: prednisoLONE 1% OPHTH DROPS 1ML BOTTLE OS SCH ×3 (09:28→20:45)
[2017-12-05] MEDS: DOCUSATE SODIUM 100 MG CAPSULE PO SCH ×2 (09:28→20:38)
--- NOTE | 2017-12-05 10:51 | General Surgery Progress Note ---
Subjective Narrative: Note initiated : 12/05/17 at 10:47 am Service Date, if different from initiated Date: [] Patient: Phu Bryson 72 y/o M admitted on 11/30/17 for Circulation Problems/Cellulitis, Sepsis. Chief Complaint: [] Patient seen with Maria Dolores CAMPO and wounds examined. Objective Temp Pulse Resp BP Pulse Ox 96.9 F L 88 20 109/63 100 12/05/17 09:32 12/05/17 01:32 12/05/17 09:32 12/05/17 09:32 12/05/17 09:32 - Additional Data Intake & Output - Last 24 hours: Intake & Output 12/03/17 12/04/17 12/05/17 12/06/17 05:59 05:59 05:59 05:59 Intake Total 1006 / 1006 1130 / 1130 1020 / 1020 120 / 120 Output Total 2850 / 2850 50 / 50 3050 / 3050 Balance -1844 / -1844 1080 / 1080 -2030 / -2030 120 / 120 Weight 209 lb 6.4 oz 206 lb 6.4 oz 203 lb 12/05/17 10:48 Looks better. On regular HD treatment. AVSS. No changes KOSTAS. L/E: No edema of extremities. NO cellulitis and NO blisters Physical Therapy and Range of motion exercises when in bed wee discussed and demonstrated for patient. Skin wounds of lower extremities and legs are dry and demarcating well, but still densely adherent to sub cutaneous base. - Labs 12/05/17 03:45 12/05/17 03:45 Diabetes panel 12/05/17 Range/Units 03:45 Sodium 131 L (133-145) mmol/L Potassium 4.6 (3.3-5.1) mmol/L Chloride 93 L (96-108) mmol/L Carbon Dioxide 25 (22-30) mmol/L BUN 32 H (8-23) mg/dl Creatinine 3.9 H (0.7-1.2) mg/dl Glucose 221 H (70-105) mg/dL Calcium 8.3 L (8.6-10.4) mg/dl AST 35 (0-37) U/l ALT 22 (0-40) U/l Alkaline Phosphatase 189 H (39-117) U/L Total Protein 7.3 (5.9-8.4) gm/dL Albumin 1.8 L (3.2-5.2) gm/dL Triglycerides 112 (<150) mg/dl Calcium panel 12/05/17 Range/Units 03:45 Calcium 8.3 L (8.6-10.4) mg/dl Phosphorus 4.6 H (2.7-4.5) mg/dL Albumin 1.8 L (3.2-5.2) gm/dL Pituitary panel 12/05/17 Range/Units 03:45 Sodium 131 L (133-145) mmol/L Potassium 4.6 (3.3-5.1) mmol/L Chloride 93 L (96-108) mmol/L Carbon Dioxide 25 (22-30) mmol/L BUN 32 H (8-23) mg/dl Creatinine 3.9 H (0.7-1.2) mg/dl Glucose 221 H (70-105) mg/dL Calcium 8.3 L (8.6-10.4) mg/dl Adrenal panel 12/05/17 Range/Units 03:45 Sodium 131 L (133-145) mmol/L Potassium 4.6 (3.3-5.1) mmol/L Chloride 93 L (96-108) mmol/L Carbon Dioxide 25 (22-30) mmol/L BUN 32 H (8-23) mg/dl Creatinine 3.9 H (0.7-1.2) mg/dl Glucose 221 H (70-105) mg/dL Calcium 8.3 L (8.6-10.4) mg/dl Total Bilirubin 0.5 (0.0-1.0) mg/dL AST 35 (0-37) U/l ALT 22 (0-40) U/l Alkaline Phosphatase 189 H (39-117) U/L Total Protein 7.3 (5.9-8.4) gm/dL Albumin 1.8 L (3.2-5.2) gm/dL Assessment and Plan (1) Venous stasis dermatitis of both lower extremities Problem details: Cause related to ongoing wound care management as entered and orders. Status: Chronic Current Visit: No (2) Pressure ulcer of lower extremity Problem details: Bilateral legs lateral upper and mid third . Chronic with patchy adipose tissue exposed. CHRONIC and colonized. Wound cultures. Contaminated wounds ?? MRSA Status: Chronic Current Visit: No - Time Spent With Patient Total time spent is greater than 50% in coordination of care (as documented) at patient's floor/unit and/or counseling patient: Assessment: Satisfactory progress from wound care point of view. Plan: Continue ongoing care and management. 15 - 24 minutes
[2017-12-05] MEDS ORDERED: WARFARIN 4 MG TABLET PO ONE (14:00)
--- NOTE | 2017-12-05 20:25 | Internal Med Progress Note ---
Medical - PN: Subj Patient information: Note initiated : 12/05/17 at 8:22 pm Service Date, if different from initiated Date: [] Patient: Phu Bryson 72 y/o M admitted on 11/30/17 for Circulation Problems/Cellulitis, Sepsis. Chief Complaint: [] Interval history: 72-year-old male with end-stage renal disease on chronic hemodialysis (through left arm AV fistula, at [facility], on MWF, followed by Dr. Urbina), secondary hyperparathyroidism of renal origin, chronic anemia due to kidney disease, coronary artery disease s/p stents, chronic systolic heart failure due to ischemic cardiomyopathy (Echo on 10/16/15: LVEF 30-35%), chronic atrial fibrillation on Coumadin anticoagulation, hypertension, hyperlipidemia, diabetes mellitus type 2, chronic bilateral extremity edema and wounds, admitted on 11/30/17. No acute events o/n. VS stable. HD yesterday. No new complaints. Dig level high, but pt asymptomatic. Additional PMFSH (Level 3 Only): Atrial fibrillation with rapid ventricular response and hypotension DM-2 Congestive heart failure, Systolic Diastolic heart failure, grade 3 ESRD, on Hemodialysis Lower extremity angioplasty at [facility] on 12/01/17 Ischemic cardiomyopathy - Constitutional Vitals: Vital Signs Temp Pulse Resp BP Pulse Ox 97.6 F 88 20 141/64 96 12/05/17 16:00 12/05/17 01:32 12/05/17 16:00 12/05/17 16:00 12/05/17 16:00 Period Temp Pulse Resp BP Sys/Goodwin Pulse Ox Last 24 Hr 96.7 F-97.6 F 88 16-20 103-141/55-71 90-100 Intake and Output 12/05/17 12/05/17 12/05/17 05:59 13:59 21:59 Intake Total 240 / 240 170 / 170 400 / 400 Balance 240 / 240 170 / 170 400 / 400 Intake & Output: Intake & Output 12/05/17 12/05/17 12/05/17 05:59 13:59 21:59 Intake Total 240 / 240 170 / 170 400 / 400 Balance 240 / 240 170 / 170 400 / 400 Intake: IV 50 / 50 Zosyn 2.25 gm In Dextrose 5% in 50 / 50 Water 50 ml @ 100 mls/hr IV Q12H [facility] Rx#:[id number] Oral 240 / 240 120 / 120 400 / 400 Other: Meal Breakfast Lunch Percent of Meal Consumed 100% 75% Feeding Ability Independent Urine Color Uretheral (Nice) Dark Christie Stool Size Moderate Stool Color Brown Stool Consistency Soft Exam: General: awake, alert, chronically ill-appearing HEENT: mucous membranes moist Neck: supple, trachea midline, no JVD Respiratory: clear Cardiology: edema Gastrointestinal: no tenderness Integumentary: ulcer, erythema Neurologic: no focal deficit, alert and oriented x3 Musculoskeletal: no cyanosis Psychiatric: mood/affect appropriate, cooperative Medical - PN: Obj Da - Labs CBC & Chem 7: 12/05/17 03:45 12/05/17 03:45 Labs: Abnormal Lab Results 12/05/17 12/05/17 12/05/17 08:50 03:45 03:45 WBC RBC Hgb Hct RDW Gran % Lymph % (Auto) Gran # Lymph # (Auto) PT 27.9 H INR 2.6 H Sodium 131 L Chloride 93 L Anion Gap BUN 32 H Creatinine 3.9 H Glucose 221 H Calcium 8.3 L Phosphorus 4.6 H AST Alkaline Phosphatase 189 H Albumin 1.8 L Globulin 5.5 H Albumin/Globulin Ratio 0.3 L Digoxin 2.2 H* 12/05/17 12/04/17 12/04/17 03:45 03:40 03:40 WBC 11.4 H RBC 3.13 L Hgb 10.0 L Hct 30.2 L RDW 16.0 H Gran % 87.1 H Lymph % (Auto) 4.5 L Gran # 9.9 H Lymph # (Auto) 0.5 L PT INR Sodium 132 L Chloride 90 L Anion Gap 18.0 H BUN 63 H Creatinine 6.4 H* Glucose 222 H Calcium 8.4 L Phosphorus 5.8 H AST 38 H Alkaline Phosphatase 154 H Albumin 1.7 L Globulin 5.2 H Albumin/Globulin Ratio 0.3 L Digoxin 2.2 H* 12/04/17 12/04/17 12/03/17 03:40 03:40 03:40 WBC 11.8 H RBC 2.89 L Hgb 9.2 L Hct 27.9 L RDW 16.2 H Gran % 87.4 H Lymph % (Auto) 4.5 L Gran # 10.3 H Lymph # (Auto) 0.5 L PT 22.1 H INR 1.9 H Sodium 131 L Chloride 91 L Anion Gap BUN 42 H Creatinine 4.8 H Glucose 166 H Calcium 8.4 L Phosphorus 5.9 H AST Alkaline Phosphatase 168 H Albumin 2.4 L Globulin 5.3 H Albumin/Globulin Ratio 0.5 L Digoxin 12/03/17 12/03/17 03:40 03:40 WBC 12.5 H RBC 2.89 L Hgb 9.2 L Hct 27.7 L RDW 15.9 H Gran % 89.5 H Lymph % (Auto) 4.5 L Gran # 11.2 H Lymph # (Auto) 0.6 L PT 27.1 H INR 2.5 H Sodium Chloride Anion Gap BUN Creatinine Glucose Calcium Phosphorus AST Alkaline Phosphatase Albumin Globulin Albumin/Globulin Ratio Digoxin Meds: Medications Acetaminophen (Tylenol) 650 mg PO Q4-6HP PRN PRN Reason: PAIN/FEVER > 101 Amiodarone HCl (Cordarone) 400 mg PO QDAY [facility] Last Admin: 12/05/17 09:26 Dose: 400 mg Ascorbic Acid (Vitamin C) 250 mg PO [facility] Last Admin: 12/04/17 20:32 Dose: 250 mg Atorvastatin Calcium (Lipitor) 10 mg PO [facility] Last Admin: 12/04/17 20:33 Dose: 10 mg Bumetanide (Bumex) 3 mg PO BIDD [facility] Last Admin: 12/05/17 17:13 Dose: 3 mg Calcium Acetate (Phoslo) 667 mg PO 5XD [facility] Last Admin: 12/05/17 17:13 Dose: 667 mg Clopidogrel Bisulfate (Plavix) 75 mg PO QDAY [facility] Last Admin: 12/05/17 09:28 Dose: 75 mg Dextrose (Dextrose 50%) 0 ml IV UD PRN PRN Reason: Hypoglycemia Diagnostic Test (Pha) (Accu-Chek) 1 each FS ACHS [facility] Last Admin: 12/05/17 17:32 Dose: 1 each Docusate Sodium (Colace) 100 mg PO BID [facility] Last Admin: 12/05/17 09:28 Dose: Not Given Gabapentin (Neurontin) 100 mg PO QHS [facility] Last Admin: 12/04/17 20:32 Dose: 100 mg Glucose (Insta-Glucose) 15 gm PO PRN PRN PRN Reason: Hypoglycemia Hydromorphone HCl (Dilaudid) 0.5 mg IV Q2HP PRN PRN Reason: PAIN LEVEL > 6 Last Admin: 12/04/17 21:28 Dose: 0.5 mg Piperacillin Sod/Tazobactam (Sod 2.25 gm/ Dextrose) 50 mls @ 100 mls/hr IV Q12H [facility] Last Infusion: 12/05/17 10:30 Dose: Infused Insulin Glargine (Lantus) 25 unit SQ [facility] Last Admin: 12/04/17 20:31 Dose: 25 unit Insulin Human Lispro (Humalog) [address] [facility]; Protocol Last Admin: 12/05/17 17:32 Dose: Not Given Metoprolol Tartrate (Lopressor) 25 mg PO [facility] Last Admin: 12/04/17 20:32 Dose: 25 mg Naloxone HCl (Narcan) 0.1 mg IV Q2MIN PRN PRN Reason: Opiate Reversal Ondansetron HCl (Zofran) 4 mg IV Q4-6HP PRN PRN Reason: Nausea And Vomiting Oxycodone HCl (Roxicodone) 5 mg PO Q4HP PRN PRN Reason: PAIN LEVEL 3-6 Last Admin: 12/05/17 17:14 Dose: 5 mg Prednisolone Acetate (Pred Forte Ophth Drops) 1 gtt OS TID [facility] Last Admin: 12/05/17 17:31 Dose: 1 gtt Senna/Docusate Sodium (Senna Plus Tablet) 2 tab PO [facility] Last Admin: 12/04/17 21:26 Dose: Not Given Sodium Chloride (Saline Flush) 10 ml IV Q8 [facility] Last Admin: 12/05/17 15:21 Dose: 10 ml Tamsulosin HCl (Flomax) 0.4 mg PO [facility] Last Admin: 12/04/17 21:27 Dose: 0.4 mg Vancomycin HCl (Vancomycin Per Pharmacy) 1 order IV [facility] Vitamin D (Vitamin D3) 5,000 unit PO DAILY [facility] Last Admin: 12/05/17 09:26 Dose: 5,000 unit Warfarin Sodium (Coumadin Per Pharmacy) 1 order PO [facility] Medical - PN: A/P - Time Spent With Patient Total time spent is greater than 50% in coordination of care (as documented) at patient's floor/unit and/or counseling patient: Greater than 35 minutes - Narrative A/P Narrative: Severe Cellulitis Severe sepsis Atrial fibrillation with RVR Congestive heart failure, Systolic Diastolic heart failure, grade 3 End stage renal disease on HD/ Hyperphosphatemia, hyponatremia, hyperkalemia Urinary retention Glaucoma Severe peripheral vascular disease Hypertension Diabetes mellitus Coronary artery disease, s/p stent placement elevated INR Plan continue IV vanco and zosyn for cellulitis, superficial culture are polymicrobial not sure how reliable they are Wound care consult appreciated, continue dressing change per their recommendation. Will follow cultures, blood and superficial, CT does not show any abscess, but severe cellulitis noted. nephrology managing HD Dr. Marshall recently performed angioplasty on one leg. Will touch base and see when he plans the other leg. Continue plavix started on digoxin with good response for afib with rvr, but level high this AM. Will hold dose and monitor levels. continue nice for now, consider d/c catheter for a voiding trial once more stable. cont home opthal dose. Dig level remains high after attempt to digitalize on Wednesday. However, patient does not have any symptoms. Will monitor. If symptoms develop, will use Digibind. DVT on Coumadin with therapeutic INR, vit k orally given for supratherapeutic INR. Full code Carb consistent, cardiac, renal diet. Medical - PN: Qual - VTE Deep Vein Thrombosis/Pulmonary Embolism Present on Admission: No
[2017-12-05] MEDS: SENNOSIDES/DOCUSATE SODIUM 1 TAB TABLET PO SCH (20:38)
[2017-12-05] MEDS: ATORVASTATIN 20 MG TABLET PO SCH (20:43)
[2017-12-05] MEDS: ASCORBIC ACID 500 MG TABLET PO SCH (20:43)
[2017-12-05] MEDS: TAMSULOSIN 0.4 MG CAPSULE PO SCH (20:43)
[2017-12-05] MEDS: INSULIN GLARGINE, HUMAN 1 UNIT/0.01 ML SQ SCH (20:44)
[2017-12-05] MEDS: GABAPENTIN 100 MG CAPSULE PO SCH (20:45)
[2017-12-05] MEDS: METOPROLOL TARTRATE 25 MG TABLET PO SCH (20:45)
[2017-12-06] MEDS: 0.9 % SODIUM CHLORIDE 10 ML SYRINGE IV SCH (05:38)
[2017-12-06 06:36] LABS: Basophils # (Auto) 0 K/mcL (0.0-0.3); Basophils % (Auto) 0 % (0.0-2.0); Eosinophils # (Auto) 0.1 K/mcL (0.0-0.7); Eosinophils % (Auto) 0.9 % (0.0-7.0); Granulocytes % (Auto) 86.9 % (38.0-78.0); Lymphocytes # (Auto) 0.6 K/mcL (1.5-4.8); Mean Cell Volume 96.3 fL (80.0-100.0); Mean Corpuscular HGB Conc 32.9 g/dL (31.0-36.0); Mean Corpuscular Hemoglobin 31.7 pg (26.0-34.0); Monocytes # (Auto) 0.9 K/mcL (0.1-0.9); Monocytes % (Auto) 7.2 % (1.0-12.0); Platelet Count 176 K/mcL (140-440); RBC 3.22 M/mcL (4.50-5.90); Red Cell Distribution Width 16.6 % (11.5-14.5)
--- NOTE | 2017-12-06 06:49 | Nephrology Progress Note ---
Subjective Patient information: Note initiated : 12/06/17 at 6:47 am Phu Bryson is a 72-year-old male with end-stage renal disease on chronic hemodialysis (through left arm AV fistula, at [facility], on MWF, followed by Dr. Urbina ), secondary hyperparathyroidism of renal origin, chronic anemia due to kidney disease, coronary artery disease s/p stents, chronic systolic heart failure due to ischemic cardiomyopathy (Echo on 10/16/15: LVEF 30-35%), chronic atrial fibrillation on Coumadin anticoagulation, hypertension, hyperlipidemia, diabetes mellitus type 2, chronic bilateral extremity edema and wounds, admitted on 11/30/17. Chief Complaint: Weakness Principal diagnosis: End-stage renal disease on chronic hemodialysis Interval history: Lower extremity angioplasty at [facility] on 12/01/17 Pertinent ROS: Lower extremity wounds Edema Weakness Objective - Vital Signs Vital signs: Vital Signs Temp Pulse Resp BP BP Pulse Ox 12/06/17 03:50 99.2 F H 20 114/55 98 12/05/17 23:50 98.8 F 20 104/61 97 12/05/17 20:00 98.8 F 82 18 113/56 98 12/05/17 16:00 97.6 F 20 141/64 96 12/05/17 11:59 96.7 F L 16 133/71 100 12/05/17 11:58 133/71 12/05/17 09:32 96.9 F L 20 109/63 100 Intake and Output 12/05/17 12/06/17 12/06/17 21:59 05:59 13:59 Intake Total 400 / 400 300 / 300 Balance 400 / 400 300 / 300 Intake: Oral 400 / 400 300 / 300 Other: Meal Lunch Nourishment/Supplement Percent of Meal Consumed 75% 25% Feeding Ability Total Assistance Urine Appearance Uretheral (Signh) Cloudy Urine Color Uretheral (Singh) Brown Stool Size Smear # Bowel Movements 1 Weight 201 lb 0.5 oz Intake & Output: Intake & Output 12/05/17 12/06/17 12/06/17 21:59 05:59 13:59 Intake Total 400 / 400 300 / 300 Balance 400 / 400 300 / 300 Weight 201 lb 0.5 oz Intake: Oral 400 / 400 300 / 300 Other: Meal Lunch Nourishment/Supplement Percent of Meal Consumed 75% 25% Feeding Ability Total Assistance Urine Appearance Uretheral (Singh) Cloudy Urine Color Uretheral (Singh) Brown Stool Size Smear # Bowel Movements 1 - General Appearance General appearance: chronically ill, frail EENT: mucous membranes moist Respiratory: clear Cardiology: no edema Gastrointestinal: no tenderness Integumentary: ulcer Neurologic: no focal deficit, alert and oriented x3 Musculoskeletal: no deformities Psychiatric: mood/affect appropriate, cooperative - Lab 12/06/17 03:30 12/06/17 03:30 Most recent lab results Calcium 8.3 mg/dl (8.6-10.4) L 12/05/17 03:45 Phosphorus 4.6 mg/dL (2.7-4.5) H 12/05/17 03:45 Magnesium 2.2 mg/dL (1.6-2.5) 12/05/17 03:45 Assessment and Plan (1) End stage renal disease Phu Bryson is a 72-year-old male with end-stage renal disease on chronic hemodialysis (through left arm AV fistula, at [facility], on MWF, followed by Dr. Urbina ), secondary hyperparathyroidism of renal origin. Progress: Atrial fibrillation with rapid ventricular response and hypotension IV contrast procedure at [facility] on 12/01/17 Hemodialysis on 12/02/17 and 12/04/17 Plan: Hemodialysis today and continue on MWF with Revaclear 400 dialyzer for 4 hours, QB/QD 400/800, dialysate (Potassium 3, Bicarbonate 35, Calcium 2.5, Sodium 139), UF target 2-3 kg, heparin 1000 unit bolus, 500 unit/hour, off last 60 minutes. The patient seen and evaluated during hemodialysis at 10:30. Status: Chronic Priority: Medium (2) Hyponatremia Associated with end stage renal disease Improved with hemodialysis Status: Chronic Priority: Medium
[2017-12-06 06:59] LABS: ALT/SGPT 22 U/l (0-40); Albumin/Globulin Ratio 0.4 (1.0-2.3); Alkaline Phosphatase 201 U/L (39-117); Bilirubin,Direct < 0.2 mg/dL (0.0-0.3); Blood Urea Nitrogen 49 mg/dl (8-23); Gamma Glutamyl Transpeptidase 63 U/L (8-61); Uric Acid 5.4 mg/dL (2.5-8.0)
[2017-12-06] MEDS: INSULIN LISPRO 1 UNIT/0.01 ML UNIT SQ SCH (08:52)
--- NOTE | 2017-12-06 12:02 | Discharge Summary ---
Medical - DS: Prov Patient information: Note initiated : 12/06/17 at 11:53 am Service Date, if different from initiated Date: [] Patient: Phu Bryson 72 y/o M admitted on 11/30/17 for Circulation Problems/Cellulitis, Sepsis. Chief Complaint: [] Date of admission: 11/30/17 16:10 Discharge date: 12/06/17 Primary care physician: Eugenia Lilly Consults: 11/30/17 14:21 Consult to Physician [CONS] Stat Comment: Consulting Provider: Martin Jaqeuz Reason For Exam: Physician to Consult 11/30/17 14:51 Consult to Physician [CONS] Stat Comment: Consulting Provider: Bob Madrigal Reason For Exam: Physician to Consult Medical - DS: Meds - Discharge Medications Prescriptions: Piperacillin Sodium/Tazobactam [Zosyn] 2.25 gm IV Q12H #20 vial Active and Home Medications: Home Medications amiodarone 200 mg tablet 200 mg PO QDAY tab 10/04/14 [History Confirmed Last Taken 04/09/16] oxycodone 5 mg tablet 5 mg PO Q4HP PRN tab 10/04/14 [History Confirmed Last Taken 04/10/16 03:00] tamsulosin 0.4 mg capsule 0.4 mg PO HS cap 10/04/14 [History Confirmed Last Taken Unknown] ascorbic acid (vitamin C) 250 mg tablet 250 mg PO QHS 04/21/16 [History Confirmed 11/30/17 Last Taken Unknown] clopidogrel 75 mg tablet 75 mg PO QDAY 04/21/16 [History Confirmed 11/30/17 Last Taken Unknown] pravastatin 40 mg tablet 40 mg PO QHS 04/21/16 [History Confirmed 11/30/17 Last Taken Unknown] Vitamin D3 5,000 units PO DAILY 06/11/16 [History Confirmed 11/30/17 Last Taken Unknown] Accu-Chek 1 each FS ACHS strip 06/22/16 [Rx Confirmed 11/30/17 Last Taken Unknown] Docusate Sodium [Colace] 100 mg PO BID cap 06/22/16 [Rx Confirmed 11/30/17 Last Taken Unknown] Sennosides/Docusate Sodium [Senna Plus Tablet] 2 tab PO HS tab 06/22/16 [Rx Confirmed 11/30/17 Last Taken Unknown] gabapentin 100 mg capsule 100 mg PO QHS #30 cap 02/22/17 [Rx Confirmed 11/30/17 Last Taken Unknown] calcium acetate 667 mg capsule 667 mg PO 5XD 30 Days #150 cap 11/18/17 [History Confirmed 11/30/17 Last Taken Unknown] metoprolol tartrate 25 mg tablet 25 mg PO HS tab 11/18/17 [History Confirmed Last Taken Unknown] Benzonatate 200 mg PO TID 11/30/17 [History Confirmed 11/30/17 Last Taken Unknown] Bumetanide [Bumex] 3 mg PO BIDD 11/30/17 [History Confirmed 11/30/17 Last Taken Unknown] Insulin Aspart [Novolog Flexpen] 40 unit SQ ACHS 11/30/17 [History Confirmed Last Taken Unknown] Insulin Glargine,Hum.rec.anlog [Basaglar Kwikpen U-100] 25 unit SUB-Q QHS [History Confirmed 11/30/17 Last Taken Unknown] prednisoLONE 1% OPHTH DROPS [Pred Forte Ophth Drops] 1 gtt OS TID 12/02/17 [ History Confirmed 12/02/17 Last Taken Unknown] Warfarin Sodium [Jantoven] 8 mg PO SUMOTUTHFRSA 12/03/17 [History Confirmed Last Taken Unknown] Warfarin [Coumadin] 12 mg PO WE 12/03/17 [History Confirmed 12/03/17 Last Taken Unknown] Medical - DS: Hosp Hospital course: Mr. Bryson is a 72 year old M with end-stage renal disease on chronic hemodialysis (through left arm AV fistula, at [facility], on MWF, followed by Dr. Urbina ), secondary hyperparathyroidism of renal origin, chronic anemia due to kidney disease, coronary artery disease s/p stents, chronic systolic heart failure due to ischemic cardiomyopathy (Echo on 10/16/15: LVEF 30-35%), chronic atrial fibrillation on Coumadin anticoagulation, hypertension, hyperlipidemia, diabetes mellitus type 2, chronic bilateral extremity edema and wounds, admitted on 11/30/17. He was found to have Atrial fibrillation with rapid ventricular response and hypotension, and elevated INR. AFib w/ RVR was controlled in ICU, and sepsis was treated. He was given IV Abx (Vanco + Zosyn). Wound care team assisted with the management of wounds. Coumadin was held and INR has come down. He received HD while inpatient. He is being DC'd today to SNF w/ plan to continue Zosyn and Vancomycin for 10 more days at the SNF. Zosyn will be 2.25g q12 hr. Vanco will be on HD days after HD, dose to be adjusted to achieve target Vanco level of 10-15. Will need to check Vanco level at SNF. Discharge diagnosis: Sepsis, AFib w/ RVR, LE cellulitis/wound infection - Time Spent with Patient Total time spent providing and/or coordinating discharge services: Greater than 30 minutes Medical - DS: Exam - Constitutional Vitals: Vital Signs Temp Pulse Resp BP BP Pulse Ox 12/06/17 11:04 76 115/60 12/06/17 11:03 74 111/61 12/06/17 11:00 111/61 12/06/17 10:30 74 120/56 12/06/17 10:01 79 127/64 12/06/17 10:00 127/64 12/06/17 09:36 75 114/58 12/06/17 09:09 58 L 117/58 12/06/17 09:00 117/58 12/06/17 07:43 98.6 F 14 119/58 94 12/06/17 07:42 98.6 F 14 119/58 92 12/06/17 07:41 119/58 12/06/17 07:40 98.6 F 12/06/17 03:50 99.2 F H 20 114/55 98 12/05/17 23:50 98.8 F 20 104/61 97 12/05/17 20:00 98.8 F 82 18 113/56 98 12/05/17 16:00 97.6 F 20 141/64 96 12/05/17 11:59 96.7 F L 16 133/71 100 12/05/17 11:58 133/71 Intake and Output 12/05/17 12/06/17 12/06/17 21:59 05:59 13:59 Intake Total 450 / 450 300 / 300 240 / 240 Balance 450 / 450 300 / 300 240 / 240 Intake: IV 50 / 50 Zosyn 2.25 gm In Dextrose 5% in 50 / 50 Water 50 ml @ 100 mls/hr IV Q12H [facility] Rx#:[id number] Oral 400 / 400 300 / 300 240 / 240 Other: Meal Lunch Nourishment/Supplement Nourishment/Supplement Percent of Meal Consumed 75% 25% 100% Feeding Ability Total Assistance Urine Appearance Uretheral (Singh) Cloudy Urine Color Uretheral (Singh) Brown Dark Christie Stool Size Smear # Bowel Movements 1 1 Weight 201 lb 0.5 oz Additional comments: General appearance: chronically ill, frail EENT: mucous membranes moist Respiratory: clear Cardiology: no edema Gastrointestinal: no tenderness Integumentary: ulcer Neurologic: no focal deficit, alert and oriented x3 Musculoskeletal: no deformities Psychiatric: mood/affect appropriate, cooperative Medical - DS: Data Labs on day of discharge: Labs from last 24 hours 12/06/17 12/06/17 12/06/17 03:30 03:30 03:30 WBC 12.0 H RBC 3.22 L Hgb 10.2 L Hct 31.0 L MCV 96.3 MCH 31.7 MCHC 32.9 RDW 16.6 H Plt Count 176 MPV 8.1 Gran % 86.9 H Lymph % (Auto) 5.0 L Haines % (Auto) 7.2 Eos % (Auto) 0.9 Baso % (Auto) 0 Gran # 10.4 H Lymph # (Auto) 0.6 L Haines # (Auto) 0.9 Eos # (Auto) 0.1 Baso # (Auto) 0 PT 39.9 H INR 4.0 H Sodium 131 L Potassium 4.6 Chloride 90 L Carbon Dioxide 27 Anion Gap 14.0 BUN 49 H Creatinine 5.2 H* GFR Calculation 10 Glucose 219 H Uric Acid 5.4 Calcium 8.4 L Phosphorus 4.1 Magnesium 2.4 Total Bilirubin 0.4 Direct Bilirubin < 0.2 GGT 63 H AST 29 ALT 22 Alkaline Phosphatase 201 H Lactate Dehydrogenase 156 Total Protein 7.5 Albumin 2.0 L Globulin 5.5 H Albumin/Globulin Ratio 0.4 L Triglycerides 86 Digoxin Digoxin Dose Digox Last Dose Time 12/05/17 21:00 WBC RBC Hgb Hct MCV MCH MCHC RDW Plt Count MPV Gran % Lymph % (Auto) Haines % (Auto) Eos % (Auto) Baso % (Auto) Gran # Lymph # (Auto) Haines # (Auto) Eos # (Auto) Baso # (Auto) PT INR Sodium Potassium Chloride Carbon Dioxide Anion Gap BUN Creatinine GFR Calculation Glucose Uric Acid Calcium Phosphorus Magnesium Total Bilirubin Direct Bilirubin GGT AST ALT Alkaline Phosphatase Lactate Dehydrogenase Total Protein Albumin Globulin Albumin/Globulin Ratio Triglycerides Digoxin 1.8 Digoxin Dose Not Reportable Digox Last Dose Time Not Reportable Preliminary micro results at discharge 11/30/17 12:35 Wound Culture - Preliminary Leg - Right Providencia rettgeri Enterobacter cloacae Stenotrophomonas maltophilia Gram negative bacillus Yeast Aspergillus species 11/30/17 12:37 Wound Culture - Preliminary Leg - Left Providencia rettgeri Enterobacter cloacae Stenotrophomonas maltophilia Yeast Gram negative bacillus Medical - DS: A/P - Patient/Caregiver Discharge Instructions Activity: as per physical therapy Diet: Renal/Consistent Carbs - Follow up Plan Follow up with: Eugenia Lilly ARNP [Primary Care Provider] - Disposition: Xfer SNF Prognosis: Fair Rehab Potential: Fair I certify that the patient requires SNF services: Yes Overall status at discharge: patient is progressing back to baseline Medical - DS: Qual - VTE Deep Vein Thrombosis/Pulmonary Embolism Present on Admission: No
[2017-12-06] MEDS: BUMETANIDE 1 MG TABLET PO SCH (12:55)
[2017-12-06] MEDS: CALCIUM ACETATE 667 MG CAPSULE PO SCH (12:55)
[2017-12-06] MEDS: prednisoLONE 1% OPHTH DROPS 1ML BOTTLE OS SCH (12:56)
[2017-12-06] MEDS: CLOPIDOGREL 75 MG TABLET PO SCH (12:56)
[2017-12-06] MEDS: DOCUSATE SODIUM 100 MG CAPSULE PO SCH (12:56)
[2017-12-06] MEDS: AMIODARONE HCL 200 MG TABLET PO SCH (12:56)
[2017-12-06] MEDS: VITAMIN D3 5,000 UNIT CAPSULE PO SCH (12:57)
[2017-12-06] MEDS: PIPERACILLIN SODIUM/TAZOBACTAM 2.25 GM in DEXTROSE 5% IN WATER 50 ML IV SCH (12:57)
[2017-12-06] MEDS: oxyCODONE HCL 5 MG TABLET PO PRN (13:34)
[2017-12-06] MEDS: HYDROmorphone 2 MG/ML VIAL IV PRN (13:34)
== END 2017-12-06 13:52 | DRG 871 ==
LOC: ED 11:36 → ICU 16:14
PROVIDERS: ADMIT Internal Medicine; ATTEND Internal Medicine Nephrology